=== PATIENT | female | born 1935 | race Caucasian/White ===

== ENCOUNTER 2020-12-27 13:26 | Inpatient (IN) ==
[2020-12-27] MEDS ORDERED: SODIUM CHLORIDE 0.9% 1000ML 1,000 ML IV SCH (14:45)
--- NOTE | 2020-12-27 15:05 | CT Scan Report ---
CT head/brain wo con CLINICAL HISTORY: syncope COMPARISON STUDY: 07/28/2015 TECHNIQUE: Axial CT of the brain is performed from the vertex to the skull base. IV contrast was not administered for this examination. A dose lowering technique was utilized adhering to the principles of ALARA. CT DOSE: 537.48 mGy.cm FINDINGS: No intra or extra-axial mass lesions are visualized. There is no CT evidence of acute cortical infarc tion. There is no evidence of midline shift. There is no acute hemorrhage. No calvarial fractures ar e visualized. There are patchy white matter hypodensities likely on a small vessel basis. There is no evidence of pathologic ventricular dilatation. There is no evidence of acute sinusitis IMPRESSION: No acute intracranial findings ACT 112: Negative or not required by law. Electronically signed by: Sherwin Delvalle M.D. 12/27/2020 3:04 PM
--- NOTE | 2020-12-27 15:05 | Emergency Department Note ---
History of Present Illness General Chief complaint: Fall Stated complaint: FALL,POSSIBLY HIT HEAD,POSSIBLE CONCUSSION Time Seen by Provider: 12/27/20 14:25 Source: patient and family Mode of arrival: ambulatory Limitations: no limitations History of Present Illness Maximum Pain Intensity: 0 This 85-year-old female presents today with her daughter, for evaluation of dizziness that has been present for 3 days. Patient reportedly fell 4 days ago, after tripping over her 's oxygen tubing. She struck her left forehead against a plastic bin. She states there was no loss of consciousness. She denies any headache. No nausea or vomiting. She states there is no neck pain. No chest pain or shortness of breath. Her daughter brings her in today for evaluation. Patient denies any history of heart disease or heart issues. She is a diabetic. No other complaints. She denies any history of arrhythmias. She is certain that the fall 4 days ago was mechanical in nature, and was not caused by dizziness at that time. No treatment yet. Home Medications Medication Instructions Recorded Confirmed Type Januvia 100 mg PO DAILY 12/27/20 12/27/20 History alendronate 70 mg PO WK 12/27/20 12/27/20 History aspirin 81 mg PO DAILY 12/27/20 12/27/20 History atorvastatin 10 mg PO DAILY 12/27/20 12/27/20 History cyanocobalamin (vitamin B-12) 1,000 mcg PO DAILY 12/27/20 12/27/20 History [Vitamin B-12] cyclobenzaprine 5 mg PO TID PRN 12/27/20 12/27/20 History ergocalciferol (vitamin D2) 1,250 mcg PO MONTHLY 12/27/20 12/27/20 History [Vitamin D2] fluticasone propionate 2 spray INTRANASAL DAILY PRN 12/27/20 12/27/20 History furosemide 20 mg PO DAILY 12/27/20 12/27/20 History glimepiride 1 mg PO DAILY 12/27/20 12/27/20 History metformin 1,000 mg PO BID 12/27/20 12/27/20 History omeprazole 40 mg PO DAILY 12/27/20 12/27/20 History paroxetine HCl [Paxil] 20 mg PO DAILY 12/27/20 12/27/20 History pregabalin 100 mg PO BID 12/27/20 12/27/20 History apixaban [Eliquis] 5 mg PO BID #180 tab 12/30/20 Rx cephalexin 500 mg PO QID 3 Days #12 cap 12/30/20 Rx lisinopril [Zestril] 5 mg PO QAM 30 Days #30 tab 12/30/20 Rx metoprolol succinate 25 mg PO QAM 30 Days #30 tab 12/30/20 Rx potassium chloride [Klor-Con M20] 20 meq PO DAILY #30 tab 12/30/20 Rx Allergies Allergy/AdvReac Type Severity Reaction Status Date / Time erythromycin base Allergy Unknown UNKNOWN Unverified 12/27/20 17:22 Past Med/Surg History Medical History Depression Diabetes mellitus, type II GERD (gastroesophageal reflux disease) History of DVT (deep vein thrombosis) 20 years ago Surgical History H/O hernia repair History of cholecystectomy Hx of cataract surgery S/P hernia repair Family History Other Cancer Heart disease Social History Smoking Status: Never smoker Hx Alcohol Use: No Hx Substance Use: No Preferred Language: [place] Citizen Communication Ability: Effective Visual Impairment: No Limitations Insurance Follow Up Representative Required: No Beliefs That Will Affect Care: None Current Living Situation: Alone current occupational status: retired Feels Safe at Home: Yes Assistive Devices: Glasses Review of Systems A total of 10 systems reviewed and were otherwise negative Physical Exam Vital Signs Vital Signs - 24 hr 12/27/20 13:36 12/27/20 14:59 Temperature 36.5 C Temperature Source Temporal Artery Scan Pulse Rate 104 H Respiratory Rate 20 Respiratory Effort / Characteristics Non-Labored Spontaneous Respiratory Depth Normal Respiratory Pattern Regular Blood Pressure 117/76 Blood Pressure Mean 89 Blood Pressure Position Sitting Pulse Oximetry 97 98 Oxygen Delivery Method Room Air Room Air Sepsis Recent Fever Within 48 Hours No Sepsis New/Unexplained Change in Mental Status N/A Sepsis Action Taken by Nursing No Action Required General: Well-developed, well-nourished, elderly white female, in no acute distress. Laying on a bed. Alert and oriented. Conversive. Skin: Warm and dry with good turgor. No rashes or lesions. No ecchymosis or erythema. The patient is not diaphoretic. She has a small linear abrasion present on her right forehead. Patient states it is nontender. HEENT: Normocephalic. Eyes PERRLA, EOMI. No conjunctiva or scleral injection. Ears TMs intact bilaterally with good light reflexes. No erythema or bulging. No hemotympanum. Nares patent bilaterally without turbinate enlargement. No sig nificant drainage. No epistaxis. Oropharynx without erythema or exudate. Uvula midline, oral mucosa moist. No lesions present. Heart: Irregularly irregular. No murmurs, gallops, or rubs. Lungs: Lungs are clear to auscultation. No crackles rhonchi or wheezing. Good air movement. The patient is able to take a deep breath. Abdomen: Abdomen was inspected, auscultated, and palpated. Bowel sounds present x 4. Mildly obese. Soft, nontender to palpation. No hepato-splenomegaly. No masses noted. No rebound. Musculoskeletal: Gross motor function of the upper and lower extremities is intact and unremarkable. Normal [id number] bilaterally. Normal pronator drift. Normal rapid opening and closing of the fingers. Strength is 5/5 for resisted plantarflexion and dorsiflexion of both ankles. It is also 5/5 for resisted flexion and extension of both wrists. Neurologic: Cranial nerves II through XII are intact. Gross sensation is intact across the upper and lower extremities by soft touch. Course Administered Medications Discontinued Medications Apixaban (Apixaban 5 Mg Tablet) 5 mg PO BID [facility] Stop: 01/27/21 10:29 Last Admin: 12/30/20 08:12 Dose: 5 mg Documented by: [id number] Admin: 12/29/20 20:53 Dose: 5 mg Documented by: [id number] Admin: 12/29/20 08:26 Dose: 5 mg Documented by: [id number] Admin: 12/28/20 20:51 Dose: 5 mg Documented by: [id number] Admin: 12/28/20 11:25 Dose: 5 mg Documented by: [id number] Aspirin (Aspirin 81 Mg Chew) 81 mg PO DAILY [facility] Stop: 01/27/21 08:59 Last Admin: 12/28/20 08:15 Dose: 81 mg Documented by: [id number] Atorvastatin Calcium (Atorvastatin 10 Mg Tab) 10 mg PO DAILY [facility] Stop: 01/27/21 08:59 Last Admin: 12/30/20 08:12 Dose: 10 mg Documented by: [id number] Admin: 12/29/20 08:26 Dose: 10 mg Documented by: [id number] Admin: 12/28/20 08:15 Dose: 10 mg Documented by: [id number] Cyanocobalamin (Cyanocobalamin 500 Mcg Tablet (Vitamin B-12)) 1,000 mcg PO DAILY [facility] Stop: 01/27/21 08:59 Last Admin: 12/30/20 08:11 Dose: 1,000 mcg Documented by: [id number] Admin: 12/29/20 08:26 Dose: 1,000 mcg Documented by: [id number] Admin: 12/28/20 08:15 Dose: 1,000 mcg Documented by: [id number] Diltiazem HCl (Diltiazem Hcl 5 Mg/Ml 5 Ml Vial) 10 mg IV NOW STA Stop: 12/27/20 15:09 Last Admin: 12/27/20 15:33 Dose: 10 mg Documented by: [id number] Cosigned by: [id number] Furosemide (Furosemide 20 Mg Tab) 20 mg PO DAILY [facility] Stop: 01/27/21 08:59 Last Admin: 12/30/20 08:11 Dose: 20 mg Documented by: [id number] Admin: 12/29/20 08:26 Dose: 20 mg Documented by: [id number] Admin: 12/28/20 08:14 Dose: 20 mg Documented by: [id number] Sodium Chloride (Nss 1000ml) 1,000 mls @ 250 mls/hr IV .Q4H [facility] Stop: 12/27/20 18:44 Last Infusion: 12/27/20 19:20 Dose: 0 mls/hr Documented by: [id number] Admin: 12/27/20 14:52 Dose: 250 mls/hr Documented by: [id number] Diltiazem HCl 125 mg/ Dextrose 125 mls @ 5 mls/hr IV .Q24H [facility]; Protocol Stop: 01/26/21 15:14 Last Titration: 12/28/20 11:17 Dose: 0 mg/hr, 0 mls/hr Documented by: [id number] Cosigned by: [id number] Titration: 12/28/20 07:10 Dose: 5 mg/hr, 5 mls/hr Documented by: [id number] Cosigned by: [id number] Admin: 12/27/20 15:33 Dose: 5 mg/hr, 5 mls/hr Documented by: [id number] Cosigned by: [id number] Heparin Sodium/Dextrose (Heparin Sodium/Dextrose) 25,000 units in 500 mls @ 23 mls/hr IV .[id number] [facility]; Protocol Stop: 01/26/21 18:14 Last Titration: 12/28/20 11:27 Dose: 0 units/hr, 0 mls/hr Documented by: [id number] Cosigned by: [id number] Titration: 12/28/20 07:10 Dose: 1,150 units/hr, 23 mls/hr Documented by: [id number] Cosigned by: [id number] Admin: 12/27/20 21:28 Dose: 1,150 units/hr, 23 mls/hr Documented by: [id number] Cosigned by: [id number] Ceftriaxone Sodium 1,000 mg/ (Dextrose) 50 mls @ 100 mls/hr IV Q24H [facility]; Protocol Stop: 01/08/21 00:00 Last Infusion: 12/30/20 00:10 Dose: 0 mls/hr Documented by: [id number] Admin: 12/29/20 23:37 Dose: 100 mls/hr Documented by: [id number] Infusion: 12/29/20 00:31 Dose: 0 mls/hr Documented by: [id number] Admin: 12/28/20 23:49 Dose: 100 mls/hr Documented by: [id number] Insulin Aspart (Insulin Aspart 100 Units/Ml 3 Ml Pen) 0 units SC ACHS [facility] Stop: 01/26/21 17:58 Last Admin: 12/30/20 09:54 Dose: Not Given Documented by: [id number] Cosigned by: [id number] Admin: 12/29/20 20:54 Dose: Not Given Documented by: [id number] Admin: 12/29/20 16:56 Dose: Not Given Documented by: [id number] Admin: 12/29/20 12:05 Dose: 2 units Documented by: [id number] Cosigned by: [id number] Admin: 12/29/20 08:23 Dose: 2 units Documented by: [id number] Cosigned by: [id number] Admin: 12/28/20 20:51 Dose: Not Given Documented by: [id number] Admin: 12/28/20 17:42 Dose: Not Given Documented by: [id number] Cosigned by: [id number] Admin: 12/28/20 13:14 Dose: 3 units Documented by: [id number] Cosigned by: [id number] Admin: 12/28/20 08:25 Dose: 1 units Documented by: [id number] Cosigned by: [id number] Admin: 12/28/20 08:24 Dose: Not Given Documented by: [id number] Cosigned by: [id number] Admin: 12/28/20 08:23 Dose: Not Given Documented by: [id number] Cosigned by: [id number] Ioversol (Optiray 350 500ml) 120 ml IV ONCE ONE Stop: 12/28/20 20:06 Last Admin: 12/28/20 20:06 Dose: 120 ml Documented by: [id number] [facility]inop[facility] (L[facility]op[facility] 5 Mg Tab) [facility] [place]: 01/28/21 08:59 Last Admin: 12/30/20 08:11 Dose: 5 mg Documented by: [id number] Admin: 12/29/20 08:26 Dose: 5 mg Documented by: [id number] Magnesium Sulfate/Dextrose (Magnesium Sulfate 1gm / D5w Bag) Confirm Administered Dose 1 gm IV .STK-MED ONE Stop: 12/27/20 19:03 Last Admin: 12/27/20 19:12 Dose: 1 gm Documented by: [id number] Magnesium Sulfate/Dextrose (Magnesium Sulfate 1gm / D5w Bag) Confirm Administered Dose 1 gm IV .STK-MED ONE Stop: 12/27/20 20:21 Last Admin: 12/27/20 20:21 Dose: 1 gm Documented by: [id number] Metoprolol Succinate (Metoprolol Succ 25mg Ext Rel Tab) [facility] [place]: 01/27/21 13:29 Last Admin: 12/30/20 08:11 Dose: 25 mg Documented by: [id number] Admin: 12/29/20 08:25 Dose: 25 mg Documented by: [id number] Admin: 12/28/20 14:12 Dose: 25 mg Documented by: [id number] Metoprolol Tartrate (Metoprolol Tartrate 25 Mg Tab) 12.5 mg PO BID [facility] Stop: 01/27/21 08:59 Last Admin: 12/28/20 08:14 Dose: 12.5 mg Documented by: [id number] Miscellaneous (Stat Iv Infusion Titration Per Protocol) 1 ea N/A NOW STA Stop: 12/27/20 15:09 Last Admin: 12/27/20 15:33 Dose: Not Given Documented by: [id number] Miscellaneous (Carbohydrates For Hypoglycemia ) 15 - 30 gm PO UD PRN PRN Reason: Hypoglycemia Protocol Stop: 01/27/21 00:48 Last Admin: 12/28/20 16:12 Dose: 15 gm Documented by: [id number] Pantoprazole Sodium (Pantoprazole 40 Mg Tab) 40 mg PO DAILY [facility] Stop: 01/27/21 08:59 Last Admin: 12/30/20 08:11 Dose: 40 mg Documented by: [id number] Admin: 12/29/20 08:25 Dose: 40 mg Documented by: [id number] Admin: 12/28/20 08:14 Dose: 40 mg Documented by: [id number] Paroxetine HCl (Paroxetine Hcl 20 Mg Tab) 20 mg PO DAILY [facility] Stop: 01/27/21 08:59 Last Admin: 12/30/20 08:11 Dose: 20 mg Documented by: [id number] Admin: 12/29/20 08:25 Dose: 20 mg Documented by: [id number] Admin: 12/28/20 08:14 Dose: 20 mg Documented by: [id number] Potassium Chloride (Potassium Chloride 10 Meq Tabcr) 10 meq PO DAILY [facility] Stop: 01/27/21 08:59 Last Admin: 12/28/20 08:14 Dose: 10 meq Documented by: [id number] Potassium Chloride (Potassium Chloride Crtab 20 Meq Tabcr) 40 meq PO NOW STA Stop: 12/28/20 00:58 Last Admin: 12/28/20 03:39 Dose: 40 meq Documented by: [id number] Potassium Chloride (Potassium Chloride Crtab 20 Meq Tabcr) 40 meq PO NOW STA Stop: 12/28/20 10:27 Last Admin: 12/28/20 11:21 Dose: 40 meq Documented by: [id number] Potassium Chloride (Potassium Chloride Crtab 20 Meq Tabcr) 20 meq PO DAILY [facility] Stop: 01/28/21 08:59 Last Admin: 12/30/20 08:15 Dose: 20 meq Documented by: [id number] Admin: 12/29/20 08:27 Dose: 20 meq Documented by: [id number] Pregabalin (Pregabalin 100 Mg Cap) 100 mg PO BID [facility] Stop: 01/27/21 00:59 Last Admin: 12/30/20 08:15 Dose: 100 mg Documented by: [id number] Admin: 12/29/20 20:53 Dose: 100 mg Documented by: [id number] Admin: 12/29/20 08:30 Dose: 100 mg Documented by: [id number] Admin: 12/28/20 20:54 Dose: 100 mg Documented by: [id number] Admin: 12/28/20 08:17 Dose: 100 mg Documented by: [id number] Admin: 12/28/20 03:03 Dose: 100 mg Documented by: [id number] Medical Decision Making Differential Diagnosis Atrial fibrillation, cardiac arrhythmia, electrolyte abnormality, hyperthyroidism, dehydration, intracranial injury Medical Records Attestation: I reviewed the patient's medical records. Home Medications Current Medication List: was personally reviewed by me Laboratory Data Attestation: I reviewed the patient's lab results. CBC, chemistry panel, magnesium, PT/INR, CK/CK-MB, troponin, and TSH were obtained. CBC is unremarkable. Sodium is mildly low at 133, potassium mildly low at 3.4. INR mildly elevated at 1.2. Magnesium is low at 1.5. Troponin is normal. TSH is also normal. Result diagrams: 12/29/20 06:37 12/29/20 06:37 Lab Results 12/27/20 12/27/20 12/27/20 Range/Units 14:55 14:55 15:33 WBC 6.81 (4.8-10.8) K/uL RBC 4.70 (4.2-5.4) M/uL Hgb 12.3 (12.0-16.0) g/dL Hct 38.0 (37-47) % MCV 80.9 (80-100) fL MCH 26.2 (25-34) pg MCHC 32.4 (32-36) g/dL RDW Std Deviation 45.0 (36.4-46.3) fL RDW Coeff of Lesley 15.4 H (11.5-14.5) % Plt Count 210 (130-400) K/uL MPV 10.8 H (7.4-10.4) fL Immature Gran % (Auto) 0.3 % Neut % (Auto) 61.3 % Lymph % (Auto) 25.0 % Morrison % (Auto) 12.0 % Eos % (Auto) 1.0 % Baso % (Auto) 0.4 % Neut # (Auto) 4.17 (1.4-6.5) K/uL Lymph # (Auto) 1.70 (1.2-3.4) K/uL Morrison # (Auto) 0.82 H (0.11-0.59) K/uL Eos # (Auto) 0.07 (0-0.5) K/uL Baso # (Auto) 0.03 (0-0.2) K/uL Immature Gran # (Auto) 0.02 (0.00-0.02) K/uL PT 12.0 (9.0-12.0) Seconds INR 1.2 H (0.9-1.1) Sodium 133 L (136-145) mmol/L Potassium 3.4 L (3.5-5.1) mmol/L Chloride 98 (98-107) mmol/L Carbon Dioxide 28 (21-32) mmol/L Anion Gap 7.0 (3-11) BUN 12 (7-18) mg/dl Creatinine 0.78 (0.6-1.2) mg/dl Est Cr Clr Drug Dosing 53.2 ml/min Est GFR ( Amer) 80.9 ml/min Est GFR (Non-Af Amer) 69.8 ml/min BUN/Creatinine Ratio 15.6 (10-20) Glucose 121 H (70-99) mg/dl Calcium 8.9 (8.5-10.1) mg/dl Magnesium 1.5 L (1.8-2.4) mg/dl Total Bilirubin 1.0 (0.2-1) mg/dl AST 19 (15-37) U/L ALT 17 (12-78) U/L Alkaline Phosphatase 104 (45-117) U/L Total Creatine Kinase 83 (26-192) U/L CK-MB (CK-2) 2.0 (0.5-3.6) ng/ml CK/CKMB % Calc 2.4 (0-3.0) Troponin I < 0.015 (0-0.045) ng/ml Total Protein 7.7 (6.4-8.2) gm/dl Albumin 3.3 L (3.4-5.0) gm/dl Globulin 4.4 H (2.5-4.0) gm/dl Albumin/Globulin Ratio 0.8 L (0.9-2) TSH 2.610 (0.300-4.500) uIu/ml Imaging Data My Impression: Chest x-ray obtained today was reviewed by me and read by radiology. It shows cardiomegaly with trace left pleural effusion. Left basilar opacity which is likely atelectasis but could be consolidation. Radiographic follow-up is recommended. CT scan imaging of the head was also obtained due to her fall. There is no evidence for acute intracranial abnormality. No acute sinusitis. No evidence of fracture. No midline shift. Blood Pressure Blood Pressure Findings: Normal blood pressure MDM Narrative Patient was evaluated in room B 12. Her daughter was present. Conservative care measures were discussed. Patient was placed on a monitor. She was tachycardic at around 120. IV was established. Labs were obtained. Given her history of fall, and continued dizziness, CT scan of the head was obtained. EKG and chest x-ray were also obtained along with lab work. I did speak with the patient's other daughter by telephone. She is a cardiac nurse. She insist the patient has no history of A. fib. Physical exam and EKG confirmed current atrial fibrillation. Because of the new onset, patient will require admission for further work-up. She is in agreement. Diltiazem drip was ordered for the fibrillation. Hospitalist service was consulted. Please see that dictation for final management. Impression & Plan New onset atrial fibrillation, Hypokalemia, Hypomagnesemia Patient was given a diltiazem drip, with a loading bolus of 10 mg. She will also require magnesium replacement. I did speak with the hospitalist service regarding her admission. Please see their dictation for final management. Patient was seen in conjunction with Dr. Feng, who also evaluated the patient and concurred with today's diagnosis and treatment plan. She remained on a m onitor while in the department. She remained stable. Discharge Plan Visit Data Chief Complaint: Fall Stated Complaint: FALL,POSSIBLY HIT HEAD,POSSIBLE CONCUSSION ED Provider: Bowen Feng ED Midlevel Provider: Terrance Skelton Discharge Problem: New onset atrial fibrillation, Hypokalemia, Hypomagnesemia Patient Disposition: Admitted As Inpatient Discharge Instructions Interventions: ED Discharge Assessment Last Done: 12/27/20 23:28
[2020-12-27 15:07] LABS: Basophils # (auto) 0.03 K/uL (0-0.2); Basophils % (auto) 0.4 %; Eosinophils # (auto) 0.07 K/uL (0-0.5); Hemoglobin 12.3 g/dL (12.0-16.0); Immature Granulocytes # (auto) 0.02 K/uL (0.00-0.02); Immature Granulocytes % (auto) 0.3 %; Mean Corpuscular Hemoglobin 26.2 pg (25-34); Mean Corpuscular Hgb Conc 32.4 g/dL (32-36); Mean Corpuscular Volume 80.9 fL (80-100); Mean Platelet Volume 10.8 fL (7.4-10.4); Monocytes # (auto) 0.82 K/uL (0.11-0.59); Neutrophils # (auto) 4.17 K/uL (1.4-6.5); Neutrophils % (auto) 61.3 %; Platelet Count 210 K/uL (130-400); RDW Coefficient of Variation 15.4 % (11.5-14.5); White Blood Count 6.81 K/uL (4.8-10.8)
[2020-12-27] MEDS ORDERED: STAT IV Infusion **Titration per Protocol STA (15:08)
[2020-12-27] MEDS ORDERED: dilTIAZem HCl 5 MG/ML 5 ML VIAL IV STA (15:08)
[2020-12-27] MEDS ORDERED: dilTIAZem HCL 125 MG in DEXTROSE 5% 100 ML IV SCH (15:15)
--- NOTE | 2020-12-27 15:21 | XRay Report ---
XR chest 1V portable CLINICAL HISTORY: dizzy, nausea, crackles in bases COMPARISON STUDY: Chest radiograph July 28, 2015. FINDINGS: Lung volumes are normal. There is no pneumothorax. There is a trace left pleural effusion. Interstitial thickening is present. A skinfold project over the left chest. Note is made of cardiomeg jenniffer. There is mild left basilar opacity. IMPRESSION: 1. Cardiomegaly with mild interstitial pulmonary edema and a trace left pleural effusion. 2. Left basilar opacity which could reflect atelectasis or consolidation. Radiographic follow-up is r ecommended. ACT 112: Negative or not required by law. Electronically signed by: Lázaro Ho M.D. 12/27/2020 3:20 PM
[2020-12-27 15:24] LABS: Alanine Aminotransferase 17 U/L (12-78); Albumin Level 3.3 gm/dl (3.4-5.0); Aspartate Aminotransferase 19 U/L (15-37); BUN Creatinine Ratio 15.6 (10-20); Blood Urea Nitrogen 12 mg/dl (7-18); Calcium 8.9 mg/dl (8.5-10.1); Carbon Dioxide 28 mmol/L (21-32); Chloride 98 mmol/L (98-107); Creatinine Clr Calc Pharmacy 53.2 ml/min; Est GFR (African American) 80.9 ml/min; Est GFR (Non-African American) 69.8 ml/min; Glucose 121 mg/dl (70-99); Magnesium 1.5 mg/dl (1.8-2.4); Potassium 3.4 mmol/L (3.5-5.1); Sodium 133 mmol/L (136-145)
[2020-12-27 15:35] LABS: Albumin Globulin Ratio 0.8 (0.9-2); Alkaline Phosphatase 104 U/L (45-117); Creatine Kinase 83 U/L (26-192); Globulin 4.4 gm/dl (2.5-4.0); Total Protein 7.7 gm/dl (6.4-8.2); Troponin I < 0.015 ng/ml (0-0.045)
[2020-12-27 15:51] LABS: INR 1.2 (0.9-1.1)
--- NOTE | 2020-12-27 16:18 | Emergency Department Note ---
ED Visit Note Patient was seen by our PA/[employer]. I was involved in the patient's care and did evaluate the patient myself. I was involved in the care throughout the ER stay. Patient was found to be in a rapid A. fib. This is a new diagnosis for her. She is on a Cardizem drip. She will be hospitalized. .
--- NOTE | 2020-12-27 17:15 | History & Physical Report ---
Date of Service December 27, 2020 Assessment & Plan (1) New onset atrial fibrillation: This is an 85yo F with PMH of DM II, history of DVT, GERD, MDD and other medical problems listed below who presents from home with persistent dizziness x 3 days and was found to have new onset A Fib. Dizziness x 3 days ECG with A fib with RVR with HR 115 bpm. 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 Started on Diltiazem drip in ER- HR improved to high 80s-90s Plan to transition to PO Lopressor in AM Initiated IV heparin for now [id number] score 6 Per discussion with family, interested in anticoagulation with DOAC Monitor on telemetry, orthostatics (2) Hypomagnesemia: Mg 1.5- replacing Repeat in AM (3) Hypokalemia: Potassium of 3.4 - replacing Repeat BMP in AM (4) Fall: Mechanical fall at home CT head without acute abnormality PT/OT evaluations, discharge planning (5) History of DVT (deep vein thrombosis): Remote history of DVT 20 years ago, completed 3 mo course of coumadin at that time (6) Diabetes mellitus, type II: A1c 7.5 last year - repeat pending Hold home oral agents SSI while in-patient BSG AC HS (7) GERD (gastroesophageal reflux disease): Continue PPI (8) Depression: Continue SSRI DVT Ppx: IV heparin Code status: FULL PCP: Mal Dispo:Admitted to [facility]. Discharge planning ordered Patient seen in collaboration with Dr. Smith. Please see addendum. History of Present Illness Chief Complaint: fall at home, dizziness Primary Care Provider: Wilberto Resendez MD This is an 85yo F with PMH of DM II, history of DVT, GERD, MDD and other medical problems listed below who presents from home with persistent dizziness x 3 days. Patient reportedly fell 4 days ago after tripping over her 's oxygen tubing. She struck her left forehead against a plastic drawer. Denies any LOC, pain or headache. Woke up the next morning with dizziness and was afraid she may fall again. Has also been feeling very fatigued. Denies room spinning but endorses nausea since yesterday. Also experienced palpitations that have since resolved. Currently, patient denies any fever, chills, light headedness, dizziness, chest pain, shortness of breath, vomiting, abdominal pain, dysuria, diarrhea or constipation. Denies any history of heart disease or heart issues. Remote history of DVT twenty years ago. Allergies Allergy/AdvReac Type Severity Reaction Status Date / Time erythromycin base Allergy Unknown UNKNOWN Unverified 12/27/20 17:22 Home Medications Medication Instructions Recorded Confirmed Type alendronate 70 mg PO WK 12/27/20 12/27/20 History aspirin [Baby Aspirin] 81 mg PO DAILY 12/27/20 12/27/20 History atorvastatin 10 mg PO DAILY 12/27/20 12/27/20 History cyanocobalamin (vitamin B-12) 1,000 mcg PO DAILY 12/27/20 12/27/20 History [Vitamin B-12] cyclobenzaprine 5 mg PO TID PRN 12/27/20 12/27/20 History ergocalciferol (vitamin D2) 1,250 mcg PO MONTHLY 12/27/20 12/27/20 History [Vitamin D2] fluticasone propionate 2 spray INTRANASAL DAILY PRN 12/27/20 12/27/20 History furosemide 20 mg PO DAILY 12/27/20 12/27/20 History glimepiride 1 mg PO DAILY 12/27/20 12/27/20 History metformin 1,000 mg PO BID 12/27/20 12/27/20 History omeprazole 40 mg PO DAILY 12/27/20 12/27/20 History paroxetine HCl [Paxil] 20 mg PO DAILY 12/27/20 12/27/20 History potassium chloride 10 meq PO DAILY 12/27/20 12/27/20 History pregabalin 100 mg PO BID 12/27/20 12/27/20 History sitagliptin [Januvia] 100 mg PO DAILY 12/27/20 12/27/20 History Past Med/Surg History Medical History (Updated 12/27/20 @ 17:55 by Janay Guardado PA-C) Depression Diabetes mellitus, type II GERD (gastroesophageal reflux disease) History of DVT (deep vein thrombosis) 20 years ago Surgical History (Updated 12/27/20 @ 17:37 by Janay Guardado PA-C) H/O hernia repair History of cholecystectomy Hx of cataract surgery S/P hernia repair Family History Other Cancer Heart disease Social History Smoking Status: Never smoker Hx Alcohol Use: Yes Alcohol Intake Frequency Comment: rarely, 1-2x/year Hx Substance Use: No Visual Impairment: No Limitations current occupational status: retired Feels Safe at Home: Yes Review of Systems Review of Systems: At least ten systems reviewed and negative except as noted in the HPI. Physical Exam Physical Exam: Please see Dr. Smith's addendum for physical exam. Results & Data Results & Data ([facility]) Vital Signs (Past 12 Hours) Vital Signs Temp Pulse Resp BP Pulse Ox 12/27/20 16:17 82 17 93 12/27/20 16:01 88 16 91 12/27/20 16:00 84 20 104/75 97 12/27/20 15:50 79 19 12/27/20 15:40 106 H 23 99 12/27/20 15:35 109 H 14 119/89 94 12/27/20 15:30 115 H 14 12/27/20 15:20 100 H 15 94 12/27/20 15:10 113 H 19 96 12/27/20 15:07 127 H 17 12/27/20 14:59 98 12/27/20 14:50 115 H 96 12/27/20 14:42 115 H 12 12/27/20 13:36 36.5 C 104 H 20 117/76 97 Laboratory Results Short CBC 12/27/20 Range/Units 14:55 WBC 6.81 (4.8-10.8) K/uL Hgb 12.3 (12.0-16.0) g/dL Hct 38.0 (37-47) % Plt Count 210 (130-400) K/uL BMP 12/27/20 14:55 Sodium 133 L Potassium 3.4 L Chloride 98 Carbon Dioxide 28 BUN 12 Creatinine 0.78 Glucose 121 H Calcium 8.9 Cardiac Enzymes 12/27/20 Range/Units 14:55 Total Creatine Kinase 83 (26-192) U/L CK-MB (CK-2) 2.0 (0.5-3.6) ng/ml Troponin I < 0.015 (0-0.045) ng/ml Liver Function 12/27/20 Range/Units 14:55 Total Bilirubin 1.0 (0.2-1) mg/dl AST 19 (15-37) U/L ALT 17 (12-78) U/L Alkaline Phosphatase 104 (45-117) U/L Albumin 3.3 L (3.4-5.0) gm/dl Diagnostic Findings Chest X-Ray 12/27/20 14:41 XR chest 1V portable CLINICAL HISTORY: dizzy, nausea, crackles in bases COMPARISON STUDY: Chest radiograph July 28, 2015. FINDINGS: Lung volumes are normal. There is no pneumothorax. There is a trace left pleural effusion. Interstitial thickening is present. A skinfold project over the left chest. Note is made of cardiomegaly. There is mild left basilar opacity. IMPRESSION: 1. Cardiomegaly with mild interstitial pulmonary edema and a trace left pleural effusion. 2. Left basilar opacity which could reflect atelectasis or consolidation. Radiographic follow-up is recommended. ACT 112: Negative or not required by law. Electronically signed by: Lázaro Ho M.D. 12/27/2020 3:[address] 12/27/20 14:42 CT head/brain wo con CLINICAL HISTORY: syncope COMPARISON STUDY: 07/28/2015 TECHNIQUE: Axial CT of the brain is performed from the vertex to the skull base. IV contrast was not administered for this examination. A dose lowering technique was utilized adhering to the principles of ALARA. CT DOSE: 537.48 mGy.cm FINDINGS: No intra or extra-axial mass lesions are visualized. There is no CT evidence of acute cortical infarction. There is no evidence of midline shift. There is no acute hemorrhage. No calvarial fractures are visualized. There are patchy white matter hypodensities likely on a small vessel basis. There is no evidence of pathologic ventricular dilatation. There is no evidence of acute sinusitis IMPRESSION: No acute intracranial findings ACT 112: Negative or not required by law. Electronically signed by: Sherwin Delvalle M.D. 12/27/2020 3:04 PM Supervising Physician Co-Signing Physician Notes History and physical exam performed by me. Detailed by Janay Guardado PA-C History notable for 85-year-old woman with history of DVT many years ago, DM type II, osteoporosis who presents today ER today complaining of dizziness and had a fall 3 days ago. Fall described as mechanical after leg was caught in 's oxygen tubing. Patient reported that she hit her head but no loss of consciousness/he adache/pain at the time. Reported that she woke up the next morning with dizziness especially with activity when getting up. Daughter also reported that she has been a little bit more confused since then but no focal deficits. She also reported some palpitations over the past couple of days. Reports chronic intermittent dry cough, no orthopnea or PND General: Elderly woman, no acute distress and not ill appearing Eyes: PERRL, conjunctivae normal, not pale, anicteric sclerae, EOM intact bilaterally ENMT: External ear and nose normal, oropharynx normal Neck: Normal visual inspection, no tracheal deviation, no swelling noted Respiratory: Normal respiratory effort, no respiratory distress, lungs clear to auscultation, no crackles and no wheezes Cardiovascular: Pulse is irregularly irregular S1 S2. Gastrointestinal (Abdomen): Abdomen is not distended, soft, non-tender to palpation, no guarding, no palpable hepatosplenomegaly, normal bowel sounds Musculoskeletal: No cyanosis or clubbing, trace edema Genitourinary: No CVA tenderness Neurologic: Alert and oriented x 3, No focal weakness, sensation grossly intact Psychiatric: Alert and oriented x 3, euthymic affect, no depressed affect Lab work notable for sodium of 133, potassium of 3.4, magnesium of 1.5 CT head did not show any acute findings Chest x-ray reported cardiomegaly with mild interstitial pulmonary edema and trace left pleural effusion, left basilar opacity which could be atelectasis/consolidation -Mechanical Fall -Possible concussion -New onset Afib -Hypomagnesemia -Mild hypokalemia Fall seem mechanical per history Get PT/OT evaluation Fall precautions New onset Afib. CHADVASC - 9 I discussed stroke risk with her and daughters. Start heparin drip. May be transitioned to NOAC on discharge Get 2D Echo Telemetry monitoring Continue diltiazem drip for now. Start lopressor Cardiology consult. Replete K and mag Agree with other plans as detailed by Janay Guardado PA-C
[2020-12-27] MEDS ORDERED: Heparin IV Adult Wt-Based Standard *NO* Bolus Protocol IV SCH (18:00)
--- NOTE | 2020-12-27 18:14 | Communication Note ---
Date of Service: December 27, 2020 History and physical exam performed by me. Detailed by Janay Guardado PA-C History notable for 85-year-old woman with history of DVT many years ago, DM type II, osteoporosis who presents today ER today complaining of dizziness and had a fall 3 days ago. Fall described as mechanical after leg was caught in 's oxygen tubing. Patient reported that she hit her head but no loss of consciousness/headache/pain at the time. Reported that she woke up the next morning with dizziness especially with activity when getting up. Daughter also reported that she has been a little bit more confused since then but no focal deficits. She also reported some palpitations over the past couple of days. Reports chronic intermittent dry cough, no orthopnea or PND General: Elderly woman, no acute distress and not ill appearing Eyes: PERRL, conjunctivae normal, not pale, anicteric sclerae, EOM intact bilaterally ENMT: External ear and nose normal, oropharynx normal Neck: Normal visual inspection, no tracheal deviation, no swelling noted Respiratory: Normal respiratory effort, no respiratory distress, lungs clear to auscultation, no crackles and no wheezes Cardiovascular: Pulse is irregularly irregular S1 S2. Gastrointestinal (Abdomen): Abdomen is not distended, soft, non-tender to palpation, no guarding, no palpable hepatosplenomegaly, normal bowel sounds Musculoskeletal: No cyanosis or clubbing, trace edema Genitourinary: No CVA tenderness Neurologic: Alert and oriented x 3, No focal weakness, sensation grossly intact Psychiatric: Alert and oriented x 3, euthymic affect, no depressed affect Lab work notable for sodium of 133, potassium of 3.4, magnesium of 1.5 CT head did not show any acute findings Chest x-ray reported cardiomegaly with mild interstitial pulmonary edema and trace left pleural effusion, left basilar opacity which could be atelectasis/consolidation -Mechanical Fall -Possible concussion -New onset Afib -Hypomagnesemia -Mild hypokalemia Fall seem mechanical per history Get PT/OT evaluation Fall precautions New onset Afib. CHADVASC - 9 I discussed stroke risk with her and daughters. Start heparin drip. May be transitioned to NOAC on discharge Get 2D Echo Telemetry monitoring Continue diltiazem drip for now. Start lopressor Cardiology consult. Replete K and mag Agree with other plans as detailed by Janay Guardado PA-C
[2020-12-27] MEDS ORDERED: HEPARIN SODIUM/DEXTROSE 25,000 UNITS/500 ML BAG IV SCH (18:15)
[2020-12-27] MEDS ORDERED: MAGNESIUM SULFATE 1GM / D5W BAG IV ONE ×2 (19:02→20:20)
[2020-12-27] MEDS ORDERED: MAGNESIUM SULFATE / D5W 1 GM/100 ML BAG IV SCH (21:00)
[2020-12-28] MEDS ORDERED: FLUTICASONE PROPIONATE NA SPR 16 GM BTL NAE PRN (00:49)
[2020-12-28] MEDS ORDERED: GLUCOSE 40% GEL 15 GM TUBE PO PRN (00:49)
[2020-12-28] MEDS ORDERED: DEXTROSE 50% 50 ML SYRINGE IV PRN (00:49)
[2020-12-28] MEDS ORDERED: GLUCOSE 10 TABS/TUBE PO PRN (00:49)
[2020-12-28] MEDS ORDERED: ACETAMINOPHEN 325 MG TAB PO PRN (00:49)
[2020-12-28] MEDS ORDERED: GLUCAGON FOR INJ 1 MG VIAL SQ PRN (00:49)
[2020-12-28] MEDS ORDERED: CYCLOBENZAPRINE HCL 5 MG TAB PO PRN (00:49)
[2020-12-28] MEDS ORDERED: POLYETHYLENE (MIRALAX) 17 GM PACK PO PRN (00:49)
[2020-12-28] MEDS ORDERED: ONDANSETRON INJ 2 MG/ML 2 ML VIAL IV PRN (00:49)
[2020-12-28] MEDS ORDERED: CARBOHYDRATES FOR HYPOGLYCEMIA PO PRN (00:49)
[2020-12-28] MEDS ORDERED: POTASSIUM CHLORIDE CRTAB 20 MEQ TABCR PO STA ×2 (00:57→10:26)
[2020-12-28] MEDS: PREGABALIN 100 MG CAP PO SCH ×3 (03:03→20:54)
[2020-12-28 07:52] LABS: Hematocrit (blood only) 37.5 % (37-47); Hemoglobin 12.1 g/dL (12.0-16.0); Mean Corpuscular Hemoglobin 26.5 pg (25-34); Mean Corpuscular Hgb Conc 32.3 g/dL (32-36); Mean Corpuscular Volume 82.2 fL (80-100); Mean Platelet Volume 10.5 fL (7.4-10.4); Platelet Count 206 K/uL (130-400); RDW Coefficient of Variation 15.7 % (11.5-14.5); RDW Standard Deviation 47.4 fL (36.4-46.3); Red Blood Count 4.56 M/uL (4.2-5.4); White Blood Count 5.84 K/uL (4.8-10.8)
[2020-12-28 07:56] LABS: Estimated Average Glucose 151 mg/dl; Hemoglobin A1C 6.9 % (4.5-5.6)
[2020-12-28] MEDS: FUROSEMIDE 20 MG TAB PO SCH (08:14)
[2020-12-28] MEDS: PANTOprazole 40 MG TAB PO SCH (08:14)
[2020-12-28] MEDS: PARoxetine HCL 20 MG TAB PO SCH (08:14)
[2020-12-28 08:15] LABS: Partial Thromboplastin Ratio 2.4
[2020-12-28] MEDS: CYANOCOBALAMIN 500 MCG TABLET (VITAMIN B-12) PO SCH (08:15)
[2020-12-28] MEDS: ATORVASTATIN 10 MG TAB PO SCH (08:15)
[2020-12-28 08:16] LABS: BUN Creatinine Ratio 13.7 (10-20); Calcium 8.4 mg/dl (8.5-10.1); Creatinine Clr Calc Pharmacy 67.8 ml/min; Est GFR (African American) 96.5 ml/min; Est GFR (Non-African American) 83.2 ml/min; Partial Thromboplastin Time 62.3 Seconds (21.0-31.0); Potassium 3.1 mmol/L (3.5-5.1)
[2020-12-28] MEDS: INSULIN ASPART 100 UNITS/ML 3 ML PEN SC SCH ×6 (08:23→20:51)
[2020-12-28] MEDS ORDERED: ASPIRIN 81 MG CHEW PO SCH (09:00)
[2020-12-28] MEDS ORDERED: METOPROLOL TARTRATE 25 MG TAB PO SCH (09:00)
[2020-12-28] MEDS ORDERED: POTASSIUM CHLORIDE 10 MEQ TABCR PO SCH (09:00)
--- NOTE | 2020-12-28 09:03 | Cardiology Consultation ---
Date of Consultation December 28, 2020 Assessment & Plan (1) New onset atrial fibrillation: (2) Hypokalemia: (3) Hypomagnesemia: New onset afib, no known history of CAD or Valvular pathology. Currently asymptomatic and rate controlled in the 50-60s. D/C Cardizem gtt Continue Metoprolol tartrate 12.5 mg twice daily Echo to assess for structural abnormalities and heart function. Had a lengthy discussion about terminal gauger AC (Eliquis vs Coumadin). Risks and benefits discussed with patient. Patient is currently 85 years old, 71 kg, Normal Kidney function. Patient opted for Eliquis. D/C Heparin gtt with first dose of Eliquis. Start Eliquis 5 mg twice daily. No Hx of CAD or CVA- Okay to DC ASA now that patient is on Eliquis Patient should ambulate in hallway prior to dc to assess active HR. Potassium low at 3.1- currently being supplemented with KCL 10 meq daily. One time dose to KCL 40 meq- Repeat BMP at 1600, continue to replace as necessary On discharge patient will likely require increase dose of KCL supplementation. Mag stable and WNL of 2.0, previously replaced. Supervising Physician Co-Signing Physician Notes I have seen and evaluated the patient. I reviewed the medical record and discussed the case with . I agree with the plan as outlined. Patient echocardiogram indicates severe LV and RV dysfunction. The right cardiac chambers are markedly dilated. Would recommend CT the chest rule out pulmonary emboli. History of Present Illness Reason for Consultation: New onset atrial fibrillation Requesting Physician: [facility] Attending Physician: Roxanne Smith MD History of Present Illness 85 year old female presenting to the hospital for complaints of dizziness x3 days, found to be in atrial fibrillation- new diagnosis for her. EKG showed Afib with RVR, 115 bpm. RBBB and LAFB was present previously. Patient was started on diltiazem gtt in the ED, heart rate improved to 80-90s. [id number] score 6, IV heparin infusion started. Patient had low mag of 1.5 and a potassium of 2.4, was replaced appropriately. Patient has not seen [facility] in the past. Unfortunately patient suffered a fall at home due to tripping over husbands o2 tubing (no dizziness the time), head CT was negative for acute abnormalities. Upon entering hte room patient was resting comfortably in bed. Denies any cardiovascular complaints. No exertional chest pain or shortness of breath. Patient is currently asymptomatic with rate controlled AFIB. No palpitations. No further episodes of dizziness, syncope or near syncope. No orthopnea, PND, or increased lower extremity edema. No fever, chills, cough, hematochezia, melena, or hemoptysis. Tele monitor reviewed: Afib without episodes of conversion pauses, rate controlled in the 50s-60s. Currently still remains on Diltiazem 5mg/hr. Potassium low this morning at 3.1, mag WNL of 2.0. Patient is being supplemented with KCL 10 meq/daily. PMH: H/o DVT in the remote past due to injury- was on 3 mos of Coumadin DM 2, with neuropathy GERD HLD Allergies Allergy/AdvReac Type Severity Reaction Status Date / Time erythromycin base Allergy Unknown UNKNOWN Unverified 12/27/20 17:22 Home Medications Medication Instructions Recorded Confirmed Type alendronate 70 mg PO WK 12/27/20 12/27/20 History aspirin [Baby Aspirin] 81 mg PO DAILY 12/27/20 12/27/20 History atorvastatin 10 mg PO DAILY 12/27/20 12/27/20 History cyanocobalamin (vitamin B-12) 1,000 mcg PO DAILY 12/27/20 12/27/20 History [Vitamin B-12] cyclobenzaprine 5 mg PO TID PRN 12/27/20 12/27/20 History ergocalciferol (vitamin D2) 1,250 mcg PO MONTHLY 12/27/20 12/27/20 History [Vitamin D2] fluticasone propionate 2 spray INTRANASAL DAILY PRN 12/27/20 12/27/20 History furosemide 20 mg PO DAILY 12/27/20 12/27/20 History glimepiride 1 mg PO DAILY 12/27/20 12/27/20 History metformin 1,000 mg PO BID 12/27/20 12/27/20 History omeprazole 40 mg PO DAILY 12/27/20 12/27/20 History paroxetine HCl [Paxil] 20 mg PO DAILY 12/27/20 12/27/20 History potassium chloride 10 meq PO DAILY 12/27/20 12/27/20 History pregabalin 100 mg PO BID 12/27/20 12/27/20 History sitagliptin [Januvia] 100 mg PO DAILY 12/27/20 12/27/20 History Patient History Medical History Depression Diabetes mellitus, type II GERD (gastroesophageal reflux disease) History of DVT (deep vein thrombosis) 20 years ago Surgical History H/O hernia repair History of cholecystectomy Hx of cataract surgery S/P hernia repair Family History Other Cancer Heart disease Social History Smoking Status: Never smoker Hx Alcohol Use: No Hx Substance Use: No Preferred Language: Chinese Communication Ability: Effective Visual Impairment: No Limitations Financial Sales Associate Required: No Beliefs That Will Affect Care: None Current Living Situation: Alone current occupational status: retired Other Information That Helps Us Care for You: No Feels Safe at Home: Yes Safety Concerns: Feels Safe At This Time Assistive Devices: None Review of Systems Review of Systems: All systems reviewed & are unremarkable except as noted in HPI & below Physical Exam Physical Exam: General: No acute distress. A+Ox3. HEENT: Normocephalic. Atraumatic. PERRL. EOMI. Conjunctiva and sclera clear. NECK: No carotid bruits. No JVD. Carotid upstrokes are brisk. Heart: Regular rate, irreg. irreg. rhythm. S1 and S2 noted without murmur, rubs, gallops. PMI non displaced. Lungs: Clear to auscultation. No wheezes, rhonchi, rales. Abdomen: Normal bowel sounds. Soft. Nontender. No masses or organomegaly. No abdominal bruits. Extremities: No edema. No clubbing or cyanosis. Pulses: radial=2/4, posterior tibial=2/4, dorsalis pedis = 2/4. NEURO: No focal deficits. PSYCH: Normal. Results & Data ([facility]) Vital Signs (Past 12 Hours) Vital Signs Temp Pulse Pulse Resp BP BP Pulse Ox 12/28/20 07:17 36.4 C L 70 20 118/73 93 12/28/20 03:56 36.4 C L 66 18 104/72 94 12/28/20 00:49 36.5 C 78 75 20 113/74 93 12/27/20 23:27 76 16 111/75 98 12/27/20 23:10 69 17 12/27/20 23:01 78 17 12/27/20 23:00 76 23 118/79 94 12/27/20 22:50 96 H 22 12/27/20 22:40 70 14 12/27/20 22:31 76 17 12/27/20 22:30 69 14 113/80 12/27/20 22:20 78 19 12/27/20 22:10 70 12/27/20 22:01 76 12 12/27/20 22:00 73 14 118/89 94 12/27/20 21:50 81 19 12/27/20 21:40 68 14 12/27/20 21:31 74 12/27/20 21:30 68 15 113/75 95 12/27/20 21:20 73 20 12/27/20 21:10 77 16 12/27/20 21:01 66 13 12/27/20 21:00 72 17 137/61 95 Pulse Ox 12/28/20 07:17 12/28/20 03:56 12/28/20 00:49 93 12/27/20 23:27 12/27/20 23:10 12/27/20 23:01 12/27/20 23:00 12/27/20 22:50 12/27/20 22:40 12/27/20 22:31 12/27/20 22:30 12/27/20 22:20 12/27/20 22:10 12/27/20 22:01 12/27/20 22:00 12/27/20 21:50 12/27/20 21:40 12/27/20 21:31 12/27/20 21:30 12/27/20 21:20 12/27/20 21:10 12/27/20 21:01 12/27/20 21:00
[2020-12-28] MEDS: APIXABAN 5 MG TABLET PO SCH ×2 (11:25→20:51)
--- NOTE | 2020-12-28 12:45 | Hospitalist Progress Note ---
Date of Service December 28, 2020 Assessment & Plan (1) New onset atrial fibrillation: Dizziness x 3 days On admission, ECG with A fib with RVR with HR 115 bpm. 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 Now off diltiazem drip. Rate controlled with metoprolol po [id number] score 6 Was started on heparin drip. Now transitioned to eliquis Echocardiogram show EF of 15 to 20%, severely dilated right ventricle and right atrium with moderate to severe tricuspid regurgitation. Discussed with bandage winding machine operator. In view of new A. fib and dizziness, will get CT PE to rule out PE (2) Hypomagnesemia: Magnesium was 1.5 on admission. Repleted Magnesium is 2 this morning (3) Hypokalemia: On admission, potassium of 3.4 Potassium is 3.1 this morning. Continue repletion and monitoring (4) Fall: Mechanical fall at home CT head without acute abnormality Dizziness may be related to concussion as patient reports hitting her head PT/OT evaluations, discharge planning (5) History of DVT (deep vein thrombosis): Remote history of DVT 20 years ago, completed 3 mo course of coumadin at that time (6) Diabetes mellitus, type II: A1c 7.5 last year Hemoglobin A1c 6.9 Hold home oral agents SSI while in-patient BSG AC HS (7) GERD (gastroesophageal reflux disease): Continue PPI (8) Depression: Continue SSRI DVT Ppx: IV heparin Code status: FULL PCP: Mal Dispo: Med telemetry Admission and Anticipated Discharge Date Admission Date: December 27, 2020 Subjective 85-year-old woman with history of DVT many years ago, DM type II, osteoporosis who presents today ER today complaining of dizziness and had a fall 3 days ago. Found to have new onset Afib Patient seen and examined. Reports improvement in dizziness but still has occasional dizziness with activity Denies any headache, nausea, vomiting No palpitations this morning. Denies any chest pain, cough, shortness of breath Denies any abdominal pain, diarrhea or constipation Denies any dysuria, frequency, urgency Review of Systems Review of Systems: All systems reviewed & are unremarkable except as noted in Subjective Physical Exam Constitutional: + well hydrated; no acute distress Elderly woman Eyes: PERRL, conjunctivae normal, anicteric sclerae ENMT: external ear and nose normal, oropharynx normal Respiratory: normal respiratory effort, lungs clear to auscultation Cardiovascular: Rate/Rhythm: + irregularly irregular Rate controlled S1 S2 Gastrointestinal (Abdomen): normal bowel sounds, soft, nontender, no hepatosplenomegaly Musculoskeletal: no cyanosis or clubbing, extremities motor strength 5/5 Neurologic: PERRL, EOMI, accommodation nl, no face palsy, no dysarthria Psychiatric: A+Ox3, euthymic affect Results & Data Results & Data ([facility]) Vital Signs (Past 12 Hours) Vital Signs Temp Pulse Pulse Resp BP Pulse Ox Pulse Ox 12/28/20 12:25 36.4 C L 59 L 20 100/63 97 12/28/20 07:17 36.4 C L 70 20 118/73 93 12/28/20 03:56 36.4 C L 66 18 104/72 94 12/28/20 00:49 36.5 C 78 75 20 113/74 93 93 Laboratory Results Abnormal lab results 12/27/20 12/27/20 12/27/20 Range/Units 14:55 14:55 15:33 RDW Std Deviation (36.4-46.3) fL RDW Coeff of Lesley 15.4 H (11.5-14.5) % MPV 10.8 H (7.4-10.4) fL Grimes # (Auto) 0.82 H (0.11-0.59) K/uL INR 1.2 H (0.9-1.1) APTT (21.0-31.0) Seconds Sodium 133 L (136-145) mmol/L Potassium 3.4 L (3.5-5.1) mmol/L Glucose 121 H (70-99) mg/dl POC Glucose (70-99) mg/dl Hemoglobin A1c (4.5-5.6) % Calcium (8.5-10.1) mg/dl Magnesium 1.5 L (1.8-2.4) mg/dl Albumin 3.3 L (3.4-5.0) gm/dl Globulin 4.4 H (2.5-4.0) gm/dl Albumin/Globulin Ratio 0.8 L (0.9-2) 12/27/20 12/28/20 12/28/20 Range/Units 21:31 07:12 07:32 RDW Std Deviation (36.4-46.3) fL RDW Coeff of Lesley (11.5-14.5) % MPV (7.4-10.4) fL Grimes # (Auto) (0.11-0.59) K/uL INR (0.9-1.1) APTT (21.0-31.0) Seconds Sodium 134 L (136-145) mmol/L Potassium 3.1 L (3.5-5.1) mmol/L Glucose 116 H (70-99) mg/dl POC Glucose 149 H 118 H (70-99) mg/dl Hemoglobin A1c (4.5-5.6) % Calcium 8.4 L (8.5-10.1) mg/dl Magnesium (1.8-2.4) mg/dl Albumin (3.4-5.0) gm/dl Globulin (2.5-4.0) gm/dl Albumin/Globulin Ratio (0.9-2) 12/28/20 12/28/20 12/28/20 Range/Units 07:32 07:32 07:32 RDW Std Deviation 47.4 H (36.4-46.3) fL RDW Coeff of Lesley 15.7 H (11.5-14.5) % MPV 10.5 H (7.4-10.4) fL Grimes # (Auto) (0.11-0.59) K/uL INR (0.9-1.1) APTT 62.3 H* (21.0-31.0) Seconds Sodium (136-145) mmol/L Potassium (3.5-5.1) mmol/L Glucose (70-99) mg/dl POC Glucose (70-99) mg/dl Hemoglobin A1c 6.9 H (4.5-5.6) % Calcium (8.5-10.1) mg/dl Magnesium (1.8-2.4) mg/dl Albumin (3.4-5.0) gm/dl Globulin (2.5-4.0) gm/dl Albumin/Globulin Ratio (0.9-2) 12/28/20 Range/Units 11:19 RDW Std Deviation (36.4-46.3) fL RDW Coeff of Lesley (11.5-14.5) % MPV (7.4-10.4) fL Grimes # (Auto) (0.11-0.59) K/uL INR (0.9-1.1) APTT (21.0-31.0) Seconds Sodium (136-145) mmol/L Potassium (3.5-5.1) mmol/L Glucose (70-99) mg/dl POC Glucose 145 H (70-99) mg/dl Hemoglobin A1c (4.5-5.6) % Calcium (8.5-10.1) mg/dl Magnesium (1.8-2.4) mg/dl Albumin (3.4-5.0) gm/dl Globulin (2.5-4.0) gm/dl Albumin/Globulin Ratio (0.9-2)
[2020-12-28] MEDS ORDERED: POTASSIUM CHLORIDE 20 MEQ/15 ML UDC PO STA (13:42)
[2020-12-28] MEDS: METOPROLOL SUCC 25MG EXT REL TAB PO SCH (14:12)
[2020-12-28 16:20] LABS: BUN Creatinine Ratio 14.7 (10-20); Calcium 8.4 mg/dl (8.5-10.1); Creatinine Clr Calc Pharmacy 62.7 ml/min; Est GFR (Non-African American) 81.1 ml/min; Potassium 3.8 mmol/L (3.5-5.1)
[2020-12-28] MEDS ORDERED: OPTIRAY 350 500ml IV ONE (20:05)
--- NOTE | 2020-12-28 20:50 | CT Scan Report ---
CT ANGIOGRAPHY OF THE CHEST, PULMONARY EMBOLUS PROTOCOL CLINICAL HISTORY: Shortness of breath. Evaluate for pulmonary embolus. COMPARISON STUDY: Chest radiograph December 27, 2020. TECHNIQUE: Following IV administration of 120 mL of Optiray, helical axial images of the chest were o btained utilizing the pulmonary embolus protocol. Maximal intensity projections and sagittal and cor onal reformats were viewed on an independent 3D workstation. IV contrast was administered without co mplication. Automated exposure control was utilized for the study. A dose lowering technique was ut ilized adhering to the principles of ALARA. CT DOSE: 272.52 mGy.cm FINDINGS: The central pulmonary arteries are mildly dilated. There is mixing artifact within the patrick tral pulmonary arteries. Note is made of multiple linear filling defects within the bilateral pulmona ry arteries. The findings suggest chronic pulmonary emboli. There is no convincing evidence for acute emboli. Small bilateral pleural effusions are noted with associated opacities reflect atelectasis. T here is no pneumothorax. Interlobular septal thickening is noted. Small radiodensities within the amelia ateral lower lobes are noted. These are shown on prior CT of May 10, 2012. Anasarca is noted. IVC and hepatic veins are dilated with reflux of contrast. There is a small amount of upper abdominal as cites. Upper abdominal infiltration is partially imaged on this exam. This probably due to volume ove rload. There is a moderate sized hiatal hernia. The heart is moderately enlarged. There is no pericar dial effusion. IMPRESSION: 1. Multiple linear filling defects within the pulmonary arteries suggestive of chronic pulmonary embo li. No evidence for acute pulmonary emboli. Mild dilatation of the central pulmonary arteries which r aises the possibility of pulmonary arterial hypertension. 2. Cardiomegaly with small bilateral pleural effusions. Mild interstitial pulmonary edema. 3. Anasarca. Small amount of upper abdominal ascites. ACT 112: Negative or not required by law. Electronically signed by: Lázaro Ho M.D. 12/28/2020 8:48 PM
[2020-12-28 22:06] LABS: Appearance Urine Cloudy (Clear); Bacteria Urine Automated 3+ (Negative); Bilirubin Urine Negative (Negative); Blood Urine Trace (Negative); Color Urine Yellow; Epithelial Cell Urine Auto >30 /lpf (0-5); Glucose Urine UA Negative (Negative); Ketones Urine Negative (Negative); Leukocyte Esterase Urine 2+ (Negative); Nitrite Urine Positive (Negative); Protein Urine Negative (Negative); RBC Urine Automated 0-4 /hpf (0-4); Specific Gravity Urine > 1.045 (1.000-1.030); Urobilinogen Urine Negative (Negative); WBC Urine Automated >30 /hpf (0-5)
[2020-12-28] MEDS: cefTRIAXone SODIUM 1,000 MG in DEXTROSE 5% 50 ML IV SCH (23:49)
[2020-12-29 07:13] LABS: Hemoglobin 11.9 g/dL (12.0-16.0); Mean Corpuscular Hemoglobin 26.2 pg (25-34); Mean Corpuscular Hgb Conc 32.2 g/dL (32-36); Mean Corpuscular Volume 81.5 fL (80-100); Mean Platelet Volume 10.8 fL (7.4-10.4); Platelet Count 213 K/uL (130-400); RDW Coefficient of Variation 15.8 % (11.5-14.5); RDW Standard Deviation 46.6 fL (36.4-46.3); Red Blood Count 4.54 M/uL (4.2-5.4); White Blood Count 6.12 K/uL (4.8-10.8)
--- NOTE | 2020-12-29 07:33 | Electrocardiogram Report ---
Test Reason : Blood Pressure : / mmHG Vent. Rate : 115 BPM Atrial Rate : 127 BPM P-R Int : 000 ms QRS Dur : 126 ms QT Int : 318 ms P-R-T Axes : 000 -67 048 degrees QTc Int : 439 ms Poor data quality, interpretation may be adversely affected Atrial fibrillation with rapid ventricular response Right bundle branch block Left anterior fascicular block Bifascicular block Septal infarct , age undetermined Abnormal ECG When compared with ECG of 29-JUL-2015 06:21, Atrial fibrillation has replaced Sinus rhythm QRS QT has lengthened Confirmed by Vic Chowdary ([id number]) on 12/29/2020 7:32:37 AM Referred By: Confirmed By:Vic Chowdary
[2020-12-29 07:38] LABS: BUN Creatinine Ratio 14.9 (10-20); Calcium 8.9 mg/dl (8.5-10.1); Creatinine Clr Calc Pharmacy 65.4 ml/min; Est GFR (Non-African American) 81.9 ml/min
--- NOTE | 2020-12-29 07:52 | Electrocardiogram Report ---
Test Reason : Blood Pressure : / mmHG Vent. Rate : 073 BPM Atrial Rate : 072 BPM P-R Int : 000 ms QRS Dur : 130 ms QT Int : 446 ms P-R-T Axes : 000 -69 047 degrees QTc Int : 491 ms Atrial fibrillation with premature ventricular or aberrantly conducted complexes Right bundle branch block Left anterior fascicular block Bifascicular block Anterior infarct (cited on or before 27-DEC-2020) Abnormal ECG When compared with ECG of 27-DEC-2020 14:49, Vent. rate has decreased BY 42 BPM Questionable change in initial forces of Septal leads Nonspecific T wave abnormality, worse in Anterior leads Confirmed by Vic Chowdary ([id number]) on 12/29/2020 7:52:01 AM Referred By: REFERRED SELF Confirmed By:Vic Chowdary
[2020-12-29] MEDS: INSULIN ASPART 100 UNITS/ML 3 ML PEN SC SCH ×4 (08:23→20:54)
[2020-12-29] MEDS: METOPROLOL SUCC 25MG EXT REL TAB PO SCH (08:25)
[2020-12-29] MEDS: PARoxetine HCL 20 MG TAB PO SCH (08:25)
[2020-12-29] MEDS: PANTOprazole 40 MG TAB PO SCH (08:25)
[2020-12-29] MEDS: ATORVASTATIN 10 MG TAB PO SCH (08:26)
[2020-12-29] MEDS: APIXABAN 5 MG TABLET PO SCH ×2 (08:26→20:53)
[2020-12-29] MEDS: FUROSEMIDE 20 MG TAB PO SCH (08:26)
[2020-12-29] MEDS: CYANOCOBALAMIN 500 MCG TABLET (VITAMIN B-12) PO SCH (08:26)
[2020-12-29] MEDS: lisinopril 5 MG TAB PO SCH (08:26)
[2020-12-29] MEDS: POTASSIUM CHLORIDE CRTAB 20 MEQ TABCR PO SCH (08:27)
[2020-12-29] MEDS: PREGABALIN 100 MG CAP PO SCH ×2 (08:30→20:53)
--- NOTE | 2020-12-29 12:00 | Hospitalist Progress Note ---
Date of Service December 29, 2020 Assessment & Plan (1) Cardiomyopathy: (2) Chronic pulmonary embolism: (3) New onset atrial fibrillation: Dizziness x 3 days On admission, ECG with A fib with RVR with HR 115 bpm. 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 Now off diltiazem drip. Rate controlled with metoprolol po [id number] score 6 Was started on heparin drip. Now transitioned to eliquis Echocardiogram show EF of 15 to 20%, severely dilated right ventricle and right atrium with moderate to severe tricuspid regurgitation. CT PE showed chronic PE, no acute PE Chronic thromboembolism may explain right heart dysfunction Based on this, h/o DVT, now Afib; will need lifelong anticoagulation Started on lisinopril and metoprolol succinate Patient needs follow up with Cardiology for continued management and med optimization (4) Hypomagnesemia: Magnesium was 1.5 on admission. Repleted (5) Hypokalemia: On admission, potassium of 3.4 Potassium is 4 this morning. Home po potassium increased to 20meq on discharge (6) Fall: Mechanical fall at home CT head without acute abnormality Dizziness may be related to concussion as patient reports hitting her head PT/OT evaluation noted CM to arrange home PT Rolling walker script (7) History of DVT (deep vein thrombosis): Remote history of DVT 20 years ago, completed 3 mo course of coumadin at that time (8) Diabetes mellitus, type II: A1c 7.5 last year Hemoglobin A1c 6.9 Hold home oral agents SSI while in-patient BSG AC HS (9) GERD (gastroesophageal reflux disease): Continue PPI (10) UTI (urinary tract infection): Daughter reported confusion prior to presentation Patient denies any urinary symptoms at this time Considering report of confusion, Urine culture -GNR; will treat Currently on ceftriaxone. Follow up urine culture speciation (11) Depression: Continue SSRI DVT Ppx: Eliquis Code status: FULL PCP: Mal Dispo: Med telemetry Plan for possible dc tomorrow Admission and Anticipated Discharge Date Admission Date: December 27, 2020 Subjective 85-year-old woman with history of DVT many years ago, DM type II, osteoporosis who presents today ER today complaining of dizziness and had a fall 3 days ago. Found to have new onset Afib Echo showed severe RV and LV dysfunction with EF of 15-20% CT PE showed chronic PE, no acute PE Patient seen and examined She still reports occasional dizziness on standing but stated this is better than before she came. Denied any chest pain, shortness of breath Review of Systems Review of Systems: All systems reviewed & are unremarkable except as noted in Subjective Physical Exam Constitutional: + well hydrated; no acute distress Eyes: PERRL, conjunctivae normal, anicteric sclerae ENMT: external ear and nose normal, oropharynx normal Respiratory: normal respiratory effort, lungs clear to auscultation Cardiovascular: Rate/Rhythm: + irregularly irregular S1 S2 No pedal edema Gastrointestinal (Abdomen): normal bowel sounds, soft, nontender, no hepatosplenomegaly Musculoskeletal: no cyanosis or clubbing, extremities motor strength 5/5 Neurologic: PERRL, EOMI, accommodation nl, no face palsy, no dysarthria Psychiatric: A+Ox3, euthymic affect Results & Data Results & Data ([facility]) Vital Signs (Past 12 Hours) Vital Signs Temp Pulse Pulse Resp BP BP Pulse Ox 12/29/20 11:28 36.6 C 85 20 101/68 96 12/29/20 07:45 81 12/29/20 07:39 36.4 C L 83 18 121/82 91 12/29/20 03:51 36.4 C L 83 22 93/67 L 92 12/29/20 00:00 74 Laboratory Results Abnormal lab results 12/28/20 12/28/20 12/28/20 Range/Units 15:34 16:08 16:11 Hgb (12.0-16.0) g/dL RDW Std Deviation (36.4-46.3) fL RDW Coeff of Lesley (11.5-14.5) % MPV (7.4-10.4) fL Sodium 135 L (136-145) mmol/L Glucose 60 L (70-99) mg/dl POC Glucose 63 L* 66 L* (70-99) mg/dl Calcium 8.4 L (8.5-10.1) mg/dl Urine Appearance (Clear) Ur Specific [place] (1.000-1.030) Urine Blood (Negative) Urine Nitrite (Negative) Ur Leukocyte Esterase (Negative) Urine WBC (Auto) (0-5) /hpf U Epithel Cells (Auto) (0-5) /lpf Urine Bacteria (Auto) (Negative) 12/28/20 12/28/20 12/29/20 Range/Units 20:34 21:38 06:37 Hgb 11.9 L (12.0-16.0) g/dL RDW Std Deviation 46.6 H (36.4-46.3) fL RDW Coeff of Lesley 15.8 H (11.5-14.5) % MPV 10.8 H (7.4-10.4) fL Sodium (136-145) mmol/L Glucose (70-99) mg/dl POC Glucose 101 H (70-99) mg/dl Calcium (8.5-10.1) mg/dl Urine Appearance Cloudy A (Clear) Ur Specific [place] > 1.045 H (1.000-1.030) Urine Blood Trace H (Negative) Urine Nitrite Positive A (Negative) Ur Leukocyte Esterase 2+ H (Negative) Urine WBC (Auto) >30 H (0-5) /hpf U Epithel Cells (Auto) >30 H (0-5) /lpf Urine Bacteria (Auto) 3+ H (Negative) 12/29/20 12/29/20 12/29/20 Range/Units 06:37 07:24 11:04 Hgb (12.0-16.0) g/dL RDW Std Deviation (36.4-46.3) fL RDW Coeff of Lesley (11.5-14.5) % MPV (7.4-10.4) fL Sodium 133 L (136-145) mmol/L Glucose 119 H (70-99) mg/dl POC Glucose 114 H 135 H (70-99) mg/dl Calcium (8.5-10.1) mg/dl Urine Appearance (Clear) Ur Specific [place] (1.000-1.030) Urine Blood (Negative) Urine Nitrite (Negative) Ur Leukocyte Esterase (Negative) Urine WBC (Auto) (0-5) /hpf U Epithel Cells (Auto) (0-5) /lpf Urine Bacteria (Auto) (Negative)
--- NOTE | 2020-12-29 14:24 | Cardiology Progress Note ---
Date of Service December 29, 2020 Assessment & Plan (1) New onset atrial fibrillation: Patient is an 85-year-old female who presented subacutely with symptoms of dizziness and weakness was found to be in newly observed atrial fibrillation with elevated ventricular response rate. Subsequent evaluation has demonstrated newly observed diffuse cardiomyopathy as well as elevated right heart pressures likely multifactorial including evidence of chronic pulmonary emboli as well as increased left heart pressures. Patient was begun on appropriate medical therapies and currently is tolerating well. Recommendations: Continue full anticoagulation as ordered for indications of atrial fibrillation as well as chronic pulmonary emboli with pulmonary hypertension Patient has been begun on guideline directed heart failure medical therapies with metoprolol succinate and lisinopril. We will continue usual diuretic dosing and likely add spironolactone to her regimen Will need close clinical follow-up post discharge possible evaluation for alternate causes of cardiomyopathy Discussed in detail with patient as well as her daughter It is anticipated she will remain overnight in treatment of newly found urinary tract infection (2) Cardiomyopathy: (3) Hypokalemia: (4) Hypomagnesemia: (5) Chronic pulmonary embolism: Admission and Anticipated Discharge Date Admission Date: December 27, 2020 Subjective Patient was seen and examined, chart, medications, telemetry reviewed. Currently comfortable today without acute complaint. As tolerated medication changes. No fevers or chills. No sense of tachypalpitations. No chest pain or discomfort. No bleeding difficulties on anticoagulant Physical Exam Constitutional: WD/WN, vitals as above no acute distress Eyes: PERRL, conjunctivae normal, anicteric sclerae ENMT: external ear and nose normal, oropharynx normal Neck: trachea midline, no thyromegaly Respiratory: normal respiratory effort, lungs clear to auscultation Cardiovascular: Rate/Rhythm: + irregularly irregular Heart Sounds: normal S1, normal S2 and + murmur (Grade 1/6 to 2/6 at right lower sternal border); no gallop Palpation: normal PMI Vessels: normal carotid upstroke and radial pulses present; no JVD and no carotid bruit Extremities: + edema (Trace only) Gastrointestinal (Abdomen): normal bowel sounds, soft, nontender, no hepatosplenomegaly Musculoskeletal: no cyanosis or clubbing, extremities motor strength 5/5 Skin: no rashes, warm and dry Neurologic: PERRL, EOMI, accommodation nl, no face palsy, no dysarthria Psychiatric: A+Ox3, euthymic affect Results & Data ([facility]) Vital Signs (Past 12 Hours) Vital Signs Temp Pulse Pulse Resp BP BP Pulse Ox 12/29/20 11:28 36.6 C 85 20 101/68 96 12/29/20 07:45 81 12/29/20 07:39 36.4 C L 83 18 121/82 91 12/29/20 03:51 36.4 C L 83 22 93/67 L 92 Laboratory Results Laboratory Results - last 24 hr 12/28/20 12/28/20 12/28/20 15:34 16:08 16:11 WBC RBC Hgb Hct MCV MCH MCHC RDW Std Deviation RDW Coeff of Lesley Plt Count MPV Sodium 135 L Potassium 3.8 D Chloride 99 Carbon Dioxide 29 Anion Gap 6.0 BUN 10 Creatinine 0.66 Est Cr Clr Drug Dosing 62.7 Est GFR ( Amer) 94.0 Est GFR (Non-Af Amer) 81.1 BUN/Creatinine Ratio 14.7 Glucose 60 L POC Glucose 63 L* 66 L* Calcium 8.4 L Urine Color Urine Appearance Urine pH Ur Specific [place] Urine Protein Urine Glucose (UA) Urine Ketones Urine Blood Urine Nitrite Urine Bilirubin Urine Urobilinogen Ur Leukocyte Esterase Urine WBC (Auto) Urine RBC (Auto) U Hyaline Cast (Auto) U Epithel Cells (Auto) Urine Bacteria (Auto) 12/28/20 12/28/20 12/28/20 16:31 20:34 21:38 WBC RBC Hgb Hct MCV MCH MCHC RDW Std Deviation RDW Coeff of Lesley Plt Count MPV Sodium Potassium Chloride Carbon Dioxide Anion Gap BUN Creatinine Est Cr Clr Drug Dosing Est GFR ( Amer) Est GFR (Non-Af Amer) BUN/Creatinine Ratio Glucose POC Glucose 77 101 H Calcium Urine Color Yellow Urine Appearance Cloudy A Urine pH 6.0 Ur Specific [place] > 1.045 H Urine Protein Negative Urine Glucose (UA) Negative Urine Ketones Negative Urine Blood Trace H Urine Nitrite Positive A Urine Bilirubin Negative Urine Urobilinogen Negative Ur Leukocyte Esterase 2+ H Urine WBC (Auto) >30 H Urine RBC (Auto) 0-4 U Hyaline Cast (Auto) 1-5 U Epithel Cells (Auto) >30 H Urine Bacteria (Auto) 3+ H 12/29/20 12/29/20 12/29/20 06:37 06:37 07:24 WBC 6.12 RBC 4.54 Hgb 11.9 L Hct 37.0 MCV 81.5 MCH 26.2 MCHC 32.2 RDW Std Deviation 46.6 H RDW Coeff of Lesley 15.8 H Plt Count 213 MPV 10.8 H Sodium 133 L Potassium 4.0 Chloride 99 Carbon Dioxide 27 Anion Gap 7.0 BUN 10 Creatinine 0.64 Est Cr Clr Drug Dosing 65.4 Est GFR ( Amer) 95.0 Est GFR (Non-Af Amer) 81.9 BUN/Creatinine Ratio 14.9 Glucose 119 H POC Glucose 114 H Calcium 8.9 Urine Color Urine Appearance Urine pH Ur Specific [place] Urine Protein Urine Glucose (UA) Urine Ketones Urine Blood Urine Nitrite Urine Bilirubin Urine Urobilinogen Ur Leukocyte Esterase Urine WBC (Auto) Urine RBC (Auto) U Hyaline Cast (Auto) U Epithel Cells (Auto) Urine Bacteria (Auto) 12/29/20 11:04 WBC RBC Hgb Hct MCV MCH MCHC RDW Std Deviation RDW Coeff of Lesley Plt Count MPV Sodium Potassium Chloride Carbon Dioxide Anion Gap BUN Creatinine Est Cr Clr Drug Dosing Est GFR ( Amer) Est GFR (Non-Af Amer) BUN/Creatinine Ratio Glucose POC Glucose 135 H Calcium Urine Color Urine Appearance Urine pH Ur Specific [place] Urine Protein Urine Glucose (UA) Urine Ketones Urine Blood Urine Nitrite Urine Bilirubin Urine Urobilinogen Ur Leukocyte Esterase Urine WBC (Auto) Urine RBC (Auto) U Hyaline Cast (Auto) U Epithel Cells (Auto) Urine Bacteria (Auto)
--- NOTE | 2020-12-29 15:04 | Electrocardiogram Report ---
Test Reason : Blood Pressure : / mmHG Vent. Rate : 074 BPM Atrial Rate : 063 BPM P-R Int : 000 ms QRS Dur : 126 ms QT Int : 422 ms P-R-T Axes : 000 -69 069 degrees QTc Int : 468 ms Atrial fibrillation Right bundle branch block Left anterior fascicular block Bifascicular block Abnormal ECG When compared with ECG of 29-DEC-2020 05:03, (unconfirmed) No significant change Confirmed by Johny Bates ([id number]) on 12/29/2020 3:03:56 PM Referred By: REFERRED SELF Confirmed By:Johny Bates
[2020-12-29] MEDS: cefTRIAXone SODIUM 1,000 MG in DEXTROSE 5% 50 ML IV SCH (23:37)
[2020-12-30] MEDS: FUROSEMIDE 20 MG TAB PO SCH (08:11)
[2020-12-30] MEDS: PARoxetine HCL 20 MG TAB PO SCH (08:11)
[2020-12-30] MEDS: CYANOCOBALAMIN 500 MCG TABLET (VITAMIN B-12) PO SCH (08:11)
[2020-12-30] MEDS: PANTOprazole 40 MG TAB PO SCH (08:11)
[2020-12-30] MEDS: METOPROLOL SUCC 25MG EXT REL TAB PO SCH (08:11)
[2020-12-30] MEDS: lisinopril 5 MG TAB PO SCH (08:11)
[2020-12-30] MEDS: ATORVASTATIN 10 MG TAB PO SCH (08:12)
[2020-12-30] MEDS: APIXABAN 5 MG TABLET PO SCH (08:12)
[2020-12-30] MEDS: PREGABALIN 100 MG CAP PO SCH (08:15)
[2020-12-30] MEDS: POTASSIUM CHLORIDE CRTAB 20 MEQ TABCR PO SCH (08:15)
[2020-12-30] MEDS: INSULIN ASPART 100 UNITS/ML 3 ML PEN SC SCH (09:54)
--- NOTE | 2020-12-30 10:43 | Discharge Summary ---
Date of Service December 30, 2020 Admission HPI Per Admitting Provider This is an 85yo F with PMH of DM II, history of DVT, GERD, MDD and other medical problems listed below who presents from home with persistent dizziness x 3 days. Patient reportedly fell 4 days ago after tripping over her 's oxygen tubing. She struck her left forehead against a plastic drawer. Denies any LOC, pain or headache. Woke up the next morning with dizziness and was afraid she may fall again. Has also been feeling very fatigued. Denies room spinning but endorses nausea since yesterday. Also experienced palpitations that have since resolved. Currently, patient denies any fever, chills, lightheadedness, dizziness, chest pain, shortness of breath, vomiting, abdominal pain, dysuria, diarrhea or constipation. Denies any history of heart disease or heart issues. Remote history of DVT twenty years ago. Admission Exam Per Admitting Provider General: Elderly woman, no acute distress and not ill appearing Eyes: PERRL, conjunctivae normal, not pale, anicteric sclerae, EOM intact bilaterally ENMT: External ear and nose normal, oropharynx normal Neck: Normal visual inspection, no tracheal deviation, no swelling noted Respiratory: Normal respiratory effort, no respiratory distress, lungs clear to auscultation, no crackles and no wheezes Cardiovascular: Pulse is irregularly irregular S1 S2. Gastrointestinal (Abdomen): Abdomen is not distended, soft, non-tender to palpation, no guarding, no palpable hepatosplenomegaly, normal bowel sounds Musculoskeletal: No cyanosis or clubbing, trace edema Genitourinary: No CVA tenderness Neurologic: Alert and oriented x 3, No focal weakness, sensation grossly intact Psychiatric: Alert and oriented x 3, euthymic affect, no depressed affect Principal Diagnosis New onset atrial fibrillation Chronic pulmonary embolism Cardiomyopathy Urinary tract infection Hypokalemia Discharge Exam Constitutional + well hydrated; no acute distress Eyes PERRL, conjunctivae normal, anicteric sclerae ENMT external ear and nose normal, oropharynx normal Respiratory normal respiratory effort, lungs clear to auscultation Cardiovascular Rate/Rhythm: + irregularly irregular S1 S2 Gastrointestinal (Abdomen) normal bowel sounds, soft, nontender, no hepatosplenomegaly Musculoskeletal no cyanosis or clubbing, extremities motor strength 5/5 Neurologic PERRL, EOMI, accommodation nl, no face palsy, no dysarthria Psychiatric A+Ox3, euthymic affect Discharge Data Allergies Allergy/AdvReac Type Severity Reaction Status Date / Time erythromycin base Allergy Unknown UNKNOWN Unverified 12/27/20 17:22 Consultations 12/27/20 16:35 ED Decision to Admit Stat 12/28/20 08:00 Consult Cardiology Routine Ordered Studies 12/27/20 14:42 CT head/brain wo con Stat No intra or extra-axial mass lesions are visualized. There is no CT evidence of acute cortical infarction. There is no evidence of midline shift. There is no acute hemorrhage. No calvarial fractures are visualized. There are patchy white matter hypodensities likely on a small vessel basis. There is no evidence of pathologic ventricular dilatation. There is no evidence of acute sinusitis IMPRESSION: No acute intracranial findings 12/28/20 13:42 CT angio chest PE protocol Urgent The central pulmonary arteries are mildly dilated. There is mixing artifact within the central pulmonary arteries. Note is made of multiple linear filling defects within the bilateral pulmonary arteries. The findings suggest chronic pulmonary emboli. There is no convincing evidence for acute emboli. Small bilateral pleural effusions are noted with associated opacities reflect atelectasis. There is no pneumothorax. Interlobular septal thickening is noted. Small radiodensities within the bilateral lower lobes are noted. These are shown on prior CT of May 10, 2012. Anasarca is noted. IVC and hepatic veins are dilated with reflux of contrast. There is a small amount of upper abdominal ascites. Upper abdominal infiltration is partially imaged on this exam. This probably due to volume overload. There is a moderate sized hiatal hernia. The heart is moderately enlarged. There is no pericardial effusion. IMPRESSION: 1. Multiple linear filling defects within the pulmonary arteries suggestive of chronic pulmonary emboli. No evidence for acute pulmonary emboli. Mild dilatation of the central pulmonary arteries which raises the possibility of pulmonary arterial hypertension. 2. Cardiomegaly with small bilateral pleural effusions. Mild interstitial pulmonary edema. 3. Anasarca. Small amount of upper abdominal ascites 2D ECHO 12/28/20 The left ventricle is mildly dilated There is global thinning of the left ventricular quintanilla Ejection fraction is 15 to 20% The right ventricle is severely dilated Right ventricular systolic function is severely reduced The left atrial size is normal The right atrium is severely dilated There is mild mitral regurgitation There is moderate to severe tricuspid regurgitation Hospital Course (1) Cardiomyopathy: (2) Chronic pulmonary embolism: (3) New onset atrial fibrillation: Dizziness x 3 days On admission, ECG with A fib with RVR with HR 115 bpm. 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 Later, diltiazem was weaned off and rate controlled with metoprolol orally [id number] score 6 Was initially started on heparin drip then transitioned to apixaban Echocardiogram show EF of 15 to 20%, severely dilated right ventricle and right atrium with moderate to severe tricuspid regurgitation. CT PE showed chronic PE, no acute PE Chronic thromboembolism may explain right heart dysfunction Based on this, h/o DVT, now Afib; will need lifelong anticoagulation Started on lisinopril and metoprolol succinate Patient needs follow up with Cardiology for continued management, further evaluation and med optimization (4) Hypomagnesemia: (5) Hypokalemia: Magnesium was 1.5 on admission. On admission, potassium of 3.4 These were repleted Home po potassium increased to 20meq on discharge (6) Fall: Mechanical fall at home CT head without acute abnormality Dizziness may be related to concussion as patient reports hitting her head vs Atrial fibrillation/Cardiomyopathy Was evaluated by PT CM arranged home PT Patient advised to use rolling walker for ambulation (7) History of DVT (deep vein thrombosis): Remote history of DVT 20 years ago, completed 3 mo course of coumadin at that time (8) Diabetes mellitus, type II: A1c 7.5 last year Hemoglobin A1c 6.9 Continue home antidiabetics (9) GERD (gastroesophageal reflux disease): Continue PPI (10) UTI (urinary tract infection): Daughter reported confusion prior to presentation Patient denies any urinary symptoms at this time Considering report of confusion, Urine culture growing E coli; was treated with antibiotics Discharged on keflex to complete treatment Currently on ceftriaxone. Follow up urine culture speciation (11) Depression: Continue SSRI Total Time Total Time Spent Total Time Spent (In Minutes): 50 Total Time Includes: Examination of the Patient, Discharge Planning, Medication Reconciliation, Communication With Other Providers and Other (Call daughter Suzie and updated her as well) Discharge Plan Discharge Items Patient Disposition: Home - Home Health Services Reason For Visit: Fall, dizziness Discharge Diagnosis: New onset atrial fibrillation Chronic pulmonary embolism Cardiomyopathy Urinary tract infection Activity: As commented below Activity Comment: Use of rolling walker. Home physical therapy Non-emergency contact: Primary Care Provider and Middleware Consultant Call non-emergency contact if: you have any medication questions and your symptoms worsen Follow-up/Referrals: Luis Felder DO [Middleware Consultant] - Wilberto Resendez MD [Primary Care Provider] - Diet: Carb Consistent or DM2 and Heart Healthy Addtl Attending Provider Instructions: Mrs Deepali Pathak came to the hospital complaining of dizziness after a recent fall. You were evaluated and found to have new onset atrial fibrillation. Further evaluation with echocardiogram on CAT scan of the chest showed significantly reduced ejection fraction, dilatation of right side of the heart and chronic blood clots in the lungs. You are also found to have a urinary tract infection. You were started on blood thinner [ apixaban] and other new medications [lisinopril, metoprolol]. You will need to continue blood thinners indefinitely. It is very important that you mindful of possible side effects such as easy bleeding. Please use your rolling walker when ambulating. You were also found to have a urinary tract infection and started on antibiotics. Please continue antibiotics for remaining few days to complete treatment. It is extremely important that you follow-up with the certified ophthalmic technologist in the office and your primary care doctor. It was a pleasure taking care of you Pending Studies at Discharge: No Stand-Alone Forms: [facility] [employer], Smoking Cessation Medications and DC Order Prescriptions: New lisinopril [Zestril] 5 mg Tablet 5 mg PO QAM 30 Days Qty: 30 RF: 0 metoprolol succinate 25 mg Tablet Extended Release 24 Hr 25 mg PO QAM 30 Days Qty: 30 RF: 0 Eliquis 5 mg Tablet 5 mg PO BID Qty: 180 RF: 0 potassium chloride [Klor-Con M20] 20 mEq Tablet,Er Particles/Crystals 20 meq PO DAILY Qty: 30 RF: 0 cephalexin 500 mg capsule 500 mg PO QID 3 Days Qty: 12 RF: 0 Continued atorvastatin 10 mg tablet 10 mg PO DAILY RF: 0 alendronate 70 mg tablet 70 mg PO WK RF: 0 cyanocobalamin (vitamin B-12) [Vitamin B-12] 1,000 mcg Tablet 1,000 mcg PO DAILY RF: 0 omeprazole 40 mg capsule,delayed release(DR/EC) 40 mg PO DAILY RF: 0 glimepiride 1 mg tablet 1 mg PO DAILY RF: 0 paroxetine HCl [Paxil] 20 mg Tablet 20 mg PO DAILY RF: 0 aspirin 81 mg Tablet,Chewable 81 mg PO DAILY RF: 0 furosemide 20 mg tablet 20 mg PO DAILY RF: 0 ergocalciferol (vitamin D2) [Vitamin D2] 1,250 mcg (50,000 unit) Capsule 1,250 mcg PO MONTHLY RF: 0 fluticasone propionate 50 mcg/actuation spray,suspension 2 spray INTRANASAL DAILY PRN (Reason: ALLERGIES) RF: 0 metformin 500 mg tablet extended release 24 hr 1,000 mg PO BID RF: 0 cyclobenzaprine 5 mg Tablet 5 mg PO TID PRN (Reason: Muscle Pain) RF: 0 pregabalin 100 mg capsule 100 mg PO BID RF: 0 Januvia 100 mg tablet 100 mg PO DAILY RF: 0 Discontinued potassium chloride 10 mEq capsule, extended release 10 meq PO DAILY RF: 0 Discharge Orders: Discharge Order (Routine); Ordered 12/30/20 Ordered By: Roxanne Ball/Other Patient Handouts: High Blood Sugar (Hyperglycemia), Hypoglycemia (Low Blood Sugar), Managing Type 2 Diabetes, A1C Admission Data Admit Date/Time: 12/27/20 17:26 Attending Provider: Roxanne Smith I. Admit Provider: Roxanne Smtih I. Primary Care Provider: Wilberto Resendez Other Providers: Roxanne Smith I. ; Luis Felder ; [facility] Other Interventions: Discharge Summary Assessment (RN) Last Done: 12/30/20 11:12
--- NOTE | 2020-12-30 11:32 | Cardiology Progress Note ---
Date of Service December 30, 2020 Assessment & Plan (1) New onset atrial fibrillation: Patient is an 85-year-old female who presented subacutely with symptoms of dizziness and weakness was found to be in newly observed atrial fibrillation with elevated ventricular response rate. Subsequent evaluation has demonstrated newly observed diffuse cardiomyopathy as well as elevated right heart pressures likely multifactorial including evidence of chronic pulmonary emboli as well as increased left heart pressures. Patient was begun on appropriate medical therapies and currently is tolerating well. Recommendations: Continue full anticoagulation as ordered for indications of atrial fibrillation as well as chronic pulmonary emboli with pulmonary hypertension Patient has been begun on guideline directed heart failure medical therapies with metoprolol succinate and lisinopril. We will continue usual diuretic dosing Recommend discontinuing potassium supplement and adding spironolactone 12.5 mg p.o. daily Will need close clinical follow-up post discharge possible evaluation for alternate causes of cardiomyopathy It is anticipated she will remain overnight in treatment of newly found urinary tract infection (2) Cardiomyopathy: (3) Hypokalemia: (4) Hypomagnesemia: (5) Chronic pulmonary embolism: Admission and Anticipated Discharge Date Admission Date: December 27, 2020 Subjective Patient was seen and examined, chart, medications, telemetry reviewed. Currently comfortable today without acute complaint. Continues to tolerate medication additions. No dizziness or lightheadedness. Lower extremity edema has improved. Patient ambulatory in the room without difficulty. No fevers or chills. No sense of tachypalpitations. No chest pain or discomfort. No b leeding difficulties on anticoagulant Review of Systems Review of Systems: All systems reviewed & are unremarkable except as noted in HPI & below Physical Exam Constitutional: WD/WN, vitals as above no acute distress Eyes: PERRL, conjunctivae normal, anicteric sclerae ENMT: external ear and nose normal, oropharynx normal Neck: trachea midline, no thyromegaly Respiratory: normal respiratory effort, lungs clear to auscultation Cardiovascular: Rate/Rhythm: + irregularly irregular Heart Sounds: normal S1, normal S2 and + murmur (Grade 1/6 to 2/6 at right lower sternal border); no gallop Palpation: normal PMI Vessels: normal carotid upstroke and radial pulses present; no JVD and no carotid bruit Extremities: + edema (Trace only) Gastrointestinal (Abdomen): normal bowel sounds, soft, nontender, no hepatosplenomegaly Musculoskeletal: no cyanosis or clubbing, extremities motor strength 5/5 Skin: no rashes, warm and dry Neurologic: PERRL, EOMI, accommodation nl, no face palsy, no dysarthria Psychiatric: A+Ox3, euthymic affect Results & Data ([facility]) Vital Signs (Past 12 Hours) Vital Signs Temp Pulse Pulse Resp BP BP Pulse Ox 12/30/20 11:12 37.0 C 81 20 115/77 93/67 L 90 12/30/20 08:00 86 12/30/20 07:45 37.0 C 81 20 115/77 90 12/30/20 03:37 36.4 C L 84 20 121/79 94 12/30/20 00:00 81 Laboratory Results Laboratory Results - last 24 hr 12/29/20 12/29/20 12/30/20 16:28 20:05 07:20 POC Glucose 80 140 H 119 H
== END 2020-12-30 11:48 | disposition home health service (06) | DRG 309 ==
LOC: ED 13:26 → 2S 17:26

== ENCOUNTER 2022-11-20 13:41 | Inpatient (IN) ==
[2022-11-20] MEDS ORDERED: ONDANSETRON INJ 2 MG/ML 2 ML VIAL IV STA ×2 (13:57→16:54)
[2022-11-20] MEDS ORDERED: SODIUM CHLORIDE 0.9% 500 ML IV STA (13:57)
[2022-11-20 14:55] LABS: Basophils # (auto) 0.01 K/uL (0-0.2); Basophils % (auto) 0.1 %; Eosinophils # (auto) 0.06 K/uL (0-0.50); Eosinophils % (auto) 0.8 %; Hematocrit (blood only) 38.1 % (37.0-47.0); Hemoglobin 13.2 g/dl (12.0-16.0); Immature Granulocytes # (auto) 0.02 K/uL (0.01-0.20); Immature Granulocytes % (auto) 0.3 %; Lymphocytes # (auto) 1.83 K/uL (1.2-3.4); Lymphocytes % (auto) 23.4 %; Mean Corpuscular Hemoglobin 28.7 pg (25.0-34.0); Mean Corpuscular Hgb Conc 34.6 g/dL (32.0-36.0); Mean Corpuscular Volume 82.8 fL (80.0-100.0); Mean Platelet Volume 11.1 fL (9.4-12.4); Monocytes # (auto) 0.74 K/uL (0.11-0.59); Monocytes % (auto) 9.5 %; Neutrophils # (auto) 5.17 K/uL (1.40-6.50); Neutrophils % (auto) 65.9 %; Platelet Count 184 K/uL (130-400); RDW Coefficient of Variation 15.4 % (11.5-14.5); RDW Standard Deviation 46.5 fL (36.4-46.3); White Blood Count 7.83 K/ul (4.8-10.8)
[2022-11-20 15:12] LABS: Albumin Globulin Ratio 1.1 (0.9-2); Albumin Level 3.9 gm/dl (3.4-5.0); BUN Creatinine Ratio 18.4 (10-20); Bilirubin,Total 0.6 mg/dl (0.2-1.0); Calcium 8.4 mg/dl (8.6-10.3); Creatinine Clr Calc Pharmacy 39.3 ml/min; Est GFR (Non-African American) 52.6 ml/min; Globulin 3.5 gm/dl (2.5-4.0); Potassium 3.8 mmol/L (3.5-5.1); Total Protein 7.4 gm/dl (6.0-8.3)
[2022-11-20 15:31] LABS: Influenza A virus by PCR Negative (Neg); Influenza B virus by PCR Negative (Neg); RSV by PCR Negative (Neg); SARS CoV2 RNA(COVID-19) Ceph NEGATIVE (Negative)
[2022-11-20] MEDS ORDERED: SODIUM CHLORIDE 0.9% 1000ML 500 ML IV ONE (16:54)
--- NOTE | 2022-11-20 16:59 | Emergency Department Note ---
History of Present Illness General Chief complaint: Vomiting Stated complaint: VOMITING,DOC REF Time Seen by Provider: 11/20/22 16:47 History of Present Illness Provider Complaint: + nausea, + vomiting and + diarrhea Onset (ago): day(s) 4 Description of Vomiting: no blood-streaked, no bloody or no coffee grounds Description of Diarrhea: + watery; no tarry, no blood-streaked or no bloody (bright red) Associated Abdominal Pain: Yes Location of pain: + diffuse Quality: + cramping, + aching and + dull Pain Consistency: + intermittent Relieved By: + none Exacerbated By: + none Context: no foreign travel, no possible food poisoning, no recent antibiotic use, no alcohol abuse, no trauma, no anticoagulant use, no NSAID use, no caffeine, no smoking or no marijuana use Associated symptoms: no myalgias, no chest pain, no cough, no diaphoresis, no fever/chills, no headaches, no malaise, no nausea/vomiting, no dysuria, no shortness of breath, no anxiety or no numbness Home Medications Medication Instructions Recorded Confirmed Type aspirin 81 mg chewable tablet 81 mg PO DAILY 12/27/20 11/20/22 History atorvastatin 10 mg tablet 10 mg PO DAILY 12/27/20 11/20/22 History cyanocobalamin (vitamin B-12) 1,000 mcg PO DAILY 12/27/20 11/20/22 History 1,000 mcg tablet (Vitamin B-12) furosemide 20 mg tablet 20 mg PO DAILY 12/27/20 11/20/22 History glimepiride 1 mg tablet 1 mg PO DAILY 12/27/20 11/20/22 History metformin 500 mg tablet,extended 1,000 mg PO BID 12/27/20 11/20/22 History release 24 hr omeprazole 40 mg capsule,delayed 40 mg PO DAILY 12/27/20 11/20/22 History release pregabalin 100 mg capsule 100 mg PO BID 12/27/20 11/20/22 History sitagliptin phosphate 100 mg 100 mg PO DAILY 12/27/20 11/20/22 History tablet (Januvia) apixaban 5 mg tablet (Eliquis) 5 mg PO BID #180 tabs 12/30/20 11/20/22 Rx azelastine 205.5 mcg (0.15 %) 1 spray intranasal BID 11/20/22 11/20/22 History nasal spray buspirone 5 mg tablet 5 mg PO BID 11/20/22 11/20/22 History cetirizine 10 mg tablet (Zyrtec) 10 mg PO DAILY 11/20/22 11/20/22 History elderberry fruit 460 mg-elderberry 1 cap PO DAILY 11/20/22 11/20/22 History flower 115 mg capsule escitalopram oxalate 20 mg tablet 20 mg PO DAILY 11/20/22 11/20/22 History (Lexapro) lisinopril 5 mg tablet 5 mg PO QAM 11/20/22 11/20/22 History metoprolol succinate 25 mg 25 mg PO DAILY 11/20/22 11/20/22 History tablet,extended release 24 hr multivitamin 1 tab PO DAILY 11/20/22 11/20/22 History potassium chloride 20 mEq 40 meq PO DAILY 11/20/22 11/20/22 History tablet,extended release(part/cryst) (Klor-Con M) Allergies Allergy/AdvReac Type Severity Reaction Status Date / Time erythromycin base AdvReac Intermediate Gastrointestinal Verified 11/20/22 17:27 Upset Past Med/Surg History Medical History Atrial fibrillation Cardiomyopathy Chronic pulmonary embolism Depression Diabetes mellitus, type II GERD (gastroesophageal reflux disease) History of DVT (deep vein thrombosis) 20 years ago Surgical History H/O hernia repair History of cholecystectomy Hx of cataract surgery S/P hernia repair Family History Other Cancer Heart disease Social History Smoking Status: Never smoker Hx Alcohol Use: No Hx Substance Use: No Preferred Language: Albanian Communication Ability: Effective Visual Impairment: No Limitations Food Selector Required: No Beliefs That Will Affect Care: None Current Living Situation: Alone current occupational status: retired Feels Safe at Home: Yes Assistive Devices: Glasses Physical Exam Vital Signs: Vital Signs - 24 hr 11/20/22 13:50 11/20/22 17:23 Temperature 36.3 C L 36.4 C L Temperature Source Oral Oral Pulse Rate 94 H Pulse Rate [Finger ] 88 Pulse Rhythm Regular Pulse Rhythm [Fing er] Regular Pulse Strength Normal Pulse Strength [Fi nger] Normal Respiratory Rate 18 18 Respiratory Effort / Characteristics Non-Labored Sponta neous Non-Labored Sponta neous Respiratory Depth Normal Normal Respiratory Patter n Regular Regular Blood Pressure 115/75 Blood Pressure [Ri ght Arm] 111/66 Blood Pressure Kayla n 88 Blood Pressure Kayla n [Right Arm] 81 Blood Pressure Pos ition Sitting Pulse Oximetry 100 92 Oxygen Delivery Me thod Room Air Room Air Sepsis Recent Feve r Within 48 Hours No Sepsis New/Unexpla ined Change in Men maría Status No Sepsis Action Take n by Nursing No Action Required Physical Exam: Physical Exam HENT: Exam performed. -Head: Normocephalic and atraumatic. -Right Ear: External ear normal. No mastoid erythema -Left Ear: External ear normal. No mastoid erythema EYES: Conjunctivae and EOM are normal. Right eye exhibits no discharge. Left eye exhibits no discharge. No scleral icterus. NECK: Normal range of motion. Neck supple. No JVD present.No tracheal deviation and normal range of motion present. CV: Normal rate, irregular rhythm, normal heart sounds and intact distal pulses. There is no peripheral edema. Palpable radial pulses bue. PULM/CHEST: Effort normal and breath sounds normal. No respiratory distress. No stridor. She has no wheezes. She has no rales. ABD: The abdomen is soft. There is no tenderness. There is no rebound, no guarding. NEURO: She is alert and oriented to person, place, and time. She has normal strength. No cranial nerve deficit or sensory deficit. Coordination and gait normal. GCS eye subscore is 4. GCS verbal subscore is 5. GCS motor subscore is 6. Cerebellar tests wnl. SKIN: Skin is warm and dry. She is not diaphoretic. PSYCH: She has a normal mood and affect. Behavior is normal. Judgment and thought content normal. Course Course 1646: The patient was evaluated in room C6. A complete history and physical exam was performed Cardiac monitoring: An order was placed for continuous cardiac monitoring. The monitor shows a rate of 90 with atrial fibrilation rhythm interpreted by me 1730: Vital signs stable. Labs within normal limits with exception of low magnesium. Magnesium repletion started in the emergency department. Imaging shows no evidence of obstruction. [facility]. Administered Medications Magnesium Sulfate/Dextrose (Magnesium Sulfate / D5w) 1 gm in 100 mls @ 100 mls/hr IV Q1H LAURIE Stop: 11/20/22 20:14 Last Admin: 11/20/22 18:57 Dose: 100 mls/hr Documented By: AB Discontinued Medications Sodium Chloride (Nss) 500 mls @ 999 mls/hr IV .Q31M STA Stop: 11/20/22 14:27 Last Infusion: 11/20/22 18:47 Dose: 0 mls/hr Documented By: Admin: 11/20/22 17:29 Dose: 999 mls/hr Documented By: AB Sodium Chloride (Nss 1000ml) 500 mls @ 999 mls/hr IV .Q31M ONE Stop: 11/20/22 17:24 Last Admin: 11/20/22 18:47 Dose: Not Given Documented By: Ioversol (Optiray 320 100ml) 83 ml IV ONCE ONE Stop: 11/20/22 17:07 Last Admin: 11/20/22 18:47 Dose: Not Given Documented By: Ondansetron HCl (Ondansetron Inj 2 Mg/Ml 2 Ml Vial) 4 mg IV NOW STA Stop: 11/20/22 13:58 Last Admin: 11/20/22 18:47 Dose: Not Given Documented By: Ondansetron HCl (Ondansetron Inj 2 Mg/Ml 2 Ml Vial) 4 mg IV NOW STA Stop: 11/20/22 16:55 Last Admin: 11/20/22 17:33 Dose: 4 mg Documented By: Medical Decision Making Laboratory Data Attestation: I reviewed the patient's lab results. 11/20/22 14:32 11/20/22 14:32 Lab Results 11/20/22 11/20/22 11/20/22 Range/Units 14:32 14:32 14:32 WBC 7.83 (4.8-10.8) K/ul RBC 4.60 (4.20-5.40) M/uL Hgb 13.2 (12.0-16.0) g/dl Hct 38.1 (37.0-47.0) % MCV 82.8 (80.0-100.0) fL MCH 28.7 (25.0-34.0) pg MCHC 34.6 (32.0-36.0) g/dL RDW Std Deviation 46.5 H (36.4-46.3) fL RDW Coeff of Lesley 15.4 H (11.5-14.5) % Plt Count 184 (130-400) K/uL MPV 11.1 (9.4-12.4) fL Immature Gran % (Auto) 0.3 % Neut % (Auto) 65.9 % Lymph % (Auto) 23.4 % [place] % (Auto) 9.5 % Eos % (Auto) 0.8 % Baso % (Auto) 0.1 % Neut # (Auto) 5.17 (1.40-6.50) K/uL Lymph # (Auto) 1.83 (1.2-3.4) K/uL [place] # (Auto) 0.74 H (0.11-0.59) K/uL Eos # (Auto) 0.06 (0-0.50) K/uL Baso # (Auto) 0.01 (0-0.2) K/uL Immature Gran # (Auto) 0.02 (0.01-0.20) K/uL Sodium 132 L (136-145) mmol/L Potassium 3.8 (3.5-5.1) mmol/L Chloride 103 (98-107) mmol/L Carbon Dioxide 22 (21-32) mmol/L Anion Gap 7 (3-11) BUN 18 (6-23) mg/dl Creatinine 0.98 (0.6-1.2) mg/dl Est Cr Clr Drug Dosing 39.3 ml/min Est GFR ( Amer) 61.0 ml/min Est GFR (Non-Af Amer) 52.6 ml/min BUN/Creatinine Ratio 18.4 (10-20) Glucose 77 (70-99(Fasting)) mg/dl Calcium 8.4 L (8.6-10.3) mg/dl Magnesium 1.3 L (1.7-2.4) mg/dl Total Bilirubin 0.6 (0.2-1.0) mg/dl AST 28 (13-39) U/L ALT 13 (7-52) U/L Alkaline Phosphatase 62 (34-104) U/L Total Protein 7.4 (6.0-8.3) gm/dl Albumin 3.9 (3.4-5.0) gm/dl Globulin 3.5 (2.5-4.0) gm/dl Albumin/Globulin Ratio 1.1 (0.9-2) Lipase 6 L (11-82) U/L SARS-CoV-2 (PCR) NEGATIVE (Negative) Influenza Type A (PCR) Negative (Neg) Influenza Type B (PCR) Negative (Neg) RSV (RT-PCR) Negative (Neg) 11/20/22 Range/Units 17:00 WBC (4.8-10.8) K/ul RBC (4.20-5.40) M/uL Hgb (12.0-16.0) g/dl Hct (37.0-47.0) % MCV (80.0-100.0) fL MCH (25.0-34.0) pg MCHC (32.0-36.0) g/dL RDW Std Deviation (36.4-46.3) fL RDW Coeff of Lesley (11.5-14.5) % Plt Count (130-400) K/uL MPV (9.4-12.4) fL Immature Gran % (Auto) % Neut % (Auto) % Lymph % (Auto) % [place] % (Auto) % Eos % (Auto) % Baso % (Auto) % Neut # (Auto) (1.40-6.50) K/uL Lymph # (Auto) (1.2-3.4) K/uL [place] # (Auto) (0.11-0.59) K/uL Eos # (Auto) (0-0.50) K/uL Baso # (Auto) (0-0.2) K/uL Immature Gran # (Auto) (0.01-0.20) K/uL Sodium (136-145) mmol/L Potassium (3.5-5.1) mmol/L Chloride (98-107) mmol/L Carbon Dioxide (21-32) mmol/L Anion Gap (3-11) BUN (6-23) mg/dl Creatinine (0.6-1.2) mg/dl Est Cr Clr Drug Dosing ml/min Est GFR ( Amer) ml/min Est GFR (Non-Af Amer) ml/min BUN/Creatinine Ratio (10-20) Glucose (70-99(Fasting)) mg/dl Calcium (8.6-10.3) mg/dl Magnesium Cancelled (1.7-2.4) mg/dl Total Bilirubin (0.2-1.0) mg/dl AST (13-39) U/L ALT (7-52) U/L Alkaline Phosphatase (34-104) U/L Total Protein (6.0-8.3) gm/dl Albumin (3.4-5.0) gm/dl Globulin (2.5-4.0) gm/dl Albumin/Globulin Ratio (0.9-2) Lipase (11-82) U/L SARS-CoV-2 (PCR) (Negative) Influenza Type A (PCR) (Neg) Influenza Type B (PCR) (Neg) RSV (RT-PCR) (Neg) Imaging Data Radiologist's Impression: Abdomen/Pelvis CT 11/20/22 16:[address] WITH IV CONTRAST CT DOSE: 338.82 mGy.cm HISTORY: Nausea. Vomiting. Diarrhea. Generalized abdominal pain. TECHNIQUE: Multiaxial CT images of the abdomen and pelvis were performed following the use of intravenous contrast. A dose lowering technique was utilized adhering to the principles of ALARA. COMPARISON STUDY: Abdomen and pelvis CT 05/10/2012. FINDINGS: Mild dependent changes and punctate calcifications noted within the lung bases. No pneumoperitoneum. No pneumatosis. No acute fractures identified. The heart is enlarged. There is a moderate to large hiatus hernia, unchanged. Small midline fat-containing hernias are noted. Multiple duodenal diverticula with the dominant diverticula measuring 5.6 cm. Cholecystectomy. This likely accounts for the mild bile duct dilatation. The liver, pancreas, spleen, adrenal glands, and right kidney are unremarkable. There are 2 hypodense lesions within the left kidney which likely represent cysts. No hydronephrosis. The main portal vein is patent. Mild calcified plaque within the normal caliber abdominal aorta. No retroperitoneal or pelvic lymphadenopathy. No pelvic free fluid. The bladder, uterus, bilateral adnexa are within normal limits. Multiple colonic diverticula. No evidence for acute diverticulitis. Borderline dilated fluid-filled loops of large and small bowel seen throughout the abdomen. No transition point to suggest a bowel obstruction. No evidence for bowel wall thickening. Therefore, these findings favor a gastroenteritis/diarrheal illness with a mild ileus. Normal appendix. IMPRESSION: 1. Borderline dilated fluid-filled loops of large and small bowel seen throughout the abdomen. No transition point to suggest a bowel obstruction. No evidence for bowel wall thickening. Therefore, these findings favor a gastroenteritis/diarrheal illness with a mild ileus. 2. Normal appendix. 3. Moderate to large hiatus hernia, unchanged. 4. Diverticulosis. No evidence for acute diverticulitis. 5. Cholecystectomy. 6. Additional findings as described above. ACT 112: Negative or not required by law. Electronically signed by: Francisco Javier Rivas M.D. 11/20/2022 5:20 PM ECG Data Attestation: I personally reviewed and interpreted this ECG as follows: Indication: vomiting Rate (beats per minute): 99 Rhythm: atrial fibrillation Findings: + RBBB and + prolonged QT; no ST depression or no ST elevation Additional Comments: QRS 148 QTc 513. [facility] Narrative 1647: The patient was evaluated in room C6. A complete history and physical exam was performed Cardiac monitoring: An order was placed for continuous cardiac monitoring. The monitor shows a rate of 90 with atrial fibrilation rhythm interpreted by me 1730: Vital signs stable. Labs within normal limits with exception of low magne sium. Magnesium repletion started in the emergency department. Imaging shows no evidence of obstruction. [facility] Impression & Plan Hypomagnesemia, Nausea & vomiting Discharge Plan Visit Data Chief Complaint: Vomiting Stated Complaint: VOMITING,DOC REF ED Provider: Marko Mcdermott Discharge Problem: Hypomagnesemia, Nausea & vomiting Patient Disposition: Admitted As Inpatient Discharge Instructions Interventions: ED Discharge Assessment Last Done: 11/20/22 18:37
[2022-11-20] MEDS ORDERED: OPTIRAY 320 100ml IV ONE (17:06)
[2022-11-20 17:21] LABS: Magnesium 1.3 mg/dl (1.7-2.4)
--- NOTE | 2022-11-20 17:23 | CT Scan Report ---
ABDOMEN AND PELVIS CT WITH IV CONTRAST CT DOSE: 338.82 mGy.cm HISTORY: Nausea. Vomiting. Diarrhea. Generalized abdominal pain. TECHNIQUE: Multiaxial CT images of the abdomen and pelvis were performed following the use of intrave nous contrast. A dose lowering technique was utilized adhering to the principles of ALARA. COMPARISON STUDY: Abdomen and pelvis CT 05/10/2012. FINDINGS: Mild dependent changes and punctate calcifications noted within the lung bases. No pneumope ritoneum. No pneumatosis. No acute fractures identified. The heart is enlarged. There is a moderate t o large hiatus hernia, unchanged. Small midline fat-containing hernias are noted. Multiple duodenal d iverticula with the dominant diverticula measuring 5.6 cm. Cholecystectomy. This likely accounts for the mild bile duct dilatation. The liver, pancreas, spleen, adrenal glands, and right kidney are unre markable. There are 2 hypodense lesions within the left kidney which likely represent cysts. No hydro nephrosis. The main portal vein is patent. Mild calcified plaque within the normal caliber abdominal aorta. No retroperitoneal or pelvic lymphadenopathy. No pelvic free fluid. The bladder, uterus, bilat eral adnexa are within normal limits. Multiple colonic diverticula. No evidence for acute diverticuli tis. Borderline dilated fluid-filled loops of large and small bowel seen throughout the abdomen. No t ransition point to suggest a bowel obstruction. No evidence for bowel wall thickening. Therefore, the se findings favor a gastroenteritis/diarrheal illness with a mild ileus. Normal appendix. IMPRESSION: 1. Borderline dilated fluid-filled loops of large and small bowel seen throughout the abdomen. No tra nsition point to suggest a bowel obstruction. No evidence for bowel wall thickening. Therefore, these findings favor a gastroenteritis/diarrheal illness with a mild ileus. 2. Normal appendix. 3. Moderate to large hiatus hernia, unchanged. 4. Diverticulosis. No evidence for acute diverticulitis. 5. Cholecystectomy. 6. Additional findings as described above. ACT 112: Negative or not required by law. Electronically signed by: Francisco Javier Rivas M.D. 11/20/2022 5:20 PM
--- NOTE | 2022-11-20 17:51 | History & Physical Report ---
Date of Service November 20, 2022 Assessment & Plan (1) Gastroenteritis: (2) Generalized weakness: (3) Hypomagnesemia: (4) Atrial fibrillation: (5) History of DVT (deep vein thrombosis): (6) Diabetes mellitus, type II: Plan This is an 86-year-old female who has a significant past medical history of T2DM, hyperlipidemia, diabetic polyneuropathy, chronic DVT of left femoral vein, chronic pulmonary embolism anticoagulated on apixaban, longstanding persistent atrial fibrillation, GERD, senile osteoporosis, vitamin D deficiency, stasis dermatitis and major depressive disorder who presents to ED secondary to diarrhea illness and abdominal pain x3 to [address] A/P: 1. Borderline dilated fluid-filled loops of large and small bowel seen throughout the abdomen. No transition point to suggest a bowel obstruction. No evidence for bowel wall thickening. Therefore, these findings favor a gastroenteritis/diarrheal illness with a mild ileus.2. Normal appendix.3. Moderate to large hiatus hernia, unchanged.4. Diverticulosis. No evidence for acute diverticulitis.5. Cholecystectomy.6. Additional findings as described above. Gastroenteritis Generalized weakness secondary to above Admit to med telemetry Symptoms likely as result of viral gastroenteritis, questionable norovirus Obtain [employer] stool studies and C. difficile, patient denies recent antibiotic Supportive care for now with IV fluids, clear liquids and antiemetics Consult PT/OT Will be able to advance diet as tolerated once feeling improved KUB in a.m. Hypomagnesemia mag 1.3 replete with 1g mag sulfate x 3 repeat mag level Atrial fibrillation, Chronic continue metoprolol and apixaban rate controlled HTN hold lisinopril an lasix due to poor intake/diarrhea resume as able, pt euvolemic continue potassium for now but monitor K levels closely Prolonged QTC avoid qtc prolonging meds place on phenergan for antiemetic ekg in a.m. T2DM last a1c 6.2 in 2021 obtain a1c in a.m. bsg on low end in ED will give D5NS x 500ml hold metformin, januvia, glimepride Novolog sliding scale for now DVT ppx: Apixaban DNR/DNI PCP: Dr. Royce Mckeon Dispo: admit to med tele, lives alone and recently placed in [facility], family closeby, PT/OT consults placed, may need rehab, has walker at home A total of 75 min was spent coordinating, documenting, and providing care for this patient excluding time spent in the performance of separately billed services. This included personally viewing all current laboratories and imaging studies, medication reconciliation, outpatient chart review, and discussion with specialists. Pt was seen and collaborated with Dr. Decker, please see her addendum. History of Present Illness Chief Complaint: Diarrheal illness x 4 days. Primary Care Provider: Royce Mckeon MD This is an 86-year-old female who has a significant past medical history of T2DM, hyperlipidemia, diabetic polyneuropathy, chronic DVT of left femoral vein, chronic pulmonary embolism anticoagulated on apixaban, longstanding persistent atrial fibrillation, GERD, senile osteoporosis, vitamin D deficiency, stasis dermatitis and major depressive disorder who presents to ED secondary to diarrhea illness and abdominal pain x3 to 4 days. 2 daughters are at bedside. 1 daughter is from out of town and has been staying with mother for the past week.She states she stays with her mother 1 week out of the month. They recently put patient's in assisted living due to dementia.Symptoms started approximately 4 days ago when she developed vomiting, weakness and ill feeling. Symptoms have progressed the last 4 days with significant diarrhea. On day 1 she did have abdominal discomfort and cramping but this has since subsided. Patient has not had much to eat or drink over the past 3 to 4 days. She has been taking most of her medications except metformin. Generally weak and inability to go from sit to stand.No known sick contacts. She denies any documented fever, chills, sweats, lightheadedness, dizziness, chest pain, shortness of breath, hematemesis, melena, hematochezia.In ED patient was found to have significantly low magnesium at 1.3. In ED patient was hemodynamically stable. Her lab work was significant for hypomagnesemia at 1.3 and hyponatremia of 132. CT abdomen pelvis concerning for borderline dilated fluid-filled loops of large and small bowel seen throughout the abdomen with no transition point to suggest bowel obstruction and no evidence of bowel wall thickening. Findings favor a gastroenteritis or diarrheal illness with a mild ileus. Moderate to large hiatal hernia is unchanged, no evidence of diverticulitis and prior history of cholecystectomy noted. Allergies Allergy/AdvReac Type Severity Reaction Status Date / Time erythromycin base AdvReac Intermediate Gastrointestinal Verified 11/20/22 17:27 Upset Home Medications Medication Instructions Recorded Confirmed Type aspirin 81 mg chewable tablet 81 mg PO DAILY 12/27/20 11/20/22 History atorvastatin 10 mg tablet 10 mg PO DAILY 12/27/20 11/20/22 History cyanocobalamin (vitamin B-12) 1,000 mcg PO DAILY 12/27/20 11/20/22 History 1,000 mcg tablet (Vitamin B-12) furosemide 20 mg tablet 20 mg PO DAILY 12/27/20 11/20/22 History glimepiride 1 mg tablet 1 mg PO DAILY 12/27/20 11/20/22 History metformin 500 mg tablet,extended 1,000 mg PO BID 12/27/20 11/20/22 History release 24 hr omeprazole 40 mg capsule,delayed 40 mg PO DAILY 12/27/20 11/20/22 History release pregabalin 100 mg capsule 100 mg PO BID 12/27/20 11/20/22 History sitagliptin phosphate 100 mg 100 mg PO DAILY 12/27/20 11/20/22 History tablet (Januvia) apixaban 5 mg tablet (Eliquis) 5 mg PO BID #180 tabs 12/30/20 11/20/22 Rx azelastine 205.5 mcg (0.15 %) 1 spray intranasal BID 11/20/22 11/20/22 History nasal spray buspirone 5 mg tablet 5 mg PO BID 11/20/22 11/20/22 History cetirizine 10 mg tablet (Zyrtec) 10 mg PO DAILY 11/20/22 11/20/22 History elderberry fruit 460 mg-elderberry 1 cap PO DAILY 11/20/22 11/20/22 History flower 115 mg capsule escitalopram oxalate 20 mg tablet 20 mg PO DAILY 11/20/22 11/20/22 History (Lexapro) lisinopril 5 mg tablet 5 mg PO QAM 11/20/22 11/20/22 History metoprolol succinate 25 mg 25 mg PO DAILY 11/20/22 11/20/22 History tablet,extended release 24 hr multivitamin 1 tab PO DAILY 11/20/22 11/20/22 History potassium chloride 20 mEq 40 meq PO DAILY 11/20/22 11/20/22 History tablet,extended release(part/cryst) (Klor-Con M) Past Med/Surg History Medical History Atrial fibrillation Cardiomyopathy Chronic pulmonary embolism Depression Diabetes mellitus, type II GERD (gastroesophageal reflux disease) History of DVT (deep vein thrombosis) 20 years ago Surgical History H/O hernia repair History of cholecystectomy Hx of cataract surgery S/P hernia repair Family History Other Cancer Heart disease Social History Smoking Status: Never smoker Hx Alcohol Use: No Hx Substance Use: No Preferred Language: [place] Communication Ability: Effective Visual Impairment: No Limitations [employer] Required: No Beliefs That Will Affect Care: None Current Living Situation: Alone current occupational status: retired Feels Safe at Home: Yes Assistive Devices: Glasses Review of Systems Review of Systems: All systems reviewed & are unremarkable except as noted in HPI & below Physical Exam Physical Exam: Constitutional: WD/WN, vitals as above, NAD, sitting up in bed, pleasant, conversing easily Head: Normocephalic, Atraumatic Eyes: PERRL, conjunctivae normal, anicteric sclerae ENMT: external ear and nose normal, oropharynx normal Neck: trachea midline, no thyromegaly normal visual inspection Respiratory: normal respiratory effort, lungs clear to auscultation, no wheeze, rales, rhonchi. Normal insp/exp effort, no accessory muscle use Cardiovascular: RRR, no murmur, no edema Vessels: no JVD or carotid bruit Chest: normal inspection of chest Abdomen: normal bowel sounds, soft, nontender, no hepatosplenomegaly Musculoskeletal: no cyanosis or clubbing, extremities motor strength 5/5 Skin: no rashes, warm and dry normal turgor Neurologic: PERRL, EOMI, accommodation nl, no face palsy, no dysarthria CN's II-XI intact bilaterally and moves all extremities Psychiatric: A+Ox3, euthymic affect Lymphatic: no cervical or axillary lymphadenopathy : deferred Results & Data Results & Data Vital Signs (Past 12 Hours) Vital Signs Temp Pulse Pulse Resp BP BP Pulse Ox 11/20/22 17:23 36.4 C L 88 18 111/66 92 11/20/22 13:50 36.3 C L 94 H 18 115/75 100 O2 Del Method 11/20/22 17:23 Room Air 11/20/22 13:50 Room Air Diagnostic Findings Abdomen/Pelvis CT 11/20/22 16:[address] WITH IV CONTRAST CT DOSE: 338.82 mGy.cm HISTORY: Nausea. Vomiting. Diarrhea. Generalized abdominal pain. TECHNIQUE: Multiaxial CT images of the abdomen and pelvis were performed following the use of intravenous contrast. A dose lowering technique was utilized adhering to the principles of ALARA. COMPARISON STUDY: Abdomen and pelvis CT 05/10/2012. FINDINGS: Mild dependent changes and punctate calcifications noted within the lung bases. No pneumoperitoneum. No pneumatosis. No acute fractures identified. The heart is enlarged. There is a moderate to large hiatus hernia, unchanged. Small midline fat-containing hernias are noted. Multiple duodenal diverticula with the dominant diverticula measuring 5.6 cm. Cholecystectomy. This likely accounts for the mild bile duct dilatation. The liver, pancreas, spleen, adrenal glands, and right kidney are unremarkable. There are 2 hypodense lesions within the left kidney which likely represent cysts. No hydronephrosis. The main portal vein is patent. Mild calcified plaque within the normal caliber abdominal aorta. No retroperitoneal or pelvic lymphadenopathy. No pelvic free fluid. The bladder, uterus, bilateral adnexa are within normal limits. Multiple colonic diverticula. No evidence for acute diverticulitis. Borderline dilated fluid-filled loops of large and small bowel seen throughout the abdomen. No transition point to suggest a bowel obstruction. No evidence for bowel wall thickening. Therefore, these findings favor a gastroenteritis/diarrheal illness with a mild ileus. Normal appendix. IMPRESSION: 1. Borderline dilated fluid-filled loops of large and small bowel seen throughout the abdomen. No transition point to suggest a bowel obstruction. No evidence for bowel wall thickening. Therefore, these findings favor a gastroenteritis/diarrheal illness with a mild ileus. 2. Normal appendix. 3. Moderate to large hiatus hernia, unchanged. 4. Diverticulosis. No evidence for acute diverticulitis. 5. Cholecystectomy. 6. Additional findings as described above. ACT 112: Negative or not required by law. Electronically signed by: Francisco Javier Rivas M.D. 11/20/2022 5:20 PM Medications Administered Medication List Discontinued Medications Sodium Chloride (Nss) 500 mls @ 999 mls/hr IV .Q31M STA Stop: 11/20/22 14:27 Last Admin: 11/20/22 17:29 Dose: 999 mls/hr Documented By: AB Ondansetron HCl (Ondansetron Inj 2 Mg/Ml 2 Ml Vial) 4 mg IV NOW STA Stop: 11/20/22 16:55 Last Admin: 11/20/22 17:33 Dose: 4 mg Documented By: AB ECG Rate (beats per minute): 99 Rhythm: atrial fibrillation Additional Comments: QTc 513 MS, bifascicular block COVID-19 Results Results COVID-19 Adm Lab Results: RBC 4.60 M/uL (4.20-5.40) 11/20/22 WBC 7.83 K/ul (4.8-10.8) 11/20/22 Hgb 13.2 g/dl (12.0-16.0) 11/20/22 Hct 38.1 % (37.0-47.0) 11/20/22 Plt Count 184 K/uL (130-400) 11/20/22 Neutrophils (%) (Auto) 65.9 % 11/20/22 Lymphocytes (%) (Auto) 23.4 % 11/20/22 Monocytes # (Auto) 0.74 K/uL (0.11-0.59) H 11/20/22 Eosinophils # (Auto) 0.06 K/uL (0-0.50) 11/20/22 Immature Granulocyte % (Auto) 0.3 % 11/20/22 Neutrophils # (Auto) 5.17 K/uL (1.40-6.50) 11/20/22 Lymphocytes # (Auto) 1.83 K/uL (1.2-3.4) 11/20/22 Monocytes # (Auto) 0.74 K/uL (0.11-0.59) H 11/20/22 Eosinophils # (Auto) 0.06 K/uL (0-0.50) 11/20/22 Basophils # (Auto) 0.01 K/uL (0-0.2) 11/20/22 Immature Granulocyte # (Auto) 0.02 K/uL (0.01-0.20) 3 Na 132 mmol/L (136-145) L 11/20/22 K 3.8 mmol/L (3.5-5.1) 11/20/22 Cl 103 mmol/L (98-107) 11/20/22 CO2 22 mmol/L (21-32) 11/20/22 Anion Gap 7 (3-11) 11/20/22 BUN 18 mg/dl (6-23) 11/20/22 Creatinine 0.98 mg/dl (0.6-1.2) 11/20/22 BUN/Creatinine Ratio 18.4 (10-20) 11/20/22 Glucose Level 77 mg/dl (70-99(Fasting)) 11/20/22 Ca 8.4 mg/dl (8.6-10.3) L 11/20/22 Total Bilirubin 0.6 mg/dl (0.2-1.0) 11/20/22 AST/SGOT 28 U/L (13-39) 11/20/22 ALT/SGPT 13 U/L (7-52) 11/20/22 Alkaline Phosphatase 62 U/L (34-104) 11/20/22 Total Protein 7.4 gm/dl (6.0-8.3) 11/20/22 Albumin 3.9 gm/dl (3.4-5.0) 11/20/22 Globulin 3.5 gm/dl (2.5-4.0) 11/20/22 Albumin/Globulin Ratio 1.1 (0.9-2) 11/20/22 COVID-19 PCR NEGATIVE (Negative) 11/20/22 Influenza Virus Type A (PCR) Negative (Neg) 11/20/22 Influenza Virus Type B (PCR) Negative (Neg) 11/20/22 Code Status & VTE Plan Code Status Full code VTE Prophylaxis Plan VTE Prophylaxis will be ordered: No Reason for no VTE drug order: Treatment not indicated Supervising Physician Co-Signing Physician Notes Pt seen and examined by myself, Dara Decker MD on the day of service. Care was coordinated with Mel Sena PA-C. Please refer to her note for additional information. 86yo with acute onset of diarrhea for the past 3 nights, now with generalized weakness. Daughter who is a retired RN states that pt visits her in a [place] [facility] facility and uses the bathroom there but believes that might be her only infectious contact. Pt believes it was due to eating bad mac and cheese, denies recent antibiotic use, states stools now have some form. Stool studies. Has electrolyte abnormalities, replete/manage. PT/OT as might need placement after discharge. Otherwise as above.
[2022-11-20] MEDS ORDERED: D5W AND NSS 1,000 ML IV SCH (18:30)
[2022-11-20] MEDS ORDERED: MAGNESIUM SULFATE / D5W 1 GM/100 ML BAG IV STA (18:37)
[2022-11-20] MEDS ORDERED: ONDANSETRON INJ 2 MG/ML 2 ML VIAL IV PRN (18:37)
[2022-11-20] MEDS ORDERED: ACETAMINOPHEN 325 MG TAB PO PRN (18:37)
[2022-11-20] MEDS ORDERED: DEXTROSE 50% 50 ML SYRINGE IV PRN (18:37)
[2022-11-20] MEDS ORDERED: GLUCOSE 10 TAB/TUBE PO PRN (18:37)
[2022-11-20] MEDS ORDERED: ALUMINUM/MAGNESIUM SUSP 30 ML UDC PO PRN (18:37)
[2022-11-20] MEDS ORDERED: SODIUM CHLORIDE 0.9% 1000ML 1,000 ML IV SCH (18:37)
[2022-11-20] MEDS ORDERED: GLUCAGON FOR INJ 1 MG VIAL SQ PRN (18:37)
[2022-11-20] MEDS ORDERED: CARBOHYDRATES FOR HYPOGLYCEMIA PO PRN (18:37)
[2022-11-20] MEDS ORDERED: GLUCOSE 40% GEL 15 GM TUBE PO PRN (18:37)
[2022-11-20] MEDS ORDERED: PROMETHAZINE HCL 6.25 MG in SODIUM CHLORIDE 0.9% 50 ML IV PRN (18:51)
[2022-11-20] MEDS: MAGNESIUM SULFATE / D5W 1 GM/100 ML BAG IV SCH (18:57)
[2022-11-20] MEDS ORDERED: MAGNESIUM SULFATE / D5W 1 GM/100 ML BAG IV SCH ×2 (20:14→21:45)
[2022-11-20 20:17] LABS: Appearance Urine Clear (Clear); Bacteria Urine Automated 2+ (Negative); Bilirubin Urine Negative (Negative); Blood Urine Trace (Negative); Color Urine Yellow; Epithelial Cell Urine Auto >30 /lpf (0-5); Glucose Urine UA Negative (Negative); Ketones Urine Negative (Negative); Leukocyte Esterase Urine Negative (Negative); Nitrite Urine Positive (Negative); Protein Urine Negative (Negative); RBC Urine Automated 0-4 /hpf (0-4); Specific Gravity Urine 1.013 (1.000-1.030); Urobilinogen Urine Negative (Negative); pH Urine 5.5 (4.5-7.5)
[2022-11-20] MEDS: PREGABALIN 100 MG CAP PO SCH (21:15)
[2022-11-20] MEDS: AZELASTINE HCL 0.1% NASAL 200 SPRAYS/27,400 MCG BTL SCH (21:16)
[2022-11-20] MEDS: busPIRone 5 MG TAB PO SCH (21:16)
[2022-11-20] MEDS: APIXABAN 5 MG TABLET PO SCH (21:16)
[2022-11-20 21:31] LABS: Adenovirus F 40/41 PCR Not Detected (NotDetected); Astrovirus PCR Not Detected (NotDetected); Campylobacter PCR Not Detected (NotDetected); Cryptosporidium PCR Not Detected (NotDetected); Cyclospora cayetanensis PCR Not Detected (NotDetected); Entamoeba histolytica PCR Not Detected (NotDetected); Enteroaggregative E.coli(EAEC) Not Detected (NotDetected); Enteropathogenic E.coli (EPEC) Not Detected (NotDetected); Enterotoxigenic E.coli (ETEC) Not Detected (NotDetected); Giardia lamblia PCR Not Detected (NotDetected); Norovirus GI/GII PCR Not Detected (NotDetected); Plesiomonas shigelloides PCR Not Detected (NotDetected); Salmonella PCR Not Detected (NotDetected); Sapovirus PCR Not Detected (NotDetected); Shiga-like Toxin E.coli (STEC) Not Detected (NotDetected); Shigella/Enteroinvasive E.coli Not Detected (NotDetected); Vibrio cholerae PCR Not Detected (NotDetected); Vibrio species PCR Not Detected (NotDetected); Yersinia enterocolitica PCR Not Detected (NotDetected)
[2022-11-20 22:27] LABS: Rotavirus A PCR DETECTED (NotDetected)
[2022-11-20] MEDS: cefTRIAXone SODIUM 1,000 MG in DEXTROSE 5% AD-VAN 50 ML IV SCH (23:39)
[2022-11-21] MEDS ORDERED: ALBUMIN 25% 100 mL 25 GM/100 ML VIAL IV ONE (00:09)
[2022-11-21] MEDS: INSULIN ASPART PER UNIT CHARGE SC SCH ×5 (00:19→21:23)
[2022-11-21 01:20] LABS: BUN Creatinine Ratio 16.7 (10-20); Creatinine Clr Calc Pharmacy 49.5 ml/min; Est GFR (African American) 73.5 ml/min; Est GFR (Non-African American) 63.4 ml/min; Potassium 2.9 mmol/L (3.5-5.1)
[2022-11-21] MEDS: MAGNESIUM SULFATE / D5W 1 GM/100 ML BAG IV SCH (01:20)
[2022-11-21] MEDS ORDERED: POTASSIUM CHLORIDE PWD 20 MEQ PACK PO STA (02:07)
[2022-11-21] MEDS: POTASSIUM CHLORIDE / WTR 10 MEQ/100 ML PLCT IV SCH ×4 (02:36→06:35)
[2022-11-21] MEDS ORDERED: POTASSIUM CHLORIDE PWD 20 MEQ PACK PO ONE (04:00)
[2022-11-21 08:06] LABS: Hematocrit (blood only) 35.2 % (37.0-47.0); Hemoglobin 11.7 g/dl (12.0-16.0); Mean Corpuscular Hemoglobin 27.8 pg (25.0-34.0); Mean Corpuscular Hgb Conc 33.2 g/dL (32.0-36.0); Mean Corpuscular Volume 83.6 fL (80.0-100.0); Mean Platelet Volume 10.5 fL (9.4-12.4); Platelet Count 166 K/uL (130-400); RDW Coefficient of Variation 15.6 % (11.5-14.5); RDW Standard Deviation 47.4 fL (36.4-46.3); Red Blood Count 4.21 M/uL (4.20-5.40)
[2022-11-21 08:21] LABS: Estimated Average Glucose 134 mg/dl; Hemoglobin A1C 6.3 % (4.5-5.6)
[2022-11-21 08:28] LABS: Acanthocytes 2+; Basophils # (auto) 0.01 K/uL (0-0.2); Basophils % (auto) 0.2 %; Echinocytes 2+; Eosinophils # (auto) 0.06 K/uL (0-0.50); Eosinophils % (auto) 1.4 %; Immature Granulocytes # (auto) 0.02 K/uL (0.01-0.20); Immature Granulocytes % (auto) 0.5 %; Lymphocytes # (auto) 1.71 K/uL (1.2-3.4); Lymphocytes % (auto) 40.7 %; Monocytes # (auto) 0.59 K/uL (0.11-0.59); Neutrophils # (auto) 1.81 K/uL (1.40-6.50); Neutrophils % (auto) 43.2 %
[2022-11-21] MEDS: ATORVASTATIN 10 MG TAB PO SCH (08:39)
[2022-11-21] MEDS: APIXABAN 5 MG TABLET PO SCH ×2 (08:39→20:10)
[2022-11-21 08:40] LABS: Albumin Globulin Ratio 1.4 (0.9-2); BUN Creatinine Ratio 15.5 (10-20); Bilirubin,Total 0.5 mg/dl (0.2-1.0); Calcium 8.3 mg/dl (8.6-10.3); Creatinine Clr Calc Pharmacy 44.9 ml/min; Est GFR (African American) 73.5 ml/min; Est GFR (Non-African American) 63.4 ml/min; Globulin 2.9 gm/dl (2.5-4.0); Magnesium 2.5 mg/dl (1.7-2.4); Potassium 5.7 mmol/L (3.5-5.1); Total Protein 6.9 gm/dl (6.0-8.3)
[2022-11-21] MEDS: AZELASTINE HCL 0.1% NASAL 200 SPRAYS/27,400 MCG BTL SCH ×2 (08:40→20:10)
[2022-11-21] MEDS: ASPIRIN 81 MG ECTAB PO SCH (08:40)
[2022-11-21] MEDS: CETIRIZINE HCL 10 MG TABLET PO SCH (08:41)
[2022-11-21] MEDS: busPIRone 5 MG TAB PO SCH ×2 (08:41→20:10)
[2022-11-21] MEDS: ESCITALOPRAM OXALATE 20 MG TAB PO SCH (08:41)
[2022-11-21] MEDS: CYANOCOBALAMIN (B-12) 500 MCG TABLET PO SCH (08:41)
[2022-11-21] MEDS: PANTOprazole 40 MG TAB PO SCH (08:42)
[2022-11-21] MEDS: MULTIVITAMIN TAB PO SCH (08:42)
[2022-11-21] MEDS: METOPROLOL SUCC 25MG EXT REL TAB PO SCH (08:42)
[2022-11-21] MEDS: PREGABALIN 100 MG CAP PO SCH ×2 (08:43→20:10)
[2022-11-21] MEDS: POTASSIUM CHLORIDE CRTAB 20 MEQ TABCR PO SCH (09:15)
--- NOTE | 2022-11-21 09:39 | XRay Report ---
KUB HISTORY: mild ileus on CT COMPARISON: Abdomen and pelvis CT 11/20/2022. FINDINGS: Mildly dilated gas-filled loops of large and small bowel are again seen throughout the abdo men. This is similar to the prior study and favors a mild ileus/gastroenteritis. Prior cholecystectom y. No renal calculi. No ureteral calculi. No pneumoperitoneum or pneumatosis. IMPRESSION: No significant change in the mildly dilated gas-filled loops of large and small bowel seen throughout the abdomen. This favors a mild ileus/gastroenteritis. ACT 112: Negative or not required by law. Electronically signed by: Francisco Javier Rivas M.D. 11/21/2022 9:38 AM
--- NOTE | 2022-11-21 14:58 | Hospitalist Progress Note ---
Date of Service November 21, 2022 Assessment & Plan (1) Rotavirus enteritis: (2) UTI (urinary tract infection): (3) Hyperkalemia: (4) Hypomagnesemia: (5) Generalized weakness: (6) Atrial fibrillation: (7) History of DVT (deep vein thrombosis): (8) Diabetes mellitus, type II: Plan This is an 86-year-old female who has a significant past medical history of T2DM, hyperlipidemia, diabetic polyneuropathy, chronic DVT of left femoral vein, chronic pulmonary embolism anticoagulated on apixaban, longstanding persistent atrial fibrillation, GERD, senile osteoporosis, vitamin D deficiency, stasis dermatitis and major depressive disorder who presents to ED secondary to diarrhea illness and abdominal pain x3 to [address] A/P 11/20: 1. Borderline dilated fluid-filled loops of large and small bowel seen throughout the abdomen. No transition point to suggest a bowel obstruction. No evidence for bowel wall thickening. Therefore, these findings favor a gastroenteritis/diarrheal illness with a mild ileus.2. Normal appendix.3. Moderate to large hiatus hernia, unchanged.4. Diverticulosis. No evidence for acute diverticulitis.5. Cholecystectomy.6. Additional findings as described above. KUB 11/21- No significant change in the mildly dilated gas-filled loops of large and small bowel seen throughout the abdomen. This favors a mild ileus/gastroenteritis. Rotavirus enteritis -Stool studies with rotavirus, her daughter with similar symptoms. No diarrhea today. Imagings reviewed - We will advance diet and monitor. Continue supportive management a UTI-urine culture with gram-negative bacilli. Currently on ceftriaxone pending final urine culture results Hyperkalemia-potassium supplementation on hold. repeat BMP in the afternoon, and treat accordingly Hypomagnesemia-resolved with repletion Atrial fibrillation, Chronic-rate controlled on metoprolol, anticoagulated on apixaban HTN-BP soft. Holding lisinopril and Lasix due to poor oral intake and diarrhea. Currently euvolemic. T2DM- A1c 6.3. Holding home antihypoglycemics. Continue SSI. DVT ppx: Apixaban Disposition: Pending symptomatic improvement and final urine culture results. PT/OT evaluation pending Updated family at bedside Admission and Anticipated Discharge Date Admission Date: November 20, 2022 Subjective Patient was seen and examined at bedside in presence of son. She feels fine. She did not have any more diarrhea since admission. She tolerated clears without issues. No nausea or vomiting. No abdominal pain. She would like to advance to regular food. Review of Systems Review of Systems: All systems reviewed & are unremarkable except as noted in Subjective Physical Exam Physical Exam: General: Lying comfortably in bed, not in distress, on room air HEENT: EOMI, SATNAM, MMM Chest: Clear breath sounds bilaterally, no wheezes or crackles CVS: Regular rate and rhythm, normal heart sounds, no murmur Abdomen: Soft, non tender, not distended, normal bowel sounds Neuro: Awake, alert, oriented, conversing well, non focal Extremities: No cyanosis, clubbing or edema Results & Data Results & Data Vital Signs (Past 12 Hours) Vital Signs Temp Pulse Pulse Resp BP Pulse Ox O2 Del Method 11/21/22 06:01 80 11/21/22 07:57 36.3 C L 92 H 16 105/75 96 Room Air 11/21/22 03:00 36.3 C L 84 18 93/54 L 94 Room Air Laboratory Results Short CBC 11/20/22 11/21/22 Range/Units 14:32 07:49 WBC 7.83 4.20 L (4.8-10.8) K/ul Hgb 13.2 11.7 L (12.0-16.0) g/dl Hct 38.1 35.2 L (37.0-47.0) % Plt Count 184 166 (130-400) K/uL BMP 11/20/22 11/21/22 11/21/22 14:32 00:38 07:49 Sodium 132 L 136 135 L Potassium 3.8 2.9 L D 5.7 H D Chloride 103 100 109 H Carbon Dioxide 22 20 L 22 BUN 18 14 13 Creatinine 0.98 0.84 0.84 Glucose 77 83 85 Calcium 8.4 L 7.0 L 8.3 L Liver Function 11/20/22 11/21/22 Range/Units 14:32 07:49 Total Bilirubin 0.6 0.5 (0.2-1.0) mg/dl AST 28 21 (13-39) U/L ALT 13 11 (7-52) U/L Alkaline Phosphatase 62 55 (34-104) U/L Albumin 3.9 4.0 (3.4-5.0) gm/dl Urine 11/20/22 Range/Units 19:30 Urine Color Yellow Urine Appearance Clear (Clear) Urine pH 5.5 (4.5-7.5) Ur Specific [place] 1.013 (1.000-1.030) Urine Protein Negative (Negative) Urine Glucose (UA) Negative (Negative) Medications Administered Current Inpatient Medications Acetaminophen (Acetaminophen 325 Mg Tab) 650 mg PO Q4H PRN PRN Reason: Pain or Fever Stop: 12/20/22 18:36 Al Hydrox/Mg Hydrox/Simethicone (Aluminum/Magnesium Susp 30 Ml Udc) 15 ml PO Q4H PRN PRN Reason: Dyspepsia Stop: 12/20/22 18:36 Apixaban (Apixaban 5 Mg Tablet) 5 mg PO BID LAURIE Stop: 12/20/22 20:59 Last Admin: 11/21/22 08:39 Dose: 5 mg Aspirin (Aspirin 81 Mg Ectab) 81 mg PO DAILY LAURIE Stop: 12/21/22 08:59 Last Admin: 11/21/22 08:40 Dose: 81 mg Atorvastatin Calcium (Atorvastatin 10 Mg Tab) 10 mg PO DAILY LAURIE Stop: 12/21/22 08:59 Last Admin: 11/21/22 08:39 Dose: 10 mg Azelastine HCl (Azelastine Hcl 0.1% Nasal 200 Sprays/27,400 Mcg Btl) 1 sprays NA BID LAURIE Stop: 12/20/22 20:59 Last Admin: 11/21/22 08:40 Dose: 1 sprays Buspirone HCl (Buspirone 5 Mg Tab) 5 mg PO BID LAURIE Stop: 12/20/22 20:59 Last Admin: 11/21/22 08:41 Dose: 5 mg Cetirizine HCl (Cetirizine Hcl 10 Mg Tablet) 10 mg PO DAILY LAURIE Stop: 12/21/22 08:59 Last Admin: 11/21/22 08:41 Dose: 10 mg Cyanocobalamin (Cyanocobalamin (B-12) 500 Mcg Tablet) 1,000 mcg PO DAILY LAURIE Stop: 12/21/22 08:59 Last Admin: 11/21/22 08:41 Dose: 1,000 mcg Dextrose (Dextrose 50% 50 Ml Syringe) 25 - 50 ml IV UD PRN; Protocol PRN Reason: Hypoglycemia Protocol Stop: 12/20/22 18:36 Escitalopram Oxalate (Escitalopram Oxalate 20 Mg Tab) 20 mg PO DAILY LAURIE Stop: 12/21/22 08:59 Last Admin: 11/21/22 08:41 Dose: 20 mg Glucagon (Glucagon For Inj 1 Mg Vial) 1 mg SQ UD PRN; Protocol PRN Reason: Hypoglycemia Protocol Stop: 12/20/22 18:36 Glucose (Glucose 10 Tab/Tube) 4 - 8 tab PO UD PRN; Protocol PRN Reason: Hypoglycemia Treatment Stop: 12/20/22 18:36 Glucose (Glucose 40% Gel 15 Gm Tube) 15 - 30 gm PO UD PRN; Protocol PRN Reason: Hypoglycemia Protocol Stop: 12/20/22 18:36 Promethazine HCl 6.25 mg/ (Sodium Chloride) 50.25 mls @ 201 mls/hr IV Q6H PRN PRN Reason: Nausea And Vomiting Stop: 12/20/22 18:50 Ceftriaxone Sodium 1,000 mg/ (Dextrose) 50 mls @ 100 mls/hr IV Q24H LAURIE; P rotocol Stop: 11/25/22 21:59 Last Infusion: 11/21/22 00:45 Dose: Infused Insulin Aspart (Insulin Aspart Per Unit Charge) 0 units SC ACHS LAURIE Stop: 12/20/22 20:59 Last Admin: 11/21/22 11:44 Dose: Not Given Metoprolol Succinate (Metoprolol Succ 25mg Ext Rel Tab) 25 mg PO DAILY LAURIE Stop: 12/21/22 08:59 Last Admin: 11/21/22 08:42 Dose: 25 mg Miscellaneous (Carbohydrates For Hypoglycemia ) 15 - 30 gm PO UD PRN PRN Reason: Hypoglycemia Protocol Stop: 12/20/22 18:36 Multivitamins (Multivitamin Tab) 1 tab PO QAM LAURIE Stop: 12/21/22 08:59 Last Admin: 11/21/22 08:42 Dose: 1 tab Pantoprazole Sodium (Pantoprazole 40 Mg Tab) 40 mg PO DAILY LAURIE Stop: 12/21/22 08:59 Last Admin: 11/21/22 08:42 Dose: 40 mg Potassium Chloride (Potassium Chloride Crtab 20 Meq Tabcr) 40 meq PO DAILY LAURIE Stop: 12/21/22 08:59 Last Admin: 11/21/22 09:15 Dose: Not Given Pregabalin (Pregabalin 100 Mg Cap) 100 mg PO BID LAURIE Stop: 12/20/22 20:59 Last Admin: 11/21/22 08:43 Dose: 100 mg
[2022-11-21 16:58] LABS: BUN Creatinine Ratio 12.8 (10-20); Calcium 8.2 mg/dl (8.6-10.3); Creatinine Clr Calc Pharmacy 43.9 ml/min; Est GFR (African American) 71.4 ml/min; Est GFR (Non-African American) 61.6 ml/min; Potassium 4.6 mmol/L (3.5-5.1)
--- NOTE | 2022-11-21 21:16 | Electrocardiogram Report ---
Test Reason : Blood Pressure : / mmHG Vent. Rate : 099 BPM Atrial Rate : 000 BPM P-R Int : 000 ms QRS Dur : 148 ms QT Int : 400 ms P-R-T Axes : 000 -84 015 degrees QTc Int : 513 ms Atrial fibrillation Right bundle branch block Left anterior fascicular block Bifascicular block Abnormal ECG When compared with ECG of 29-DEC-2020 05:04, QRS duration has increased T wave inversion now evident in Anterior leads Confirmed by Yohannes Reid ([id number]) on 11/21/2022 9:16:01 PM Referred By: Confirmed By:Yohannes Reid
--- NOTE | 2022-11-21 22:05 | Electrocardiogram Report ---
Test Reason : Blood Pressure : / mmHG Vent. Rate : 082 BPM Atrial Rate : 085 BPM P-R Int : 000 ms QRS Dur : 142 ms QT Int : 414 ms P-R-T Axes : 000 -79 -19 degrees QTc Int : 483 ms Atrial fibrillation Right bundle branch block Left anterior fascicular block Bifascicular block Possible Lateral infarct , age undetermined Abnormal ECG When compared with ECG of 20-NOV-2022 14:26, (unconfirmed) No significant change was found Confirmed by Yohannes Reid ([id number] on 11/21/2022 10:05:00 PM Referred By: Royce Mckeon Confirmed By:Yohannes Reid
[2022-11-21] MEDS: cefTRIAXone SODIUM 1,000 MG in DEXTROSE 5% AD-VAN 50 ML IV SCH (22:08)
[2022-11-22] MEDS: ATORVASTATIN 10 MG TAB PO SCH (07:39)
[2022-11-22] MEDS: ESCITALOPRAM OXALATE 20 MG TAB PO SCH (07:39)
[2022-11-22] MEDS: APIXABAN 5 MG TABLET PO SCH (07:39)
[2022-11-22] MEDS: ASPIRIN 81 MG ECTAB PO SCH (07:39)
[2022-11-22] MEDS: MULTIVITAMIN TAB PO SCH (07:39)
[2022-11-22] MEDS: busPIRone 5 MG TAB PO SCH (07:39)
[2022-11-22] MEDS: CETIRIZINE HCL 10 MG TABLET PO SCH (07:40)
[2022-11-22] MEDS: METOPROLOL SUCC 25MG EXT REL TAB PO SCH (07:40)
[2022-11-22] MEDS: POTASSIUM CHLORIDE CRTAB 20 MEQ TABCR PO SCH (07:40)
[2022-11-22] MEDS: PANTOprazole 40 MG TAB PO SCH (07:40)
[2022-11-22] MEDS: CYANOCOBALAMIN (B-12) 500 MCG TABLET PO SCH (07:40)
[2022-11-22] MEDS: AZELASTINE HCL 0.1% NASAL 200 SPRAYS/27,400 MCG BTL SCH (07:40)
[2022-11-22] MEDS: PREGABALIN 100 MG CAP PO SCH (07:42)
[2022-11-22] MEDS: INSULIN ASPART PER UNIT CHARGE SC SCH ×2 (07:48→11:35)
[2022-11-22 08:04] LABS: Hematocrit (blood only) 33.3 % (37.0-47.0); Mean Corpuscular Hemoglobin 28.3 pg (25.0-34.0); Mean Corpuscular Volume 85.6 fL (80.0-100.0); Mean Platelet Volume 10.9 fL (9.4-12.4); Platelet Count 166 K/uL (130-400); RDW Coefficient of Variation 15.8 % (11.5-14.5); RDW Standard Deviation 49.3 fL (36.4-46.3); Red Blood Count 3.89 M/uL (4.20-5.40); White Blood Count 3.87 K/ul (4.8-10.8)
[2022-11-22 08:27] LABS: Acanthocytes 1+; Basophils # (auto) 0.01 K/uL (0-0.2); Basophils % (auto) 0.3 %; Eosinophils # (auto) 0.05 K/uL (0-0.50); Eosinophils % (auto) 1.3 %; Immature Granulocytes # (auto) 0.04 K/uL (0.01-0.20); Lymphocytes # (auto) 1.77 K/uL (1.2-3.4); Lymphocytes % (auto) 45.7 %; Monocytes # (auto) 0.39 K/uL (0.11-0.59); Monocytes % (auto) 10.1 %; Neutrophils # (auto) 1.61 K/uL (1.40-6.50); Neutrophils % (auto) 41.6 %
[2022-11-22 08:34] LABS: Albumin Globulin Ratio 1.3 (0.9-2); Albumin Level 3.6 gm/dl (3.4-5.0); BUN Creatinine Ratio 11.1 (10-20); Bilirubin,Total 0.5 mg/dl (0.2-1.0); Calcium 8.4 mg/dl (8.6-10.3); Creatinine Clr Calc Pharmacy 46.6 ml/min; Est GFR (African American) 76.8 ml/min; Est GFR (Non-African American) 66.2 ml/min; Globulin 2.8 gm/dl (2.5-4.0); Magnesium 1.8 mg/dl (1.7-2.4); Phosphorus 3.6 mg/dl (2.5-4.9); Potassium 4.5 mmol/L (3.5-5.1); Total Protein 6.4 gm/dl (6.0-8.3)
--- NOTE | 2022-11-22 15:20 | Discharge Summary ---
Date of Service November 22, 2022 Admission HPI Per Admitting Provider This is an 86-year-old female who has a significant past medical history of T2DM, hyperlipidemia, diabetic polyneuropathy, chronic DVT of left femoral vein, chronic pulmonary embolism anticoagulated on apixaban, longstanding persistent atrial fibrillation, GERD, senile osteoporosis, vitamin D deficiency, stasis dermatitis and major depressive disorder who presents to ED secondary to diarrhea illness and abdominal pain x3 to 4 days. 2 daughters are at bedside. 1 daughter is from out of town and has been staying with mother for the past week.She states she stays with her mother 1 week out of the month. They recentl y put patient's in assisted living due to dementia.Symptoms started approximately 4 days ago when she developed vomiting, weakness and ill feeling. Symptoms have progressed the last 4 days with significant diarrhea. On day 1 she did have abdominal discomfort and cramping but this has since subsided. Patient has not had much to eat or drink over the past 3 to 4 days. She has been taking most of her medications except metformin. Generally weak and inability to go from sit to stand.No known sick contacts. She denies any documented fever, chills, sweats, lightheadedness, dizziness, chest pain, shortness of breath, hematemesis, melena, hematochezia.In ED patient was found to have significantly low magnesium at 1.3. In ED patient was hemodynamically stable. Her lab work was significant for hypomagnesemia at 1.3 and hyponatremia of 132. CT abdomen pelvis concerning for borderline dilated fluid-filled loops of large and small bowel seen throughout the abdomen with no transition point to suggest bowel obstruction and no evidence of bowel wall thickening. Findings favor a gastroenteritis or diarrheal illness with a mild ileus. Moderate to large hiatal hernia is unchanged, no evidence of diverticulitis and prior history of cholecystectomy noted. Admission Exam Per Admitting Provider Constitutional: WD/WN, vitals as above, NAD, sitting up in bed, pleasant, conversing easily Head: Normocephalic, Atraumatic Eyes: PERRL, conjunctivae normal, anicteric sclerae ENMT: external ear and nose normal, oropharynx normal Neck: trachea midline, no thyromegaly normal visual inspection Respiratory: normal respiratory effort, lungs clear to auscultation, no wheeze, rales, rhonchi. Normal insp/exp effort, no accessory muscle use Cardiovascular: RRR, no murmur, no edema Vessels: no JVD or carotid bruit Chest: normal inspection of chest Abdomen: normal bowel sounds, soft, nontender, no hepatosplenomegaly Musculoskeletal: no cyanosis or clubbing, extremities motor strength 5/5 Skin: no rashes, warm and dry normal turgor Neurologic: PERRL, EOMI, accommodation nl, no face palsy, no dysarthria CN's II-XI intact bilaterally and moves all extremities Psychiatric: A+Ox3, euthymic affect Lymphatic: no cervical or axillary lymphadenopathy : deferred Principal Diagnosis Rotaviral enteritis, E coli UTI Discharge Exam General: Lying comfortably in bed, not in distress, on room air HEENT: EOMI, SATNAM, MMM Chest: Clear breath sounds bilaterally, no wheezes or crackles CVS: Regular rate and rhythm, normal heart sounds, no murmur Abdomen: Soft, non tender, not distended, normal bowel sounds Neuro: Awake, alert, oriented, conversing well, non focal Extremities: No cyanosis, clubbing or edema Discharge Data Allergies Allergy/AdvReac Type Severity Reaction Status Date / Time erythromycin base AdvReac Intermediate Gastrointestinal Verified 11/20/22 17:27 Upset Consultations 11/20/22 17:26 ED Decision to Admit Stat Ordered Studies 11/20/22 16:54 CT abd pelvis IV con only Stat Laboratory Results WBC 3.87 K/ul (4.8-10.8) L 11/22/22 07:21 RBC 3.89 M/uL (4.20-5.40) L 11/22/22 07:21 Hgb 11.0 g/dl (12.0-16.0) L 11/22/22 07:21 Hct 33.3 % (37.0-47.0) L 11/22/22 07:21 MCV 85.6 fL (80.0-100.0) 11/22/22 07:21 MCH 28.3 pg (25.0-34.0) 11/22/22 07:21 MCHC 33.0 g/dL (32.0-36.0) 11/22/22 07:21 RDW Std Deviation 49.3 fL (36.4-46.3) H 11/22/22 07:21 RDW Coeff of Lesley 15.8 % (11.5-14.5) H 11/22/22 07:21 Plt Count 166 K/uL (130-400) 11/22/22 07:21 MPV 10.9 fL (9.4-12.4) 11/22/22 07:21 Immature Gran % (Auto) 1.0 % 11/22/22 07:21 Neut % (Auto) 41.6 % 11/22/22 07:21 Lymph % (Auto) 45.7 % 11/22/22 07:21 Surry % (Auto) 10.1 % 11/22/22 07:21 Eos % (Auto) 1.3 % 11/22/22 07:21 Baso % (Auto) 0.3 % 11/22/22 07:21 Neut # (Auto) 1.61 K/uL (1.40-6.50) 11/22/22 07:21 Lymph # (Auto) 1.77 K/uL (1.2-3.4) 11/22/22 07:21 Surry # (Auto) 0.39 K/uL (0.11-0.59) 11/22/22 07:21 Eos # (Auto) 0.05 K/uL (0-0.50) 11/22/22 07:21 Baso # (Auto) 0.01 K/uL (0-0.2) 11/22/22 07:21 Immature Gran # (Auto) 0.04 K/uL (0.01-0.20) 11/22/22 07:21 Echinocytes 2+ 11/21/22 07:49 Acanthocytes (Spur) 1+ 11/22/22 07:21 Sodium 137 mmol/L (136-145) 11/22/22 07:21 Potassium 4.5 mmol/L (3.5-5.1) 11/22/22 07:21 Chloride 109 mmol/L (98-107) H 11/22/22 07:21 Carbon Dioxide 25 mmol/L (21-32) 11/22/22 07:21 Anion Gap 3 (3-11) 11/22/22 07:21 BUN 9 mg/dl (6-23) 11/22/22 07:21 Creatinine 0.81 mg/dl (0.6-1.2) 11/22/22 07:21 Est Cr Clr Drug Dosing 46.6 ml/min 11/22/22 07:21 Est GFR ( Amer) 76.8 ml/min 11/22/22 07:21 Est GFR (Non-Af Amer) 66.2 ml/min 11/22/22 07:21 BUN/Creatinine Ratio 11.1 (10-20) 11/22/22 07:21 Glucose 89 mg/dl (70-99(Fasting)) 11/22/22 07:21 POC Glucose 106 mg/dl (70-99) H 11/22/22 11:28 Estimat Average Glucose 134 mg/dl 11/21/22 07:49 Hemoglobin A1c 6.3 % (4.5-5.6) H 11/21/22 07:49 Lactate 0.6 mmol/L (0.4-2.0) 11/21/22 00:38 Calcium 8.4 mg/dl (8.6-10.3) L 11/22/22 07:21 Phosphorus 3.6 mg/dl (2.5-4.9) 11/22/22 07:21 Magnesium 1.8 mg/dl (1.7-2.4) 11/22/22 07:21 Total Bilirubin 0.5 mg/dl (0.2-1.0) 11/22/22 07:21 AST 17 U/L (13-39) 11/22/22 07:21 ALT 9 U/L (7-52) 11/22/22 07:21 Alkaline Phosphatase 51 U/L (34-104) 11/22/22 07:21 B-Natriuretic Peptide 197 pg/ml (0-100) H 11/21/22 00:38 Total Protein 6.4 gm/dl (6.0-8.3) 11/22/22 07:21 Albumin 3.6 gm/dl (3.4-5.0) 11/22/22 07:21 Globulin 2.8 gm/dl (2.5-4.0) 11/22/22 07:21 Albumin/Globulin Ratio 1.3 (0.9-2) 11/22/22 07:21 Lipase 6 U/L (11-82) L 11/20/22 14:32 Urine Color Yellow 11/20/22 19:30 Urine Appearance Clear (Clear) 11/20/22 19:30 Urine pH 5.5 (4.5-7.5) 11/20/22 19: Ur Specific Lisle 1.013 (1.000-1.030) 11/20/22 19: Urine Protein Negative (Negative) 11/20/22 19: Urine Glucose (UA) Negative (Negative) 11/20/22 19: Urine Ketones Negative (Negative) 11/20/22: Urine Blood Trace (Negative) H 11/20/22 19: Urine Nitrite Positive (Negative) A 11/20/22 19: Urine Bilirubin Negative (Negative) 11/20/22 19: Urine Urobilinogen Negative (Negative) 11/20/22: Ur Leukocyte Esterase Negative (Negative) 11/20/22: Urine WBC (Auto) 1-5 /hpf (0-5) 11/20/22 19: Urine RBC (Auto) 0-4 /hpf (0-4) 11/20/22: U Hyaline Cast (Auto) 1-5 /lpf (0-5) 11/20/22 19: U Epithel Cells (Auto) >30 /lpf (0-5) H 11/20/22 19:30 Urine Bacteria (Auto) 2+ (Negative) H 11/20/22 19: Stl C. cayetanensis PCR Not Detected (NotDetected) 11/20/22 19: Stool Rotavirus A PCR DETECTED (NotDetected) A* 11/20/22 19: Stl Adenov F 40/41 PCR Not Detected (NotDetected) 11/20/22 19: Stool Astrovirus (PCR) Not Detected (NotDetected) 11/20/22 19: Stool Campylobacter PCR Not Detected (NotDetected) 11/20/22 19:30 Stl C. diff Tox B Gene Negative Cdiff Gene (Neg) 11/20/22: Stool Cryptosporidium PCR Not Detected (NotDetected) 11/20/22 19: Stl E.coli Shiga Tox PCR Not Detected (NotDetected) 11/20/22 19:30 Stl Enterotoxigenic E PCR Not Detected (NotDetected) 11/20/22 19: Stool EPEC (PCR) Not Detected (NotDetected) 11/20/22 19:30 Stool EAEC (PCR) Not Detected (NotDetected) 11/20/22 19:30 Stl E. histolytica PCR Not Detected (NotDetected) 11/20/22 19:30 Stool Giardia Lamblia PCR Not Detected (NotDetected) 11/20/22 19:30 Stool Salmonella PCR Not Detected (NotDetected) 11/20/22 19:30 Stool Sapovirus (PCR) Not Detected (NotDetected) 11/20/22 19:30 Stl P. shigelloides PCR Not Detected (NotDetected) 11/20/22 19:30 Stl Shigella/EIEC PCR Not Detected (NotDetected) 11/20/22 19:30 St Y.enterocolitica PCR Not Detected (NotDetected) 11/20/22 19:30 Stool Vibrio (PCR) Not Detected (NotDetected) 11/20/22 19:30 Stl Vibrio cholerae PCR Not Detected (NotDetected) 11/20/22 19:30 Stl Norovirus GI/GII PCR Not Detected (NotDetected) 11/20/22 19:30 SARS-CoV-2 (PCR) NEGATIVE (Negative) 11/20/22 14:32 Influenza Type A (PCR) Negative (Neg) 11/20/22 14:32 Influenza Type B (PCR) Negative (Neg) 11/20/22 14:32 RSV (RT-PCR) Negative (Neg) 11/20/22 14:32 Impressions Abdomen/Pelvis CT 11/20/22 16:[address] WITH IV CONTRAST CT DOSE: 338.82 mGy.cm HISTORY: Nausea. Vomiting. Diarrhea. Generalized abdominal pain. TECHNIQUE: Multiaxial CT images of the abdomen and pelvis were performed following the use of intravenous contrast. A dose lowering technique was utilized adhering to the principles of ALARA. COMPARISON STUDY: Abdomen and pelvis CT 05/10/2012. FINDINGS: Mild dependent changes and punctate calcifications noted within the lung bases. No pneumoperitoneum. No pneumatosis. No acute fractures identified. The heart is enlarged. There is a moderate to large hiatus hernia, unchanged. Small midline fat-containing hernias are noted. Multiple duodenal diverticula with the dominant diverticula measuring 5.6 cm. Cholecystectomy. This likely accounts for the mild bile duct dilatation. The liver, pancreas, spleen, adrenal glands, and right kidney are unremarkable. There are 2 hypodense lesions within the left kidney which likely represent cysts. No hydronephrosis. The main portal vein is patent. Mild calcified plaque within the normal caliber abdominal aorta. No retroperitoneal or pelvic lymphadenopathy. No pelvic free fluid. The bladder, uterus, bilateral adnexa are within normal limits. Multiple colonic diverticula. No evidence for acute diverticulitis. Borderline dilated fluid-filled loops of large and small bowel seen throughout the abdomen. No transition point to suggest a bowel obstruction. No evidence for bowel wall thickening. Therefore, these findings favor a gastroenteritis/diarrheal illness with a mild ileus. Normal appendix. IMPRESSION: 1. Borderline dilated fluid-filled loops of large and small bowel seen throughout the abdomen. No transition point to suggest a bowel obstruction. No evidence for bowel wall thickening. Therefore, these findings favor a gastroenteritis/diarrheal illness with a mild ileus. 2. Normal appendix. 3. Moderate to large hiatus hernia, unchanged. 4. Diverticulosis. No evidence for acute diverticulitis. 5. Cholecystectomy. 6. Additional findings as described above. ACT 112: Negative or not required by law. Electronically signed by: Francisco Javier Rivas M.D. 11/20/2022 5:20 PM KUB X-Ray 11/21/22 08:00 KUB HISTORY: mild ileus on CT COMPARISON: Abdomen and pelvis CT 11/20/2022. FINDINGS: Mildly dilated gas-filled loops of large and small bowel are again seen throughout the abdomen. This is similar to the prior study and favors a mild ileus/gastroenteritis. Prior cholecystectomy. No renal calculi. No ureteral calculi. No pneumoperitoneum or pneumatosis. IMPRESSION: No significant change in the mildly dilated gas-filled loops of large and small bowel seen throughout the abdomen. This favors a mild ileus/gastroenteritis. ACT 112: Negative or not required by law. Electronically signed by: Francisco Javier Rivas M.D. 11/21/2022 9:38 AM Hospital Course (1) Rotavirus enteritis: (2) UTI (urinary tract infection): (3) Hyperkalemia: (4) Hypomagnesemia: (5) Generalized weakness: (6) Atrial fibrillation: (7) History of DVT (deep vein thrombosis): (8) Diabetes mellitus, type II: Plan This is an 86-year-old female who has a significant past medical history of T2DM, hyperlipidemia, diabetic polyneuropathy, chronic DVT of left femoral vein, chronic pulmonary embolism anticoagulated on apixaban, longstanding persistent atrial fibrillation, GERD, senile osteoporosis, vitamin D deficiency, stasis dermatitis and major depressive disorder who presents to ED secondary to diarrhea illness and abdominal pain x3 to [address] A/P 11/20: 1. Borderline dilated fluid-filled loops of large and small bowel seen throughout the abdomen. No transition point to suggest a bowel obstruction. No evidence for bowel wall thickening. Therefore, these findings favor a gastroenteritis/diarrheal illness with a mild ileus.2. Normal appendix.3. Moderate to large hiatus hernia, unchanged.4. Diverticulosis. No evidence for acute diverticulitis.5. Cholecystectomy.6. Additional findings as described above. KUB 5/- No significant change in the mildly dilated gas-filled loops of large and small bowel seen throughout the abdomen. This favors a mild ileus/gastroenteritis. Rotavirus enteritis- seems resolved with conservative management. no more diarrhea. No N/V/abd pain. Tolerating diet well. -Stool studies with rotavirus, her daughter with similar symptoms and currently admitted. No diarrhea since last night. Imagings reviewed as above E coli UTI-urine culture with E coli, pansensitive. S/p ceftriaxone for 2 days. Being discharged on macrobid for 5 more dsays starting tonight. Hyperkalemia-resolved after holding potassium supplementation. Not to resume until she is back on lasix. Hypomagnesemia-resolved with repletion Atrial fibrillation, Chronic-rate controlled on metoprolol, anticoagulated on apixaban HTN-BP soft. Recommend to hold her home lisinopril and Lasix until BP rebounds and follow up with PCP regarding when to resume. T2DM- A1c 6.3. Continue home meds. She feels much better and would like to go home. Seen by PT/OT. Her daughter is at bedside and states there will be someone with her all the time. Total Time Total Time Spent Total Time Spent (In Minutes): 40 Discharge Plan Discharge Items Patient Disposition: Home - Self-Care Reason For Visit: GASTROENTERITIS, HYPOMAGNESEMIA Discharge Diagnosis: Rotaviral Enteritis, Ecoli UTI Activity: Resume your previous activity Non-emergency contact: Primary Care Provider Call non-emergency contact if: you have any medication questions, your symptoms worsen and you have a fever Follow-up/Referrals: Royce Mckeon MD [Primary Care Provider] - (Date & Time 11/26/2022 2:00 PM Provider Royce Mckeon MD Department [facility] ) Diet: Regular Addtl Attending Provider Instructions: Continue the antibiotic macrobid twice daily for 5 more day starting tonight for your urinary tract infection Pending Studies at Discharge: No Stand-Alone Forms: My [facility] M[employer], Smoking Cessation Medications and DC Order Prescriptions: New nitrofurantoin monohyd/m-cryst [Macrobid] 100 mg capsule 100 mg PO BID 5 Days Qty: 10 0RF Rx Instructions: must administer with a meal/food Continued atorvastatin 10 mg tablet 10 mg PO DAILY cyanocobalamin (vitamin B-12) [Vitamin B-12] 1,000 mcg Tablet 1,000 mcg PO DAILY omeprazole 40 mg capsule,delayed release(DR/EC) 40 mg PO DAILY glimepiride 1 mg tablet 1 mg PO DAILY aspirin 81 mg Tablet,Chewable 81 mg PO DAILY metformin 500 mg tablet extended release 24 hr 1,000 mg PO BID pregabalin 100 mg capsule 100 mg PO BID Januvia 100 mg tablet 100 mg PO DAILY Eliquis 5 mg Tablet 5 mg PO BID Qty: 180 0RF multivitamin Tablet 1 tab PO DAILY buspirone 5 mg tablet 5 mg PO BID cetirizine [Zyrtec] 10 mg Tablet 10 mg PO DAILY metoprolol succinate 25 mg tablet extended release 24 hr 25 mg PO DAILY escitalopram oxalate [Lexapro] 20 mg Tablet 20 mg PO DAILY azelastine 205.5 mcg (0.15 %) spray,non-aerosol 1 spray INTRANASAL BID elderberry fruit and flower 460-115 mg Capsule 1 cap PO DAILY Held furosemide 20 mg tablet 20 mg PO DAILY Hold Instructions: Resume on 11/25/22. Rx Instructions: MAY TAKE A SECOND DOSE IN THE AFTERNOON WHEN NEEDED FOR INCREASED SWELLING. lisinopril 5 mg tablet 5 mg PO QAM Hold Instructions: Resume on 11/25/22. Hold as your BP is soft as you are recovering from your rotavirus diarrhea. Resume when BP rebounds. Follow up with your family doctor. potassium chloride [Klor-Con M20] 20 mEq tablet,ER particles/crystals 40 meq PO DAILY Hold Instructions: Resume on 11/25/22. Discharge Orders: Discharge Order (Routine); Ordered 11/22/22 Ordered By: Cr Ball/Other Patient Handouts: Hypoglycemia (Low Blood Sugar), Managing Type 2 Diabetes Admission Data Admit Date/Time: 11/21/22 14:47 Attending Provider: Cr Davidson Admit Provider: Dara Decker Primary Care Provider: Royce Mckeon Other Providers: Dara Decker
== END 2022-11-22 17:23 | disposition home health service (06) | DRG 392 ==
LOC: EDINP 13:41 → ED 13:41 → SUATTDRO 17:46 → EDINP 18:37 → 2W 20:14

== ENCOUNTER 2024-10-08 20:11 | Inpatient (IN) ==
--- OUTSIDE RECORDS SUMMARY | 2024-10-08 20:18 | External Medical Summary ---
Author Name Unknown Address Unknown Organization [id number]:LABORATORY [facility] [place] - [address] [facility] [address] Laboratory Report Ordering Provider Test Date Status 10/04/2024 11:42:51 Final Observation Date Value Abnormality Reference (Units ) Status WBC, Total 10/04/2024 11:42:51 5.47 4.00-10.80 (K/uL) Final RBC 10/04/2024 11:42:51 4.30 3.85-5.15 (M/uL) Final Hemoglobin 10/04/2024 11:42:51 10.2 Below low normal 12.0-15.3 (g/dL) Final HCT 10/04/2024 11:42:51 34.7 Below low normal 36.0-45.2 (%) Final MCV 10/04/2024 11:42:51 80.7 81.5-97.5 (fL) Final MCH 10/04/2024 11:42:51 23.7 27.0-34.0 (pg) Final MCHC 10/04/2024 11:42:51 29.4 32.0-36.0 (g/dL) Final RDW 10/04/2024 11:42:51 18.9 11.5-15.5 (%) Final Platelets 10/04/2024 11:42:51 196 140-400 (K/uL) Final MPV 10/04/2024 11:42:51 11.7 6.6-11.1 (fL) Final Nucleated erythrocytes/100 leukocytes [Ratio] in Blood by Automated count 10/04/2024 11:42:51 0 <=0 (/100 WBCs) Final Performing Location LABORATORY [facility] [place] - [address] [place] [place] [address]
--- OUTSIDE RECORDS SUMMARY | 2024-10-08 20:18 | External Medical Summary ---
Author Name Unknown Address Unknown Organization [id number]:LABORATORY [facility] [place] - [address] [place] [address] Laboratory Report Ordering Provider Test Date Status 10/04/2024 11:42:51 Final Observation Date Value Abnormality Reference (Units ) Status Acanthocytes [Presence] in Blood by Light microscopy 10/04/2024 11:42:51 Moderate Abnormal None Seen Final Schistocytes 10/04/2024 11:42:51 Few Abnormal None Seen Final Performing Location LABORATORY [facility] - [address] [address]
--- OUTSIDE RECORDS SUMMARY | 2024-10-08 20:18 | External Medical Summary ---
Author Name Unknown Address Unknown Organization [id number]:LABORATORY [facility] [place] - [facility] [address] [facility] [address] Laboratory Report Ordering Provider Test Date Status 10/04/2024 11:42:51 Final Observation Date Value Abnormality Reference (Units ) Status HbA1C 10/04/2024 11:42:51 7.6 Above high normal 4. 0-5.6 (%) Final The use of HbA1c to monitor glycemic status is based on normal hemoglobin and HbA composition. This test should not be used in patients with abnormal hemoglobin that affects the half life of the red blood cell or the in vivo glycation rates. Glucose, estimated average 10/04/2024 11:42:51 171 Above high normal <126 (mg/dL) Enrique winn Performing Location LABORATORY [facility] [place] - [address] [facility] [address]
--- OUTSIDE RECORDS SUMMARY | 2024-10-08 20:18 | External Medical Summary | Summary of Care ---
Author Name Unknown Organization [facility] Address [address] [place] [address] Phone [phone] Care Team Providers Care Substance Abuse Nurse Name Role Phone Prince Sheppard MD Primary Care Provider [phone] Reason for Visit * Reason Onset Date Comments Medication Refill 08/23/2024 Encounter Details Date Type Department Care Team (Late st Contact Info) Description 08/23/2024 Refill [facility] [address] [facility] [place] [address] Prince Sheppard MD [address] [place] [address] Type 2 diabetes mellitus with hemoglobin A1c goal of less than 7.0% ([facility]) Allergies Active Allergy Reactions Criticality Noted Date Comments Erythromycin Base 07/16/1999 upset stomach documented as of this encounter (statuses as of 08/24/2024) Medications B-12-SL 1000 MCG Sublingual Tablet Sublingual (Cyanocobalamin)In dications:B12 deficiency Place 1,000 mcg under the tongue daily. 90 Tab 3 08/15/19 21 Active OneTouch Verio w/Device KitIndications:Leslie betic polyneuropathy associated with diabetes mellitus due to underlying condition ([facility]),Type 2 diabetes mellitus with hemoglobin A1c goal of less than 7.0% ([facility]) Check blood sugar one time per day: Dx E11.9 1 Kit 01/02/20 21 Active Additional Information Patient not taking.Reported on 04/01/2024 BrandiTodaisy Verio In Vitro Strip (Glucose Blood)Indications: Diabetic polyneuropathy associated with diabetes mellitus due to underlying condition ([facility]) Use to check blood sugars daily DX:E11.9 100 Strip 1 01/15/20 21 Active Additional Information Patient not taking.Reported on 04/01/2024 BrandiTodaisy Datlorena Lancets 33GIndications:Leslie betic polyneuropathy associated with diabetes mellitus due to underlying condition ([facility]) Use to check blood sugars daily DX E11.9 100 Each 1 01/15/20 21 Active Additional Information Patient not taking.Reported on 04/01/2024 Cetirizine HCl 10 MG Oral Tablet (ZyrTEC) Take 1 Tablet by mouth in the morning. Active Potassium Chloride Cathie ER 20 MEQ Oral Tablet Extended Release Take 2 Tablets by mouth in the morning. 180 Tablet 3 07/28/19 23 Active Additional Information Patient not taking.Reported on 12/17/2023 Furosemide 20 MG Oral Tablet (Lasix)Indications :Bilateral leg edema,Edema, unspecified type TAKE 1 TABLET DAILY. MAY TAKE A SECOND DOSE IN THE AFTERNOON WHEN NEEDED FOR INCREASED SWELLING 180 Tablet 1 12/30/19 23 Active Additional Information Patient not taking.Reported on 12/17/2023 Magnesium 300 MG Oral CapsuleIndications :Hypomagnesemia Take 300 mg by mouth in the morning. 90 Capsule 03/24/20 23 Active Metoprolol Succinate ER 25 MG Oral Tablet Extended Release 24 Hour (toPROL XL)Indications:Oth er chronic pulmonary embolism, unspecified whether acute cor pulmonale present ([facility]) Take 1 Tablet by mouth in the morning. 90 Tablet 3 10/02/19 24 Active Azelastine HCl 0.1 % Nasal Solution (Astelin)Indicatio ns:Allergic rhinitis due to pollen, unspecified seasonality Administer 1 Milton into nostril in the morning and 1 Milton in the evening. 90 mL 2 12/17/19 24 Active Pregabalin 100 MG Oral Capsule (Lyrica)Indication s:Diabetic polyneuropathy associated with type 2 diabetes mellitus ([facility]) Take 1 Capsule by mouth in the morning and 1 Capsule before bedtime. 180 Capsule 1 03/10/20 24 Active metFORMIN HCl ER 500 MG Oral Tablet Extended Release 24 Hour (Glucophage XR) TAKE 4 TABLETS BY MOUTH ONCE DAILY IN THE MORNING 360 Tablet 1 05/02/20 24 Active busPIRone HCl 5 MG Oral Tablet (Buspar)Indication s:Anxiety and depression Take 1 Tablet by mouth in the morning and 1 Tablet before bedtime. 180 Tablet 1 06/29/20 24 Active Escitalopram Oxalate 20 MG Oral Tablet (Lexapro)Juan Ramono ns:Anxiety and depression Take 1 Tablet by mouth in the morning. 90 Tablet 3 07/28/19 25 Active Apixaban 5 MG Oral Tablet (Eliquis)Juan Ramono ns:Paroxysmal atrial fibrillation (HCC) TAKE 1 TABLET TWICE A DAY 180 Tablet 1 07/29/19 25 Active Omeprazole 40 MG Oral Capsule Delayed Release (PriLOSEC)Indicati ons:Esophageal reflux TAKE 1 CAPSULE IN THE MORNING 90 Capsule 2 07/29/19 25 Active Atorvastatin Calcium 10 MG Oral Tablet (Lipitor) Take 1 Tablet by mouth in the morning. 90 Tablet 2 07/29/19 25 Active Ferrous Sulfate 325 (65 Fe) MG Oral Tablet (Feosol)Indication s:Iron 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 Take 1 Tablet by mouth once a day on Thursday, Thursday, and Thursday only. 36 Tablet 2 07/29/19 25 Active SITagliptin Phosphate 100 MG Oral Tablet (Januvia)Indicatio ns:Type 2 diabetes mellitus with hemoglobin A1c goal of less than 7.0% (HCC) TAKE 1 TABLET DAILY 90 Tablet 1 08/24/19 25 Active SITagliptin Phosphate 100 MG Oral Tablet (Januvia)Navintio ns:Type 2 diabetes mellitus with hemoglobin A1c goal of less than 7.0% (HCC) TAKE 1 TABLET DAILY 90 Tablet 1 06/04/20 24 025 Discontin ued(Refil l) documented as of this encounter (statuses as of 08/24/2024) Active Problems Problem Noted Date Diagnosed Date HTN, goal below 140/90 12/17/2023 Chronic HFrEF (heart failure with reduced ejection fraction) 12/17/2023 Cardiomyopathy 11/26/2022 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 11/26/2022 Persistent atrial fibrillation 01/09/2022 Stasis dermatitis of both legs 04/11/2021 [facility] current use of anticoagulant therapy 0 02/07/2021 Chronic pulmonary embolism 01/01/2021 Senile osteoporosis 10/03/2020 Gastroesophageal reflux disease 10/03/2020 Chronic deep vein thrombosis (DVT) of left femor al vein 06/30/2019 Major depressive disorder wi th single episode, in full remission 10/05/2017 Gastroesophageal reflux disease 10/05/2017 Type 2 diabetes mellitus wit h hemoglobin A1c goal of less than 8.0% 06/27/2013 Overview (11/15/2015): ICD-10 update of inactive term Vitamin D deficiency 07/01/2011 Diabetic polyneuropathy 06/30/2011 Overview (10/05/2015): ICD-10 update of inactive term Dyslipidemia, goal LDL below 70 07/04/2009 Overview (07/04/2009): Per Lipid Taxonomy. documented as of this encounter (statuses as of 08/24/2024) Resolved Problems Problem Noted Date Diagnosed Date Resolved Date Diabetic polyneuropathy asso ciated with diabetes mellitus due to underlying condition 09/29/2023 12/17/2023 Type 2 diabetes mellitus wit h diabetic dermatitis 02/11/2019 01/01/2021 History of adenomatous polyp of colon 02/02/2018 02/02/2018 H. pylori infection 02/10/2014 02/04/20 17 Chronic sinusitis 11/11/2011 02/03/2017 Allergic rhinitis 11/11/2011 02/03/2017 Obesity, Class I, BMI 30.0-3 4.9 (see actual BMI) 06/30/2011 02/03/2017 Overview (06/30/2011): BMI= 31.00 06/30/11 Myalgia and myositis 06/30/2011 017 DM type 2, not at goal 06/30/201106/03 Major depressive disorder 06/30/2011 Overview (05/12/2017): ICD-10 update of inactive term Dyslipidemia, goal LDL below 100 07/04/2009 06/24/2011 Overview (07/04/2009): Per Lipid Taxonomy. Type 2 diabetes mellitus wit h hemoglobin A1c goal of less than 7.0% 05/17/2009 06/27/2013 Overview (11/13/2015): Per Diabetes Taxonomy. ICD-10 update of inactive term Benign neoplasm of colon 11/18/2006 Overview (11/24/2006): hyperplastic polyp--repeat 5 years Cough 07/06/2003 06/24/2011 Dyspnea and respiratory abnormality 07/06/2003 02/03/2017 Overview (05/12/2017): ICD-10 update of inactive term ACUTE CYSTITIS 04/04/2003 09/14/2008 Overview (09/14/2008): Resolved per Benign Acute Dxs Protocol #3 Menopause 06/20/2002 06/24/2011 Family history of other card iovascular diseases 06/20/2002 06/24/2011 Overview (10/11/2015): ICD-10 update of inactive term Dyslipidemia, goal to be determined 06/20/2002 07/04/2009 Overview (07/04/2009): Per Lipid Taxonomy. Esophageal reflux 06/20/2002 02/03/2017 Allergic rhinitis 06/20/2002 06/24/2011 DYSFUNCT EUSTACHIAN TUBE 08/31/200112/2010 CHRONIC RHINITIS, NON-ALLERGIC 08/31/2001 02/03/2017 Major depressive disorder 11/04/1999 Overview (05/12/2017): ICD-10 update of inactive term URIN TRACT INFECTION NOS 09/13/199912/2010 THYROTOX NOS NO CRISIS 02/02 Type 2 diabetes mellitus wit h hemoglobin A1c goal of less than 7.0% 05/17/2009 Overview (11/13/2015): Per Diabetes Taxonomy. ICD-10 update of inactive term FEM STRESS INCONTINENCE 01/17 Allergic disorder 06/24/2011 HYPERLIPIDEMIA NEC-NOS 07/04 Overview (07/04/2009): Per Lipid Taxonomy. documented as of this encounter (statuses as of 08/24/2024) Immunizations Name Administration Dates Next Due COVID-19 mRNA, LNP-s, No Pre serve, 2-Dose Series (Moderna) 09/21/2020,08/25/2020 COVID-19, MRNA-LNP, PF, 50 M CG/0.5 mL, 12 YRS AND ABOVE, IM (MODERNA-Spikevax) 04/11/2023 Covid-19, Mrna, Lnp-s, Pf, B ivalent, 30 Mcg, IM, 12 yrs and above (Pfizer) 05/06/2022 Pneumococcal Conjugate Vacc, 13 Valent (Prevnar) 09/18/2014 Pneumococcal Polysaccharide PPV23 (Pneumovax) 05/27/2006 Season Influenza, Quad, PF, Adjuvanted, 65+ Yrs, IM (FLUAD) 04/26/2020 Seasonal Influenza Vac., MDV , IM, 0.5 mL (Fluzone) 04/06/2014,04/21/2013,03/23/2012,04/21,04/03/2010,04/02/2009,05/15/2008 ,04/28/2007,05/27/2006 Seasonal Influenza, High Dos e, Trivalent, PF, IM (Fluzone HD) 04/01/2024 Seasonal Influenza, PF, 6 M & above, IM , (FluLaval or Fluzone) 04/16/2018,05/04/2017 Seasonal Influenza, Quadriva lent Hd (Fluzone Hd) 03/30/2023,04/18/2022,04/11/2021 Seasonal Influenza, Quadriva lent, No Preserve, IM 04/21/2016,05/02/2015 Seasonal Influenza, Trivalen t, Adjuvanted, 65+ YRS, PF, (Fluad) 05/26/2019 TDAP (age 10 and older)(Boostrix) 04/11/2021 Varicella Zoster Vaccine (Adult) 08/16/2008 Zoster Vaccine Recombinant (Shingrix) 12/20/2018 ,10/06/2018 documented as of this encounter Social History Tobacco Use Types Packs/Day Years Used Date Smoking Tobacco: Never Smokeless Tobacco: Never Alcohol Use Standard Drinks/Week Comments Yes 1 (1 standard drink = 0.6 oz pur e alcohol) socially PHQ-2 Answer Date Recorded PHQ Adult Total Score 0 04/14/2024 Hunger Vital Sign Answer Date Recorded Within the past 12 months, y ou worried that your food would run out before you got the money to buy more. Never true 03/19/20 24 Within the past 12 months, t he food you bought just didn't last and you didn't have money to get more. Never true 03/19/2024 Childcare Answer Date Recorded Do you feel overwhelmed with taking care of a child, family member or friend? No 03/19/2024 Does your family need help f inding childcare? (Household - for ages 0-17 years) Not on file 03/19/2024 Clothing Answer Date Recorded Have you been unable to get clothing when it was really needed? No 03/19/2024 Is your family able to get c lothes or diapers when needed? (Household - for ages 0-17 years) Not on file 03/19/2024 Personal Safety Answer Date Recorded Do you feel unsafe or have concerns for your saf ety? No 03/19/2024 Do you have concerns for you r family's safety? (Household - for ages 0-17 years) Not on file 03/19/2024 Utilities Answer Date Recorded Do you have trouble paying y our heating, water, or electric bill? No 03/19/2024 Is your family able to pay t he heat, water, or electric bill? (Household - for ages 0-17 years) Not on file 03/19/2024 Does your family have access to good internet? (Household - for ages 0-17 years) Not on file 03/19/2024 Employment Status Answer Date Recorded Are you unemployed or without regular income? No 03/19/2024 Does the household have a re gular source of income? (Household - for ages 0-17 years) Not on file 03/19/2024 Social Connections Answer Date Recorded How often do you feel lonely or isolated from those around you? Sometimes 03/19/2024 Financial Resource Strain Answer Date R ecorded Do you have any trouble payi ng for your medications, or do you think you might in the future? No 03/19/2024 Does your family have troubl e paying for medicine? (Household - for ages 0-17 years) Not on file 03/19/2024 Transportation Needs Answer Date Record ed Do you have trouble getting a ride to medical visits or work? (Adult - for ages 18 years and over) Not on file 03/19/2024 Does your family have a hard time getting a ride to doctors visits? (Household - for ages 0-17 years) Not on file 03/19/2024 Has lack of transportation k ept you from medical appointments, meetings, work, or from getting things needed for daily living? Check all that apply. No 03/19/2024 Do you (or your family) have trouble finding or paying for a ride (transportation)? (Household - for ages 0-17 years) Not on file 03/19/2024 Housing Stability Answer Date Recorded Do you currently live in a s helter or have no steady place to sleep at night? No 03/19/2024 Do you think you are at risk of becoming homeless? (Adult - for ages 18 years and over) Not on file 03/19/2024 Does your family worry about paying for your home or becoming homeless? (Household - for ages 0-17 years) Not on file 0 03/19/2024 Are you homeless or worried that you might be in the future? No 03/19/2024 Are you (or your family) tomas eless or worried that you might be in the future? (Household - for ages 0-17 years) Not on file Food Insecurity Answer Date Recorded Do you need food for this week? No 03/19/2024 Are you able to get enough f ood for your family? (Household - for ages 0-17 years) Not on file 03/19/2024 Does your family need food t his week? (Household - for ages 0-17 years) Not on file 03/19/2024 Do you always have enough fo od for your family? (Household - for ages 0-17 years) Not on file 03/19/2024 Food Insecurity Answer Date Recorded Within the past 12 months, y ou worried that your food would run out before you got the money to buy more. Never true 03/19/20 24 Within the past 12 months, t he food you bought just didn't last and you didn't have money to get more. Never true 03/19/2024 Do you need food for this week? 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 documented in this encounter Plan of Treatment Upcoming Encounters Date Type Department Care Team (Late st Contact Info) Description 10/04/2024 11:00 AM EDT Office Visit Family Practice, Teja Butler [address] [phone] Prince Sheppard MD [address] [id number] 04/20/2025 11:00 AM EDT Nurse Only Ancillary Department, Teja Prescott [address] [phone] Teja, Nurse Annual Wellness [address] [address] Health Maintenance Due Date Last Done Comments DXA Scan 03/12/2022 03/12/2020, 01/2013, 02/23/2013, Additional history exists *BISPHONATE OR OTHER ACCEPTABLE MEDICATION NEEDED FOR OSTEOPOROSIS (REFER TO SMARTSET #1146) 05/27/2022 COVID-19 Vaccine ( season) 2024 04/26/2024, 04/11/2023, 05/06/2022, Additional history exists HbA1c 09/26/2024 03/29/2024, 09/18, 09/04/2023, Additional history exists Diabetic Eye Exam 09/28/2024 09/29/2023, , 06/05/2020, Additional history exists Albumin/Creatinine Ratio 03/31/2025 024, 03/24/2023, 06/08/2018, Additional history exists Adult Wellness Visit 04/14/2025 04/14/2024 Depression Monitoring 04/14/2025 04/14/2024 Diabetic Foot Exam 04/14/2025 04/14/2024, 0 03/30/2023, 03/13/2020, Additional history exists DTap/Tdap Vaccines (2 - Td or Tdap) 04/11/2031 04/11/2021, 07/18/2002 Colonoscopy Discontinued 11/18/2006 Pneumococcal Vaccine: 50+ Years Completed 09/18/2014, 05/27/2006, 06/20/2003, Additional history exists Zoster Vaccines Completed 12/20/2018, 09/18, 08/16/2008 VITAMIN D LEVEL ONCE IN A LIFETIME-USE SMARTSET# [id number] Completed 10/13/2023, 03/19/2023, 05/22/2022, Additional history exists Influenza Vaccine (FLU shot) Completed 04/01/2024, 03/30/2023, 04/18/2022, Additional history exists HPV (Gardasil) Vaccine Aged Out No lo nger eligible based on patient's age to complete this topic Hepatitis B Vaccine Aged Out No longe r eligible based on patient's age to complete this topic MENINGOCOCCAL (MENACTRA/MENVEO) Aged Out No longer eligible based on patient's age to complete this topic documented as of this encounter Medical Devices Not on filedocumented as of this encounter Visit Diagnoses Diagnosis Type 2 diabetes mellitus with hemoglobin A1c goal of less than 7.0% (HCC) documented in this encounter Care Teams Substance Abuse Nurse Relationship Specialty Start Date End Date November, Prince Begum MD PCP - General Family Medicine 11/10/22 documented as of this encounter
--- OUTSIDE RECORDS SUMMARY | 2024-10-08 20:18 | External Medical Summary | Summary of Care ---
Author Name Unknown Organization [facility] Address [address] [place] [facility] [place] [place] [address] Phone [phone] Care Team Providers Care Biochemistry Technologist Name Role Phone Royce Mckeon MD Primary Care Provider [phone] Reason for Visit * Reason Comments Outpatient Testing Encounter Details Date Type Department Care Team (Late st Contact Info) Description 10/04/2024 11:40 AM EDT Laboratory Laboratory, [place] [facility] [address] [place] [address] [place], Laboratory [address] [facility] [place] [id number] HTN, goal below 140/90; Type 2 diabetes mellitus with hemoglobin A1c goal of less than 8.0% ([facility]); Iron 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; Dyslipidemia, goal LDL below 70 Allergies Active Allergy Reactions Criticality Noted Date Comments Erythromycin Base 07/16/1999 upset stomach documented as of this encounter (statuses as of 10/04/2024) Medications B-12-SL 1000 MCG Sublingual Tablet Sublingual (Cyanocobalamin)In dications:B12 deficiency Place 1,000 mcg under the tongue daily. 90 Tab 3 08/15/19 21 Active OneTouch Verio w/Device KitIndications:Leslie betic polyneuropathy associated with diabetes mellitus due to underlying condition ([facility]),Type 2 diabetes mellitus with hemoglobin A1c goal of less than 7.0% ([facility]) Check blood sugar one time per day: Dx E11.9 1 Kit 01/02/20 Active Additional Information Patient not taking.Reported on 04/01/2024 OneTouch Verio In Vitro Strip (Glucose Blood)Indications: Diabetic polyneuropathy associated with diabetes mellitus due to underlying condition ([facility]) Use to check blood sugars daily DX:E11.9 100 Strip 1 01/15/20 21 Active Additional Information Patient not taking.Reported on 04/01/2024 OneTouch Delica Lancets 33GIndications:Leslie betic polyneuropathy associated with diabetes mellitus due to underlying condition ([facility]) Use to check blood sugars daily DX E11.9 100 Each 1 01/15/20 Active Additional Information Patient not taking.Reported on 04/01/2024 Cetirizine HCl 10 MG Oral Tablet (ZyrTEC) Take 1 Tablet by mouth in the morning. Active Furosemide 20 MG Oral Tablet (Lasix)Indications :Bilateral leg edema,Edema, unspecified type TAKE 1 TABLET DAILY. MAY TAKE A SECOND DOSE IN THE AFTERNOON WHEN NEEDED FOR INCREASED SWELLING 180 Tablet 1 12/30/19 23 Active Magnesium 300 MG Oral CapsuleIndications :Hypomagnesemia Take 300 mg by mouth in the morning. 90 Capsule 03/24/20 23 Active Metoprolol Succinate ER 25 MG Oral Tablet Extended Release 24 Hour (toPROL XL)Indications:Oth er chronic pulmonary embolism, unspecified whether acute cor pulmonale present ([facility]) Take 1 Tablet by mouth in the morning. 90 Tablet 3 10/02/19 24 Active Azelastine HCl 0.1 % Nasal Solution (Astelin)Indicatio ns:Allergic rhinitis due to pollen, unspecified seasonality Administer 1 [place] into nostril in the morning and 1 Mart in the evening. 90 mL 2 12/17/19 24 Active metFORMIN HCl ER 500 MG [...] Active Escitalopram Oxalate 20 MG Oral Tablet (Lexapro)Indicatio ns:Anxiety and depression Take 1 Tablet by mouth in the morning. 90 Tablet 3 07/28/19 25 Active Apixaban 5 MG Oral Tablet (Eliquis)Indicatio ns:Paroxysmal atrial fibrillation (HCC) TAKE 1 TABLET [...] DAILY 90 Tablet 1 08/24/19 25 Active Pregabalin 100 MG Oral Capsule (Lyrica)Indication s:Diabetic polyneuropathy associated with type 2 diabetes mellitus (HCC) Take 1 Capsule by mouth in the morning and 1 Capsule before bedtime. 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 documented as of this encounter (statuses as of 10/04/2024) Resolved Problems Problem Noted Date Diagnosed Date Resolved Date Diabetic polyneuropathy asso ciated with diabetes mellitus due to underlying condition 09/29/2023 12/17/2023 Cardiomyopathy 11/26/2022 10/04/2024 Type 2 diabetes mellitus wit h diabetic dermatitis 02/11/2019 01/01/2021 History of adenomatous polyp of colon 02/02/2018 02/02/2018 H. 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 on file Not on file Not on file documented as of this encounter Plan of Treatment Upcoming Encounters Date Type Department Care Team (Late st Contact Info) Description 04/07/2025 10:40 AM EDT Office Visit Family [facility], Teja Butler [address] [phone] NovemberRoyce MD [address] [phone] 04/20/2025 11:00 AM EDT Nurse Only Ancillary Department, Teja Prescott [address] [phone] Teja Nurse Annual Wellness [address] [address] Pending Results Name Type Priority Associated Diagnoses Date /Time COMPREHENSIVE METABOLIC PANEL Lab Routine HTN, goal below 140/90 10/04/2024 11:42 AM EDT HEMOGLOBIN A1C Lab Routine Type 2 diabetes mellitus with hemoglobin A1c goal of less than 8.0% ([facility]) 10/04/2024 11:42 AM EDT CBC WITH WBC DIFFERENTIAL Lab Routine Iron 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 10/04/2024 11:42 AM EDT LIPID PANEL WITH DIRECT LDL IF TG IS HIGH Lab Routine Dyslipidemia, goal LDL below 70 10/04/2024 11:42 AM EDT IRON SCREEN, INCLUDING TIBC Lab Routine Iron 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 10/04/2024 11:42 AM EDT CBC Lab Routine Iron 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 10/04/2024 11:42 AM EDT DIFFERENTIAL, AUTOMATED Lab Routine Iron 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 10/04/2024 11:42 AM EDT Health Maintenance Due Date Last Done Comments [...] D LEVEL ONCE IN A LIFETIME-USE SMARTSET# [id number] Completed 10/13/2023, 03/19/2023, 05/22/2022, Additional history exists [...] on patient's age to complete this topic Meningitis B Vaccine (Bexsero/Trumemba) Aged Out No longer eligible based on patient's age to complete this topic documented as of this encounter Medical Devices Not on filedocumented as of this encounter Visit Diagnoses Diagnosis HTN, goal below 140/90 Unspecified essential hypertension Type 2 diabetes mellitus with hemoglobin A1c goal of less than 8.0% (HCC) Iron 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 Dyslipidemia, goal LDL below 70 Other and unspecified hyperlipidemia documented in this encounter Care Teams Biochemistry Technologist Relationship Specialty Start Date End Date November, Royce Begum MD PCP - General Family Medicine 11/10/22 documented as of this encounter
--- OUTSIDE RECORDS SUMMARY | 2024-10-08 20:18 | External Medical Summary ---
Author Name Unknown Address Unknown Organization K01:[facility] [place] [address] [facility] [place] [address] Laboratory Report Ordering Provider Test Date Status 10/04/2024 11:42:51 Final Observation Date Value Abnormality Reference (Units ) Status BUN 10/04/2024 11:42:51 11 6-20 (mg/dL) Final Creatinine 10/04/2024 11:42:51 0.7 0.5-1.0 (mg/dL) Final Glomerular filtration rate/1.73 sq M.predicted [Volume Rate/Area] in Serum, Plasma or Blood by Creatinine-based formula (CKD-EPI) 10/04/2024 11:42:51 78 >=60 (mL/min) Final eGFR is calculated based on the CKD-EPI 2020 equation. Sodium 10/04/2024 11:42:51 137 135-146 (m mol/L) Final Potassium 10/04/2024 11:42:51 3.8 3.5-5.1 (m mol/L) Final Cl 10/04/2024 11:42:51 96 Below low normal 98- 107 (mmol/L) Final CO2 10/04/2024 11:42:51 26 22-32 (mmo l/L) Final Anion gap 10/04/2024 11:42:51 15 7-15 (mmol /L) Final Glucose 10/04/2024 11:42:51 129 Above high normal 70 -120 (mg/dL) Final Albumin 10/04/2024 11:42:51 4.1 3.8-5.0 (g /dL) Final AST (Aspartate aminotransferase) 10/04/2024 11:42:51 16 10-35 (U/L) Fin al Alk Phos 10/04/2024 11:42:51 86 35-130 (U/ L) Final Bilirubin, Total 10/04/2024 11:42:51 0.5 <=1 .2 (mg/dL) Final Calcium 10/04/2024 11:42:51 9.0 8.4-10.2 ( mg/dL) Final Protein 10/04/2024 11:42:51 7.3 6.0-8.3 (g /dL) Final ALT (Alanine aminotransferase) 10/04/2024 11:42:51 8 Below low normal 10-35 (U/L) Final Performing Location [facility] [place] [address] [facility] [address]
--- OUTSIDE RECORDS SUMMARY | 2024-10-08 20:18 | External Medical Summary ---
Author Name Unknown Address Unknown Organization K01:LABORATORY [facility] [place] - [address] [facility] [place] [address] Laboratory Report Ordering Provider Test Date Status 10/04/2024 11:42:51 Final Observation Date Value Abnormality Reference (Units ) Status SYNC LEUKOCYTES IN BLOOD BY AUTOMATED COUNT 10/04/2024 11:42:51 5.47 4.00-10.80 (K/uL) Final Segs 10/04/2024 11:42:51 57.1 40.0-75.0 (%) Final Lymphs % 10/04/2024 11:42:51 30.0 18.0-42.0 (%) Final Monos 10/04/2024 11:42:51 10.1 1.0-11.0 (%) Final Eosinophils 10/04/2024 11:42:51 1.6 0.0-6.0 (%) Final Basos 10/04/2024 11:42:51 0.5 0.0-2.0 (%) Final Immature Granulocyte, Percent 10/04/2024 11:42:51 0.7 0.0-2.0 (%) Final Absolute Segs 10/04/2024 11:42:51 3.12 1.80-7.70 (K/uL) Final Lymphs, absolute 10/04/2024 11:42:51 1.64 1.00-4.80 (K/ul) Final Monos, Abs 10/04/2024 11:42:51 0.55 0.00-1.10 (K/uL) Final Eos, Abs 10/04/2024 11:42:51 0.09 0.00-0.70 (K/uL) Final Basos, Abs 10/04/2024 11:42:51 0.03 0.00-0.20 (K/uL) Final Immature Granulocytes, Number 10/04/2024 11:42:51 0.04 0.00-0.20 (K/uL) Final Performing Location LABORATORY [facility] [place] - [address] [facility] [address]
--- OUTSIDE RECORDS SUMMARY | 2024-10-08 20:18 | External Medical Summary | Summary of Care ---
Author Name Unknown Organization [facility] Address [address] [facility] [place] [address] Phone [phone] Care Team Providers Care Remote Sensing Technologist Name Role Phone Royce Mckeon MD Primary Care Provider [phone] Encounter Details Date Type Department Care Team (Late st Contact Info) Description 08/11/2024 Population Health External Data Unspecified Department Allergies Active Allergy Reactions Criticality Noted Date Comments Erythromycin Base 07/16/1999 upset stomach documented as of this encounter (statuses as of 08/11/2024) Medications B-12-SL 1000 MCG Sublingual Tablet Sublingual (Cyanocobalamin)In dications:B12 deficiency Place 1,000 mcg under the tongue daily. 90 Tab 3 08/15/19 21 Active OneTouch Verio w/Device KitIndications:Leslie betic polyneuropathy associated with diabetes mellitus due to underlying condition ([facility]),Type 2 diabetes mellitus with hemoglobin A1c goal of less than 7.0% ([facility]) Check blood sugar one time per day: Dx E11.9 1 Kit 01/02/20 21 Active Additional Information Patient not taking.Reported on 04/01/2024 OneTouch Verio In Vitro Strip (Glucose Blood)Indications: Diabetic polyneuropathy associated with diabetes mellitus due to underlying condition ([facility]) Use to check blood sugars daily DX:E11.9 100 Strip 1 01/15/20 21 Active Additional Information Patient not taking.Reported on 04/01/2024 Christopher Juan 33GIndications:Leslie betic polyneuropathy associated with diabetes mellitus due to underlying condition ([facility]) Use to check blood sugars daily DX [...] embolism, unspecified whether acute cor pulmonale present ([facility]) Take 1 Tablet by mouth in the morning. 90 Tablet 3 10/02/19 24 Active Azelastine HCl 0.1 % Nasal Solution (Astelin)Indicatio ns:Allergic rhinitis due to pollen, unspecified seasonality Administer 1 [place] into nostril in the morning and 1 Miles in the evening. 90 mL 2 12/17/19 24 Active Pregabalin 100 MG Oral Capsule (Lyrica)Indication s:Diabetic polyneuropathy associated with type 2 diabetes mellitus ([facility]) Take 1 Capsule by mouth in the morning and 1 Capsule before bedtime. 180 Capsule 1 03/10/20 24 Active metFORMIN HCl ER 500 MG Oral Tablet Extended Release 24 Hour (Glucophage XR) TAKE 4 TABLETS BY MOUTH ONCE DAILY IN THE MORNING 360 Tablet 1 05/02/20 24 Active SITagliptin Phosphate 100 MG Oral Tablet (Januvia)Indicatio ns:Type 2 diabetes mellitus with hemoglobin A1c goal of less than 7.0% ([facility]) TAKE 1 TABLET DAILY 90 Tablet 1 06/04/20 24 Active busPIRone HCl 5 MG Oral [...] only. 36 Tablet 2 07/29/19 25 Active documented as of this encounter (statuses as of 08/11/2024) Active Problems Problem Noted Date Diagnosed Date [...] as of this encounter (statuses as of 08/11/2024) Resolved Problems Problem Noted Date Diagnosed Date [...] as of this encounter (statuses as of 08/11/2024) Immunizations Name Administration Dates Next Due COVID-19 mRNA, LNP-s, No Pre serve, 2-Dose Series (Moderna) 09/21/2020,08/25/2020 COVID-19, MRNA-LNP, PF, 50 M CG/0.5 mL, 12 YRS AND ABOVE, IM (MODERNA-Spikevax) 04/11/2023 Covid-19, Mrna, Lnp-s, Pf, B ivalent, 30 Mcg, IM, 12 yrs and above ([place]) 05/06/2022 Pneumococcal Conjugate Vacc, 13 Valent (Prevnar) [...] 03/19/2024 Does the household have a re lar source of income? 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 file Not on file Not on file documented as of this encounter Plan of Treatment Upcoming Encounters Date Type Department Care Team (Late st Contact Info) Description 10/04/2024 11:00 AM EDT [facility] [address] [phone] Royce Mckeon MD [address] [phone] 11/29/2024 2:30 PM EDT Office Visit Cardiology, [facility] [address] [address] Rayo Rodarte MD [address] [address] 04/20/2025 11:00 AM EDT Nurse Only Ancillary Department, Teja Palacios [address] [phone] Teja, Nurse Annual Wellness [address] [address] Health Maintenance Due Date Last Done Comments [...] D LEVEL ONCE IN A LIFETIME-USE SMARTSET# [id number] Completed 10/13/2023, 03/19/2023, 05/22/2022, Additional history exists [...] Not on filedocumented as of this encounter Care Teams Remote Sensing Technologist Relationship Specialty Start Date End Date November, Royce Begum MD PCP - General Family Medicine 11/10/22 documented as of this encounter
--- OUTSIDE RECORDS SUMMARY | 2024-10-08 20:18 | External Medical Summary | Summary of Care ---
Author Name Unknown Organization [facility] Address [address] [place] [address] Phone [phone] Care Team Providers Care Machine Clipper Name Role Phone Prince Sheppard MD Primary Care Provider [phone] Reason for Visit * Reason Onset Date Comments Medication Refill 09/27/2024 Encounter Details Date Type Department Care Team (Late st Contact Info) Description 09/27/2024 Refill [facility] [address] [place] [address] Prince Sheppard MD [address] [facility] [place] [address] Diabetic polyneuropathy associated with type 2 diabetes mellitus (HCC) Allergies Active Allergy Reactions Criticality Noted Date Comments Erythromycin Base 07/16/1999 upset stomach documented as of this encounter (statuses as of 09/29/2024) Medications B-12-SL 1000 MCG Sublingual Tablet Sublingual (Cyanocobalamin)In dications:B12 deficiency Place 1,000 mcg under the tongue daily. 90 Tab 3 08/15/19 21 Active OneTouch Verio w/Device KitIndications:Leslie betic polyneuropathy associated with diabetes mellitus due to underlying condition (HCC),Type 2 diabetes mellitus with hemoglobin A1c goal of less than 7.0% (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) Use to check blood sugars daily DX:E11.9 100 Strip 1 01/15/20 21 Active Additional Information Patient not taking.Reported on 04/01/2024 BrandiTouch Vinicius Lancets 33GIndications:Leslie betic polyneuropathy associated with diabetes mellitus due to underlying condition ([facility]) Use to check blood sugars daily DX [...] embolism, unspecified whether acute cor pulmonale present ([facility]) Take 1 Tablet by mouth in the morning. 90 Tablet 3 10/02/19 24 Active Azelastine HCl 0.1 % Nasal Solution (Astelin)Indicatio ns:Allergic rhinitis due to pollen, unspecified seasonality Administer 1 [place] into nostril in the morning and 1 [place] in the evening. 90 mL 2 12/17/19 [...] bedtime. 180 Capsule 1 09/29/19 25 Active Pregabalin 100 MG Oral Capsule (Lyrica)Indication s:Diabetic polyneuropathy associated with type 2 diabetes mellitus (HCC) Take 1 Capsule by mouth in the morning and 1 Capsule before bedtime. 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 11/26/2022 Persistent atrial fibrillation 01/09/2022 Stasis dermatitis of both legs 04/11/2021 vermin exterminator current use of anticoagulant therapy 0 02/07/2021 [...] as of this encounter (statuses as of 09/29/2024) Resolved Problems Problem Noted Date Diagnosed Date [...] as of this encounter (statuses as of 09/29/2024) Immunizations Name Administration Dates Next Due COVID-19 [...] encounter Miscellaneous Notes * Telephone Encounter - Prince Sheppard MD - 09/28/2024 7:02 PM EDTSigned Prescriptions: Disp Refills Pregabalin 100 MG Oral Capsule (Lyrica) 180 Ca*1 Sig: Take 1 Capsule by mouth in the morning and 1 Capsule before bedtime.Authorizing Provider: PRINCE SHEPPARD------ * Telephone Encounter - Danny Kothari RPh - 09/28/2024 3:44 PM EDTPending Prescriptions: Disp Refills Pregabalin 100 MG Oral Capsule (Lyrica) 180 Ca*1 Sig: Take 1 Capsule by mouth in the morning and 1 Capsule before bedtime. * Telephone Encounter - Danny Kothari RPh - 09/28/2024 3:33 PM EDT I have reviewed the patients controlled substance dispensing history in the Prescription Drug Monitoring Program in compliance with the [facility] regulations before prescribing a controlled substance. PDMP checked on 09/28/2024. Pending Prescriptions: Disp Refills Pregabalin 100 MG Oral Capsule (Lyrica) 180 Ca*1 Sig: Take 1 Capsule by mouth in the morning and 1 Capsule before bedtime. Last Visit: Visit date not found (in office), Visit date not found (telemedicine) Next Visit: 10/04/2024 Date medication was last filled: 06/24/24 Date medication is due for refill: 09/21/24 Pharmacy: [id number] [address] [facility] Is this request for a controlled substance? Yes and Urine Drug Screen Not completed Toxicology results: No results found for this or any previous visit. Please approve if appropriate. Thanks, Danny Kothari Rph, Pharm D. Clinical Pharmacist [facility] [phone] 09/28/2024,3:33 PM documented in this encounter Plan of Treatment Upcoming Encounters Date Type Department Care Team (Late st Contact Info) Description 10/04/2024 11:00 AM EDT Office Visit Family [facility], Teja Butler [address] [phone] November, Prince Begum MD [address] [address] 04/20/2025 11:00 AM EDT Nurse Only Ancillary Department, Teja Prescott [address] [phone] Nurse Teja Annual Wellness [address] [phone] Health Maintenance Due Date Last Done Comments [...] D LEVEL ONCE IN A LIFETIME-USE SMARTSET# [id number] Completed 10/13/2023, 03/19/2023, 05/22/2022, Additional history exists [...] as of this encounter Visit Diagnoses Diagnosis Diabetic polyneuropathy associated with type 2 diabetes mellitus (HCC) documented in this encounter Care Teams Machine Clipper Relationship Specialty Start Date End Date November, Prince Begum MD PCP - General Family Medicine 11/10/22 documented as of this encounter
--- OUTSIDE RECORDS SUMMARY | 2024-10-08 20:18 | External Medical Summary ---
Author Name Unknown Address Unknown Organization K01:LABORATORY [facility] [place] - [address] [facility] [address] Laboratory Report Ordering Provider Test Date Status 10/04/2024 11:42:51 Final Observation Date Value Abnormality Reference (Units ) Status Triglyceride 10/04/2024 11:42:51 61 <=174 ( mg/dL) Final Triglyceride Reference Range s (mg/dL):
<150 Acceptable
150-174 Borderline high
175-499 High
>=500 Very high Cholesterol 10/04/2024 11:42:51 100 <200 (mg /dL) Final Total Cholesterol Reference Ranges (mg/dL):
<200 Desirable
200-239 Borderline high
>=240 High HDL 10/04/2024 11:42:51 53 >49 (mg/dL ) Final HDL Cholesterol Reference Ra nges (mg/dL):
>=60 High (Desirable)
<50 Low (Undesirable) For Females
<40 Low (Undesirable) For Males NON-HDL CHOLESTEROL 10/04/2024 11:42:51 47 <=159 (mg/dL) Final Non-HDL Cholesterol Referenc e Range (mg/dL):
<100 Target level for high risk ASCVD patient
<130 Optimal for general population
130-159 Near optimal for general population
160-189 Borderline High
190-219 High
>=220 Very High LDL, (calculated) 10/04/2024 11:42:51 35 <= 129 (mg/dL) Final LDL Cholesterol Reference Ra nges (mg/dL):
<70 Target level for high risk ASCVD patient
<100 Optimal for general population
100-129 Near optimal for general population
130-159 Borderline high
160-189 High
>=190 Very high Performing Location LABORATORY [facility] [place] - [address] [facility] [address]
--- OUTSIDE RECORDS SUMMARY | 2024-10-08 20:18 | External Medical Summary ---
Author Name Unknown Address Unknown Organization K01:LABORATORY [facility] [place] - [address] [place] [address] Laboratory Report Ordering Provider Test Date Status 10/04/2024 11:42:51 Final Observation Date Value Abnormality Reference (Units ) Status Iron 10/04/2024 11:42:51 22 Below low normal 33-151 (ug/dL) Final Iron-binding capacity 10/04/2024 11:42:51 263 250-425 (ug/dL) Final Transferrin Sat % 10/04/2024 11:42:51 8 Below low normal 15-55 (%) Final Performing Location LABORATORY C - [address] [place] [address]
--- OUTSIDE RECORDS SUMMARY | 2024-10-08 20:18 | External Medical Summary | Summary of Care ---
Author Name Unknown Organization [facility] Address [address] [place] [address] Phone [phone] Care Team Providers Care Business Process Associate Name Role Phone Prince Sheppard MD Primary Care Provider [phone] Reason for Visit * Reason Comments Outpatient Testing Encounter Details Date Type Department Care Team (Late st Contact Info) Description 10/04/2024 11:40 AM EDT Laboratory Laboratory, [place] [facility] [address] [place] [address] [place], Laboratory [address] [facility] [place] [id number] HTN, goal below 140/90; Type 2 diabetes mellitus with hemoglobin A1c goal of less than 8.0% ([facility]); Iron 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; Dyslipidemia, goal LDL below 70 Allergies Active Allergy Reactions Criticality Noted Date Comments Erythromycin Base 07/16/1999 upset stomach documented as of this encounter (statuses as of 10/05/2024) Medications B-12-SL 1000 MCG Sublingual Tablet Sublingual (Cyanocobalamin)In dications:B12 deficiency Place 1,000 mcg under the tongue daily. 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 90 Tablet 3 10/02/19 24 Active Azelastine HCl 0.1 % Nasal Solution (Astelin)Indicatio ns:Allergic rhinitis due to pollen, unspecified seasonality Administer 1 [place] into nostril in the morning and 1 [place] in the evening. 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 0 02/07/2021 [...] as of this encounter (statuses as of 10/05/2024) Resolved Problems Problem Noted Date Diagnosed Date [...] as of this encounter (statuses as of 10/05/2024) Immunizations Name Administration Dates Next Due COVID-19 mRNA, LNP-s, No Pre serve, 2-Dose Series (Moderna) 09/21/2020,08/25/2020 COVID-19, MRNA-LNP, PF, 50 M CG/0.5 mL, 12 YRS AND ABOVE, IM (MODERNA-Spikevax) 04/11/2023 Covid-19, Mrna, Lnp-s, Pf, B ivalent, 30 Mcg, IM, 12 yrs and above (Pfizer) 05/06/2022 Pneumococcal Conjugate Vacc, 13 Valent (Prevnar) 09/18/2014 Pneumococcal Polysaccharide PPV23 (Pneumovax) 05/27/2006,06/20/2003,06/20/2002 Season Influenza, Quad, PF, Adjuvanted, 65+ Yrs, IM (FLUAD) 04/26/2020 Seasonal Influenza Vac., MDV , IM, 0.5 mL (Fluzone) 04/06/2014,04/21/2013,03/23/2012,09/2010,04/03/2010,04/02/2009,05/15/20 08,04/28/2007,05/27/2006,04/24/2005,1 08/21/2002,05/03/2002,05/13/2001,06/22,05/02/1999 Seasonal Influenza, High Dos e, Trivalent, PF, IM (Fluzone HD) 04/01/2024 Seasonal Influenza, PF, 6 M & above, IM , (FluLaval or Fluzone) 04/16/2018,05/04/2017 Seasonal Influenza, Quadriva lent Hd (Fluzone Hd) 03/30/2023,04/18/2022,04/11/2021 Seasonal Influenza, Quadriva lent, No Preserve, IM 04/21/2016,05/02/2015 Seasonal Influenza, Trivalen t, Adjuvanted, 65+ YRS, PF, (Fluad) 05/26/2019 TD - Tetanus/Diptheria (ADULT) 07/18/2002 1 TDAP (age 10 and older)(Boostrix) 04/11/2021 Varicella [...] 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 A1c remains at goal. Continue iron supplementation as levels remain low and hgb remains stable but low. I will place lab orders to be completed before our appointment in 6 months primarily focusing on iron and blood count. Prince Sheppard MD documented in this encounter Plan of Treatment Upcoming Encounters Date Type Department Care Team (Late st Contact Info) Description 04/07/2025 10:40 AM EDT Office Visit Family Teja Mayes [address] [phone] Prince Sheppard MD [address] [id number] 04/20/2025 11:00 AM EDT Nurse Only Ancillary Department, Teja Prescott [address] [phone] Teja Nurse Annual Wellness [address] [phone] Scheduled Orders Name Type Priority Associated Diagnoses Orde r Schedule IRON SCREEN, INCLUDING TIBC Lab Routine Iron 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 Expected: 10/05/2024 (Approximate), Expires: 10/05/2025 CBC Lab Routine Iron 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 Expected: 10/05/2024 (Approximate), Expires: 10/05/2025 Health Maintenance Due Date Last Done Comments DXA Scan 03/12/2022 03/12/2020, 01/2013, 02/23/2013, Additional history exists *BISPHONATE OR OTHER ACCEPTABLE MEDICATION NEEDED FOR OSTEOPOROSIS (REFER TO SMARTSET #[id number]) 05/27/2022 COVID-19 Vaccine ( season) 2024 04/26/2024, 04/11/2023, 05/06/2022, Additional history exists Diabetic Eye Exam 09/28/2024 09/29/2023, , 06/05/2020, Additional history exists Albumin/Creatinine Ratio 03/31/2025 024, 03/24/2023, 06/08/2018, Additional history exists HbA1c 04/06/2025 10/04/2024, 03/20, 10/13/2023, Additional history exists Adult Wellness Visit 04/14/2025 04/14/2024 Depression Monitoring 04/14/2025 04/14/2024 Diabetic Foot Exam 04/14/2025 04/14/2024, 0 03/30/2023, 03/13/2020, Additional history exists DTap/Tdap Vaccines (2 - Td or Tdap) 04/11/2031 04/11/2021, 07/18/2002 Colonoscopy Discontinued 11/18/2006 Pneumococcal Vaccine: 50+ Years Completed 09/18/2014, 05/27/2006, 06/20/2003, Additional history exists Zoster Vaccines Completed 12/20/2018, 09/18, 08/16/2008 VITAMIN D LEVEL ONCE IN A LIFETIME-USE SMARTSET# [id number] Completed 10/13/2023, 03/19/2023, 05/22/2022, Additional history exists [...] Not on filedocumented as of this encounter Procedures Procedure Name Priority Date/Time Associated Diagnosis Comments DIFFERENTIAL, AUTOMATED Routine 10/04/2024 11:42 AM EDT Iron 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 LIPID PANEL WITH DIRECT LDL IF TG IS HIGH Routine 10/04/2024 11:42 AM EDT Dyslipidemia, goal LDL below 70 HEMOGLOBIN A1C Routine 10/04/2024 11:42 AM EDT Type 2 diabetes mellitus with hemoglobin A1c goal of less than 8.0% (HCC) COMPREHENSIVE METABOLIC PANEL Routine 10/04/2024 11:42 AM EDT HTN, goal below 140/90 IRON SCREEN, INCLUDING TIBC Routine 10/04/2024 11:42 AM EDT Iron 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 CBC Routine 10/04/2024 11:42 AM EDT Iron 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 CBC Routine 10/04/2024 11:42 AM EDT Iron 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 DIFFERENTIAL, TECHNOLOGIST REVIEW Routine 10/04/2024 11:42 AM EDT Iron 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 documented in this encounter Results * (ABNORMAL) DIFFERENTIAL, TECHNOLOGIST REVIEW (10/04/2024 11:42 AM EDT) Acanthocytes Moderate(A ) None Seen 10/05/2024 12:03 AM EDT [facility] Schistocytes Few(A) None Seen 10/05/2024 12:03 AM EDT [facility] Blood Venous blood specimen / Unknown Venipuncture / Unknown 10/04/2024 11:42 AM EDT 10/04/2024 11:42 AM EDT us Prince Sheppard MD LAB BLOOD ORDERABLES Final Res ult Performing Organization Address City/State/[facility] Co de Phone Number [facility] [address] [place] [address] * DIFFERENTIAL, AUTOMATED (10/04/2024 11:42 AM EDT) WBC 5.47 4.00 - 10.80 K/uL 10/05/2024 12:03 AM EDT [facility] Neutrophils % 57.1 40.0 - 75.0 % 10/05/2024 12:03 AM EDT [facility] Lymphocytes % 30.0 18.0 - 42.0 % 10/05/2024 12:03 AM EDT [facility] Monocytes % 10.1 1.0 - 11.0 % 10/05/2024 12:03 AM EDT [facility] Eosinophils % 1.6 0.0 - 6.0 % 10/05/2024 12:03 AM EDT [facility] Basophils % 0.5 0.0 - 2.0 % 10/05/2024 12:03 AM EDT [facility] Immature Granulocytes % 0.7 0.0 - 2.0 % 10/05/2024 12:03 AM EDT [facility] Absolute Neutrophils 3.12 1.80 - 7.70 K/uL 10/05/2024 12:03 AM EDT [facility] Absolute Lymphocytes 1.64 1.00 - 4.80 K/ul 10/05/2024 12:03 AM EDT [facility] Absolute Monocytes 0.55 0.00 - 1.10 K/uL 10/05/2024 12:03 AM EDT [facility] Absolute Eosinophils 0.09 0.00 - 0.70 K/uL 10/05/2024 12:03 AM EDT [facility] Absolute Basophils 0.03 0.00 - 0.20 K/uL 10/05/2024 12:03 AM EDT [facility] Absolute Immature Granulocytes 0.04 0.00 - 0.20 K/uL 10/05/2024 12:03 AM EDT [facility] Blood Venous blood specimen / Unknown Venipuncture / Unknown 10/04/2024 11:42 AM EDT 10/04/2024 11:42 AM EDT Prince Sheppard MD LAB BLOOD ORDERABLES Final Res ult [facility] [address] [place] [address] * (ABNORMAL) CBC (10/04/2024 11:42 AM EDT) WBC 5.47 4.00 - 10.80 K/uL 10/04/2024 11:32 PM EDT [facility] RBC 4.30 3.85 - 5.15 M/uL 10/04/2024 11:32 PM EDT [facility] HGB 10.2(L) 12.0 - 15.3 g/dL 10/04/2024 11:32 PM EDT [facility] HCT 34.7(L) 36.0 - 45.2 % 10/04/2024 11:32 PM EDT [facility] MCV 80.7 81.5 - 97.5 fL 10/04/2024 11:32 PM EDT [facility] MCH 23.7 27.0 - 34.0 pg 10/04/2024 11:32 PM EDT [facility] MCHC 29.4 32.0 - 36.0 g/dL 10/04/2024 11:32 PM EDT [facility] RDW 18.9 11.5 - 15.5 % 10/04/2024 11:32 PM EDT [facility] PLT 196 140 - 400 K/uL 10/04/2024 11:32 PM EDT [facility] MPV 11.7 6.6 - 11.1 fL 10/04/2024 11:32 PM EDT [facility] nRBCs 0 <=0 /100 WBCs 10/04/2024 11:32 PM EDT [facility] Blood Venous blood specimen / Unknown Venipuncture / Unknown 10/04/2024 11:42 AM EDT 10/04/2024 11:42 AM EDT Prince Sheppard MD LAB BLOOD ORDERABLES Final Res ult Performing Organization Address [facility] de Phone Number LABORATORY [facility] [address] [place] [address] * (ABNORMAL) IRON SCREEN, INCLUDING TIBC (10/04/2024 11:42 AM EDT) Iron 22(L) 33 - 151 ug/dL 10/05/2024 4:12 AM EDT [facility] Iron Binding Capacity 263 250 - 425 ug/dL 10/05/2024 4:12 AM EDT [facility] Transferrin Saturation Percent 8(L) 15 - 55 % 10/05/2024 4:12 AM EDT [facility] Blood Venous blood specimen / Unknown Venipuncture / Unknown 10/04/2024 11:42 AM EDT 10/04/2024 11:42 AM EDT Prince Sheppard MD LAB BLOOD ORDERABLES Final Res ult Performing Organization Address [facility] de Phone Number LABORATORY [facility] [address] [place] [address] * LIPID PANEL WITH DIRECT LDL IF TG IS HIGH (10/04/2024 11:42 AM EDT) Triglycerides 61 <=174 mg/dL 10/05/2024 4:12 AM EDT LABORATORY [facility] Comment: Triglyceride Reference Ranges (mg/dL): <150 Acceptable 150-174 Borderline high 175-499 High >=500 Very high Cholesterol 100 <200 mg/dL 10/05/2024 4:12 AM EDT LABORATORY [facility] Comment: Total Cholesterol Reference Ranges (mg/dL): <200 Desirable 200-239 Borderline high >=240 High HDL Cholesterol 53 >49 mg/dL 4:12 AM EDT LABORATORY [facility] Comment: HDL Cholesterol Reference Ranges (mg/dL): >=60 High (Desirable) <50 Low (Undesirable) For Females <40 Low (Undesirable) For Males Non-HDL Cholesterol 47 <=159 mg/dL 10/05/2024 4:12 AM EDT LABORATORY [facility] Comment: Non-HDL Cholesterol Reference Range (mg/dL): <100 Target level for high risk ASCVD patient <130 Optimal for general population 130-159 Near optimal for general population 160-189 Borderline High 190-219 High >=220 Very High LDL Cholesterol 35 <=129 mg/dL 10/05/2024 4:12 AM EDT LABORATORY [facility] Comment: LDL Cholesterol Reference Ranges (mg/dL): <70 Target level for high risk ASCVD patient <100 Optimal for general population 100-129 Near optimal for general population 130-159 Borderline high 160-189 High >=190 Very high Blood Venous blood specimen / Unknown Venipuncture / Unknown 10/04/2024 11:42 AM EDT 10/04/2024 11:42 AM EDT Prince Sheppard MD LAB BLOOD ORDERABLES Final Res ult Performing Organization Address [facility] de Phone Number LABORATORY [address] [address] * (ABNORMAL) HEMOGLOBIN A1C (10/04/2024 11:42 AM EDT) [facility] Hemoglobin A1C 7.6(H) 4.0 - 5.6 % 10/05/2024 4:16 AM EDT LABORATORY [facility] Comment:The use of HbA1c to monitor glycemic status is based on normal hemoglobin and HbA composition. This test should not be used in patients with abnormal hemoglobin that affects the half life of the red blood cell or the in vivo glycation rates. Estimated Average Glucose 171(H) <126 mg/dL 10/05/2024 4:16 AM EDT LABORATORY [facility] Blood Venous blood specimen / Unknown Venipuncture / Unknown 10/04/2024 11:42 AM EDT 10/04/2024 11:42 AM EDT Prince Sheppard MD LAB BLOOD ORDERABLES Final Res ult Performing Organization Address [facility] de Phone Number LABORATORY [place] [address] [place] [address] * (ABNORMAL) COMPREHENSIVE METABOLIC PANEL (10/04/2024 11:42 AM EDT) BUN 11 6 - 20 mg/dL 10/05/2024 4:12 AM EDT [facility] CREATININE 0.7 0.5 - 1.0 mg/dL 10/05/2024 4:12 AM EDT [facility] EGFR 78 >=60 mL/min 10/05/2024 4:12 AM EDT [facility] Comment:eGFR is calculated b ased on the CKD-EPI 2020 equation. SODIUM 137 135 - 146 mmol/L 10/05/2024 4:12 AM EDT [facility] POTASSIUM 3.8 3.5 - 5.1 mmol/L 10/05/2024 4:12 AM EDT [facility] CHLORIDE 96(L) 98 - 107 mmol/L 10/05/2024 4:12 AM EDT [facility] CO2 26 22 - 32 mmol/L 10/05/2024 4:12 AM EDT [facility] ANION GAP 15 7 - 15 mmol/L 10/05/2024 4:12 AM EDT [facility] GLUCOSE 129(H) 70 - 120 mg/dL 10/05/2024 4:12 AM EDT [facility] Albumin 4.1 3.8 - 5.0 g/dL 10/05/2024 4:12 AM EDT [facility] AST 16 10 - 35 U/L 10/05/2024 4:12 AM EDT [facility] Alkaline Phosphatase 86 35 - 130 U/L 10/05/2024 4:12 AM EDT [facility] Bilirubin, Total 0.5 <=1.2 mg/dL 10/05/2024 4:12 AM EDT [facility] CALCIUM 9.0 8.4 - 10.2 mg/dL 10/05/2024 4:12 AM EDT [facility] Protein 7.3 6.0 - 8.3 g/dL 10/05/2024 4:12 AM EDT [facility] ALT 8(L) 10 - 35 U/L 10/05/2024 4:12 AM EDT [facility] Blood Venous blood specimen / Unknown Venipuncture / Unknown 10/04/2024 11:42 AM EDT 10/04/2024 11:42 AM EDT us Prince Sheppard MD LAB BLOOD ORDERABLES Final Res ult LABORATORY [facility] [address] [place] [address] documented in this encounter Visit Diagnoses Diagnosis HTN, goal below 140/90 Unspecified essential hypertension Type 2 diabetes mellitus with hemoglobin A1c goal of less than 8.0% (HCC) Iron 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 Dyslipidemia, goal LDL below 70 Other and unspecified hyperlipidemia documented in this encounter Care Teams Business Process Associate Relationship Specialty Start Date End Date November, Prince Begum MD PCP - General Family Medicine 11/10/22 documented as of this encounter
--- OUTSIDE RECORDS SUMMARY | 2024-10-08 20:18 | External Medical Summary | Summary of Care ---
Author Name Unknown Organization [facility] Address [address] [place] [address] Phone [phone] Care Team Providers Care Adjuster Electrical Contacts Name Role Phone Royce Mckeon MD Primary Care Provider [phone] Reason for Visit * Reason Comments Outpatient Testing Encounter Details Date Type Department Care Team (Late st Contact Info) Description 10/04/2024 11:40 AM EDT Laboratory Laboratory, [place] [facility] [address] [place] [address] [place], Laboratory [address] [facility] [place] [id number] HTN, goal below 140/90; Type 2 diabetes mellitus with hemoglobin A1c goal of less than 8.0% ([facility]); Iron deficiency anemia secondary to [...] mellitus due to underlying condition ([facility]),Type 2 diabetes mellitus with hemoglobin A1c goal of less than 7.0% ([facility]) Check blood sugar one time per day: Dx E11.9 1 Kit 01/02/20 Active Additional Information Patient not taking.Reported on 04/01/2024 OneTouch Verio In Vitro Strip (Glucose Blood)Indications: 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 90 Tablet 3 10/02/19 24 Active Azelastine HCl 0.1 % Nasal Solution (Astelin)Indicatio ns:Allergic rhinitis due to pollen, unspecified seasonality Administer 1 [place] into nostril in the morning and 1 [place] in the evening. 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 Not on file Not on file documented as of this encounter Plan of Treatment Upcoming Encounters Date Type Department Care Team (Late st Contact Info) Description 04/07/2025 10:40 AM EDT Office Visit Family [facility], Teja Butler [address] [phone] NovemberRoyce MD [address] [phone] 04/20/2025 11:00 AM EDT Nurse Only Ancillary Department, Tjea Prescott [address] [phone] Teja Nurse Annual Wellness [address] [phone] Pending Results Name Type Priority Associated Diagnoses Date /Time COMPREHENSIVE METABOLIC PANEL Lab Routine HTN, goal below 140/90 10/04/2024 11:42 AM EDT HEMOGLOBIN A1C Lab Routine Type 2 diabetes mellitus with hemoglobin A1c goal of less than 8.0% ([facility]) 10/04/2024 11:42 AM EDT CBC [...] D LEVEL ONCE IN A LIFETIME-USE SMARTSET# [id number] Completed 10/13/2023, 03/19/2023, 05/22/2022, Additional history exists [...] hyperlipidemia documented in this encounter Care Teams Adjuster Electrical Contacts Relationship Specialty Start Date End Date November, Royce Begum MD PCP - General Family Medicine 11/10/22 documented as of this encounter
--- OUTSIDE RECORDS SUMMARY | 2024-10-08 20:18 | External Medical Summary | Summary of Care ---
Author Name Unknown Organization [facility] Address [address] [place] [place] [place] [address] Phone [phone] Care Team Providers Care Airfield Services Officer Name Role Phone Royce Mckeon MD Primary Care Provider [phone] Reason for Visit * Reason Comments Follow Up 6 month follow up, h as been sleeping a lot the past few days, cold symptoms Encounter Details Date Type Department Care Team (Late st Contact Info) Description 10/04/2024 11:00 AM EDT 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 90 Tab 3 08/15/19 21 Active OneTouch Verio w/Device KitIndications:Leslie betic polyneuropathy associated with diabetes mellitus due to underlying condition ([facility]),Type 2 diabetes mellitus with hemoglobin A1c goal of less than 7.0% ([facility]) Check blood sugar one time per day: Dx E11.9 1 Kit 01/02/20 Active Additional Information Patient not taking.Reported on 04/01/2024 OneTouch Verio In Vitro Strip (Glucose Blood)Indications: Diabetic polyneuropathy associated with diabetes mellitus due to underlying condition ([facility]) Use to check blood sugars daily DX:E11.9 100 Strip 1 01/15/20 Active Additional Information Patient not taking.Reported on 04/01/2024 OneTouch Delica Lancets 33GIndications:Leslie betic polyneuropathy associated with diabetes mellitus due to underlying condition ([facility]) Use to check blood sugars daily DX [...] embolism, unspecified whether acute cor pulmonale present ([facility]) Take 1 Tablet by mouth in the morning. 90 Tablet 3 10/02/19 24 Active Azelastine HCl 0.1 % Nasal Solution (Astelin)Indicatio ns:Allergic rhinitis due to pollen, unspecified seasonality Administer 1 [place] into nostril in the morning and 1 [place] in the evening. 90 mL 2 12/17/19 [...] bedtime. 180 Capsule 1 09/29/19 25 Active Potassium Chloride Cathie ER 20 MEQ Oral Tablet Extended Release Take 2 Tablets by mouth in the morning. 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 Not on file Not on file Not on file documented as of this encounter Last Filed Vital Signs Vital Sign Reading Time Taken Comments Blood Pressure 122/73 10/04/2024 11:08 AM EDT Pulse 97 10/04/2024 11:08 AM EDT Temperature 36.3 C (97.4 F) 10/04/2024 11:08 AM E DT Respiratory Rate 16 10/04/2024 11:08 AM EDT Oxygen Saturation - - Inhaled Oxygen Concentration - - Weight 65.3 kg (144 lb) 10/04/2024 11:08 AM EDT Height - - Body Mass Index 24.53 04/14/2024 11:34 AM EDT documented in this encounter Progress Notes * Royce Mckeon MD - 10/04/2024 11:14 AM EDT Images from the original note were not included. Subjective Cheryl Palumbo is a 88 year old female that presents for Follow Up (6 month follow up, has been sleeping a lot the past few days, cold symptoms ) History of Present Illness The patient, an 88-year-old female with a significant past medical history including type two diabetes with diabetic polyneuropathy, dyslipidemia, heart failure with reduced ejection fraction, atrialfibrillation, chronic DVT of the left femur, hypertension, GERD, and depression, presents for a routine six-month follow-up. The patient reports no changes in her health status since her last visit. She has not seen any specialists and has not had any changes in her medication regimen. The patient denies any recent issues with dizziness, lightheadedness, or falls. She also denies any changes in her mood. However, the patient and her daughter have noticed some memory issues, including repeating q uestions and forgetting recent meals. Despite these memory issues, the patient remains independent in her daily activities and lives alone. Objective BP 122/73 | Pulse 97 | Temp 97.4 F (36.3 C) | Resp 16 | Wt 144 lb (65.3 kg) | BMI 24.53 kg/m | BSA 1.72 m Physical Exam Physical Exam Vitals reviewed. Constitutional: General: She is not in acute distress. Cardiovascular: Rate and Rhythm: Normal rate and regular rhythm. Heart sounds: No murmur heard. Pulmonary: Effort: Pulmonary effort is normal. No respiratory distress. Breath sounds: Normal breath sounds. Musculoskeletal: Cervical back: Neck supple. Lymphadenopathy: Cervical: No cervical adenopathy. Neurological: General: No focal deficit present. Mental Status: She is alert. Results Assessment and Plan Assessment & Plan Atrial Fibrillation Chronic atrial fibrillation managed with Eliquis and metoprolol. Continued risk of falls due to anticoagulation therapy discussed. Emphasized necessity of anticoagulation therapy due to clotting risk. - Continue Eliquis 5 mg twice daily. - Continue metoprolol 25 mg daily. - Follow up with cardiology in a couple of months. Chronic Deep Vein Thrombosis (DVT) Chronic DVT in the left femoral vein managed with anticoagulation therapy. Emphasized importance ofcontinued anticoagulation therapy to prevent clotting risks. - Continue anticoagulation therapy with Eliquis. Heart Failure with Reduced Ejection Fraction Chronic heart failure managed with goal-directed medical therapy. Unable to tolerate Lasix due to hypotensive episodes. - Continue current heart failure management. Type 2 Diabetes Mellitus with Diabetic Polyneuropathy Diabetes managed with Januvia and metformin. No current issues with blood sugar control. Lab work planned to ensure stable blood sugar levels. - Continue Januvia and metformin. - Order lab work to check blood sugar levels. Hypertension Blood pressure well-controlled with current medication regimen. Previous medication adjustments made to prevent falls due to hypotension. - Continue current antihypertensive regimen. Dyslipidemia Chronic condition managed with current medication regimen. - Continue current dyslipidemia management. Depression Depression managed with Lexapro. No current symptoms of depression or anxiety. - Continue Lexapro. - Monitor mood and mental health. Gastroesophageal Reflux Disease (GERD) GERD well-controlled. - Continue current GERD management. Memory Concerns Reports of memory lapses. Emphasis on lifestyle modifications to support cognitive function. Safetyconcerns due to memory issues and risk of falls discussed. - Encourage a healthy diet and regular physical activity. - Promote social interaction and mental engagement. - Ensure a safe living environment to prevent falls. General Health Maintenance Emphasized maintaining a healthy lifestyle to support overall health and prevent falls. Safety emphasized due to anticoagulation therapy. Lab work planned to monitor blood count and kidney function. - Encourage a balanced diet and hydration. - Promote regular physical activity. - Ensure home safety to prevent falls. - Order lab work to check blood count and kidney function. Follow-up Routine follow-up and lab work discussed to monitor ongoing health conditions and medication effects. - Schedule follow-up appointment in six months for yearly physical. - Communicate lab results and any necessary adjustments to treatment plan. Visit Diagnoses and Orders 1. Persistent atrial fibrillation (HCC) 2. 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 Chronic HFrEF (heart failure with reduced ejection fraction) ([facility]) 4. Type 2 diabetes mellitus with hemoglobin A1c goal of less than 8.0% ([facility]) HEMOGLOBIN A1C 5. HTN, goal below 140/90 COMPREHENSIVE METABOLIC PANEL 6. Dyslipidemia, goal LDL below 70 LIPID PANEL WITH DIRECT LDL IF TG IS HIGH 7. Anxiety and depression 8. Memory loss 9. Iron 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 CBC WITH WBC DIFFERENTIAL, IRON SCREEN, INCLUDING TIBC Wrap-Up Follow Up: Return in about 6 months (around 04/06/2025) for yearly physical. | For: yearly physical | Check-out note: Lab work today. Royce Mckeon MD Text in this note was generated using an ambient documentation service. I discussed the use of a device to record and summarize our discussion today. All persons present during the encounter consented to its use. documented in this encounter Nursing Notes * Taina Jiang LPN - 10/04/2024 11:07 AM EDT The patient has been properly identified by confirmation of name and date of . Chief Complaint Patient presents with Follow Up 6 month follow up, has been sleeping a lot the past few days, cold symptoms documented in this encounter Plan of Treatment Upcoming Encounters Date Type Department Care Team (Late st Contact Info) Description 04/07/2025 10:40 AM EDT Office Visit Family Practice, [facility] [address] [phone] Royce Mckeon MD [address] [id number] 04/20/2025 11:00 AM EDT Nurse Only Ancillary Department, [facility] [address] [phone] Teja Nurse [facility] [address] [address] Pending Results Name Type Priority Associated Diagnoses Date /Time COMPREHENSIVE METABOLIC PANEL Lab Routine HTN, goal below 140/90 10/04/2024 11:42 AM EDT HEMOGLOBIN A1C Lab Routine Type 2 diabetes mellitus with hemoglobin A1c goal of less than 8.0% (HCC) 10/04/2024 11:42 AM EDT CBC WITH WBC DIFFERENTIAL Lab Routine Iron 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 10/04/2024 11:42 AM EDT LIPID PANEL WITH DIRECT LDL IF TG IS HIGH Lab Routine Dyslipidemia, goal LDL below 70 10/04/2024 11:42 AM EDT IRON SCREEN, INCLUDING TIBC Lab Routine Iron 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 10/04/2024 11:42 AM EDT Scheduled Orders Name Type Priority Associated Diagnoses Orde r Schedule COMPREHENSIVE METABOLIC PANEL Lab Routine HTN, goal below 140/90 Expected: 10/04/2024 (Approximate), Expires: 10/04/2025 HEMOGLOBIN A1C Lab Routine Type 2 diabetes mellitus with hemoglobin A1c goal of less than 8.0% (HCC) Expected: 10/04/2024 (Approximate), Expires: 10/04/2025 CBC WITH WBC DIFFERENTIAL Lab Routine Iron 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 Expected: 10/04/2024 (Approximate), Expires: 10/04/2025 LIPID PANEL WITH DIRECT LDL IF TG IS HIGH Lab Routine Dyslipidemia, goal LDL below 70 Expected: 10/04/2024, Expires: 10/04/2025 IRON SCREEN, INCLUDING TIBC Lab Routine Iron 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 Expected: 10/04/2024 (Approximate), Expires: 10/04/2025 Health Maintenance Due Date Last Done Comments DXA Scan 03/12/2022 03/12/2020, 0801/2013, 02/23/2013, Additional history exists *BISPHONATE OR OTHER [...] D LEVEL ONCE IN A LIFETIME-USE SMARTSET# 61226 Completed 10/13/2023, 03/19/2023, 05/22/2022, Additional history exists [...] as of this encounter Visit Diagnoses Diagnosis Anxiety and depression- Primary Dysthymic disorder Persistent atrial fibrillation (HCC) Atrial fibrillation 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
--- OUTSIDE RECORDS SUMMARY | 2024-10-08 20:19 | External Medical Summary ---
Author Name Unknown Address Unknown Organization K01:[facility] [place] - [facility] [address] Laboratory Report Ordering Provider Test Date Status 07/06/2024 09:10:04 Final Observation Date Value Abnormality Reference (Units ) Status WBC, Total 07/06/2024 09:10:04 7.87 4.00-10.80 (K/uL) Final RBC 07/06/2024 09:10:04 4.58 3.85-5.15 (M/uL) Final Hemoglobin 07/06/2024 09:10:04 10.8 Below low normal 12.0-15.3 (g/dL) Final HCT 07/06/2024 09:10:04 36.3 36.0-45.2 (%) Final MCV 07/06/2024 09:10:04 79.3 81.5-97.5 (fL) Final MCH 07/06/2024 09:10:04 23.6 27.0-34.0 (pg) Final MCHC 07/06/2024 09:10:04 29.8 32.0-36.0 (g/dL) Final RDW 07/06/2024 09:10:04 20.3 11.5-15.5 (%) Final Platelets 07/06/2024 09:10:04 215 140-400 (K/uL) Final MPV 07/06/2024 09:10:04 11.3 6.6-11.1 (fL) Final Nucleated erythrocytes/100 leukocytes [Ratio] in Blood by Automated count 07/06/2024 09:10:04 0 <=0 (/100 WBCs) Final Performing Location [facility] [place] - [address] [place] [place] [address]
--- OUTSIDE RECORDS SUMMARY | 2024-10-08 20:19 | External Medical Summary | Summary of Care ---
Author Name Unknown Organization [facility] Address [address] [place] [address] Phone [phone] Care Team Providers Care Shirt Turner Name Role Phone Prince Sheppard MD Primary Care Provider Reason for Visit * Reason Onset Date Comments Medication Refill 06/29/2024 Encounter Details Date Type Department Care Team (Late st Contact Info) Description 06/29/2024 Refill [facility] [address] [place] [address] Prince Sheppard MD [address] [place] [id number] Anxiety and depression Allergies Active Allergy Reactions Criticality Noted Date Comments Erythromycin Base 07/16/1999 upset stomach documented as of this encounter (statuses as of 06/29/2024) Medications B-12-SL 1000 MCG Sublingual Tablet Sublingual (Cyanocobalamin)In dications:B12 deficiency Place 1,000 mcg under the tongue daily. 90 Tab 3 08/15/19 21 Active OneTouch Verio w/Device KitIndications:Leslie betic polyneuropathy associated with diabetes mellitus due to underlying condition ([facility]),Type 2 diabetes mellitus with hemoglobin A1c goal of less than 7.0% ([facility]) Check blood sugar one time per day: Dx E11.9 1 Kit 01/02/20 21 Active Additional Information Patient not taking.Reported on 04/01/2024 BrandiTouch Verio In Vitro Strip (Glucose Blood)Indications: Diabetic polyneuropathy associated with diabetes mellitus due to underlying condition ([facility]) Use to check blood sugars daily DX:E11.9 100 Strip 1 01/15/20 21 Active Additional Information Patient not taking.Reported on 04/01/2024 BrandiTodaisy Colvin Lancets 33GIndications:Leslie betic polyneuropathy associated with diabetes mellitus due to underlying condition ([facility]) Use to check blood sugars daily [...] whether acute cor pulmonale present ([facility]) Take 1 Tablet by mouth in the morning. 90 Tablet 3 10/02/19 24 Active Apixaban 5 MG Oral Tablet (Eliquis)Indicatio ns:Paroxysmal atrial fibrillation (HCC) TAKE 1 TABLET TWICE A DAY 180 Tablet 3 12/15/19 24 Active Azelastine HCl 0.1 % Nasal Solution (Astelin)Indicatio ns:Allergic rhinitis due to pollen, unspecified seasonality Administer 1 [place] into nostril in the morning and 1 [place] in the evening. 90 mL 2 12/17/19 24 Active Omeprazole 40 MG Oral Capsule Delayed Release (PriLOSEC)Indicati ons:Esophageal reflux TAKE 1 CAPSULE IN THE MORNING 90 Capsule 2 01/14/20 24 Active Atorvastatin Calcium 10 MG Oral Tablet (Lipitor) Take 1 Tablet by mouth in the morning. 90 Tablet 2 01/14/20 24 Active Pregabalin 100 MG Oral Capsule (Lyrica)Indication s:Diabetic polyneuropathy associated with type 2 diabetes mellitus (HCC) Take 1 Capsule by mouth in the morning and 1 Capsule before bedtime. 180 Capsule 1 03/10/20 24 Active Ferrous Sulfate 325 (65 Fe) MG Oral Tablet (Feosol)Indication s:Iron 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 Take 1 Tablet by mouth once a day on Thursday, Thursday, and Thursday only. 30 Tablet 11 04/01/20 24 Active Escitalopram Oxalate 20 MG Oral Tablet (Lexapro)Indicatio ns:Anxiety and depression Take 1 Tablet by mouth in the morning. 90 Tablet 3 04/18/20 24 Active metFORMIN HCl ER 500 MG [...] bedtime. 180 Tablet 1 06/29/20 24 Active busPIRone HCl 5 MG Oral Tablet (Buspar)Indication s:Anxiety and depression Take 1 Tablet by mouth in the morning and 1 Tablet before bedtime. 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 11/26/2022 Persistent atrial fibrillation 01/09/2022 Stasis dermatitis of both legs 04/11/2021 custodial current use of anticoagulant therapy 0 02/07/2021 [...] as of this encounter (statuses as of 06/29/2024) Resolved Problems Problem Noted Date Diagnosed Date [...] as of this encounter (statuses as of 06/29/2024) Immunizations Name Administration Dates Next Due COVID-19 [...] 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 Authorizing Provider: PRINCE SHEPPARD * Telephone Encounter - Luis Funez [facility] - 06/29/2024 4:39 PM ESTPending Prescriptions: Disp Refills busPIRone HCl 5 MG Oral Tablet (Buspar) 180 Ta*1 Sig: Take 1 Tablet by mouth in the morning and 1 Tablet before bedtime. * Telephone Encounter - Luis Funez [facility] - 06/29/2024 4:39 PM EST Pending Prescriptions: Disp Refills busPIRone HCl 5 MG Oral Tablet (Buspar) 180 Ta*1 Sig: Take 1 Tablet by mouth in the morning and 1 Tablet before bedtime. 04/01/2024 (in office), 02/11/2023 (telemedicine) Visit date not found If no future appointments scheduled, and last appointment is greater than a year ago, please schedule patient for a follow-up appointment Last date the medication was ordered: 12/17/23 Pharmacy: [id number] [address] [facility] Is this request for a controlled substance?No Urine Drug Screen:No results found for this or any previous visit. Patient Phone Numbers Labs: Lab Results Component Value Date/Time CREAT 0.8 03/29/2024 08:48 AM CREAT 0.78 12/27/2020 12:00 AM CREAT 0.8 06/05/2020 02:08 PM POTASSIUM 4.3 03/29/2024 08:48 AM POTASSIUM 3.4 (A) 12/27/2020 12:00 AM POTASSIUM 4.5 06/05/2020 02:08 PM TSH 2.70 05/22/2022 02:23 PM TSH 2.610 12/27/2020 12:00 AM TSH 1.64 04/26/2020 10:42 AM TSH 1.38 09/08/1996 04:18 PM LDL 38 03/29/2024 08:48 AM LDL 92 05/26/2019 02:23 PM LDL NOT APPLICABLE 05/26/2019 02:23 PM LDL 144. (H) 06/17/1996 08:30 AM ALT 11 03/29/2024 08:48 AM ALT 18 04/26/2020 10:42 AM HGBA1C 7.8 (H) 03/29/2024 08:48 AM HGBA1C 7.5 (H) 04/26/2020 10:42 AM HGBA1C 7.2 (H) 09/08/1996 04:18 PM documented in this encounter Plan of Treatment Upcoming Encounters Date Type Department Care Team (Late st Contact Info) Description 10/04/2024 11:00 AM EDT [facility] [address] [phone] NovemberPrince MD [address] [id number] 11/29/2024 2:30 PM EDT Office Visit Cardiology, [facility] [address] [address] Rayo Rodarte MD [address] [place] [address] 04/20/2025 11:00 AM EDT Nurse Only Ancillary Department, [place] [address] [place] [phone] Teja, Nurse Annual Wellness [address] [facility] [address] [place] [address] Health Maintenance Due Date Last Done Comments [...] 04/11/2021, 07/18/2002 Colonoscopy Discontinued 11/18/2006 Pneumococcal Vaccine: 65+ Years Completed 09/18/2014, 05/27/2006, 06/20/2003, Additional history exists Zoster Vaccines Completed 12/20/2018, 09/18, 08/16/2008 VITAMIN D LEVEL ONCE IN A LIFETIME-USE SMARTSET# 09111 Completed 10/13/2023, 03/19/2023, 05/22/2022, Additional history exists [...] this encounter Visit Diagnoses Diagnosis Anxiety and depression Dysthymic disorder documented in this encounter Care Teams Shirt Turner Relationship Specialty Start Date End Date November, Prince Begum MD [address] [place] [address] PCP - General Family Medicine 11/10/22 documented as of this encounter
--- OUTSIDE RECORDS SUMMARY | 2024-10-08 20:19 | External Medical Summary | Summary of Care ---
Author Name Unknown Organization [facility] Address [address] [place] [address] Phone [phone] Care Team Providers Care Vehicle Monitor Technician Name Role Phone Royce Mckeon MD Primary Care Provider [phone] Reason for Visit * Reason Comments Adult Annual Wellness Visit, Subsequent Visit Encounter Details Date Type Department Care Team (Late st Contact Info) Description 04/14/2024 11:00 AM EDT Nurse Only Ancillary Department, [place] [address] [place] [address] [place], Nurse Annual Wellness [address] [place] [address] Adult Annual Wellness Visit, Subsequent Visit Allergies Active Allergy Reactions Criticality Noted Date Comments Erythromycin Base 07/16/1999 upset stomach documented as of this encounter (statuses as of 04/14/2024) Medications Medication Sig Dispensed Refills Start Date End Date Status B-12-SL 1000 MCG Sublingual Tablet Sublingual (Cyanocobalamin)Ind ications:B12 deficiency Place 1,000 mcg under the tongue daily. 90 Tab 3 08/15/2020 Active OneTouch Verio w/Device KitIndications:Diab etic polyneuropathy associated with diabetes mellitus due to underlying condition ([facility]),Type 2 diabetes mellitus with hemoglobin A1c goal of less than 7.0% ([facility]) Check blood sugar one time per day: Dx E11.9 1 Kit 01/01/2021 Active Additional Information Patient not taking.Reported on 04/01/2024 OneTouch Verio In Vitro Strip (Glucose Blood)Indications:D iabetic polyneuropathy associated with diabetes mellitus due to underlying condition ([facility]) Use to check blood sugars daily DX:E11.9 100 Strip 1 01/14/2021 Active Additional Information Patient not taking.Reported on 04/01/2024 BrandiTouch [place] Lancets 33GIndications:Diab etic polyneuropathy associated with diabetes mellitus due to underlying condition ([facility]) Use to check blood sugars daily DX E11.9 100 Each 1 01/14/2021 Active Additional Information Patient not taking.Reported on 04/01/2024 Cetirizine HCl 10 MG Oral Tablet (ZyrTEC) Take 1 Tablet by mouth in the morning. Active Potassium Chloride Cathie ER 20 MEQ Oral Tablet Extended Release Take 2 Tablets by mouth in the morning. 180 Tablet 3 07/28/2022 Active Additional Information Patient not taking.Reported on 12/17/2023 Furosemide 20 MG Oral Tablet (Lasix)Indications: Bilateral leg edema,Edema, unspecified type TAKE 1 TABLET DAILY. MAY TAKE A SECOND DOSE IN THE AFTERNOON WHEN NEEDED FOR INCREASED SWELLING 180 Tablet 1 12/29/2022 Active Additional Information Patient not taking.Reported on 12/17/2023 Magnesium 300 MG Oral CapsuleIndications: Hypomagnesemia Take 300 mg by mouth in the morning. 90 Capsule 03/24/2023 Active Metoprolol Succinate ER 25 MG Oral Tablet Extended Release 24 Hour (toPROL XL)Indications:Othe r chronic pulmonary embolism, unspecified whether acute cor pulmonale present ([facility]) Take 1 Tablet by mouth in the morning. 90 Tablet 3 10/02/2023 Active Apixaban 5 MG Oral Tablet (Eliquis)Indication s:Paroxysmal atrial fibrillation (HCC) TAKE 1 TABLET TWICE A DAY 180 Tablet 3 12/15/2023 Active Azelastine HCl 0.1 % Nasal Solution (Astelin)Indication s:Allergic rhinitis due to pollen, unspecified seasonality Administer 1 Aleppo into nostril in the morning and 1 Aleppo in the evening. 90 mL 2 12/17/2023 Active SITagliptin Phosphate 100 MG Oral Tablet (Januvia)Indication s:Type 2 diabetes mellitus with hemoglobin A1c goal of less than 7.0% ([facility]) TAKE 1 TABLET DAILY 90 Tablet 1 12/17/2023 Active metFORMIN HCl ER 500 MG Oral Tablet Extended Release 24 Hour (Glucophage XR) TAKE 4 TABLETS IN THE MORNING 360 Tablet 1 12/17/2023 Active Escitalopram Oxalate 20 MG Oral Tablet (Lexapro)Indication s:Anxiety and depression Take 1 Tablet by mouth in the morning. 90 Tablet 1 12/17/2023 Active busPIRone HCl 5 MG Oral Tablet (Buspar)Indications :Anxiety and depression Take 1 Tablet by mouth in the morning and 1 Tablet before bedtime. 180 Tablet 1 12/17/2023 Active Omeprazole 40 MG Oral Capsule Delayed Release (PriLOSEC)Indicatio ns:Esophageal reflux TAKE 1 CAPSULE IN THE MORNING 90 Capsule 2 01/14/2024 Active Atorvastatin Calcium 10 MG Oral Tablet (Lipitor) Take 1 Tablet by mouth in the morning. 90 Tablet 2 01/14/2024 Active Pregabalin 100 MG Oral Capsule (Lyrica)Indications :Diabetic polyneuropathy associated with type 2 diabetes mellitus (HCC) Take 1 Capsule by mouth in the morning and 1 Capsule before bedtime. 180 Capsule 1 03/10/2024 Active Ferrous Sulfate 325 (65 Fe) MG Oral Tablet (Feosol)Indications :Iron 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 Take 1 Tablet by mouth once a day on Thursday, Thursday, and Thursday only. 30 Tablet 11 04/01/2024 Active Elderberry 500 MG Oral Capsule Take by mouth. 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 11/26/2022 Persistent atrial fibrillation 01/09/2022 Stasis dermatitis of both legs 04/11/2021 prison current use of anticoagulant therapy 0 02/07/2021 Chronic pulmonary embolism 01/01/2021 Senile osteoporosis 10/03/2020 Gastroesophageal reflux disease 10/03/2020 Chronic deep vein thrombosis (DVT) of left femor al vein 06/30/2019 Major depressive disorder wi th single episode, in full remission 10/05/2017 Gastroesophageal reflux disease 10/05/2017 Type 2 diabetes mellitus wit h hemoglobin A1c goal of less than 8.0% 06/27/2013 Overview: ICD-10 update of inactive term Vitamin D deficiency 07/01/2011 Diabetic polyneuropathy 06/30/2011 Overview: ICD-10 update of inactive term Dyslipidemia, goal LDL below 70 07/04/2009 Overview: Per Lipid Taxonomy. documented as of this encounter (statuses as of 04/14/2024) Resolved Problems Problem Noted Date Diagnosed Date [...] 30.0-3 4.9 (see actual BMI) 06/30/2011 02/03/2017 Overview: BMI= 31.00 06/30/11 Myalgia and myositis 06/30/2011 017 DM type 2, not at goal 06/30/201106/03 Major depressive disorder 06/30/2011 Overview: ICD-10 update of inactive term Dyslipidemia, goal LDL below 100 07/04/2009 06/24/2011 Overview: Per Lipid Taxonomy. Type 2 diabetes mellitus wit h hemoglobin A1c goal of less than 7.0% 05/17/2009 06/27/2013 Overview: Per Diabetes Taxonomy. ICD-10 update of inactive term Benign neoplasm of colon 11/18/2006 Overview: hyperplastic polyp--repeat 5 years Cough 07/06/2003 06/24/2011 Dyspnea and respiratory abnormality 07/06/2003 02/03/2017 Overview: ICD-10 update of inactive term ACUTE CYSTITIS 04/04/2003 09/14/2008 Overview: Resolved per Benign Acute Dxs Protocol #3 Menopause 06/20/2002 06/24/2011 Family history of other card iovascular diseases 06/20/2002 06/24/2011 Overview: ICD-10 update of inactive term Dyslipidemia, goal to be determined 06/20/2002 07/04/2009 Overview: Per Lipid Taxonomy. Esophageal reflux 06/20/2002 02/03/2017 Allergic rhinitis 06/20/2002 06/24/2011 DYSFUNCT EUSTACHIAN TUBE 08/31/200112/2010 CHRONIC RHINITIS, NON-ALLERGIC 08/31/2001 02/03/2017 Major depressive disorder 11/04/1999 Overview: ICD-10 update of inactive term URIN TRACT INFECTION NOS 09/13/199912/2010 THYROTOX NOS NO CRISIS 02/02 Type 2 diabetes mellitus wit h hemoglobin A1c goal of less than 7.0% 05/17/2009 Overview: Per Diabetes Taxonomy. ICD-10 update of inactive term FEM STRESS INCONTINENCE 01/17 Allergic disorder 06/24/2011 HYPERLIPIDEMIA NEC-NOS 07/04 Overview: Per Lipid Taxonomy. documented as of this encounter (statuses as of 04/14/2024) Immunizations Name Administration Dates Next Due COVID-19 mRNA, LNP-s, No Pre serve, 2-Dose Series (Moderna) 09/21/2020,08/25/2020 COVID-19, MRNA-LNP, 23-24, P F, 50 MCG/0.5 mL, 12 YRS AND ABOVE, IM (MODERNA-Spikevax) 04/11/2023 Covid-19, Mrna, Lnp-s, Pf, B ivalent, 30 Mcg, IM, 12 yrs and above (Pfizer) 05/06/2022 Pneumococcal Conjugate Vacc, 13 Valent (Prevnar) 09/18/2014 Pneumococcal Polysaccharide PPV23 (Pneumovax) 05/27/2006 Season Influenza, Quad, PF, Adjuvanted, 65+ Yrs, IM (FLUAD) 04/26/2020 Seasonal Influenza, High Dos e, Trivalent, PF, IM (Fluzone HD) 04/01/2024 Seasonal Influenza, PF, 6 M & above, IM , (FluLaval or Fluzone) 04/16/2018,05/04/2017 Seasonal Influenza, Quadriva lent Hd (Fluzone Hd) 03/30/2023,04/18/2022,04/11/2021 Seasonal Influenza, Quadriva lent, No Preserve, IM 04/21/2016,05/02/2015 Seasonal Influenza, Trivalen t, (IIV3), with Preserv, (Fluzone) 04/06/2014,04/21/2013,03/23/2012,04/21,04/03/2010,04/02/2009,05/15/2008 ,04/28/2007,05/27/2006 Seasonal Influenza, Trivalen t, Adjuvanted, 65+ YRS, [...] ages 0-17 years) Not on file 03/19/2024 Sex and Gender Information Value Date Recorded Sex Assigned at Female 02/11/2019 8:39 AM EDT Gender Identity Female 02/11/2019 8:39 AM EDT Sexual Orientation Straight 02/11/2019 8: 39 AM EDT Job Start Date Occupation Industry Not on file Not on file Not on file documented as of this encounter Last Filed Vital Signs Vital Sign Reading Time Taken Comments Blood Pressure 112/64 04/14/2024 11:34 AM EDT Pulse 86 04/14/2024 11:34 AM EDT Temperature 36.6 C (97.8 F) 04/14/2024 11:34 AM E DT Respiratory Rate - - Oxygen Saturation 94% 04/14/2024 11:34 AM EDT Inhaled Oxygen Concentration - - Weight 66.7 kg (147 lb 1.6 oz) 04/14/2024 11:34 AM EDT Height 163.2 cm (5' 4.25") 04/14/2024 11:34 AM E DT Body Mass Index 25.05 04/14/2024 11:34 AM EDT documented in this encounter Patient Instructions * Patient Instructions* Lidia Parr, BARBARA - 04/14/2024 12:14 PM EDT Hi Ms. Palumbo, As your primary care physician, I know that regular visits with my patients who have several chronic conditions can go a long way in helping you stay healthy. Many times, the clinic team and I are in touch with you and/or other care team members between office visits to adjust medications, discuss any changes in your health, and review our care plan to make sure it is still meeting your needs. I am dedicated to helping you take a more active role in your overall care. It is important that there are resources available to you, so I created a personalized plan of care with a Health Calendar for you, which is included on the next page of this letter. Below is a list that summarizes your electronic health record: Health Maintenance Due: Health Maintenance Due Topic Date Due DXA Scan 03/12/2022 *BISPHONATE OR OTHER ACCEPTABLE MEDICATION NEEDED FOR OSTEOPOROSIS (REFER TO SMARTSET #1146) Never done COVID-19 Vaccine ( season) 2024 Current Medication List: (as of 05/27/2006 (in office), Visit date not found (telemedicine) ) Current Outpatient Medications Medication Sig Dispense Refill B-12-SL 1000 MCG Sublingual Tablet Sublingual (Cyanocobalamin) Place 1,000 mcg under the tonguedaily. 90 Tab 3 Cetirizine HCl 10 MG Oral Tablet (ZyrTEC) Take 1 Tablet by mouth in the morning. Magnesium 300 MG Oral Capsule Take 300 mg by mouth in the morning. 90 Capsule 0 Metoprolol Succinate ER 25 MG Oral Tablet Extended Release 24 Hour (toPROL XL) Take 1 Tablet bymouth in the morning. 90 Tablet 3 Apixaban 5 MG Oral Tablet (Eliquis) TAKE 1 TABLET TWICE A DAY 180 Tablet 3 Azelastine HCl 0.1 % Nasal Solution (Astelin) Administer 1 [place]ppo into nostril in the morning and 1 [place]ppo in the evening. 90 mL 2 SITagliptin Phosphate 100 MG Oral Tablet (Januvia) TAKE 1 TABLET DAILY 90 Tablet 1 metFORMIN HCl ER 500 MG Oral Tablet Extended Release 24 Hour (Glucophage XR) TAKE 4 TABLETS IN THE MORNING 360 Tablet 1 Escitalopram Oxalate 20 MG Oral Tablet (Lexapro) Take 1 Tablet by mouth in the morning. 90 Tablet 1 busPIRone HCl 5 MG Oral Tablet (Buspar) Take 1 Tablet by mouth in the morning and 1 Tablet before bedtime. 180 Tablet 1 Omeprazole 40 MG Oral Capsule Delayed Release (PriLOSEC) TAKE 1 CAPSULE IN THE MORNING 90 Capsule 2 Atorvastatin Calcium 10 MG Oral Tablet (Lipitor) Take 1 Tablet by mouth in the morning. 90 Tablet 2 Pregabalin 100 MG Oral Capsule (Lyrica) Take 1 Capsule by mouth in the morning and 1 Capsule before bedtime. 180 Capsule 1 Ferrous Sulfate 325 (65 Fe) MG Oral Tablet (Feosol) Take 1 Tablet by mouth once a day on Thursday, Thursday, and Thursday only. 30 Tablet 11 tado w/Device Kit Check blood sugar one time per day: Dx E11.9 (Patient not taking: Reported on 04/01/2024) 1 Kit 0 Assmblyuch Walk Score In Vitro Strip (Glucose Blood) Use to check blood sugars daily DX:E11.9 (Patientnot taking: Reported on 04/01/2024) 100 Strip 1 Assmblyuch DelParallel Engines Lancets 33G Use to check blood sugars daily DX E11.9 (Patient not taking: Reported on 04/01/2024) 100 Each 1 Potassium Chloride Cathie ER 20 MEQ Oral Tablet Extended Release Take 2 Tablets by mouth in the morning. (Patient not taking: Reported on 12/17/2023) 180 Tablet 3 Furosemide 20 MG Oral Tablet (Lasix) TAKE 1 TABLET DAILY. MAY TAKE A SECOND DOSE IN THE AFTERNOON WHEN NEEDED FOR INCREASED SWELLING (Patient not taking: Reported on 12/17/2023) 180 Tablet 1 No current facility-administered medications for this visit. Current List of Allergies: (as of 05/27/2006 (in office), Visit date not found (telemedicine) ) Review of patient's allergies indicates: Allergen Reactions Erythromycin Base upset stomach Most Recent Lab Results: Results for orders placed or performed in visit on 03/29/24 ALBUMIN / CREATININE RATIO, URINE Result Value Ref Range Albumin, Random Urine <1.20 mg/dL Creatinine, Random Urine 27 mg/dL Albumin / Creatinine Ratio, Urine <30 mg/g Creat Uninterpretable Albumin/Creatinine ratio due to very low albumin and creatinine values. HEMOGLOBIN A1C Result Value Ref Range Hemoglobin A1C 7.8 (H) 4.0 - 5.6 % Estimated Average Glucose 177 (H) <126 mg/dL COMPREHENSIVE METABOLIC PANEL Result Value Ref Range BUN 12 6 - 20 mg/dL CREATININE 0.8 0.5 - 1.0 mg/dL EGFR 72 >=60 mL/min SODIUM 138 135 - 146 mmol/L POTASSIUM 4.3 3.5 - 5.1 mmol/L CHLORIDE 100 98 - 107 mmol/L CO2 27 22 - 32 mmol/L ANION GAP 11 7 - 15 mmol/L GLUCOSE 119 70 - 120 mg/dL Albumin 4.1 3.8 - 5.0 g/dL AST 11 10 - 35 U/L Alkaline Phosphatase 80 35 - 130 U/L Bilirubin, Total 0.5 <=1.2 mg/dL CALCIUM 9.7 8.4 - 10.2 mg/dL Protein 7.3 6.0 - 8.3 g/dL ALT 11 10 - 35 U/L CBC Result Value Ref Range WBC 5.62 4.00 - 10.80 K/uL RBC 4.18 3.85 - 5.15 M/uL HGB 9.8 (L) 12.0 - 15.3 g/dL HCT 32.8 (L) 36.0 - 45.2 % MCV 78.5 81.5 - 97.5 fL MCH 23.4 27.0 - 34.0 pg MCHC 29.9 32.0 - 36.0 g/dL RDW 18.3 11.5 - 15.5 % PLT 209 140 - 400 K/uL MPV 11.8 6.6 - 11.1 fL nRBCs 0 <=0 /100 WBCs LIPID PANEL WITH DIRECT LDL IF TG IS HIGH Result Value Ref Range Triglycerides 77 <=174 mg/dL Cholesterol 105 <200 mg/dL HDL Cholesterol 52 >49 mg/dL Non-HDL Cholesterol 53 <=159 mg/dL LDL Cholesterol 38 <=129 mg/dL IRON SCREEN, INCLUDING TIBC Result Value Ref Range Iron 24 (L) 33 - 151 ug/dL Iron Binding Capacity 261 250 - 425 ug/dL Transferrin Saturation Percent 9 (L) 15 - 55 % Sincerely, Royce Mckeon MD 04/14/2024 [facility] Calendar (as of 05/27/2006 (in office), Visit date not found (telemedicine) ) Care needs Care needs Last completed Due next Bone Density 03/12/2020 03/12/2022 Discuss medication for ostoporosis --- Never done COVID-19 Vaccine ( season) 2023 03/20/2024 A1C blood sugar test 03/29/2024 09/26/2024 Diabetic Eye Exam 09/29/2023 09/28/2024 Urine albumin/creatinine test 03/31/2024 03/31/2025 Diabetic Foot Exam 04/14/2024 04/14/2025 Adult Wellness Visit 04/14/2024 04/14/2025 Diphtheria, tetanus & pertussis vaccines (2 - Td or Tdap) 04/11/2021 04/11/2031 As you look over the recommended services, be sure to check with your insurance company to determine what's covered. [employer] is a great tool that helps you review your medical record online, including test results, doctor notes and your health summary. You can also schedule appointments with me and other members of your care team, request prescription refills and ask for advice related to your medical conditions at [email or web address]. documented in this encounter Progress Notes * Lidia Parr RN - 04/14/2024 11:40 AM EDT AD8 Dementia Screening Interview Person answering questions: patient Remember, "Yes, a change" indicates that there has been a change in the last several years caused by cognitive (thinking and memory) problems 1. Problems with judgement (eg: problems making decisions, bad financial decisions, problems with thinking). Yes (1) 2. Less interest in hobbies/activities. No (0) 3. Repeats the same things over and over (questions, stories, or statements). Yes (1) 4. Trouble learning how to use a tool, appliance, or gadget (eg: VCR, computer, microwave, remote control). Yes (1) 5. Forgets correct month or year. Yes (1) 6. Trouble handling complicated financial affairs (eg: balancing checkbook, income taxes, paying bills). Yes (1) 7. Trouble remembering appointments. Yes (1) 8. Daily problems with thinking and/or memory. Yes (1) TOTAL AD8: 7 - AD8 Dementia Screening Score The final score is a sum of the number items marked "Yes, A Change". 0 - 1: Normal cognition; 2 or greater: Cognitive impairments is likely to be present - further testing required Memory Screening (Mini Mental Status): name year - points: 0 name season - points: 1 name date/day/month - points: 2 (missed date) give whereabouts: state - points: 1 give whereabouts: county - points: 1 give whereabouts: town - points: 1 give whereabouts: street - points: 1 give whereabouts: floor - points: 1 name 3 objects/ repeat them and learn them (1 point each) - points: 3 subtract 7 from 100/ stop after 5 ( 1 point for each correct) - points: 0 or spell world backwards ( 1 point for each correct letter) - points: 5 ask to repeat 3 objects previously named (1 point each) - points: 1 display wrist watch/ ask to name it (1 point) - points: 1 display pencil/ ask to name it (1 point) - points: 1 repeat "No ifs, ands, or buts!" (1 point) - points: 1 follow 3 pt. command/ take paper/ fold in half/ put on floor - points: 3 on blank piece of paper write "close your eyes!" ask patient to read above and do what it says (1 point) - points: 1 write a sentence/ must contain subject/ verb/ is sensible (1 point) - points: 1 copy a design (1 point) (2 intersecting pentagons) - points: 0 TOTAL SCORE ABOVE = 25 Scores of 23 or less: high likelihood of dementia Scores of 25 - 30: normal aging or borderline Adult Annual Wellness Visit: Cheryl Palumbo is a 88 year old female who presents for an Adult Annual Wellness Visit. Depression Screening: Did the patient complete the screening questionnaire for Depression? Yes Is the patient's total score for Depression 15 or greater? No, no further intervention needed, unless requested by patient. Did the patient answer positively to the suicide question? No, no further intervention needed, unless requested by patient. In general, compared to other people your age, what would you say that your health is? Good Ht Readings from Last 1 Encounters: 04/14/24 1.632 m (5' 4.25") Wt Readings from Last 1 Encounters: 04/14/24 66.7 kg (147 lb 1.6 oz) Body Mass Index: BMI Less than 30 Body mass index is 25.05 kg/m. BP Readings from Last 1 Encounters: 04/14/24 112/64 Medical/Surgical/Family History Reviewed: Yes Past Medical History: Diagnosis Date Allergic disorder Benign neoplasm of colon 11/18/06 hyperplastic polyp--repeat 5 years Diaphragmatic hernia Surgically repaired DM type 2, goal A1C below 8.0 06/27/2013 Esophageal reflux Female stress incontinence High blood pressure High cholesterol Other anxiety states Phlebitis and thrombophlebitis of other deep vessels of lower extremities 1990 Thyrotoxicosis without mention of goiter or other cause, without mention of thyrotoxic crisis or storm Past Surgical History: Procedure Laterality Date CATARACT SURGERY,COMPLEX Bilateral COLONOSCOPY W/ BIOPSY (RECTUM) 11/18/2006 hyperplastic polyp--repeat 5 years MISCELLANEOUS ORDER ([facility] ONLY) ACT 112 SIGNED 06/05/20 DR. COFFMAN REMOVE GALLBLADDER 2001 [place] REPAIR DIAPHRAGM HERNIA, COMBINED 2001 REPAIR RECURRENT INCISIONAL HERNIA 08[place] [facility] [place]14[place]12 encounter Family History Problem Relation Name Age of Onset Other (Other) Mother at 48 Heart Disorder Father [place] 52 years, caused Cancer Other Has patient ever had cancer? No Social History Tobacco Use Smoking status: Never Smokeless tobacco: Never Substance Use Topics Alcohol use: Yes Alcohol/week: 1.0 standard drink of alcohol Types: 1 12 oz of beer per week Comment: socially Vaping/E-Cigarette Use Vaping/E-Cigarette Use Never User Vaping/E-Cigarette Substances Vaping/E-Cigarette Devices Tobacco/Alcohol screening completed today? Yes Hospital Care: Admissions (within the last year): Not Applicable ER within 30 days: No Does the patient have an Advance Directives/Living Will? Yes Advance Care Planning is important to all adults. Discussed the process of thinking and talking about future healthcare decisions. Patient to get a copy to us to scan into their chart. Last Physical Exam: Last physical exam: 04/01/2024 Does patient see primary provider regularly? Yes Does patient see other providers? Yes, Specialist Patient Care Team updated? Yes Review of patient's allergies indicates: Allergen Reactions Erythromycin Base upset stomach Immunization History Administered Date(s) Administered COVID-19 mRNA, LNP-s, No Preserve, 2-Dose Series (Moderna) 08/25/2020, 09/21/2020, 05/20/2021 COVID-19, MRNA-LNP, 23-24, PF, 50 MCG/0.5 mL, 12 YRS AND ABOVE, IM (MODERNA- Spikevax) 04/11/2023 Covid-19, Mrna, Lnp-s, Pf, Bivalent, 30 Mcg, IM, 12 yrs and above (Pfizer) 05/06/2022 Pneumococcal Conjugate Vacc, 13 Valent (Prevnar) 09/18/2014 Pneumococcal Polysaccharide PPV23 (Pneumovax) 06/20/2002, 06/20/2003, 05/27/2006 Season Influenza, Quad, PF, Adjuvanted, 65+ Yrs, IM (FLUAD) 04/26/2020 Seasonal Influenza, High Dose, Trivalent, PF, IM (Fluzone HD) 04/01/2024 Seasonal Influenza, PF, 6 M & above, IM , (FluLaval or Fluzone) 05/04/2017, 04/16/2018 Seasonal Influenza, Quadrivalent Hd (Fluzone Hd) 04/11/2021, 04/18/2022, 03/30/2023 Seasonal Influenza, Quadrivalent, No Preserve, IM 05/02/2015, 04/21/2016 Seasonal Influenza, Trivalent, (IIV3), with Preserv, (Fluzone) 05/02/1999, 06/22/2000, 05/13/2001, 05/03/2002, 06/20/2003, 04/24/2005, 05/27/2006, 04/28/2007, 05/15/2008, 04/02/2009, 04/03/2010, 04/21/2011, 03/23/2012, 04/21/2013, 04/06/2014 Seasonal Influenza, Trivalent, Adjuvanted, 65+ YRS, PF, (Fluad) 05/26/2019 TD - Tetanus/Diptheria (ADULT) 07/18/2002 TDAP (age 10 and older)(Boostrix) 04/11/2021 Varicella Zoster Vaccine (Adult) 08/16/2008 Zoster Vaccine Recombinant (Shingrix) 10/06/2018, 12/20/2018 Current Outpatient Medications Medication Sig Dispense Refill B-12-SL 1000 MCG Sublingual Tablet Sublingual (Cyanocobalamin) Place 1,000 mcg under the tongue daily. 90 Tab 3 Cetirizine HCl 10 MG Oral Tablet (ZyrTEC) Take 1 Tablet by mouth in the morning. Magnesium 300 MG Oral Capsule Take 300 mg by mouth in the morning. 90 Capsule 0 Metoprolol Succinate ER 25 MG Oral Tablet Extended Release 24 Hour (toPROL XL) Take 1 Tablet by mouth in the morning. 90 Tablet 3 Apixaban 5 MG Oral Tablet (Eliquis) TAKE 1 TABLET TWICE A DAY 180 Tablet 3 Azelastine HCl 0.1 % Nasal Solution (Astelin) Administer 1 [place] into nostril in the morning and 1 [place] in the evening. 90 mL 2 SITagliptin Phosphate 100 MG Oral Tablet (Januvia) TAKE 1 TABLET DAILY 90 Tablet 1 metFORMIN HCl ER 500 MG Oral Tablet Extended Release 24 Hour (Glucophage XR) TAKE 4 TABLETS IN THE MORNING 360 Tablet 1 Escitalopram Oxalate 20 MG Oral Tablet (Lexapro) Take 1 Tablet by mouth in the morning. 90 Tablet 1 busPIRone HCl 5 MG Oral Tablet (Buspar) Take 1 Tablet by mouth in the morning and 1 Tablet before bedtime. 180 Tablet 1 Omeprazole 40 MG Oral Capsule Delayed Release (PriLOSEC) TAKE 1 CAPSULE IN THE MORNING 90 Capsule 2 Atorvastatin Calcium 10 MG Oral Tablet (Lipitor) Take 1 Tablet by mouth in the morning. 90 Tablet 2 Pregabalin 100 MG Oral Capsule (Lyrica) Take 1 Capsule by mouth in the morning and 1 Capsule beforebedtime. 180 Capsule 1 Ferrous Sulfate 325 (65 Fe) MG Oral Tablet (Feosol) Take 1 Tablet by mouth once a day on Thursday, Thursday, and Thursday only. 30 Tablet 11 tado w/Device Kit Check blood sugar one time per day: Dx E11.9 (Patient not taking: Reported on 04/01/2024) 1 Kit 0 tado In Vitro Strip (Glucose Blood) Use to check blood sugars daily DX:E11.9 (Patient nottaking: Reported on 04/01/2024) 100 Strip 1 [employer] Lancets 33G Use to check blood sugars daily DX E11.9 (Patient not taking: Reported on 04/01/2024) 100 Each 1 Potassium Chloride Cathie ER 20 MEQ Oral Tablet Extended Release Take 2 Tablets by mouth in the morning. (Patient not taking: Reported on 12/17/2023) 180 Tablet 3 Furosemide 20 MG Oral Tablet (Lasix) TAKE 1 TABLET DAILY. MAY TAKE A SECOND DOSE IN THE AFTERNOON WHEN NEEDED FOR INCREASED SWELLING (Patient not taking: Reported on 12/17/2023) 180 Tablet 1 No current facility-administered medications for this visit. Patient Active Problem List Diagnosis Dyslipidemia, goal LDL below 70 Diabetic polyneuropathy ([facility]) Vitamin D deficiency Type 2 diabetes mellitus with hemoglobin A1c goal of less than 8.0% ([facility]) Major depressive disorder with single episode, in full remission ([facility]) Gastroesophageal reflux disease Chronic deep vein thrombosis (DVT) of left femoral vein ([facility]) Senile osteoporosis Gastroesophageal reflux disease Chronic pulmonary embolism ([facility]) prison current use of anticoagulant therapy Stasis dermatitis of both legs Persistent atrial fibrillation ([facility]) Cardiomyopathy ([facility]) 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 Yes Patient takes medications as prescribed? Yes Patient manages own medications: No, given by children Patient uses a pill box? Yes, refill(s) completed by daughter Dental Exam: No encouraged yearly exam/cleaning Eye Screening: Yes: Every year Are you having trouble with hearing? Yes, patient declines hearing aids, had audiiology evaluation Do you use an assistive device to help your hearing? No Exercise Screening: does not exercise regularly Nutrition Assessment: Eats a balanced diet and Eats three meals a day Pain Screening: Are you having any pain? No Sleep Screening Tool 'STOP': Do you snore? Yes Do you feel fatigued during the day? Yes Do you wake up feeling like you haven't slept? No Have you been told you stop breathing at night? No Do you gasp for air or choke while sleeping? Yes Have you been told you have Sleep Apnea? No Do you have high blood pressure or are on medication(s) to control high blood pressure? Yes SCORE: If you check YES to two or more questions, make a referral for Obstructive Sleep Apnea Offered sleep apnea testing - declined Had testing previously - was normal many years ago Patient and Caregiver Support System: Patient lives alone Means of Transportation: Family transports Patient lives in Two Story - How many stairs: 13 steps with hand railing Community Resources: Not Applicable Functional Status and ADL Skills: Has patient ever had an amputation? No Functional Assessment: 80- Normal activity with effort: some symptoms of disease Ambulation: Patient ambulates with assistive device. Walker Dressing: Gets clothes and dresses without any assistance: Independent Able to move freely in chair or bed including turning over: Independent Repositioning (bed or chair): Not applicable Transfers: Independent Toileting: Goes to bathroom, uses toilet, arranges clothes and returns without any assistance: Independent Toileting: continent of bowel and incontinent of bladder Feeding: Self Bathing: Self; sink bath on own, has caregiver to shower once a week Requires minimal assistance with ADLs. Instrumental ADL's: Shopping: Maximum Assistance Housekeeping: Maximum Assistance Handling Finances: Maximum Assistance DME Vendor Name: Not Applicable Fall Risk Assessment: Can the patient demonstrate that she can stand from a sitting position? Yes Has the patient had a fall within the last 6 months? Yes Does the patient have a problem with her gait or balance? Yes Does the patient take 4 or more prescription medicines? Yes Does the patient use sedatives or narcotics? No Fall Risk Factors Present: History of falls within the past 6 months Yes Cause of fall: fell out of bed Uses more than 4 medications Uses assistive devices Balance or gait disturbances Older than age 70 Pgy-Fk-otd-Go Test: Time began at 1100. Patient stood from sitting position and walked approximately 10 feet, returned and sat down. Total time for vuv-kn-oab-go test was 15 seconds. Mcz-Sh-ebh-Go Test completed? Yes Gender Specific Preventative Plan: Health Maintenance Topic Date Due DXA Scan 03/12/2022 *BISPHONATE OR OTHER ACCEPTABLE MEDICATION NEEDED FOR OSTEOPOROSIS (REFER TO SMARTSET #1146) Never done COVID-19 Vaccine ( season) 2024 HbA1c 09/26/2024 Diabetic Eye Exam 09/28/2024 Albumin/Creatinine Ratio 03/31/2025 Diabetic Foot Exam 04/14/2025 Depression Monitoring 04/14/2025 Adult Wellness Visit 04/14/2025 DTap/Tdap Vaccines (2 - Td or Tdap) 04/11/2031 VITAMIN D LEVEL ONCE IN A LIFETIME-USE SMARTSET# 25867 Completed Influenza Vaccine (FLU shot) Completed Zoster Vaccines Completed Pneumococcal Vaccine: 65+ Years Completed Hepatitis B Vaccine Aged Out MENINGOCOCCAL (MENACTRA/MENVEO) Aged Out HPV (Gardasil) Vaccine Aged Out Colonoscopy Discontinued Follow Up/ Referrals/Handouts: Depression screening - Completed Mini mental screening - Completed Functional assessment - Completed Falls Risk screening - Completed, handout given Exercise screening - Encouraged to be as active as able Nutrition assessment -. Education Provided and Handouts Provided Pain screening - No pain currently, does have issues with neck pain occasionally Incontinence screening - Urinary incontinence, no new concerns Routine general medical examination at a health care facility (Primary) Type 2 diabetes mellitus with hemoglobin A1c goal of less than 8.0% ([facility]) - DIABETES FOOT EXAM Component Latest Ref Rng 03/29/2024 Estimated Average Glucose <126 mg/dL 177 (H) -Med reconciliation completed and compliance discussed. - pt to continue present medications. Continue to monitor and follow with PCP Dyslipidemia, goal LDL below 70 Component Latest Ref Rng 03/29/2024 LDL Cholesterol <=129 mg/dL 38 -Med reconciliation completed and compliance discussed. - pt to continue present medications. Continue to monitor and follow with PCP HTN, goal below 140/90 BP Readings from Last 3 Encounters: 04/14/24 112/64 04/01/24 102/62 12/17/23 124/72 -Med reconciliation completed and compliance discussed. - pt to continue present medications. Continue to monitor and follow with PCP Persistent atrial fibrillation ([facility]) Chronic HFrEF (heart failure with reduced ejection fraction) ([facility]) -Med reconciliation completed and compliance discussed. - pt to continue present medications. 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 - pt to continue present medications. Continue to monitor and follow with PCP Patient has been verbally educated on the need or importance of Dexa Scan and Diabetic Foot Exam DM Foot exam completed today Discussed importance of Covid Vaccine: pt has received the vaccine Yes, Patient has received Covid vaccine, has upcoming appt to receive updated vaccine dose. Would patient like to schedule next AWV visit? Yes Lidia Parr RN DM Foot Exam completed today. Provider aware. Lidia Parr RN Socks and Shoes Removed for Annual Diabetic Foot Screening RIGHT FOOT: No Reddened, Cracking, Or Open Areas Noted. RIGHT Dorsalis Pedis Pulse: Palpable RIGHT Posterior Tibial Pulse: Palpable RIGHT Monofilament:Patient reports difficulty feeling monofilament at Third toe- plantar surface, Ball of Foot-base of great toe, Ball of Foot-base of 3rd toe, and Ball of Foot-base of little toe LEFT FOOT: No Reddened, Cracking or Open Areas Noted. LEFT Dorsalis Pedis Pulse: Palpable LEFT Posterior Tibial Pulse: Palpable LEFT Monofilament:Patient reports difficulty feeling monofilament at Great toe- plantar surface, Third toe-plantar surface, Ball of Foot-base of great toe, Ball of Foot-base of 3rd toe, and Ball of Foot-base of little toe Do you need diabetic shoes: N/A documented in this encounter Miscellaneous Notes * Pt Handout (not on AVS) - Lidia Parr RN - 04/14/2024 12:17 PM EDT [id number] Fall Prevention Falls often take place due to slipping, tripping, or losing your balance. Millions of people fall every year and injure themselves. Among older adults in the [place] falls are the most common cause of traumatic brain injuries. Every 20 minutes, an older adult dies from a fall. Here are ways to reduceyour risk of falling again: Think about your fall. Was there anything that caused your fall that can be fixed, removed, or replaced? Make your home safe by keeping walkways clear of objects you may trip over, such as electrical cords. Use nonslip pads under rugs. Don't use area rugs or small throw rugs. Use nonslip mats in bathtubs and showers. Hang grab rails by the toilet and inside and outside the shower. Install handrails and lights on staircases. The handrails should be on both sides of the stairs. Use night lights. Don't walk in poorly lit areas. Don't stand on chairs or wobbly ladders. Use care when reaching overhead or looking up. This position can cause a loss of balance. Be sure your shoes fit well, are in good condition, and have nonslip bottoms. Wear shoes both inside and outside of your home. Don't go barefoot or wear slippers. Be cautious when going up and down stairs, curbs, and when walking on uneven sidewalks. If your balance is poor, consider using a cane or walker. Talk with your healthcare provider about having a balance assessment. If your fall was related to alcohol use, stop or limit alcohol intake. Ask your provider for help if you think you may overuse alcohol and can't stop. If your fall was related to use of sleeping medicines, talk with your provider about this. You may need to reduce your dosage at bedtime if you wake up during the night to go to the bathroom. To reduce the need for nighttime bathroom trips: o Don't drink fluids for several hours before going to bed o Empty your bladder before going to bed o Men can keep a urinal at the bedside Stay as active as you can. Balance, flexibility, strength, and endurance all come from exercise.They all play a role in preventing falls. Ask your provider which types of activity are right for you. Try to do some type of exercise every day. Get your eyes checked once a year or more often if your vision changes If you have pets, know where they are before you stand up or walk so you don't trip over them. Go over all your medicines with a pharmacist or other provider. This is to see if any of them could make you more likely to fall. Have this type of medicine review at least once every year. If your provider advises a new medicine, ask if the side effects will affect your balance. Don't move quickly from one position to another. For instance, don't stand up fast from sitting.This can cause dizziness and may lead to a fall. Sit down when putting on pants, socks, and shoes. This will make you less likely to lose your balance and fall. Always let your provider know if you have fallen since your last visit. Contact your provider right away if you're having balance problems or falling more often. Last Reviewed Date: 2021 00:00:00 [id number] [employer]. All rights reserved. This information is not intended as a substitute for professional medical care. Always follow your healthcare professional's instructions. * Pt Handout (not on AVS) - Lidia Parr RN - 04/14/2024 12:17 PM EDT Images from the original note were not included. [id number] Steps for Eating Healthier Changing the way you eat can improve your health. It can lower your cholesterol and blood pressure,and help you stay at a healthy weight. Your diet doesn?t have to be bland and boring to be healthy.Just watch your calories and follow these steps: Step 1. Eat fewer unhealthy fats Choose more fish and lean meats instead of fatty cuts of meat. Skip butter and lard, and use less margarine. Replace these with healthier fats, such as olive, canola, or avocado oils. Pass on foods that have palm, coconut, or partially hydrogenated oils. Eat fewer high-fat dairy foods like cheese, ice cream, and whole milk. Get a heart-healthy cookbook and try some new recipes. Step 2. Go light on salt Keep the saltshaker off the table. Limit high-salt ingredients, such as soy sauce, bouillon, and garlic salt. Instead of adding salt when cooking, season your food with herbs, spices, and other flavorings. Try lemon, garlic, onion, vinegar, or salt-free herb seasonings. Limit convenience foods, such as boxed or canned foods and restaurant food. Read food labels and choose lower-sodium options. Buy fresh, frozen, or canned vegetables that don't have added salt. Step 3. Limit sugar Pause before you add sugars to pancakes, cereal, coffee, or tea. This includes white and brown table sugar, syrup, honey, and molasses. Cut your usual amount by half. Swap out sugar-filled soda and other drinks. Buy sugar-free or low-calorie beverages. Remember, water is always the best choice. Try adding lemon juice to water for extra flavor. Read labels and choose foods with less added sugar. Keep in mind that dairy foods and foods withfruit will have some natural sugar. Cut the sugar in recipes by 1/3 to 1/2. Boost the flavor with extracts like almond, vanilla, or orange. Or add spices such as cinnamon or nutmeg. Step 4. Eat more fiber Eat fresh fruits and vegetables every day. Boost your diet with whole grains. Go for oats, whole-grain rice, and bran. Add beans and lentils to your meals. Drink more water to match your fiber increase to help prevent constipation. Step 5. Pay attention to serving sizes Remember that a serving size is a standard measurement. It will let you track the amount of fat,calories, and other nutrients in the food you eat. Read the Nutrition Facts label on packaged foods to learn their serving sizes. Use serving sizes to assess how much food you put on your plate. Pay attention to your portions.How many servings are you eating? Keep in mind that your needs may change if you?re more active or less active, or if you have other factors that change your calorie needs. Use your hand to help you measure serving sizes. For example: o 1 teaspoon: This is about the size of the first joint of your thumb. o 1 tablespoon: This is about the size of the first 2 joints of your thumb. o 1 ounce: This is about what you can fit in your cupped hand. o 2 to 3 ounces: This is about the size of the palm of your hand. o cup: This is also about what you can fit in your cupped hand. o 1 cup: This is about the size of your fist. Last Reviewed Date: 2022 00:00:00 [id number] [employer]. All rights reserved. This information is not intended as a substitute for professional medical care. Always follow your healthcare professional's instructions. documented in this encounter Plan of Treatment Upcoming Encounters Date Type Department Care Team (Late st Contact Info) Description 10/04/2024 11:00 AM EDT Office Visit Family Practice, [place] [address] [place] [facility] [place] [id number] NovemberRoyce MD [address] [place] [address] 11/29/2024 2:30 PM EDT Office Visit Cardiology, [facility] [address] [place] [address] Rayo Rodarte MD [address] [place] [address] 04/20/2025 11:00 AM EDT Nurse Only Ancillary Department, [place] [address] [place] [address] [place], Nurse Annual Wellness [address] [place] [address] Health Maintenance Due Date Last Done Comments DXA Scan 03/12/2022 03/12/2020, 01/2013, 02/23/2013, Additional history exists *BISPHONATE OR OTHER ACCEPTABLE MEDICATION NEEDED FOR OSTEOPOROSIS (REFER TO SMARTSET #1146) 05/27/2022 COVID-19 Vaccine ( season) 2024 04/11/2023, 05/06/2022, 05/20/2021, Additional history exists HbA1c 09/26/2024 03/29/2024, 09/18, [...] D LEVEL ONCE IN A LIFETIME-USE SMARTSET# [id number] Completed 10/13/2023, 03/19/2023, 05/22/2022, Additional history exists [...] as of this encounter Visit Diagnoses Diagnosis Routine general medical examination at a health care facility- Primary Type 2 diabetes mellitus with hemoglobin A1c goal of less than 8.0% (HCC) Dyslipidemia, goal LDL below 70 Other and unspecified hyperlipidemia HTN, goal below 140/90 Unspecified essential hypertension Persistent atrial fibrillation (HCC) Atrial fibrillation Chronic HFrEF (heart failure with reduced ejection fraction) (HCC) Vitamin D deficiency Unspecified vitamin D deficiency prison current use of anticoagulant therapy documented in this encounter Care Teams Vehicle Monitor Technician Relationship Specialty Start Date End Date November, Royce Begum MD [address] [place] [address] PCP - General Family Medicine 11/10/22 documented as of this encounter
--- OUTSIDE RECORDS SUMMARY | 2024-10-08 20:19 | External Medical Summary ---
Author Name Unknown Address Unknown Organization K01:[facility] [place] [address] [place] [id number] Laboratory Report Ordering Provider Test Date Status 07/06/2024 09:10:04 Final Observation Date Value Abnormality Reference (Units ) Status Iron 07/06/2024 09:10:04 25 Below low normal 33-151 (ug/dL) Final Iron-binding capacity 07/06/2024 09:10:04 260 250-425 (ug/dL) Final Transferrin Sat % 07/06/2024 09:10:04 10 Below low normal 15-55 (%) Final Performing Location [facility] - [address] [place] [id number]
--- OUTSIDE RECORDS SUMMARY | 2024-10-08 20:19 | External Medical Summary | Continuity of Care Document ---
Author Name Unknown Organization [place] [id number] Address [address] [place] [id number] Care Team Providers Care Back Tender Name Role Phone Wilberto Resendez Primary Care Physician [phone] [facility] [id number] Date(s): 05/18/24 - 05/18/24 [facility] [address] [place] [id number] [facility] [address] [address] Encounter Diagnosis Diabetes(Discharge Diagnosis) - 05/18/24 Callus(Discharge Diagnosis) - 05/18/24 Tinea unguium(Discharge Diagnosis) - 05/18/24 Discharge Disposition: Home or Self Care Attending Physician: OFELIA Alejandro Christina L Referring Physician: MD Resendez Brett R Allergies, Adverse Reactions, Alerts Substance Criticality Severity Reaction Reaction Severity Status erythromycin Active Assessment and Plan Extracted from: Title:Follow Up Visit Author:OFELIA Alejandro, Wen Clark Date:05/18/24 1.Diabetes 2.Callus Area debrided with #15 blade to tolerance, no bleeding or cellulitis noted verbal consent obtained for debridement Recommend moisturizing lotion to feet daily Recommend offloading pads over the area for pressure relief 3.Tinea unguium -Patient unable to provide self care to toenails due to DM - verbal consent obtained for debridement -Recommend toenail debridement -Patient had toenails of bilateral digits 1-5 debrided using nail nippers to tolerance, no bleeding noted -Patient instructed to use emery board to nails once per week -Patient had no ingrown toenails or infection noted -Patient is to follow up in6 months for treatment if needed in the future Immunizations Given and Recorded Vaccine Date Status Refusal Reason SARS-CoV-2 (COVID-19) mRNA-1272 vaccine 1 09/21/20 Recorded SARS-CoV-2 (COVID-19) mRNA-1273 vaccine 2 08/25/20 Recorded zoster vaccine, inactivated 3 12/20/18 Recorded zoster vaccine, inactivated 4 10/06/18 Recorded pneumococcal 13-valent vaccine 5 09/18/14 Recorded pneumococcal 23-valent vaccine 6 05/27/06 Recorded pneumococcal 23-valent vaccine 7 06/20/03 Recorded pneumococcal 23-valent vaccine 8 06/20/02 Recorded tetanus toxoids-diphtheria, Td (Adult) 9 07/18/02 Recorded 1Result Comment: 2020-12-19: Historical information-source unspecified 2Result Comment: 2020-12-19: Historical information-source unspecified 3Result Comment: 2020-12-19: Historical information-source unspecified 4Result Comment: 2020-12-19: Historical information-source unspecified 5Result Comment: 2020-12-19: Historical information-source unspecified 6Result Comment: 2020-12-19: Historical information-source unspecified 7Result Comment: 2020-12-19: Historical information-source unspecified 8Result Comment: 2020-12-19: Historical information-source unspecified 9Result Comment: 2020-12-19: Historical information-source unspecified Medications alendronate 70 mg oral tablet take 1 tablet by mouth every week Start Date: 03/15/21 Status: Ordered aspirin Start: 08/05/12 3:11:00 PM EST, 81 mg =, PO, Daily Start Date: 08/05/12 Status: Ordered atorvastatin 10 mg oral tablet Start: 11/23/14 10:04:00 AM EDT, See Instructions, 1 tab PO every other day Start Date: 11/23/14 Status: Ordered B-12 1000 mcg oral tablet Start: 12/19/20 3:02:00 PM EDT Start Date: 12/19/20 Status: Ordered busPIRone 5 mg oral tablet Start: 10/08/22 2:37:00 PM EDT Start Date: 10/08/22 Status: Ordered Eliquis 5 mg oral tablet Start: 03/15/21 1:26:00 PM EDT, 1 tab, PO, bid Start Date: 03/15/21 Status: Ordered escitalopram 20 mg oral tablet Start: 10/08/22 2:37:00 PM EDT, 1 tab, PO, Daily Start Date: 10/08/22 Status: Ordered fluticasone nasal 0.05 mg/inh spray Start: 08/05/12 3:09:00 PM EST, 2 spray, intranasal, Daily Start Date: 08/05/12 Status: Ordered furosemide 20 mg oral tablet Start: 03/15/21 1:29:00 PM EDT, 1 tab, PO, Daily Start Date: 03/15/21 Status: Ordered glimepiride 1 mg oral tablet Start: 03/15/21 1:29:00 PM EDT, 1 tab, PO, Daily Start Date: 03/15/21 Status: Ordered glimepiride 1 mg oral tablet Start: 12/19/20 3:00:00 PM EDT Start Date: 12/19/20 Status: Ordered Januvia 100 mg oral tablet Start: 08/05/12 3:08:00 PM EST, 1 tab, Daily Start Date: 08/05/12 Status: Ordered lisinopril 5 mg oral tablet Start: 03/15/21 1:28:00 PM EDT, 1 tab, PO, Daily Start Date: 03/15/21 Status: Ordered Lyrica 75 mg oral capsule Start: 08/05/12 3:08:00 PM EST, 1 cap, PO, bid Start Date: 08/05/12 Status: Ordered metformin 1000 mg oral tablet Start: 08/05/12 3:09:00 PM EST, 1 tab, PO, bid Start Date: 08/05/12 Status: Ordered Metoprolol Succinate ER 25 mg oral tablet, extended release Start: 03/15/21 1:28:00 PM EDT, 1 tab, PO, Daily Start Date: 03/15/21 Status: Ordered omeprazole Start: 02/17/17 10:31:00 AM EDT, 40 mg =, PO, bid Start Date: 02/17/17 Status: Ordered Penlac Nail Lacquer 8% topical solution Start: 06/20/20 3:24:00 PM EST, 1 appl, topical, Daily, Disp# 6.6 mL, Refills: 2, Pharmacy: [address] Start Date: 06/20/20 Stop Date: 11/06/21 Status: Ordered potassium chloride 10 mEq oral capsule, extended release Start: 12/19/20 3:01:00 PM EDT Start Date: 12/19/20 Status: Ordered Vitamin D3 50,000 intl units oral capsule Start: 08/05/12 3:10:00 PM EST, 1 cap, PO, q7days Start Date: 08/05/12 Status: Ordered Mental Status 05/18/24 Barriers to Learning one year None evide nt Mandatory Health Literacy Documentation Yes Health Literacy Communication Barriers N ever Primary Language Maori Problem List Condition Confirmation Course Effective Dates Status Health St atus Informant Callus Confirmed Active Diabetes Confirmed Active GERD (gastroesophageal reflux disease) Confirmed Active Hx of blood clots Confirmed Active Hernia Confirmed Active Tinea unguium Confirmed Active Diagnosis Diagnosis Type Effective Dates Health Status Cl inical Service Informant Tinea unguium Discharge Diagnosis 05/18/24 Non-Specified Diabetes Discharge Diagnosis 05/18/24 Non-Specified Callus Discharge Diagnosis 05/18/24 Non-Specified Procedures Procedure Date Related Diagnosis Body Site Status Hernia repair 2012 Completed Ventral hernia Completed 1ventral hernia repair with lysis of adhesions and placement of Ultrapro mesh Vital Signs Most recent to oldest [Reference Range]: 1 Height 164.5 cm (05/18/24 3:41 PM) Patient Weight 66.0 kg (05/18/24 3:41 PM) Body Mass Index 24.39 kg/m2 (05/18/24 3:41 PM) Social History Social History Type Response Smoking Status Never smoked cigaret sabrina Sex Female Sex Representation Female (finding) Ortho Outpt Note * OFELIA Alejandro Christina L: PERFORM Event Display: Ortho Outpt Note Authored Date: [id number] Chief Complaint nail care Primary Care Provider MD Mal, Wilberto Fishman Subjective Patient is a very pleasant 88-year-old female, low risk diabetic presenting today for diabetic footcare. - no acute concernspatient is doing well presented to visit today with her daughter Review of Systems DVT GERD diabetes hernia Objective Vitals & Measurements WT:66.000kg(Dosing) WT:66.0kg Physical Exam Problem focused bilateral feet: Dorsalis pedis and posterior tibial pulses are faintly palpable 1 out of 4. Pedal hair is noted to be absent capillary refill time is slightly delayed turgor pressure is slightly poor to all digitsof both feet. No open wounds or lesions are present on the feet. Significant varicosities notedto both feet history of deep venous thrombosis. Bilateral lower extremity swelling is notedthisis consistent with her history of her blood clot and diabetes. Interspaces are clean dry and intact without maceration or breakdown. Loss of protective sensation patient unable to feel the monofilament from her legs distally to her toes. Proprioception is noted to be decreased to both feet and light touch is noted to be decreased to both feet. Toenails of digits 1 through 5ofboth feet with thickening greater than 1 mm, dystrophy, elongation, discoloration, subungual debris, pain recommend debridement Hammertoe deformity of digits 2 through 5 noted of both feet right slightly worse than left patientis not a candidate for surgical intervention Callus present dorsal aspect left fifthtoe recommend debridement secondary to semirigid hammertoedeformity with adductovarus rotation of the toe Assessment/Plan 1.Diabetes 2.Callus Area debrided with #15 blade to tolerance, no bleeding or cellulitis noted verbal consent obtained for debridement Recommend moisturizing lotion to feet daily Recommend offloading pads over the area for pressure relief 3.Tinea unguium -Patient unable to provide self care to toenails due to DM - verbal consent obtained for debridement -Recommend toenail debridement -Patient had toenails of bilateral digits 1-5 debrided using nail nippers to tolerance, no bleedingnoted -Patient instructed to use emery board to nails once per week -Patient had no ingrown toenails or infection noted -Patient is to follow up in6 months for treatment if needed in the future Electronic Signature on File Electronically Reviewed/Signed by: Mackenzie Alejandro DPM Author Signature Dt/Tm:05/18/2024 03:53 PM Division of Sports Medicine CLR Patient Care team information Care Team Personnel Name: MD Resendez Brett R Position: Referring DIRECT Member Role: Primary Care Provider Address: [address] [place] [id number] Name: KAUSHIK Lu Bonnie D Position: Nurse Pract - Surgery MIS Member Role: Lifetime Relationship Address: [address] [place] [address] [place] Care Team Related Persons Name: REESE DYER Name: BRIEN GALINDO
--- OUTSIDE RECORDS SUMMARY | 2024-10-08 20:19 | External Medical Summary | Summary of Care ---
Author Name Unknown Organization [facility] Address [address] [facility] [place] [address] Phone [phone] Care Team Providers Care Retail Marketing Specialist Name Role Phone Royce Mckeon MD Primary Care Provider [phone] Reason for Visit * Reason Onset Date Comments Medication Refill 07/28/2024 Encounter Details Date Type Department Care Team (Late st Contact Info) Description 07/28/2024 Refill Cardiology, [facility] [address] [facility] [place] [id number] Rayo Rodarte MD [address] [place] [id number] Paroxysmal atrial fibrillation (HCC) Allergies Active Allergy Reactions Criticality Noted Date Comments Erythromycin Base 07/16/1999 upset stomach documented as of this encounter (statuses as of 07/29/2024) Medications B-12-SL 1000 MCG Sublingual Tablet Sublingual [...] Information Patient not taking.Reported on 04/01/2024 BrandiTodaisy Dellorena Lancets 33GIndications:Leslie betic polyneuropathy associated with diabetes [...] due to pollen, unspecified seasonality Administer 1 [place] into nostril in the morning and 1 [place] in the evening. 90 mL 2 12/17/19 24 Active Pregabalin 100 MG Oral Capsule (Lyrica)Indication s:Diabetic polyneuropathy associated with type 2 diabetes mellitus ([facility]) Take 1 Capsule by mouth in the [...] bedtime. 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 file Not on file Not on file documented as of this encounter Miscellaneous Notes * Telephone Encounter - Cj Leija DO - 07/29/2024 4:02 PM ESTSigned Prescriptions: Disp Refills Apixaban 5 MG Oral Tablet (Eliquis) 180 Ta*1 Sig: TAKE 1 TABLET TWICE A DAY Authorizing Provider: CJ LEIJA * Telephone Encounter - Vicente Nichols [facility] - 07/29/2024 12:11 PM EST Pending Prescriptions: Disp Refills Apixaban 5 MG Oral Tablet (Eliquis) 180 Ta*1 Sig: TAKE 1 TABLET TWICE A DAY * Telephone Encounter - Vicente Nichols [facility] - 07/29/2024 12:09 PM EST Former patient of Marie Florian. Upcoming appt 11/29/24 Please approve if appropriate. Thanks, Vicente Nichols, PharmD Clinical Pharmacist [facility] [phone] 07/29/2024, 12:10 PM * Telephone Encounter - Jennifer Blue - 07/28/2024 7:11 PM ESTPending Prescriptions: Disp Refills Apixaban 5 MG Oral Tablet (Eliquis) 180 Ta*3 Sig: TAKE 1 TABLET TWICE A DAY * Telephone Encounter - Jennifer Blue - 07/28/2024 7:09 PM EST Did you pend patient's preferred pharmacy and medication before forwarding?yes Pharmacy: [id number] [place] [address] [address] [facility] Pending Prescriptions: Disp Refills Apixaban 5 MG Oral Tablet (Eliquis) 180 Ta*3 Sig: TAKE 1 TABLET TWICE A DAY Last Visit: 12/17/2023 (in office), Visit date not found (telemedicine) Next Visit: 11/29/2024 If no future appointments scheduled, and last appointment is greater than a year ago, please schedule patient for a follow-up appointment Last date the medication was ordered: 12/15/2023 Is this request for a controlled substance?No [...] Description 10/04/2024 11:00 AM EDT [facility] [address] [place] [address] NovemberRoyce MD [address] [place] [address] 11/29/2024 2:30 PM EDT Office Visit Cardiology, [facility] [address] [place] [address] Rayo Rodarte MD [address] [place] [address] 04/20/2025 11:00 AM EDT Nurse Only Ancillary Department, [facility] [address] [place] [phone] Teja Nurse [facility] [address] [place] [address] Health Maintenance Due Date Last Done [...] D LEVEL ONCE IN A LIFETIME-USE SMARTSET# 38405 Completed 10/13/2023, 03/19/2023, 05/22/2022, Additional history exists [...] as of this encounter Visit Diagnoses Diagnosis Paroxysmal atrial fibrillation (HCC) Atrial fibrillation documented in this encounter Care Teams Retail Marketing Specialist Relationship Specialty Start Date End Date November, Royce Begum MD PCP - General Family Medicine 11/10/22 documented as of this encounter
--- OUTSIDE RECORDS SUMMARY | 2024-10-08 20:19 | External Medical Summary | Summary of Care ---
Author Name Unknown Organization [facility] Address [address] [place] [address] Phone [phone] Care Team Providers Care Executive Business Coach Name Role Phone Royce Sheppard MD Primary Care Provider [phone] Reason for Visit * Reason Onset Date Comments Medication Refill 04/15/2024 Encounter Details Date Type Department Care Team (Late st Contact Info) Description 04/15/2024 Refill [facility] [address] [place] [address] Royce Sheppard MD [address] [place] [address] Anxiety and depression Allergies Active Allergy Reactions Criticality Noted Date Comments Erythromycin Base 07/16/1999 upset stomach documented as of this encounter (statuses as of 04/18/2024) Medications Medication Sig Dispensed Refills Start Date End Date Status B-12-SL 1000 MCG Sublingual Tablet Sublingual (Cyanocobalamin)Ind ications:B12 deficiency Place 1,000 mcg under the tongue daily. 90 Tab 3 08/15/2020 Active OneTouch Verio w/Device KitIndications:Diab etic polyneuropathy associated with diabetes mellitus due to underlying condition ([facility]),Type 2 diabetes mellitus with hemoglobin A1c goal of less than 7.0% ([facility]) Check blood sugar one time per day: Dx E11.9 1 Kit 01/01/2021 Active Additional Information Patient not taking.Reported on 04/01/2024 OneTouch Verio In Vitro Strip (Glucose Blood)Indications:D iabetic polyneuropathy associated with diabetes mellitus due to underlying condition ([facility]) Use to check blood sugars daily DX:E11.9 100 Strip 1 01/14/2021 Active Additional Information Patient not taking.Reported on 04/01/2024 BrandiTouch Vinicius Lancets 33GIndications:Diab etic polyneuropathy associated with diabetes mellitus due to underlying condition ([facility]) Use to check blood sugars daily [...] embolism, unspecified whether acute cor pulmonale present ([facility]) Take 1 Tablet by mouth in the morning. 90 Tablet 3 10/02/2023 Active Apixaban 5 MG Oral Tablet (Eliquis)Indication s:Paroxysmal atrial fibrillation ([facility]) TAKE 1 TABLET TWICE A DAY 180 Tablet 3 12/15/2023 Active Azelastine HCl 0.1 % Nasal Solution (Astelin)Indication s:Allergic rhinitis due to pollen, unspecified seasonality Administer 1 [place] into nostril in the morning and 1 [place] in the evening. 90 mL 2 12/17/2023 Active SITagliptin Phosphate 100 MG Oral Tablet (Januvia)Indication s:Type 2 diabetes mellitus with hemoglobin A1c goal of less than 7.0% ([facility]) TAKE 1 TABLET DAILY 90 Tablet 1 12/17/2023 Active metFORMIN HCl ER 500 MG Oral Tablet Extended Release 24 Hour (Glucophage XR) TAKE 4 TABLETS IN THE MORNING 360 Tablet 1 12/17/2023 Active busPIRone HCl 5 [...] Thursday only. 30 Tablet 11 04/01/2024 Active Escitalopram Oxalate 20 MG Oral Tablet (Lexapro)Indication s:Anxiety and depression Take 1 Tablet by mouth in the morning. 90 Tablet 3 04/18/2024 Active Escitalopram Oxalate 20 MG Oral Tablet (Lexapro)Indication s:Anxiety and depression Take 1 Tablet by mouth in the morning. 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 0 02/07/2021 [...] as of this encounter (statuses as of 04/18/2024) Resolved Problems Problem Noted Date Diagnosed Date [...] as of this encounter (statuses as of 04/18/2024) Immunizations Name Administration Dates Next Due COVID-19 [...] encounter Miscellaneous Notes * Telephone Encounter - June Quezada [facility] - 04/18/2024 6:48 AM EDTSigned Prescriptions: Disp Refills Escitalopram Oxalate 20 MG Oral Tablet (Le*90 Tab*3 Sig: Take 1 Tablet by mouth in the morning.Authorizing Provider: ROYCE SHEPPARD User: JUNE QUEZADA NN documented in this encounter Plan of Treatment Upcoming Encounters Date Type Department Care Team (Late st Contact Info) Description 10/04/2024 11:00 AM EDT Office Visit [facility] [place] [address] [facility] [phone] [facility]Royce [facility] [address] [facility] [address] 11/29/2024 2:30 PM EDT Office Visit Cardiology, [facility] [address] [address] Rayo Rodarte MD [address] [place] [address] 04/20/2025 11:00 AM EDT Nurse Only Ancillary Department, [place] [address] [facility] [phone] [place], [facility] [address] [facility] [address] Health Maintenance Due Date Last Done Comments DXA Scan 03/12/2022 03/12/2020, 0801/2013, 02/23/2013, Additional history exists *BISPHONATE OR OTHER ACCEPTABLE MEDICATION NEEDED FOR OSTEOPOROSIS (REFER TO SMARTSET #1146) 05/27/2022 COVID-19 Vaccine ( season) 2024 04/11/2023, 05/06/2022, 05/20/2021, Additional history exists HbA1c 09/26/2024 03/29/2024, 03/12/2023, 09/04/2023, Additional history exists Diabetic Eye Exam [...] D LEVEL ONCE IN A LIFETIME-USE SMARTSET# 81412 Completed 10/13/2023, 03/19/2023, 05/22/2022, Additional history exists [...] disorder documented in this encounter Care Teams Executive Business Coach Relationship Specialty Start Date End Date November, Royce Begum MD [address] [place] [address] PCP - General Family Medicine 11/10/22 documented as of this encounter
--- OUTSIDE RECORDS SUMMARY | 2024-10-08 20:19 | External Medical Summary | Summary of Care ---
Author Name Unknown Organization [facility] Address [address] [place] [address] Phone [phone] Care Team Providers Care Director Of Pediatric Rehabilitation Name Role Phone Prince Sheppard MD Primary Care Provider [phone] Reason for Visit * Reason Onset Date Comments Medication Refill 07/28/2024 Encounter Details Date Type Department Care Team (Late st Contact Info) Description 07/28/[address] [facility] [address] [place] [address] Prince Sheppard MD [address] [facility] [place] [address] Anxiety and depression Allergies Active Allergy Reactions Criticality Noted Date Comments Erythromycin Base 07/16/1999 upset stomach documented as of this encounter (statuses as of 07/28/2024) Medications B-12-SL 1000 MCG Sublingual Tablet Sublingual (Cyanocobalamin)In dications:B12 deficiency Place 1,000 mcg under the tongue daily. 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 90 Tablet 3 10/02/19 24 Active Apixaban 5 MG Oral Tablet (Eliquis)Indicatio ns:Paroxysmal atrial fibrillation (HCC) TAKE 1 TABLET TWICE A DAY 180 Tablet 3 12/15/19 24 Active Azelastine HCl 0.1 % Nasal Solution (Astelin)Indicatio ns:Allergic rhinitis due to pollen, unspecified seasonality Administer 1 [place] into nostril in the morning and 1 [place] in the evening. 90 mL 2 12/17/19 [...] only. 30 Tablet 11 04/01/20 24 Active metFORMIN HCl ER 500 MG Oral Tablet Extended Release 24 Hour (Glucophage XR) TAKE 4 TABLETS BY MOUTH ONCE DAILY IN THE MORNING 360 Tablet 1 05/02/20 24 Active SITagliptin Phosphate 100 MG Oral Tablet (Januvia)Indicatio ns:Type 2 diabetes mellitus with hemoglobin A1c goal of less than 7.0% ([facility]) TAKE 1 TABLET DAILY 90 [...] morning. 90 Tablet 3 07/28/19 25 Active Escitalopram Oxalate 20 MG Oral Tablet (Lexapro)Indicatio ns:Anxiety and depression Take 1 Tablet by mouth in the morning. 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 11/26/2022 Persistent atrial fibrillation 01/09/2022 Stasis dermatitis of both legs 04/11/2021 rn long term care current use of anticoagulant therapy 0 02/07/2021 [...] as of this encounter (statuses as of 07/28/2024) Resolved Problems Problem Noted Date Diagnosed Date [...] as of this encounter (statuses as of 07/28/2024) Immunizations Name Administration Dates Next Due COVID-19 [...] 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 Not on file Not on file documented as of this encounter Miscellaneous Notes * Telephone Encounter - Josie Blanco twyla - 07/28/2024 8:46 PM EST Signed Prescriptions: Disp Refills Escitalopram Oxalate 20 MG Oral Tablet (Le*90 Tab*3 Sig: Take 1Tablet by mouth in the morning.Authorizing Provider: PRINCE SHEPPARDOrderindia User: JOSIE BLANCO documented in this encounter Plan of Treatment Upcoming Encounters Date Type Department Care Team (Late st Contact Info) Description 10/04/2024 11:00 AM EDT Office Visit Family Practice, [facility] [address] [address] Prince Sheppard MD [address] [id number] 11/29/2024 2:30 PM EDT Office Visit Cardiology, [facility] [address] [address] Rayo Rodarte MD [address] [address] 04/20/2025 11:00 AM EDT Nurse Only Ancillary Department, [facility] [address] [address] Teja Nurse [facility] [address] [place] [address] Health Maintenance Due Date Last Done Comments DXA Scan 03/12/2022 03/12/2020, 08/0 01/2013, 02/23/2013, Additional history exists *BISPHONATE OR [...] D LEVEL ONCE IN A LIFETIME-USE SMARTSET# 38709 Completed 10/13/2023, 03/19/2023, 05/22/2022, Additional history exists [...] disorder documented in this encounter Care Teams Director Of Pediatric Rehabilitation Relationship Specialty Start Date End Date November, Prince Begum MD PCP - General Family Medicine 11/10/22 documented as of this encounter
--- OUTSIDE RECORDS SUMMARY | 2024-10-08 20:19 | External Medical Summary | Summary of Care ---
Author Name Unknown Organization [facility] Address [address] [place] [address] Phone [phone] Care Team Providers Care Spout Tender Name Role Phone Royce Mckeon MD Primary Care Provider [phone] Reason for Visit * Reason Comments Outpatient Testing Encounter Details Date Type Department Care Team (Late st Contact Info) Description 07/06/2024 9:10 AM EST Laboratory Laboratory, [facility] [address] [place] [address] [place], [facility] [address] [place] [address] Iron 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 Allergies Active Allergy Reactions Criticality Noted Date Comments Erythromycin Base 07/16/1999 upset stomach documented as of this encounter (statuses as of 07/06/2024) Medications B-12-SL 1000 MCG Sublingual Tablet Sublingual [...] due to pollen, unspecified seasonality Administer 1 [place] into nostril in the morning and 1 [place] in the evening. 90 mL 2 12/17/19 [...] bedtime. 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 Not on file Not on file documented as of this encounter Plan of Treatment Upcoming Encounters Date Type Department Care Team (Late st Contact Info) Description 10/04/2024 11:00 AM EDT Office Visit Family Practice, [facility] [address] [facility] [place] [address] Royce Mckeon MD [address] [address] 11/29/2024 2:30 PM EDT Office Visit Cardiology, [facility] [address] [place] [address] Rayo Rodarte MD [address] [place] [address] 04/20/2025 11:00 AM EDT Nurse Only Ancillary Department, [facility]ja [facility] [address] [place] [address] Teja Nurse [facility] [address] [place] [place] [id number] Pending Results Name Type Priority Associated Diagnoses Date /Time CBC Lab Routine Iron 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 07/06/2024 9:10 AM EST IRON SCREEN, INCLUDING TIBC Lab Routine Iron 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 07/06/2024 9:10 AM EST Health Maintenance Due Date Last Done Comments [...] D LEVEL ONCE IN A LIFETIME-USE SMARTSET# 91522 Completed 10/13/2023, 03/19/2023, 05/22/2022, Additional history exists [...] as of this encounter Visit Diagnoses Diagnosis Iron 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 documented in this encounter Care Teams Spout Tender Relationship Specialty Start Date End Date November, Royce Begum MD [address] [place] [address] PCP - General Family Medicine 11/10/22 documented as of this encounter
--- OUTSIDE RECORDS SUMMARY | 2024-10-08 20:19 | External Medical Summary | Summary of Care ---
Author Name Unknown Organization [facility] Address [address] [place] [address] Phone [phone] Care Team Providers Care Slabber Name Role Phone Prince Sheppard MD Primary Care Provider [phone] Reason for Visit * Reason Onset Date Comments Medication Refill 07/28/2024 Encounter Details Date Type Department Care Team (Late st Contact Info) Description 07/28/2024 Refill [facility] [address] [facility] [address] Prince Sheppard MD [address] [place] [address] Esophageal reflux; Iron 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 dietary [...] hemoglobin A1c goal of less than 7.0% ([facility]) Check blood sugar one time per day: Dx E11.9 1 Kit 01/02/20 21 Active Additional Information Patient not taking.Reported on 04/01/2024 OneTouch Verio In Vitro Strip (Glucose Blood)Indications: 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 90 Tablet 3 10/02/19 24 Active Apixaban 5 MG Oral Tablet (Eliquis)Indicatio ns:Paroxysmal atrial fibrillation (HCC) TAKE 1 TABLET TWICE A DAY 180 Tablet 3 12/15/19 24 Active Azelastine HCl 0.1 % Nasal Solution (Astelin)Indicatio ns:Allergic rhinitis due to pollen, unspecified seasonality Administer 1 [place] into nostril in the morning and 1 [place] in the evening. 90 mL 2 12/17/19 [...] morning. 90 Tablet 3 07/28/19 25 Active Omeprazole 40 MG Oral Capsule [...] only. 36 Tablet 2 07/29/19 25 Active Omeprazole 40 MG Oral Capsule Delayed Release (PriLOSEC)Indicati ons:Esophageal reflux TAKE 1 CAPSULE IN THE MORNING 90 Capsule 2 01/14/20 24 025 Discontin ued(Refil l) Atorvastatin Calcium 10 MG Oral Tablet (Lipitor) Take 1 Tablet by mouth in the morning. 90 Tablet 2 01/14/20 24 025 Discontin ued(Refil l) Ferrous Sulfate 325 (65 Fe) MG Oral Tablet (Feosol)Indication s:Iron 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 Take 1 Tablet by mouth once a day on Thursday, Thursday, and Thursday only. 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 Not on file Not on file documented as of this encounter Miscellaneous Notes * Telephone Encounter - Marshall Sherman RPh - 07/29/2024 10:08 AM ESTSigned Prescriptions: Disp Refills Omeprazole 40 MG Oral Capsule Delayed Rele*90 Cap*2 Sig: TAKE 1 CAPSULE IN THE MORNINGAuthorizing Provider: PRINCE SHEPPARD User: MARSHALL SHERMAN Atorvastatin Calcium 10 MG Oral Tablet (Li*90 Tab*2 Sig: Take 1 Tablet by mouth in the morning.Authorizing Provider: PRINCE SHEPPARD User: MARSHALL SHERMAN Ferrous Sulfate 325 (65 Fe) MG Oral Tablet*36 Tab*2 Sig: Take 1 Tablet by mouth once a day on Thursday, Thursday, and Thursday only.Authorizing Provider: PRINCE SHEPPARD User: MARSHALL SHERMAN documented in this encounter Plan of Treatment Upcoming Encounters Date Type Department Care Team (Late st Contact Info) Description 10/04/2024 11:00 AM [facility] [address] [address] Prince Sheppard MD [address] [place] [place] [address] 11/29/2024 2:30 PM EDT Office Visit Cardiology, [facility] [address] [place] [place] [address] Rayo Rodarte MD [address] [place] [address] 04/20/2025 11:00 AM EDT Nurse Only [facility] Department, [place] [address] [place] [address] Nurse Teja [facility] [address] [address] Health Maintenance Due Date Last Done Comments [...] D LEVEL ONCE IN A LIFETIME-USE SMARTSET# [id number] Completed 10/13/2023, 03/19/2023, 05/22/2022, Additional history exists [...] as of this encounter Visit Diagnoses Diagnosis Esophageal reflux Iron 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 documented in this encounter Care Teams Slabber Relationship Specialty Start Date End Date November, Prince Begum MD PCP - General Family Medicine 11/10/22 documented as of this encounter
--- OUTSIDE RECORDS SUMMARY | 2024-10-08 20:19 | External Medical Summary | Summary of Care ---
Author Name Unknown Organization [facility] Address [address] [place] [address] Phone [phone] Care Team Providers Care Senior Safety Management Consultant Name Role Phone Prince Sheppard MD Primary Care Provider [phone] Reason for Visit * Reason Comments eRx-Medication Refill Encounter Details Date Type Department Care Team (Late st Contact Info) Description 05/02/2024 Refill [facility] [address] [place] [address] Prince Sheppard MD [address] [place] [address] Allergies Active Allergy Reactions Criticality Noted Date Comments Erythromycin Base 07/16/1999 upset stomach documented as of this encounter (statuses as of 05/02/2024) Medications Medication Sig Dispensed Refills Start Date End Date Status B-12-SL 1000 MCG Sublingual Tablet Sublingual (Cyanocobalamin)Ind ications:B12 deficiency Place 1,000 mcg under the tongue daily. 90 Tab 3 1 Active OneTouch Verio w/Device KitIndications:Diab etic polyneuropathy associated with diabetes mellitus due to underlying condition ([facility]),Type 2 diabetes mellitus with hemoglobin A1c goal of less than 7.0% ([facility]) Check blood sugar one time per day: Dx E11.9 1 Kit 1 Active Additional Information Patient not taking.Reported on 04/01/2024 OneTouch Verio In Vitro Strip (Glucose Blood)Indications:D iabetic polyneuropathy associated with diabetes mellitus due to underlying condition ([facility]) Use to check blood sugars daily DX:E11.9 100 Strip 1 1 Active Additional Information Patient not taking.Reported on 04/01/2024 OneTouch [place] Lancets 33GIndications:Diab etic polyneuropathy associated with diabetes mellitus due to underlying condition ([facility]) Use to check blood sugars daily DX E11.9 100 Each 1 1 Active Additional Information Patient not taking.Reported on 04/01/2024 Cetirizine HCl 10 MG Oral Tablet (ZyrTEC) Take 1 Tablet by mouth in the morning. Active Potassium Chloride Cathie ER 20 MEQ Oral Tablet Extended Release Take 2 Tablets by mouth in the morning. 180 Tablet 3 3 Active Additional Information Patient not taking.Reported on 12/17/2023 Furosemide 20 MG Oral Tablet (Lasix)Indications: Bilateral leg edema,Edema, unspecified type TAKE 1 TABLET DAILY. MAY TAKE A SECOND DOSE IN THE AFTERNOON WHEN NEEDED FOR INCREASED SWELLING 180 Tablet 1 3 Active Additional Information Patient not taking.Reported on 12/17/2023 Magnesium 300 MG Oral CapsuleIndications: Hypomagnesemia Take 300 mg by mouth in the morning. 90 Capsule 3 Active Metoprolol Succinate ER 25 MG Oral Tablet Extended Release 24 Hour (toPROL XL)Indications:Othe r chronic pulmonary embolism, unspecified whether acute cor pulmonale present ([facility]) Take 1 Tablet by mouth in the morning. 90 Tablet 3 4 Active Apixaban 5 MG Oral Tablet (Eliquis)Indication s:Paroxysmal atrial fibrillation (HCC) TAKE 1 TABLET TWICE A DAY 180 Tablet 3 4 Active Azelastine HCl 0.1 % Nasal Solution (Astelin)Indication s:Allergic rhinitis due to pollen, unspecified seasonality Administer 1 [place] into nostril in the morning and 1 [place] in the evening. 90 mL 2 4 Active SITagliptin Phosphate 100 MG Oral Tablet (Januvia)Indication s:Type 2 diabetes mellitus with hemoglobin A1c goal of less than 7.0% ([facility]) TAKE 1 TABLET DAILY 90 Tablet 1 4 Active busPIRone HCl 5 MG Oral Tablet (Buspar)Indications :Anxiety and depression Take 1 Tablet by mouth in the morning and 1 Tablet before bedtime. 180 Tablet 1 4 Active Omeprazole 40 MG Oral Capsule Delayed Release (PriLOSEC)Indicatio ns:Esophageal reflux TAKE 1 CAPSULE IN THE MORNING 90 Capsule 2 4 Active Atorvastatin Calcium 10 MG Oral Tablet (Lipitor) Take 1 Tablet by mouth in the morning. 90 Tablet 2 4 Active Pregabalin 100 MG Oral Capsule (Lyrica)Indications :Diabetic polyneuropathy associated with type 2 diabetes mellitus (HCC) Take 1 Capsule by mouth in the morning and 1 Capsule before bedtime. 180 Capsule 1 4 Active Ferrous Sulfate 325 (65 Fe) MG Oral Tablet (Feosol)Indications :Iron 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 Take 1 Tablet by mouth once a day on Thursday, Thursday, and Thursday only. 30 Tablet 11 4 Active Escitalopram Oxalate 20 MG Oral Tablet (Lexapro)Indication s:Anxiety and depression Take 1 Tablet by mouth in the morning. 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 11/26/2022 Persistent atrial fibrillation 01/09/2022 Stasis dermatitis of both legs 04/11/2021 alf current use of anticoagulant therapy 0 02/07/2021 [...] as of this encounter (statuses as of 05/02/2024) Resolved Problems Problem Noted Date Diagnosed Date [...] as of this encounter (statuses as of 05/02/2024) Immunizations Name Administration Dates Next Due COVID-19 [...] encounter Miscellaneous Notes * Telephone Encounter - Luis Funez, [facility] - 05/02/2024 12:57 PM EDTSigned Prescriptions: Disp Refills metFORMIN HCl ER 500 MG Oral Tablet Extend*360 Ta*1 Sig: TAKE 4 TABLETS BY MOUTH ONCE DAILY IN THE MORNINGAuthorizing Provider: PRINCE SHEPPARD User: LUIS LUCIA documented in this encounter Plan of Treatment Upcoming Encounters Date Type Department Care Team (Late st Contact Info) Description 10/04/2024 11:00 AM EDT Office Visit [facility] [place] [address] [facility] [id number] Prince Sheppard [facility] [address] [facility] [address] 11/29/2024 2:30 PM EDT Office Visit Cardiology, [facility] [address] [place] [address] Rayo Rodarte MD [address] [place] [address] 04/20/2025 11:00 AM EDT Nurse Only Ancillary Department, [place] [address] [address] [place], Nurse [facility] [address] [place] [facility] [place] [id number] Health Maintenance Due Date Last Done Comments DXA Scan 03/12/2022 03/12/2020, 01/2013, 02/23/2013, Additional history exists *BISPHONATE OR OTHER ACCEPTABLE MEDICATION NEEDED FOR OSTEOPOROSIS (REFER TO SMARTSET #[id number]) 05/27/2022 HbA1c 09/26/2024 03/29/2024, 09/18, 09/04/2023, Additional history [...] D LEVEL ONCE IN A LIFETIME-USE SMARTSET# [id number] Completed 10/13/2023, 03/19/2023, 05/22/2022, Additional history exists Influenza Vaccine (FLU shot) Completed 04/01/2024, 03/30/2023, 04/18/2022, Additional history exists COVID-19 Vaccine Completed 04/26/2024, , 05/06/2022, Additional history exists HPV (Gardasil) Vaccine Aged [...] filedocumented as of this encounter Care Teams Senior Safety Management Consultant Relationship Specialty Start Date End Date November, Prince Begum MD [address] [place] [address] PCP - General Family Medicine 11/10/22 documented as of this encounter
--- OUTSIDE RECORDS SUMMARY | 2024-10-08 20:19 | External Medical Summary | Summary of Care ---
Author Name Unknown Organization [facility] [address] [address] Phone [phone] Care Team Providers Care Nurse Practitioner Manager Name Role Phone Royce Mckeon MD Primary Care Provider [phone] Reason for Visit * Reason Onset Date Comments Medication Refill 08/08/2024 Encounter Details Date Type Department Care Team (Late st Contact Info) Description 08/08/2024 Refill Cardiology, [facility] [address] [place] [address] Jona Tineo, [address] [place] [address] Paroxysmal atrial fibrillation (HCC) Allergies Active Allergy Reactions Criticality Noted Date Comments Erythromycin Base 07/16/1999 upset stomach documented as of this encounter (statuses as of 08/09/2024) Medications B-12-SL 1000 MCG Sublingual Tablet Sublingual (Cyanocobalamin)In dications:B12 deficiency Place 1,000 mcg under the tongue daily. 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 90 Tablet 3 10/02/19 24 Active Azelastine HCl 0.1 % Nasal Solution (Astelin)Indicatio ns:Allergic rhinitis due to pollen, unspecified seasonality Administer 1 [place] into nostril in the morning and 1 [place] in the evening. 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 11/26/2022 Persistent atrial fibrillation 01/09/2022 Stasis dermatitis of both legs 04/11/2021 termite inspector current use of anticoagulant therapy 0 02/07/2021 [...] as of this encounter (statuses as of 08/09/2024) Resolved Problems Problem Noted Date Diagnosed Date [...] as of this encounter (statuses as of 08/09/2024) Immunizations Name Administration Dates Next Due COVID-19 [...] 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 Not on file documented as of this encounter Miscellaneous Notes * Telephone Encounter - Lee Rogers - 08/09/2024 5:38 AM ESTRefused Prescriptions: Disp Refills Apixaban 5 MG Oral Tablet (Eliquis) 180 Ta*1 Sig: TAKE 1 TABLETTWICE A DAYRefused By: LEE ROGERSReason for Refusal: Duplicate Request documented in this encounter Plan of Treatment Upcoming Encounters Date Type Department Care Team (Late st Contact Info) Description 10/04/2024 11:00 AM EDT Office Visit Family Practice, [facility] [address] [address] NovemberRoyce MD [address] [place] [address] 11/29/2024 2:30 PM EDT Office Visit Cardiology, [facility] [address] [place] [address] Rayo Rodarte MD [address] [place] [address] 04/20/2025 11:00 AM EDT Nurse Only Ancillary Department, [facility] [address] [place] [id number] Teja Nurse [facility] [address] [place] [address] Health Maintenance Due Date Last Done Comments [...] D LEVEL ONCE IN A LIFETIME-USE SMARTSET# [id number] Completed 10/13/2023, 03/19/2023, 05/22/2022, Additional history exists [...] fibrillation documented in this encounter Care Teams Nurse Practitioner Manager Relationship Specialty Start Date End Date November, Royce Begum MD PCP - General Family Medicine 11/10/22 documented as of this encounter
--- OUTSIDE RECORDS SUMMARY | 2024-10-08 20:19 | External Medical Summary | Summary of Care ---
Author Name Unknown Organization [facility] Address [address] [place] [address] Phone [phone] Care Team Providers Care Filling Hauler Name Role Phone Prince Sheppard MD Primary Care Provider [phone] Reason for Visit * Reason Onset Date Comments Medication Refill 06/02/2024 Encounter Details Date Type Department Care Team (Late st Contact Info) Description 06/02/2024 Refill [facility] [address] [place] [address] Prince Sheppard MD [address] [place] [address] Type 2 diabetes mellitus with hemoglobin A1c goal of less than 7.0% ([facility]) Allergies Active Allergy Reactions Criticality Noted Date Comments Erythromycin Base 07/16/1999 upset stomach documented as of this encounter (statuses as of 06/04/2024) Medications B-12-SL 1000 MCG Sublingual Tablet Sublingual (Cyanocobalamin)In dications:B12 deficiency Place 1,000 mcg under the tongue daily. 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 90 mL 2 12/17/19 24 Active busPIRone HCl 5 MG Oral Tablet (Buspar)Indication s:Anxiety and depression Take 1 Tablet by mouth in the morning and 1 Tablet before bedtime. 180 Tablet 1 12/17/19 24 Active Omeprazole 40 MG Oral Capsule Delayed Release (PriLOSEC)Navinti ons:Esophageal reflux TAKE 1 CAPSULE IN THE [...] Active Escitalopram Oxalate 20 MG Oral Tablet (Lexapro)Stacey ns:Anxiety and depression Take 1 Tablet by mouth in the morning. 90 Tablet 3 04/18/20 24 Active metFORMIN HCl ER 500 MG Oral Tablet Extended Release 24 Hour (Glucophage XR) TAKE 4 TABLETS BY MOUTH ONCE DAILY IN THE MORNING 360 Tablet 1 05/02/20 24 Active SITagliptin Phosphate 100 MG Oral Tablet (Januvia)Stacey ns:Type 2 diabetes mellitus with hemoglobin A1c goal of less than 7.0% ([facility]) TAKE 1 TABLET DAILY 90 Tablet 1 06/04/20 24 Active SITagliptin Phosphate 100 MG Oral Tablet (Januvia)Stacey ns:Type 2 diabetes mellitus with hemoglobin A1c goal of less than 7.0% (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 - 06/04/2024 3:37 AM ESTSigned Prescriptions: Disp Refills SITagliptin Phosphate 100 MG Oral Tablet (*90 Tab*1 Sig: TAKE 1 TABLET DAILYAuthorizing Provider: PRINCE SHEPPARDOrderindia User: DELON NOLAND documented in this encounter Plan of Treatment Upcoming Encounters Date Type Department Care Team (Late st Contact Info) Description 10/04/2024 11:00 AM EDT Office Visit Family [facility], [address] [address] Prince Sheppard MD [address] [place] [address] 11/29/2024 2:30 PM EDT Office Visit Cardiology, [facility] [address] [facility] [place] [address] Rayo Rodarte MD [address] [facility] [place] [address] 04/20/2025 11:00 AM EDT Nurse Only Ancillary Department, [place] [address] [place] [address] Teja Nurse [facility] [address] [place] [address] Health Maintenance Due Date Last Done Comments [...] D LEVEL ONCE IN A LIFETIME-USE SMARTSET# [id number] Completed 10/13/2023, 03/19/2023, 05/22/2022, Additional history exists [...] (HCC) documented in this encounter Care Teams Filling Hauler Relationship Specialty Start Date End Date November, Prince Begum MD [address] [place] [address] PCP - General Family Medicine 11/10/22 documented as of this encounter
[2024-10-08 20:38] LABS: iSTAT Creatinine 1.1 mg/dl (0.6-1.3); iSTAT Hemoglobin 10.9 g/dl (12.0-16.0); iSTAT Ionized Calcium 1.08 mmol/l (1.12-1.32); iSTAT Potassium 4.6 mmol/L (3.3-5.0)
--- NOTE | 2024-10-08 20:52 | Emergency Department Note ---
Impression & Plan Weakness, Hyponatremia, Hypoxia, Acute UTI ED Provider Note Provider: Manish Francis MD CHIEF COMPLAINT: Weakness HISTORY OF PRESENT ILLNESS: Patient is a 88-year-old female significant past medical history including dementia, atrial fibrillation on Eliquis, GERD, and type 2 diabetes presenting here via ambulance from her home. Patient lives by herself. Patient herself not the best historian. According EMS patient was seated at the bottom of her stairs. They report there was no significant trauma. Patient has been generally weak today. Patient's daughter later arrives provides additional history. Daughter reports patient was at the [place] in the bottom of her stairs. They are on sure if she fell or just stayed there all night and they do not believe she made it up to her bed last night. She is generally weak and with assistance of family the helped her to a chair. They did have some lunch for her and had her take her medications today. Legs are just very weak according to them. Earlier today she complained about neck pain but denies any pain now. Daughter reports are just concerned and think some things up as she is so weak. Patient reports some cough but daughter states this has been a chronic cough ongoing for some time. Was seen in the outpatient setting by her primary doctor's office last week with reassurance given. PAST MEDICAL HISTORY: As noted above MEDICATIONS: Reviewed home medication list SOCIAL HISTORY: Lives at home by herself PHYSICAL EXAM: GENERAL: alert and oriented in no acute distress on stretcher Head: normocephalic and atraumatic EYES: No injection, discharge or icterus. PERRL, EOMI. NECK: Trachea midline. Supple no midline cervical tenderness ENT: Mucous membranes pink and moist. LUNGS: Airway patent. No retractions. Breath sounds coarse with occasional rhonchi scattered. HEART: Regular irregular tachycardic rate and rhythm. No chest wall tenderness ABDOMEN: Soft and non-tender, without guarding or rebound. Stable pelvis. No midline tenderness of the lumbar/thoracic spine and no flank tenderness appreciable. SKIN: Acyanotic, warm, dry, without rashes EXTREMITIES: Without swelling, tenderness or deformity NEUROLOGICAL: No focal deficits. No aphasia. No facial droop or slurred speech. Moves all extremities command. Tongue midline. EK beats from atrial fibrillation with rapid ventricular spots. No clear acute ST segment elevation with some nonspecific anterior T wave changes. Right bundle branch and left intrafascicular block noted. QTc 527. CONTINUOUS CARDIAC MONITORING: was ordered and showed a heart rate of 90s-120s bpm in atrial fibrillation Patient's laboratory studies and imaging reviewed. Differential includes Infection, dehydration, metabolic abnormality, hypo/hyperglycemia, electrolyte disturbance, anemia, hypoxia, cardiac sources, intracerebral event, toxicologic, neurologic, as well as other pathologies. IMPRESSION/MEDICAL DECISION MAKING: Initially triaged by staff as a trauma but no reported significant falls. Later daughter does report they cannot be 100% sure she did not fall. Patient again is a poor historian related to her dementia. Will complete trauma scans in an abundance of caution. Patient's initial ATLS survey and airway breathing circulation intact upon arrival. Does have some A-fib RVR but reportedly did take her medications including her Eliquis. Is mildly hypoxic here which is new requiring oxygen supplementation. A bit of a chronic cough according to daughter but sounds quite coarse. Evidently had a bit of neck pain earlier but none now and denies any pain to me. No obvious pelvic instability. No significant deficits focally on exam and lower suspicion of CVA. Will pursue generalized weakness workup see if there is an infectious etiology to this. Blood work today reports with some increased hyponatremia 126 today. No hypo or hyperkalemia. Low magnesium and IV magnesium supplementation ordered. Normal renal function. No significant transaminitis or elevated CK. Does have a leukocytosis of 14 today. Mild anemia 9.8 is just ever so slightly worse. Microcytic in nature. No troponin elevation. BNP is somewhat elevated and cautiously initially given a 500 cc fluid bolus as was to avoid fluid overload. No significant elevated procalcitonin or TSH. Urinalysis grossly positive for infection. No blood in the urine. Prior urine cultures reviewed pansensitive E. coli. Lactate and blood cultures ordered. Given concerns for possible underlying pulmonary pathology as well, covered with cefepime for broad-spectrum coverage both the urine and a underlying pulmonary pathology. Respiratory viral panel negative. Consider use of additional metoprolol for rate control but blood pressure somewhat borderline and heart rates improved to just above 100. Will monitor closely. Magnesium again is being repleted which may help as well. Later give some additional IV fluid for total of liter normal saline administered; again cautious to avoid fluid overload. Last cardiac echo in the computer from 2020 shows an EF of 15 to 20%. Discussed with patient and daughter findings. Patient fatigued but easily awoken to voice for discussion. Blood pressure is again acceptable maps but systolics in the 90s. Lactate not elevated. Certainly needs further care here at the hospital and the hospitalist team was consulted. CT scan reports finally returns multiple hours later per radiology with some bronchial wall thickening but no clear pneumonia consolidation. No acute intracranial intracranial bleed per report. No acute cervical spine no acute fracture reported. CT abdomen pelvis per report questioning small amount of edema/fluid/possible hematoma to the inferior right kidney. Some soft tissue swelling noted versus possible contusion without other significant bleeding reported. Again do have some concerns for evolving fluid overload with the IV fluid she is receiving. Do not believe this is bleeding or certainly not any significant bleeding. Made hospitalist aware of the completion of the CT reports. DIAGNOSIS: Weakness, hyponatremia, hypoxia, UTI, sepsis, history of CHF and dementia DISPOSITION: Hospitalist will evaluate Patient was agreeable with this plan. Critical Care I have personally spent 43 minutes of critical care time in the direct management of this patient. This includes bedside care, interpretation of diagnostic studies, and testing, discussion with consultants, patient, and family members, and other required patient management activities. These 43 minutes is in excess of all separately billable procedures. Past Med/Surg History Problem List (Updated 10/08/24 @ 21:34 by Manish Francis M.D.) Acute UTI (Acute) Hypoxia (Acute) Hyponatremia (Acute) Weakness (Acute) Foot fracture, right Sacroiliac joint pain Contusion Maldonado fracture Atrial fibrillation Right knee DJD Fall Hypokalemia (Acute) New onset atrial fibrillation (Acute) Depression GERD (gastroesophageal reflux disease) (Chronic) Diabetes mellitus, type II Chronic cough (Chronic) Medical History Chronic pulmonary embolism Cardiomyopathy History of DVT (deep vein thrombosis) 20 years ago Surgical History Hx of cataract surgery S/P hernia repair History of cholecystectomy H/O hernia repair Family History Other Cancer Heart disease Social History Smoking Status: Never smoker Hx Alcohol Use: No Hx Substance Use: No Preferred Language: Welsh Communication Ability: Effective Visual Impairment: No Limitations Nurse Navigator Required: No Beliefs That Will Affect Care: None Current Living Situation: Alone Current Living Situation Comment: has someone stay with her every day, changes weekly per family current occupational status: retired Feels Safe at Home: Yes Assistive Devices: Walker Allergies Allergies Allergy/AdvReac Type Severity Reaction Status Date / Time erythromycin base AdvReac Intermediate Gastrointestinal Verified 01/03/23 18:30 Upset Home Meds Home Medications Medication Instructions Recorded Confirmed aspirin 81 mg chewable tablet 81 mg PO DAILY 12/27/20 10/08/24 atorvastatin 10 mg tablet 10 mg PO DAILY 12/27/20 10/08/24 cyanocobalamin (vitamin B-12) 1,000 mcg PO DAILY 12/27/20 10/08/24 1,000 mcg tablet (Vitamin B-12) metformin 500 mg tablet,extended 1,000 mg PO BID 12/27/20 10/08/24 release 24 hr omeprazole 40 mg capsule,delayed 40 mg PO DAILY 12/27/20 10/08/24 release pregabalin 100 mg capsule 100 mg PO BID 12/27/20 10/08/24 sitagliptin phosphate 100 mg 100 mg PO DAILY 12/27/20 10/08/24 tablet (Januvia) buspirone 5 mg tablet 5 mg PO BID 11/20/22 10/08/24 cetirizine 10 mg tablet (Zyrtec) 10 mg PO DAILY 11/20/22 10/08/24 escitalopram oxalate 20 mg tablet 20 mg PO DAILY 11/20/22 10/08/24 (Lexapro) metoprolol succinate 25 mg 12.5 mg PO DAILY 11/20/22 10/08/24 tablet,extended release 24 hr azelastine 137 mcg (0.1 %) nasal 137 mcg intranasal BID 10/08/24 10/08/24 spray ferrous sulfate 325 mg (65 mg 325 mg PO DAILY 10/08/24 10/08/24 iron) tablet Previous Rx's Medication Instructions Recorded apixaban 5 mg tablet (Eliquis) 5 mg PO BID #180 tabs 12/30/20 Results & Data (ED) Vital Signs Vital Signs - 24 hr 10/08/24 20:16 10/08/24 20:21 10/08/24 20:29 Temperature 36.6 C Temperature Source Oral Pulse Rate 111 H 120 H 108 H Pulse Rhythm Regular Respiratory Rate 18 18 Respiratory Effort / Characteristics Non-Labored Spontaneous Respiratory Depth Normal Respiratory Pattern Regular Blood Pressure 103/71 Blood Pressure Mean 81 Blood Pressure Position Sitting Pulse Oximetry 93 93 Oxygen Delivery Method Room Air Room Air Oxygen Flow Rate Sepsis Recent Fever Within 48 Hours No Sepsis New/Unexplained Change in Mental Status N/A Sepsis Action Taken by Nursing No Action Required Oxygen Flow Rate - Titration Pulse Oximetry Post Tiitration 10/08/24 20:30 10/08/24 20:38 10/08/24 21:00 Temperature Temperature Source Pulse Rate 111 H 112 H Pulse Rhythm Respiratory Rate 20 16 Respiratory Effort / Characteristics Respiratory Depth Respiratory Pattern Blood Pressure 97/66 L 104/63 Blood Pressure Mean 76 76 Blood Pressure Position Pulse Oximetry 88 L 88 L 98 Oxygen Delivery Method Room Air Room Air Nasal Cannula Oxygen Flow Rate 2 Sepsis Recent Fever Within 48 Hours Sepsis New/Unexplained Change in Mental Status Sepsis Action Taken by Nursing Oxygen Flow Rate - Titration 2 Pulse Oximetry Post Tiitration 94 10/08/24 21:31 10/08/24 22:11 10/08/24 22:29 Temperature Temperature Source Pulse Rate 107 H 100 H 112 H Pulse Rhythm Respiratory Rate 20 18 20 Respiratory Effort / Characteristics Respiratory Depth Respiratory Pattern Blood Pressure 91/67 L 89/62 L 97/50 L Blood Pressure Mean 72 68 72 Blood Pressure Position Pulse Oximetry 91 97 97 Oxygen Delivery Method Nasal Cannula Oxymask Oxygen Flow Rate 2 3 Sepsis Recent Fever Within 48 Hours Sepsis New/Unexplained Change in Mental Status Sepsis Action Taken by Nursing Oxygen Flow Rate - Titration Pulse Oximetry Post Tiitration 10/08/24 22:30 10/08/24 22:57 Temperature Temperature Source Pulse Rate 101 H 103 H Pulse Rhythm Respiratory Rate 18 Respiratory Effort / Characteristics Respiratory Depth Respiratory Pattern Blood Pressure 95/63 L Blood Pressure Mean 77 Blood Pressure Position Pulse Oximetry 97 Oxygen Delivery Method Oxygen Flow Rate Sepsis Recent Fever Within 48 Hours Sepsis New/Unexplained Change in Mental Status Sepsis Action Taken by Nursing Oxygen Flow Rate - Titration Pulse Oximetry Post Tiitration Laboratory Data 10/08/24 20:21 10/08/24 23:59 Lab Results 10/08/24 10/08/24 10/08/24 Range/Units 20:20 20:21 20:26 WBC 14.52 H (4.8-10.8) K/ul RBC 4.07 L (4.20-5.40) M/uL Hgb 9.8 L (12.0-16.0) g/dl POC Hgb 10.9 L (12.0-16.0) g/dl Hct 30.3 L (37.0-47.0) % POC Hct 32 L (37-47) % MCV 74.4 L (80.0-100.0) fL MCH 24.1 L (25.0-34.0) pg MCHC 32.3 (32.0-36.0) g/dL RDW Std Deviation 47.4 H (36.4-46.3) fL RDW Coeff of Lesley 17.8 H (11.5-14.5) % Plt Count 210 (130-400) K/uL MPV 11.2 (9.4-12.4) fL Immature Gran % (Auto) 0.8 % Neut % (Auto) 86.3 % Lymph % (Auto) 7.5 % [place] % (Auto) 5.2 % Eos % (Auto) 0.0 % Baso % (Auto) 0.2 % Neut # (Auto) 12.53 H (1.40-6.50) K/uL Lymph # (Auto) 1.09 L (1.20-3.40) K/uL [place] # (Auto) 0.76 H (0.11-0.59) K/uL Eos # (Auto) 0.00 (0.00-0.50) K/uL Baso # (Auto) 0.03 (0.00-0.20) K/uL Immature Gran # (Auto) 0.11 (0.01-0.20) K/uL PT Cancelled INR Cancelled VBG pH (7.36-7.41) VBG pCO2 (38-50) mmHg VBG pO2 mmHg VBG HCO3 mmol/L VBG O2 Saturation % VBG Base Excess mEq/L POC Sodium 128 L (135-144) mmol/L Sodium 126 L (136-145) mmol/L POC Potassium 4.6 (3.3-5.0) mmol/L Potassium 4.6 (3.5-5.1) mmol/L POC Chloride 93 L (101-112) mmol/L Chloride 94 L (98-107) mmol/L Carbon Dioxide 27 (21-32) mmol/L POC Total CO2 25 (24-31) mmol/L Anion Gap 5 (3-11) POC Anion Gap 16.0 (16-25) mmol/L POC BUN 19 H (7-18) mg/dl BUN 19 (6-23) mg/dl Creatinine 1.06 (0.6-1.2) mg/dl POC Creatinine 1.1 (0.6-1.3) mg/dl Est Cr Clr Drug Dosing 36.4 ml/min eGFR 50.84 BUN/Creatinine Ratio 17.9 (10-20) Glucose 192 H (70-99(Fasting)) mg/dl POC Glucose (other) 184 H (70-99) mg/dl Osmolality 276 L (280-300) mOsm/kg Lactate (0.4-2.0) mmol/L Calcium 8.6 (8.6-10.3) mg/dl POC Ioniz Calcium Clive 1.08 L (1.12-1.32) mmol/l Magnesium 1.1 L (1.7-2.4) mg/dl Total Bilirubin 1.0 (0.2-1.0) mg/dl AST 17 (13-39) U/L ALT 9 (7-52) U/L Alkaline Phosphatase 68 (34-104) U/L Ammonia (18-72) umol/L Total Creatine Kinase 136 (26-192) U/L Troponin I High Sens 3.7 (0-14) pg/ml B-Natriuretic Peptide 594 H (0-100) pg/ml Total Protein 7.1 (6.0-8.3) gm/dl Albumin 3.8 (3.4-5.0) gm/dl Globulin 3.3 (2.5-4.0) gm/dl Albumin/Globulin Ratio 1.2 (0.9-2) Procalcitonin 0.23 (0-0.5) ng/ml TSH 0.899 (0.300-4.500) uIu/ml Urine Color Urine Appearance (Clear) Urine pH (4.5-7.5) Ur Specific Fults (1.000-1.030) Urine Protein (Negative) Urine Glucose (UA) (Negative) Urine Ketones (Negative) Urine Blood (Negative) Urine Nitrite (Negative) Urine Bilirubin (Negative) Urine Urobilinogen (Negative) Ur Leukocyte Esterase (Negative) Urine WBC (Auto) (0-5) /hpf Urine RBC (Auto) (0-2) /hpf U Hyaline Cast (Auto) (0-2) /lpf U Epithel Cells (Auto) (0-2) /hpf Urine Bacteria (Auto) (None Seen) Adenovirus (PCR) Not Detected (NotDetected) B. pertussis DNA (PCR) Not Detected (NotDetected) B.parapertussis DNA PCR Not Detected (NotDetected) C. pneumoniae DNA (PCR) Not Detected (NotDetected) Coronavirus OC43 (PCR) Not Detected (NotDetected) Coronavirus HKU1 (PCR) Not Detected (NotDetected) Coronavirus 229E (PCR) Not Detected (NotDetected) SARS-CoV-2 (PCR) Not Detected (NotDetected) Coronavirus NL63 (PCR) Not Detected (NotDetected) Human Metapneumovir PCR Not Detected (NotDetected) Influenza Type A (PCR) Not Detected (NotDetected) Influenza Type B (PCR) Not Detected (NotDetected) M. pneumoniae (PCR) Not Detected (NotDetected) Parainfluenza 1 (PCR) Not Detected (NotDetected) Parainfluenza 2 (PCR) Not Detected (NotDetected) Parainfluenza 3 (PCR) Not Detected (NotDetected) Parainfluenza 4 (PCR) Not Detected (NotDetected) RSV (PCR) Not Detected (NotDetected) Entero/Rhino (PCR) Not Detected (NotDetected) 10/08/24 10/08/24 10/08/24 Range/Units 20:36 21:22 22:25 WBC (4.8-10.8) K/ul RBC (4.20-5.40) M/uL Hgb (12.0-16.0) g/dl POC Hgb (12.0-16.0) g/dl Hct (37.0-47.0) % POC Hct (37-47) % MCV (80.0-100.0) fL MCH (25.0-34.0) pg MCHC (32.0-36.0) g/dL RDW Std Deviation (36.4-46.3) fL RDW Coeff of Lesley (11.5-14.5) % Plt Count (130-400) K/uL MPV (9.4-12.4) fL Immature Gran % (Auto) % Neut % (Auto) % Lymph % (Auto) % [place] % (Auto) % Eos % (Auto) % Baso % (Auto) % Neut # (Auto) (1.40-6.50) K/uL Lymph # (Auto) (1.20-3.40) K/uL [place] # (Auto) (0.11-0.59) K/uL Eos # (Auto) (0.00-0.50) K/uL Baso # (Auto) (0.00-0.20) K/uL Immature Gran # (Auto) (0.01-0.20) K/uL PT 13.5 H INR 1.3 H VBG pH (7.36-7.41) VBG pCO2 (38-50) mmHg VBG pO2 mmHg VBG HCO3 mmol/L VBG O2 Saturation % VBG Base Excess mEq/L POC Sodium (135-144) mmol/L Sodium (136-145) mmol/L POC Potassium (3.3-5.0) mmol/L Potassium (3.5-5.1) mmol/L POC Chloride (101-112) mmol/L Chloride (98-107) mmol/L Carbon Dioxide (21-32) mmol/L POC Total CO2 (24-31) mmol/L Anion Gap (3-11) POC Anion Gap (16-25) mmol/L POC BUN (7-18) mg/dl BUN (6-23) mg/dl Creatinine (0.6-1.2) mg/dl POC Creatinine (0.6-1.3) mg/dl Est Cr Clr Drug Dosing ml/min eGFR BUN/Creatinine Ratio (10-20) Glucose (70-99(Fasting)) mg/dl POC Glucose (other) (70-99) mg/dl Osmolality (280-300) mOsm/kg Lactate 1.8 (0.4-2.0) mmol/L Calcium (8.6-10.3) mg/dl POC Ioniz Calcium Clive (1.12-1.32) mmol/l Magnesium (1.7-2.4) mg/dl Total Bilirubin (0.2-1.0) mg/dl AST (13-39) U/L ALT (7-52) U/L Alkaline Phosphatase (34-104) U/L Ammonia (18-72) umol/L Total Creatine Kinase (26-192) U/L Troponin I High Sens (0-14) pg/ml B-Natriuretic Peptide (0-100) pg/ml Total Protein (6.0-8.3) gm/dl Albumin (3.4-5.0) gm/dl Globulin (2.5-4.0) gm/dl Albumin/Globulin Ratio (0.9-2) Procalcitonin (0-0.5) ng/ml TSH (0.300-4.500) uIu/ml Urine Color Yellow Urine Appearance Cloudy A (Clear) Urine pH 5.0 (4.5-7.5) Ur Specific Fults 1.013 (1.000-1.030) Urine Protein 1+ H (Negative) Urine Glucose (UA) Negative (Negative) Urine Ketones Trace H (Negative) Urine Blood 1+ H (Negative) Urine Nitrite Negative (Negative) Urine Bilirubin Negative (Negative) Urine Urobilinogen Negative (Negative) Ur Leukocyte Esterase 3+ H (Negative) Urine WBC (Auto) >50 H (0-5) /hpf Urine RBC (Auto) 0-2 (0-2) /hpf U Hyaline Cast (Auto) 6-10 H (0-2) /lpf U Epithel Cells (Auto) 0-2 (0-2) /hpf Urine Bacteria (Auto) 4+ H (None Seen) Adenovirus (PCR) (NotDetected) B. pertussis DNA (PCR) (NotDetected) B.parapertussis DNA PCR (NotDetected) C. pneumoniae DNA (PCR) (NotDetected) Coronavirus OC43 (PCR) (NotDetected) Coronavirus HKU1 (PCR) (NotDetected) Coronavirus 229E (PCR) (NotDetected) SARS-CoV-2 (PCR) (NotDetected) Coronavirus NL63 (PCR) (NotDetected) Human Metapneumovir PCR (NotDetected) Influenza Type A (PCR) (NotDetected) Influenza Type B (PCR) (NotDetected) M. pneumoniae (PCR) (NotDetected) Parainfluenza 1 (PCR) (NotDetected) Parainfluenza 2 (PCR) (NotDetected) Parainfluenza 3 (PCR) (NotDetected) Parainfluenza 4 (PCR) (NotDetected) RSV (PCR) (NotDetected) Entero/Rhino (PCR) (NotDetected) 10/08/24 Range/Units 23:59 WBC (4.8-10.8) K/ul RBC (4.20-5.40) M/uL Hgb (12.0-16.0) g/dl POC Hgb (12.0-16.0) g/dl Hct (37.0-47.0) % POC Hct (37-47) % MCV (80.0-100.0) fL MCH (25.0-34.0) pg MCHC (32.0-36.0) g/dL RDW Std Deviation (36.4-46.3) fL RDW Coeff of Lesley (11.5-14.5) % Plt Count (130-400) K/uL MPV (9.4-12.4) fL Immature Gran % (Auto) % Neut % (Auto) % Lymph % (Auto) % [place] % (Auto) % Eos % (Auto) % Baso % (Auto) % Neut # (Auto) (1.40-6.50) K/uL Lymph # (Auto) (1.20-3.40) K/uL [place] # (Auto) (0.11-0.59) K/uL Eos # (Auto) (0.00-0.50) K/uL Baso # (Auto) (0.00-0.20) K/uL Immature Gran # (Auto) (0.01-0.20) K/uL PT INR VBG pH 7.31 L (7.36-7.41) VBG pCO2 52 H (38-50) mmHg VBG pO2 28 mmHg VBG HCO3 26 mmol/L VBG O2 Saturation < 60.0 % VBG Base Excess -0.8 mEq/L POC Sodium (135-144) mmol/L Sodium 128 L (136-145) mmol/L POC Potassium (3.3-5.0) mmol/L Potassium (3.5-5.1) mmol/L POC Chloride (101-112) mmol/L Chloride (98-107) mmol/L Carbon Dioxide (21-32) mmol/L POC Total CO2 (24-31) mmol/L Anion Gap (3-11) POC Anion Gap (16-25) mmol/L POC BUN (7-18) mg/dl BUN (6-23) mg/dl Creatinine (0.6-1.2) mg/dl POC Creatinine (0.6-1.3) mg/dl Est Cr Clr Drug Dosing ml/min eGFR BUN/Creatinine Ratio (10-20) Glucose (70-99(Fasting)) mg/dl POC Glucose (other) (70-99) mg/dl Osmolality (280-300) mOsm/kg Lactate (0.4-2.0) mmol/L Calcium (8.6-10.3) mg/dl POC Ioniz Calcium Clive (1.12-1.32) mmol/l Magnesium (1.7-2.4) mg/dl Total Bilirubin (0.2-1.0) mg/dl AST (13-39) U/L ALT (7-52) U/L Alkaline Phosphatase (34-104) U/L Ammonia 11.0 L (18-72) umol/L Total Creatine Kinase (26-192) U/L Troponin I High Sens (0-14) pg/ml B-Natriuretic Peptide (0-100) pg/ml Total Protein (6.0-8.3) gm/dl Albumin (3.4-5.0) gm/dl Globulin (2.5-4.0) gm/dl Albumin/Globulin Ratio (0.9-2) Procalcitonin (0-0.5) ng/ml TSH (0.300-4.500) uIu/ml Urine Color Urine Appearance (Clear) Urine pH (4.5-7.5) Ur Specific Fults (1.000-1.030) Urine Protein (Negative) Urine Glucose (UA) (Negative) Urine Ketones (Negative) Urine Blood (Negative) Urine Nitrite (Negative) Urine Bilirubin (Negative) Urine Urobilinogen (Negative) Ur Leukocyte Esterase (Negative) Urine WBC (Auto) (0-5) /hpf Urine RBC (Auto) (0-2) /hpf U Hyaline Cast (Auto) (0-2) /lpf U Epithel Cells (Auto) (0-2) /hpf Urine Bacteria (Auto) (None Seen) Adenovirus (PCR) (NotDetected) B. pertussis DNA (PCR) (NotDetected) B.parapertussis DNA PCR (NotDetected) C. pneumoniae DNA (PCR) (NotDetected) Coronavirus OC43 (PCR) (NotDetected) Coronavirus HKU1 (PCR) (NotDetected) Coronavirus 229E (PCR) (NotDetected) SARS-CoV-2 (PCR) (NotDetected) Coronavirus NL63 (PCR) (NotDetected) Human Metapneumovir PCR (NotDetected) Influenza Type A (PCR) (NotDetected) Influenza Type B (PCR) (NotDetected) M. pneumoniae (PCR) (NotDetected) Parainfluenza 1 (PCR) (NotDetected) Parainfluenza 2 (PCR) (NotDetected) Parainfluenza 3 (PCR) (NotDetected) Parainfluenza 4 (PCR) (NotDetected) RSV (PCR) (NotDetected) Entero/Rhino (PCR) (NotDetected) Administered Medications Magnesium Sulfate/Dextrose (Magnesium Sulfate / D5w) 1 gm in 100 mls @ 50 mls/hr IV Q2H LAURIE Stop: 10/09/24 04:29 Last Admin: 10/08/24 23:43 Dose: 50 mls/hr Documented By: Infusion: 10/08/24 23:42 Dose: Infused Documented By: Admin: 10/08/24 22:39 Dose: 50 mls/hr Documented By: FELICIA Discontinued Medications Magnesium Sulfate/Dextrose (Magnesium Sulfate / D5w) 1 gm in 100 mls @ 100 mls/hr IV NOW STA Stop: 10/08/24 21:58 Last Infusion: 10/08/24 22:18 Dose: Infused Documented By: Admin: 10/08/24 21:06 Dose: 100 mls/hr Documented By: MELO Co-signed By: FELICIA Cefepime HCl (Maxipime 2000mg) 2,000 mg in 20 mls @ 5 mls/min IV NOW STA; Protocol Stop: 10/08/24 21:36 Last Admin: 10/08/24 22:51 Dose: 5 mls/min Documented By: FELICIA Sodium Chloride (Nss) 500 mls @ 999 mls/hr IV .Q31M ONE Stop: 10/08/24 22:03 Last Infusion: 10/08/24 22:15 Dose: Infused Documented By: Admin: 10/08/24 21:40 Dose: 999 mls/hr Documented By: FELICIA Digoxin 250 mcg/ Syringe 10 mls @ 2 mls/min IV NOW STA Stop: 10/08/24 22:31 Last Admin: 10/08/24 22:57 Dose: 2 mls/min Documented By: FELICIA Sodium Chloride (Nss) 500 mls @ 999 mls/hr IV .Q31M ONE Stop: 10/08/24 22:44 Last Infusion: 10/08/24 23:46 Dose: Infused Documented By: Admin: 10/08/24 22:30 Dose: 999 mls/hr Documented By: FELICIA Piperacillin Sod/Tazobactam Sod (Zosyn) 4.5 gm in 100 mls @ 200 mls/hr IV NOW ONE; Protocol Stop: 10/08/24 22:56 Last Admin: 10/09/24 00:10 Dose: 200 mls/hr Documented By: COLLIN Metoprolol Tartrate (Metoprolol Tartrate 1 Mg/Ml Vial) 5 mg IV NOW STA Stop: 10/08/24 20:28 Last Admin: 10/08/24 22:31 Dose: Not Given Documented By: FELICIA Imaging Data Radiologist's Impression: Abdomen/Pelvis CT 10/08/24 20:27 Exam(s): CT ABDOMEN + PELVIS Without Contrast EXAM: CT Abdomen and Pelvis Without Intravenous Contrast CLINICAL HISTORY: Reason for exam: weak, poss fall, eliquis. TECHNIQUE: Axial computed tomography images of the abdomen and pelvis without intravenous contrast. CTDI is 11.47 mGy and DLP is 748.88 mGy-cm. Automated exposure control was utilized for the study. A dose lowering technique was utilized adhering to the principles of ALARA. COMPARISON: None. FINDINGS: Lung bases: Concurrently performed CT chest is reported separately. ABDOMEN: Lack of IV contrast limits evaluation of soft tissues and vascular structures. Image quality is also significantly degraded by motion and beam hardening artifacts. Patient's both arms left over the body. Liver: Grossly unremarkable. Gallbladder and bile ducts: Prior cholecystectomy. No ductal dilation. Pancreas: Diffuse fatty infiltration and moderate atrophy. No ductal dilation. Spleen: No splenomegaly. Adrenals: Unremarkable. No mass. Kidneys and ureters: In a given history of trauma a minor injury of the inferior pole of the right kidney is suspected with inferiorly perinephric small hematoma/edema like fluid density and stranding (series 13 image 30-33, series 1200 image 64). The left kidney appears small compared to the right. No obstructing stones. No hydronephrosis. Stomach and bowel: A moderately large size hiatal hernia. An epigastric herniation of a gas filled stomach distal anterior wall (series 13 image 23). Stool and gas filled horizontally placed distended cecum. Moderately large colonic stool/gas volume. No obstruction. No mucosal thickening. PELVIS: Appendix: No acute findings in the region of the appendix. Bladder: A nearly empty bladder. No stones. Reproductive: Anteverted senile uterus. ABDOMEN and PELVIS: Intraperitoneal space: Unremarkable. No free air. No significant fluid collection. Bones/joints: Osteopenia. Multilevel moderate degenerative disc/endplate disease changes. Small endplate defects/Schmorl's nodes. No acute fracture. No dislocation. Lower lumbosacral facet osteoarthropathy. Moderate lumbar levoscoliosis. Soft tissues: Right lateral lower chest and abdominal quintanilla soft tissue contusions and swelling (series 13 image 3, series 1200 image 81). Vasculature: Diffuse calcified atherosclerosis of the aortoiliac vasculature and branch vessels. No abdominal aortic aneurysm. Lymph nodes: No significantly enlarged lymph nodes. IMPRESSION: Suspect minor injury to the inferior pole of the right kidney with small perinephric hematoma/edema like fluid density/stranding. Recommend clinical correlation/follow-up. Right lower chest wall and right lateral abdominal wall soft tissue contusion/swelling. An epigastric herniation of a gas filled stomach distal anterior wall. A moderately large size hiatal hernia. Moderately advanced degenerative disc/endplate disease changes. Multilevel small endplate defects/Schmorl's nodes. Moderate lumbar levoscoliosis. . Electronically signed by: Louise Amanda MD, DABR 10/09/24 00:[address] 10/08/24 20:27 Exam(s): CT CHEST Without Contrast EXAM: CT Chest Without Intravenous Contrast CLINICAL HISTORY: Reason for exam: cough, weak. TECHNIQUE: Axial computed tomography images of the chest without intravenous contrast. CTDI is 11.47 mGy and DLP is 748.88 mGy-cm. Automated exposure control was utilized for the study. A dose lowering technique was utilized adhering to the principles of ALARA. COMPARISON: X-ray chest: 10/08/2024 FINDINGS: Image quality is degraded by motion and beam hardening artifacts. Patient's left hand left over the chest. Lungs: Central airways are patent. Bilateral bronchial wall thickening and mild dilatation. Bibasilar increased interstitial markings/linear atelectatic changes. No mass. No consolidation. Pleural space: Mild posterior pleural thickening LT>RT. No pneumothorax. No significant effusion. Heart: Mild/moderate cardiomegaly. No significant pericardial effusion. Mild coronary artery calcifications. Bones/joints: Osteopenia. No acute fracture. No dislocation. Degenerative thoracolumbar spondylosis. Soft tissues: Unremarkable. Vasculature: Enlarged main/central pulmonary arteries: 35 mm in diameter, likely sequela of secondary pulmonary arterial hypertension. No thoracic aortic aneurysm. Lymph nodes: Unremarkable. No enlarged lymph nodes. Other findings: A moderately large size hiatal hernia. Epigastric herniation of the anterior wall of the distal portion of the stomach. IMPRESSION: . Bilateral bronchial wall thickening/mild bronchiectasis. Basilar increased pulmonary interstitial markings/linear atelectatic changes. No consolidation. Enlarged main/central pulmonary arteries, likely sequela of secondary pulmonary arterial hypertension. Moderately large size hiatal hernia. Epigastric herniation of anterior wall of the distal portion of the stomach. Electronically signed by: Louise Amanda MD, GOPIR 10/08/24 23:[address] 10/08/24 20:28 Exam(s): CT HEAD Without Contrast EXAM: CT Head Without Intravenous Contrast CLINICAL HISTORY: Reason for exam: weakness. TECHNIQUE: Axial computed tomography images of the head/brain without intravenous contrast. CTDI is 36.67 mGy and DLP is 624.41 mGy-cm. Automated exposure control was utilized for the study. A dose lowering technique was utilized adhering to the principles of ALARA. COMPARISON: Prior head CT from January 21, 2025. FINDINGS: Brain: Unremarkable. No hemorrhage. Mild nonspecific left matter changes. No edema. Ventricles: Moderate ventriculomegaly. Bones/joints: Unremarkable. No acute fracture. Soft tissues: Unremarkable. Sinuses: Chronic ethmoid and right maxillary sinusitis. No acute sinusitis. Mastoid air cells: Unremarkable as visualized. No mastoid effusion. IMPRESSION: No evidence of acute intracranial pathology. Electronically signed by: Giovana Monroy MD 10/09/24 00:24 AM Discharge Plan Visit Data Chief Complaint: Weakness Stated Complaint: AMS, Possible Fall ED Provider: Manish Francis Discharge Problem: Weakness, Hyponatremia, Hypoxia, Acute UTI Patient Disposition: Being Evaluated by Hospitalist Forms Stand Alone Forms: My [facility] Prescriptions Prescriptions: No Action atorvastatin 10 mg tablet 10 mg PO DAILY cyanocobalamin (vitamin B-12) [Vitamin B-12] 1,000 mcg Tablet 1,000 mcg PO DAILY omeprazole 40 mg capsule,delayed release(DR/EC) 40 mg PO DAILY aspirin 81 mg Tablet,Chewable 81 mg PO DAILY metformin 500 mg tablet extended release 24 hr 1,000 mg PO BID pregabalin 100 mg capsule 100 mg PO BID Januvia 100 mg tablet 100 mg PO DAILY Eliquis 5 mg Tablet 5 mg PO BID Qty: 180 0RF buspirone 5 mg tablet 5 mg PO BID cetirizine [Zyrtec] 10 mg Tablet 10 mg PO DAILY metoprolol succinate 25 mg tablet extended release 24 hr 12.5 mg PO DAILY escitalopram oxalate [Lexapro] 20 mg Tablet 20 mg PO DAILY ferrous sulfate 325 mg (65 mg iron) tablet 325 mg PO DAILY azelastine 137 mcg (0.1 %) spray,non-aerosol 137 mcg intranasal BID Referrals Referrals: Royce Mckeon MD [Primary Care Provider] -
[2024-10-08] MEDS: MAGNESIUM SULFATE / D5W 1 GM/100 ML BAG IV STA (21:06)
[2024-10-08 21:13] LABS: Albumin Globulin Ratio 1.2 (0.9-2); Albumin Level 3.8 gm/dl (3.4-5.0); BUN Creatinine Ratio 17.9 (10-20); Calcium 8.6 mg/dl (8.6-10.3); Creatinine Clr Calc Pharmacy 36.4 ml/min; Globulin 3.3 gm/dl (2.5-4.0); Magnesium 1.1 mg/dl (1.7-2.4); Potassium 4.6 mmol/L (3.5-5.1); Total Protein 7.1 gm/dl (6.0-8.3)
[2024-10-08 21:15] LABS: Appearance Urine Cloudy (Clear); Bacteria Urine Automated 4+ (None Seen); Bilirubin Urine Negative (Negative); Blood Urine 1+ (Negative); Color Urine Yellow; Epithelial Cell Urine Auto 0-2 /hpf (0-2); Glucose Urine UA Negative (Negative); Ketones Urine Trace (Negative); Leukocyte Esterase Urine 3+ (Negative); Nitrite Urine Negative (Negative); Protein Urine 1+ (Negative); RBC Urine Automated 0-2 /hpf (0-2); Specific Gravity Urine 1.013 (1.000-1.030); Urobilinogen Urine Negative (Negative); WBC Urine Automated >50 /hpf (0-5)
[2024-10-08 21:19] LABS: Troponin I High Sensitivity 3.7 pg/ml (0-14)
[2024-10-08 21:24] LABS: Basophils # (auto) 0.03 K/uL (0.00-0.20); Basophils % (auto) 0.2 %; Hematocrit (blood only) 30.3 % (37.0-47.0); Hemoglobin 9.8 g/dl (12.0-16.0); Immature Granulocytes # (auto) 0.11 K/uL (0.01-0.20); Immature Granulocytes % (auto) 0.8 %; Lymphocytes # (auto) 1.09 K/uL (1.20-3.40); Lymphocytes % (auto) 7.5 %; Mean Corpuscular Hemoglobin 24.1 pg (25.0-34.0); Mean Corpuscular Hgb Conc 32.3 g/dL (32.0-36.0); Mean Corpuscular Volume 74.4 fL (80.0-100.0); Mean Platelet Volume 11.2 fL (9.4-12.4); Monocytes # (auto) 0.76 K/uL (0.11-0.59); Monocytes % (auto) 5.2 %; Neutrophils # (auto) 12.53 K/uL (1.40-6.50); Neutrophils % (auto) 86.3 %; Platelet Count 210 K/uL (130-400); RDW Coefficient of Variation 17.8 % (11.5-14.5); RDW Standard Deviation 47.4 fL (36.4-46.3); Red Blood Count 4.07 M/uL (4.20-5.40); White Blood Count 14.52 K/ul (4.8-10.8)
[2024-10-08 21:28] LABS: Thyroid Stimulating Hormone 0.899 uIu/ml (0.300-4.500)
[2024-10-08 21:39] LABS: Adenovirus PCR Not Detected (NotDetected); Bordetella parapertussis PCR Not Detected (NotDetected); Bordetella pertussis PCR Not Detected (NotDetected); Chlamydia pneumoniae PCR Not Detected (NotDetected); Coronavirus 229E PCR Not Detected (NotDetected); Coronavirus CoV-2 (COVID19)PCR Not Detected (NotDetected); Coronavirus HKU1 PCR Not Detected (NotDetected); Coronavirus NL63 PCR Not Detected (NotDetected); Coronavirus OC43PCR Not Detected (NotDetected); Human Metapneumovirus PCR Not Detected (NotDetected); Influenza A PCR Not Detected (NotDetected); Influenza B PCR Not Detected (NotDetected); Mycoplasma pneumoniae PCR Not Detected (NotDetected); Parainfluenza Virus 1 PCR Not Detected (NotDetected); Parainfluenza Virus 2 PCR Not Detected (NotDetected); Parainfluenza Virus 3 PCR Not Detected (NotDetected); Parainfluenza Virus 4 PCR Not Detected (NotDetected); Respiratory Syncytial VirusPCR Not Detected (NotDetected); Rhinovirus/Enterovirus PCR Not Detected (NotDetected)
[2024-10-08] MEDS: SODIUM CHLORIDE 0.9% 500 ML IV ONE ×2 (21:40→22:30)
--- NOTE | 2024-10-08 22:28 | History & Physical Report ---
Date of Service October 08, 2024 History of Present Illness Primary Care Provider: Royce Mckeon MD Allergies Allergy/AdvReac Type Severity Reaction Status Date / Time erythromycin base AdvReac Intermediate Gastrointestinal Verified 01/03/23 18:30 Upset Home Medications Medication Instructions Recorded Confirmed Type aspirin 81 mg chewable tablet 81 mg PO DAILY 12/27/20 10/08/24 History atorvastatin 10 mg tablet 10 mg PO DAILY 12/27/20 10/08/24 History cyanocobalamin (vitamin B-12) 1,000 mcg PO DAILY 12/27/20 10/08/24 History 1,000 mcg tablet (Vitamin B-12) metformin 500 mg tablet,extended 1,000 mg PO BID 12/27/20 10/08/24 History release 24 hr omeprazole 40 mg capsule,delayed 40 mg PO DAILY 12/27/20 10/08/24 History release pregabalin 100 mg capsule 100 mg PO BID 12/27/20 10/08/24 History sitagliptin phosphate 100 mg 100 mg PO DAILY 12/27/20 10/08/24 History tablet (Januvia) apixaban 5 mg tablet (Eliquis) 5 mg PO BID #180 tabs 12/30/20 10/08/24 Rx buspirone 5 mg tablet 5 mg PO BID 11/20/22 10/08/24 History cetirizine 10 mg tablet (Zyrtec) 10 mg PO DAILY 11/20/22 10/08/24 History escitalopram oxalate 20 mg tablet 20 mg PO DAILY 11/20/22 10/08/24 History (Lexapro) metoprolol succinate 25 mg 12.5 mg PO DAILY 11/20/22 10/08/24 History tablet,extended release 24 hr azelastine 137 mcg (0.1 %) nasal 137 mcg intranasal BID 10/08/24 10/08/24 History spray ferrous sulfate 325 mg (65 mg 325 mg PO DAILY 10/08/24 10/08/24 History iron) tablet Past Med/Surg History Problem List (Updated 10/08/24 @ 21:34 by Manish Francis M.D.) Acute UTI (Acute) Hypoxia (Acute) Hyponatremia (Acute) Weakness (Acute) Foot fracture, right Sacroiliac joint pain Contusion Maldonado fracture Atrial fibrillation Right knee DJD Fall Hypokalemia (Acute) New onset atrial fibrillation (Acute) Depression GERD (gastroesophageal reflux disease) (Chronic) Diabetes mellitus, type II Chronic cough (Chronic) Medical History Chronic pulmonary embolism Cardiomyopathy History of DVT (deep vein thrombosis) 20 years ago Surgical History Hx of cataract surgery S/P hernia repair History of cholecystectomy H/O hernia repair Family History Other Cancer Heart disease Social History Smoking Status: Never smoker Hx Alcohol Use: No Hx Substance Use: No Preferred Language: Tuvaluan Communication Ability: Effective Visual Impairment: No Limitations Medical Receptionist Medical Assistant Required: No Beliefs That Will Affect Care: None Current Living Situation: Alone Current Living Situation Comment: has someone stay with her every day, changes weekly per family current occupational status: retired Feels Safe at Home: Yes Assistive Devices: Walker Results & Data Results & Data Vital Signs (Past 12 Hours) Vital Signs Temp Pulse Resp BP Pulse Ox O2 Del Method O2 Flow Rate 10/08/24 21:31 107 H 20 91/67 L 91 Nasal Cannula 2 10/08/24 21:00 112 H 16 104/63 98 Nasal Cannula 2 10/08/24 20:38 88 L Room Air 10/08/24 20:30 111 H 20 97/66 L 88 L Room Air 10/08/24 20:29 108 H 18 93 Room Air 10/08/24 20:21 120 H 10/08/24 20:16 36.6 C 111 H 18 103/71 93 Room Air Laboratory Results Laboratory Results WBC 14.52 K/ul (4.8-10.8) H 10/08/24 20:21 RBC 4.07 M/uL (4.20-5.40) L 10/08/24 20:21 Hgb 9.8 g/dl (12.0-16.0) L 10/08/24 20:21 POC Hgb 10.9 g/dl (12.0-16.0) L 10/08/24 20:26 Hct 30.3 % (37.0-47.0) L 10/08/24 20:21 POC Hct 32 % (37-47) L 10/08/24 20: MCV 74.4 fL (80.0-100.0) L 10/08/24 20: MCH 24.1 pg (25.0-34.0) L 10/08/24 20: MCHC 32.3 g/dL (32.0-36.0) 10/08/24 20: RDW Std Deviation 47.4 fL (36.4-46.3) H 10/08/24: RDW Coeff of Lesley 17.8 % (11.5-14.5) H 10/08/24 20: Plt Count 210 K/uL (130-400) 10/08/24: MPV 11.2 fL (9.4-12.4) 10/08/24 20: Immature Gran % (Auto) 0.8 % 10/08/24: Neut % (Auto) 86.3 % 10/08/24: Lymph % (Auto) 7.5 % 10/08/24: [place] % (Auto) 5.2 % 10/08/24 20: Eos % (Auto) 0.0 % 10/08/24 20: Baso % (Auto) 0.2 % 10/08/24: Neut # (Auto) 12.53 K/uL (1.40-6.50) H 10/08/24 20: Lymph # (Auto) 1.09 K/uL (1.20-3.40) L 10/08/24: [place] # (Auto) 0.76 K/uL (0.11-0.59) H 10/08/24 20: Eos # (Auto) 0.00 K/uL (0.00-0.50) 10/08/24 20: Baso # (Auto) 0.03 K/uL (0.00-0.20) 10/08/24: Immature Gran # (Auto) 0.11 K/uL (0.01-0.20) 10/08/24 20:21 PT Cancelled 10/08/24 20:21 INR Cancelled 10/08/24 20: POC Sodium 128 mmol/L (135-144) L 10/08/24: Sodium 126 mmol/L (136-145) L 10/08/24 20: POC Potassium 4.6 mmol/L (3.3-5.0) 10/08/24 20: Potassium 4.6 mmol/L (3.5-5.1) 10/08/24 20:21 POC Chloride 93 mmol/L (101-112) L 10/08/24 20: Chloride 94 mmol/L (98-107) L 10/08/24 20: Carbon Dioxide 27 mmol/L (21-32) 10/08/24 20: POC Total CO2 25 mmol/L (24-31) 10/08/24 20: Anion Gap 5 (3-11) 10/08/24 20: POC Anion Gap 16.0 mmol/L (16-25) 10/08/24 20: POC BUN 19 mg/dl (7-18) H 10/08/24 20: BUN 19 mg/dl (6-23) 10/08/24 20: Creatinine 1.06 mg/dl (0.6-1.2) 10/08/24 20: POC Creatinine 1.1 mg/dl (0.6-1.3) 10/08/24 20: Est Cr Clr Drug Dosing 36.4 ml/min 10/08/24 20: eGFR 50.84 10/08/24 20: BUN/Creatinine Ratio 17.9 (10-20) 10/08/24 20: Glucose 192 mg/dl (70-99(Fasting)) H 10/08/24 20: POC Glucose (other) 184 mg/dl (70-99) H 10/08/24 20: Calcium 8.6 mg/dl (8.6-10.3) 10/08/24 20: POC Ioniz Calcium Clive 1.08 mmol/l (1.12-1.32) L 10/08/24 20: Magnesium 1.1 mg/dl (1.7-2.4) L 10/08/24 20: Total Bilirubin 1.0 mg/dl (0.2-1.0) 10/08/24 20: AST 17 U/L (13-39) 10/08/24 20:21 ALT 9 U/L (7-52) 10/08/24 20:21 Alkaline Phosphatase 68 U/L (34-104) 10/08/24 20:21 Total Creatine Kinase 136 U/L (26-192) 10/08/24 20:21 Troponin I High Sens 3.7 pg/ml (0-14) 10/08/24 20:21 B-Natriuretic Peptide 594 pg/ml (0-100) H 10/08/24 20:21 Total Protein 7.1 gm/dl (6.0-8.3) 10/08/24 20:21 Albumin 3.8 gm/dl (3.4-5.0) 10/08/24 20:21 Globulin 3.3 gm/dl (2.5-4.0) 10/08/24 20: Albumin/Globulin Ratio 1.2 (0.9-2) 10/08/24 20: Procalcitonin 0.23 ng/ml (0-0.5) 10/08/24 20: TSH 0.899 uIu/ml (0.300-4.500) 10/08/24 20: Urine Color Yellow 10/08/24 20:36 Urine Appearance Cloudy (Clear) A 10/08/24 20:36 Urine pH 5.0 (4.5-7.5) 10/08/24 20:36 Ur Specific [place] 1.013 (1.000-1.030) 10/08/24 20:36 Urine Protein 1+ (Negative) H 10/08/24 20:36 Urine Glucose (UA) Negative (Negative) 10/08/24 20:36 Urine Ketones Trace (Negative) H 10/08/24 20:36 Urine Blood 1+ (Negative) H 10/08/24 20:36 Urine Nitrite Negative (Negative) 10/08/24 20:36 Urine Bilirubin Negative (Negative) 10/08/24 20:36 Urine Urobilinogen Negative (Negative) 10/08/24 20:36 Ur Leukocyte Esterase 3+ (Negative) H 10/08/24 20:36 Urine WBC (Auto) >50 /hpf (0-5) H 10/08/24 20:36 Urine RBC (Auto) 0-2 /hpf (0-2) 10/08/24 20:36 U Hyaline Cast (Auto) 6-10 /lpf (0-2) H 10/08/24 20:36 U Epithel Cells (Auto) 0-2 /hpf (0-2) 10/08/24 20:36 Urine Bacteria (Auto) 4+ (None Seen) H 10/08/24 20:36 Adenovirus (PCR) Not Detected (NotDetected) 10/08/24 20:20 B. pertussis DNA (PCR) Not Detected (NotDetected) 10/08/24 20:20 B.parapertussis DNA PCR Not Detected (NotDetected) 10/08/24 20:20 C. pneumoniae DNA (PCR) Not Detected (NotDetected) 10/08/24 20:20 Coronavirus OC43 (PCR) Not Detected (NotDetected) 10/08/24 20:20 Coronavirus HKU1 (PCR) Not Detected (NotDetected) 10/08/24 20:20 Coronavirus 229E (PCR) Not Detected (NotDetected) 10/08/24 20:20 SARS-CoV-2 (PCR) Not Detected (NotDetected) 10/08/24 20:20 Coronavirus NL63 (PCR) Not Detected (NotDetected) 10/08/24 20:20 Human Metapneumovir PCR Not Detected (NotDetected) 10/08/24 20:20 Influenza Type A (PCR) Not Detected (NotDetected) 10/08/24 20:20 Influenza Type B (PCR) Not Detected (NotDetected) 10/08/24 20:20 M. pneumoniae (PCR) Not Detected (NotDetected) 10/08/24 20:20 Parainfluenza 1 (PCR) Not Detected (NotDetected) 10/08/24 20:20 Parainfluenza 2 (PCR) Not Detected (NotDetected) 10/08/24 20:20 Parainfluenza 3 (PCR) Not Detected (NotDetected) 10/08/24 20:20 Parainfluenza 4 (PCR) Not Detected (NotDetected) 10/08/24 20:20 RSV (PCR) Not Detected (NotDetected) 10/08/24 20:20 Entero/Rhino (PCR) Not Detected (NotDetected) 10/08/24 20:20
[2024-10-08 22:29] LABS: INR 1.3 (0.9-1.1); Prothrombin Time 13.5 Seconds (9.0-12.0)
[2024-10-08] MEDS: METOPROLOL TARTRATE 1 MG/ML VIAL IV STA (22:31)
[2024-10-08] MEDS: MAGNESIUM SULFATE / D5W 1 GM/100 ML BAG IV SCH (22:39)
[2024-10-08] MEDS: CEFEPIME 2000MG 2,000 MG/20 ML SYR IV STA (22:51)
[2024-10-08] MEDS: DIGOXIN 250 MCG in SYRINGE 9 ML IV STA (22:57)
--- NOTE | 2024-10-08 23:50 | CT Scan Report ---
Exam(s): CT CHEST Without Contrast EXAM: CT Chest Without Intravenous Contrast CLINICAL HISTORY: Reason for exam: cough, weak. TECHNIQUE: Axial computed tomography images of the chest without intravenous contrast. CTDI is 11.47 mGy and DLP is 748.88 mGy-cm. Automated exposure control was utilized for the study. A dose lowering technique was utilized adhering to the principles of ALARA. COMPARISON: X-ray chest: 10/08/2024 FINDINGS: Image quality is degraded by motion and beam hardening artifacts. Patient's left hand left over the chest. Lungs: Central airways are patent. Bilateral bronchial wall thickening and mild dilatation. Bibasilar increased interstitial markings/linear atelectatic changes. No mass. No consolidation. Pleural space: Mild posterior pleural thickening LT>RT. No pneumothorax. No significant effusion. Heart: Mild/moderate cardiomegaly. No significant pericardial effusion. Mild coronary artery calcifications. Bones/joints: Osteopenia. No acute fracture. No dislocation. Degenerative thoracolumbar spondylosis. Soft tissues: Unremarkable. Vasculature: Enlarged main/central pulmonary arteries: 35 mm in diameter, likely sequela of secondary pulmonary arterial hypertension. No thoracic aortic aneurysm. Lymph nodes: Unremarkable. No enlarged lymph nodes. Other findings: A moderately large size hiatal hernia. Epigastric herniation of the anterior wall of the distal portion of the stomach. IMPRESSION: . Bilateral bronchial wall thickening/mild bronchiectasis. Basilar increased pulmonary interstitial markings/linear atelectatic changes. No consolidation. Enlarged main/central pulmonary arteries, likely sequela of secondary pulmonary arterial hypertension. Moderately large size hiatal hernia. Epigastric herniation of anterior wall of the distal portion of the stomach. Electronically signed by: Louise Amanda MD, GOPIR 10/08/24 23:48 PM
[2024-10-09] MEDS: PIPERACILLIN/TAZOBACTAM 4.5 GM/100 ML BAG IV ONE (00:10)
[2024-10-09 00:12] LABS: Base Excess VBG -0.8 mEq/L; HCO3 VBG 26 mmol/L; Oxygen Saturation VBG < 60.0 %; PCO2 VBG 52 mmHg (38-50); PO2 VBG 28 mmHg; pH VBG 7.31 (7.36-7.41)
--- NOTE | 2024-10-09 00:25 | CT Scan Report ---
Exam(s): CT HEAD Without Contrast EXAM: CT Head Without Intravenous Contrast CLINICAL HISTORY: Reason for exam: weakness. TECHNIQUE: Axial computed tomography images of the head/brain without intravenous contrast. CTDI is 36.67 mGy and DLP is 624.41 mGy-cm. Automated exposure control was utilized for the study. A dose lowering technique was utilized adhering to the principles of ALARA. COMPARISON: Prior head CT from January 21, 2025. FINDINGS: Brain: Unremarkable. No hemorrhage. Mild nonspecific left matter changes. No edema. Ventricles: Moderate ventriculomegaly. Bones/joints: Unremarkable. No acute fracture. Soft tissues: Unremarkable. Sinuses: Chronic ethmoid and right maxillary sinusitis. No acute sinusitis. Mastoid air cells: Unremarkable as visualized. No mastoid effusion. IMPRESSION: No evidence of acute intracranial pathology. Electronically signed by: Giovana Monroy MD 10/09/24 00:24 AM
--- NOTE | 2024-10-09 00:33 | CT Scan Report ---
Exam(s): CT ABDOMEN + PELVIS Without Contrast EXAM: CT Abdomen and Pelvis Without Intravenous Contrast CLINICAL HISTORY: Reason for exam: weak, poss fall, eliquis. TECHNIQUE: Axial computed tomography images of the abdomen and pelvis without intravenous contrast. CTDI is 11.47 mGy and DLP is 748.88 mGy-cm. Automated exposure control was utilized for the study. A dose lowering technique was utilized adhering to the principles of ALARA. COMPARISON: None. FINDINGS: Lung bases: Concurrently performed CT chest is reported separately. ABDOMEN: Lack of IV contrast limits evaluation of soft tissues and vascular structures. Image quality is also significantly degraded by motion and beam hardening artifacts. Patient's both arms left over the body. Liver: Grossly unremarkable. Gallbladder and bile ducts: Prior cholecystectomy. No ductal dilation. Pancreas: Diffuse fatty infiltration and moderate atrophy. No ductal dilation. Spleen: No splenomegaly. Adrenals: Unremarkable. No mass. Kidneys and ureters: In a given history of trauma a minor injury of the inferior pole of the right kidney is suspected with inferiorly perinephric small hematoma/edema like fluid density and stranding (series 13 image 30-33, series 1200 image 64). The left kidney appears small compared to the right. No obstructing stones. No hydronephrosis. Stomach and bowel: A moderately large size hiatal hernia. An epigastric herniation of a gas filled stomach distal anterior wall (series 13 image 23). Stool and gas filled horizontally placed distended cecum. Moderately large colonic stool/gas volume. No obstruction. No mucosal thickening. PELVIS: Appendix: No acute findings in the region of the appendix. Bladder: A nearly empty bladder. No stones. Reproductive: Anteverted senile uterus. ABDOMEN and PELVIS: Intraperitoneal space: Unremarkable. No free air. No significant fluid collection. Bones/joints: Osteopenia. Multilevel moderate degenerative disc/endplate disease changes. Small endplate defects/Schmorl's nodes. No acute fracture. No dislocation. Lower lumbosacral facet osteoarthropathy. Moderate lumbar levoscoliosis. Soft tissues: Right lateral lower chest and abdominal quintanilla soft tissue contusions and swelling (series 13 image 3, series 1200 image 81). Vasculature: Diffuse calcified atherosclerosis of the aortoiliac vasculature and branch vessels. No abdominal aortic aneurysm. Lymph nodes: No significantly enlarged lymph nodes. IMPRESSION: Suspect minor injury to the inferior pole of the right kidney with small perinephric hematoma/edema like fluid density/stranding. Recommend clinical correlation/follow-up. Right lower chest wall and right lateral abdominal wall soft tissue contusion/swelling. An epigastric herniation of a gas filled stomach distal anterior wall. A moderately large size hiatal hernia. Moderately advanced degenerative disc/endplate disease changes. Multilevel small endplate defects/Schmorl's nodes. Moderate lumbar levoscoliosis. . Electronically signed by: Louise Amanda MD, GOPIR 10/09/24 00:32 AM
[2024-10-09] MEDS ORDERED: PROMETHAZINE 6.25 MG/50.25 ML BAG IV PRN (00:34)
--- NOTE | 2024-10-09 00:38 | CT Scan Report ---
Exam(s): CT C SPINE EXAM: CT Cervical Spine Without Intravenous Contrast CLINICAL HISTORY: Reason for exam: weak, pain earlier. TECHNIQUE: Axial computed tomography images of the cervical spine without intravenous contrast. CTDI is 22.59 mGy and DLP is 364.54 mGy-cm. Automated exposure control was utilized for the study. A dose lowering technique was utilized adhering to the principles of ALARA. COMPARISON: Prior CT scan of the cervical spine from January 22, 2024. FINDINGS: Vertebrae: Incomplete segmentation of the C3 and C4 segments. No acute fracture. Discs/spinal canal/neural foramina: No acute findings. No spinal canal stenosis. Soft tissues: Unremarkable. IMPRESSION: No evidence of acute cervical spine pathology. Electronically signed by: Giovana Monroy MD 10/09/24 00:36 AM
[2024-10-09] MEDS: DOXYCYCLINE HYCLATE 100 MG in DEXTROSE 5% MINI-B 100 ML IV STA (00:42)
--- NOTE | 2024-10-09 00:48 | History & Physical Report ---
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 Possible small perinephric hematoma on imaging, history antiplatelet and Eliquis Rx, patient without pain complaints Hypertension, BP on the lower side Hypomagnesemia chronic systolic heart failure (EF 39%, TTE 2023), patient on the dry side valvular heart disease (severe TR, mild MR) pulmonary hypertension hyperlipidemia, on statin Rx DM2 on oral medications, reasonable control as of recent hemoglobin A1c of 7.6 last September 2024 chronic anemia, hemoglobin at baseline Involuntary arm arm jerks during sleep possible sleep myoclonus rule out seizure disorder PCU Supplemental O2 CS, doxycycline for complicated bronchitis, Zosyn for complicated UTI IVF Hold multiple neuropsychotropic medications for now until patient mentation back to baseline. Digoxin 1 dose for rate control given borderline BP Urology consult in a.m. re: small perinephric hematoma on imaging Appropriate to hold aspirin and Eliquis for now. Replace electrolytes Basal bolus insulin, ISS BG goal 1 10-1 40 EEG re: myoclonic jerks rule out seizures PT OT eval May need placement following family discussion. DVT prophylaxis. SCDs while Eliquis on hold DNR as per prior directives as per daughter Ms. Sandra Yee. She request updates providers through [phone]. Total critical care time was 40 minutes. Text document was generated using [employer] voice recognition software. It may contain grammatical or spelling errors. Kindly contact undersigned for clarification of any documentation item in question. History of Present Illness Chief Complaint: Weakness, shaking, confusion Primary Care Provider: Royce Mckeon MD History obtained from patient, family, and records. Limited history from patient secondary to lethargy. 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 Last confinement November 2022 for E. coli UTI and rotavirus enteritis. 1 week history of congestion symptoms. Patient with junky cough symptoms. No aspiration episodes as per family. Not sure about sick contacts. Patient denies chest pain, SOB. Patient noted to be weak by family 2 nights ago when they left her at home. Yesterday morning, family found patient sitting on the bottom of the steps of a stairway at home. Patient more confused and weak than usual. Patient with episodic arm jerks which family notices especially when she is asleep. Family not sure about trauma. Family has had growing concerns about patient ability to live independently over the last few months. EMS transported patient to ER. O2 sats 80s, rapid A-fib, 120s upon arrival at the ER. Cefepime administered at the ER. Medical History as above Surgical History : Cataract surgery, cholecystectomy, diaphragmatic hernia repair, incisional hernia repair Family History : Heart disease Personal/Social history : Non-smoker, occasional EtOH intake, retired [employer], lives alone Allergies Allergy/AdvReac Type Severity Reaction Status Date / Time erythromycin base AdvReac Intermediate Gastrointestinal Verified 01/03/23 18:30 Upset Home Medications Medication Instructions Recorded Confirmed Type aspirin 81 mg chewable tablet 81 mg PO DAILY 12/27/20 10/08/24 History atorvastatin 10 mg tablet 10 mg PO DAILY 12/27/20 10/08/24 History cyanocobalamin (vitamin B-12) 1,000 mcg PO DAILY 12/27/20 10/08/24 History 1,000 mcg tablet (Vitamin B-12) metformin 500 mg tablet,extended 1,000 mg PO BID 12/27/20 10/08/24 History release 24 hr omeprazole 40 mg capsule,delayed 40 mg PO DAILY 12/27/20 10/08/24 History release pregabalin 100 mg capsule 100 mg PO BID 12/27/20 10/08/24 History sitagliptin phosphate 100 mg 100 mg PO DAILY 12/27/20 10/08/24 History tablet (Januvia) apixaban 5 mg tablet (Eliquis) 5 mg PO BID #180 tabs 12/30/20 10/08/24 Rx buspirone 5 mg tablet 5 mg PO BID 11/20/22 10/08/24 History cetirizine 10 mg tablet (Zyrtec) 10 mg PO DAILY 11/20/22 10/08/24 History escitalopram oxalate 20 mg tablet 20 mg PO DAILY 11/20/22 10/08/24 History (Lexapro) metoprolol succinate 25 mg 12.5 mg PO DAILY 11/20/22 10/08/24 History tablet,extended release 24 hr azelastine 137 mcg (0.1 %) nasal 137 mcg intranasal BID 10/08/24 10/08/24 History spray ferrous sulfate 325 mg (65 mg 325 mg PO DAILY 10/08/24 10/08/24 History iron) tablet Past Med/Surg History Problem List (Updated 10/09/24 @ 04:22 by Bartoloem Vale PA-C) Perinephric hematoma Encephalopathy Acute UTI (Acute) Hypoxia (Acute) Hyponatremia (Acute) Weakness (Acute) Foot fracture, right Sacroiliac joint pain Contusion Maldonado fracture Atrial fibrillation Right knee DJD Fall Hypokalemia (Acute) New onset atrial fibrillation (Acute) Depression GERD (gastroesophageal reflux disease) (Chronic) Diabetes mellitus, type II Chronic cough (Chronic) Medical History Chronic pulmonary embolism Cardiomyopathy History of DVT (deep vein thrombosis) 20 years ago Surgical History Hx of cataract surgery S/P hernia repair History of cholecystectomy H/O hernia repair Family History Other Cancer Heart disease Social History Smoking Status: Unknown if ever smoked Hx Alcohol Use: No Hx Substance Use: No Preferred Language: Indonesian Communication Ability: Effective Visual Impairment: No Limitations Composition Board Press Operator Required: No Beliefs That Will Affect Care: None Current Living Situation: Alone Current Living Situation Comment: has someone stay with her every day, changes weekly per family current occupational status: retired Other Information That Helps Us Care for You: No Feels Safe at Home: Yes Assistive Devices: Walker Review of Systems Review of Systems: Could not be reliably obtained could not be reliably obtained secondary to lethargy Physical Exam Physical Exam: GENERAL: Lethargic, audible wheezing, no respiratory distress SKIN: Pallor, warm HEENT: Pale palpebral conjunctivae, no ptosis, dry buccal mucosa, O2 mask in place NECK : Supple, no tenderness CHEST : Decreased breath sounds, scattered expiratory wheezes, no tenderness HEART : Irregular, no obvious murmurs ABDOMEN: Some distention, nontender EXTREMITIES : No LE swelling/tenderness, palpable pulses, no other conspicuous deformities noted NEUROLOGIC : Lethargic, no facial asymmetry, episodic RUE jerk, gait and stance not assessed Results & Data Results & Data Vital Signs (Past 12 Hours) Vital Signs Temp Pulse Pulse Resp BP BP Pulse Ox 10/09/24 00:36 98 H 10/09/24 00:00 94 H 18 100/49 L 96 10/08/24 22:57 103 H 10/08/24 22:30 101 H 18 95/63 L 97 10/08/24 22:29 112 H 20 97/50 L 97 10/08/24 22:11 100 H 18 89/62 L 97 10/08/24 21:31 107 H 20 91/67 L 91 10/08/24 21:00 112 H 16 104/63 98 10/08/24 20:38 88 L 10/08/24 20:30 111 H 20 97/66 L 88 L 10/08/24 20:29 108 H 18 93 10/08/24 20:21 120 H 10/08/24 20:16 36.6 C 111 H 18 103/71 93 O2 Del Method O2 Flow Rate 10/09/24 00:36 10/09/24 00:00 Oxymask 3 10/08/24 22:57 10/08/24 22:30 10/08/24 22:29 10/08/24 22:11 Oxymask 3 10/08/24 21:31 Nasal Cannula 2 10/08/24 21:00 Nasal Cannula 2 10/08/24 20:38 Room Air 10/08/24 20:30 Room Air 10/08/24 20:29 Room Air 10/08/24 20:21 10/08/24 20:16 Room Air Laboratory Results Laboratory Results WBC 14.52 K/ul (4.8-10.8) H 10/08/24 20:21 RBC 4.07 M/uL (4.20-5.40) L 10/08/24 20:21 Hgb 9.8 g/dl (12.0-16.0) L 10/08/24 20:21 POC Hgb 10.9 g/dl (12.0-16.0) L 10/08/24 20: Hct 30.3 % (37.0-47.0) L 10/08/24 20: POC Hct 32 % (37-47) L 10/08/24 20: MCV 74.4 fL (80.0-100.0) L 10/08/24 20: MCH 24.1 pg (25.0-34.0) L 10/08/24 20: MCHC 32.3 g/dL (32.0-36.0) 10/08/24 20: RDW Std Deviation 47.4 fL (36.4-46.3) H 10/08/24: RDW Coeff of Lesley 17.8 % (11.5-14.5) H 10/08/24 20: Plt Count 210 K/uL (130-400) 10/08/24 20: MPV 11.2 fL (9.4-12.4) 10/08/24 20: Immature Gran % (Auto) 0.8 % 10/08/24 20: Neut % (Auto) 86.3 % 10/08/24 20: Lymph % (Auto) 7.5 % 10/08/24 20: Piatt % (Auto) 5.2 % 10/08/24 20: Eos % (Auto) 0.0 % 10/08/24 20: Baso % (Auto) 0.2 % 10/08/24 20: Neut # (Auto) 12.53 K/uL (1.40-6.50) H 10/08/24 20:21 Lymph # (Auto) 1.09 K/uL (1.20-3.40) L 10/08/24 20: Piatt # (Auto) 0.76 K/uL (0.11-0.59) H 10/08/24 20: Eos # (Auto) 0.00 K/uL (0.00-0.50) 10/08/24 20:21 Baso # (Auto) 0.03 K/uL (0.00-0.20) 10/08/24 20: Immature Gran # (Auto) 0.11 K/uL (0.01-0.20) 10/08/24 20:21 PT 13.5 Seconds (9.0-12.0) H 10/08/24 21:22 INR 1.3 (0.9-1.1) H 10/08/24 21:22 VBG pH 7.31 (7.36-7.41) L 10/08/24 23:59 VBG pCO2 52 mmHg (38-50) H 10/08/24 23:59 VBG pO2 28 mmHg 10/08/24 23:59 VBG HCO3 26 mmol/L 10/08/24 23:59 VBG O2 Saturation < 60.0 % 10/08/24 23:59 VBG Base Excess -0.8 mEq/L 10/08/24 23:59 POC Sodium 128 mmol/L (135-144) L 10/08/24 20: Sodium 128 mmol/L (136-145) L 10/08/24 23:59 POC Potassium 4.6 mmol/L (3.3-5.0) 10/08/24 20: Potassium 4.6 mmol/L (3.5-5.1) 10/08/24 20:21 POC Chloride 93 mmol/L (101-112) L 10/08/24 20: Chloride 94 mmol/L (98-107) L 10/08/24 20:21 Carbon Dioxide 27 mmol/L (21-32) 10/08/24 20:21 POC Total CO2 25 mmol/L (24-31) 10/08/24 20:26 Anion Gap 5 (3-11) 10/08/24 20:21 POC Anion Gap 16.0 mmol/L (16-25) 10/08/24 20:26 POC BUN 19 mg/dl (7-18) H 10/08/24 20:26 BUN 19 mg/dl (6-23) 10/08/24 20:21 Creatinine 1.06 mg/dl (0.6-1.2) 10/08/24 20: POC Creatinine 1.1 mg/dl (0.6-1.3) 10/08/24 20:26 Est Cr Clr Drug Dosing 36.4 ml/min 10/08/24 20:21 eGFR 50.84 10/08/24 20:21 BUN/Creatinine Ratio 17.9 (10-20) 10/08/24 20:21 Glucose 192 mg/dl (70-99(Fasting)) H 10/08/24 20:21 POC Glucose (other) 184 mg/dl (70-99) H 10/08/24 20:26 Osmolality 276 mOsm/kg (280-300) L 10/08/24 20:21 Lactate 1.8 mmol/L (0.4-2.0) 10/08/24 22:25 Calcium 8.6 mg/dl (8.6-10.3) 10/08/24 20:21 POC Ioniz Calcium Clive 1.08 mmol/l (1.12-1.32) L 10/08/24 20: Magnesium 1.1 mg/dl (1.7-2.4) L 10/08/24 20:21 Total Bilirubin 1.0 mg/dl (0.2-1.0) 10/08/24 20:21 AST 17 U/L (13-39) 10/08/24 20:21 ALT 9 U/L (7-52) 10/08/24 20:21 Alkaline Phosphatase 68 U/L (34-104) 10/08/24 20:21 Ammonia 11.0 umol/L (18-72) L 10/08/24 23:59 Total Creatine Kinase 136 U/L (26-192) 10/08/24 20:21 Troponin I High Sens 3.7 pg/ml (0-14) 10/08/24 20:21 B-Natriuretic Peptide 594 pg/ml (0-100) H 10/08/24 20:21 Total Protein 7.1 gm/dl (6.0-8.3) 10/08/24 20:21 Albumin 3.8 gm/dl (3.4-5.0) 10/08/24 20:21 Globulin 3.3 gm/dl (2.5-4.0) 10/08/24 20:21 Albumin/Globulin Ratio 1.2 (0.9-2) 10/08/24 20:21 Procalcitonin 0.23 ng/ml (0-0.5) 10/08/24 20:21 TSH 0.899 uIu/ml (0.300-4.500) 10/08/24 20:21 Urine Color Yellow 10/08/24 20:36 Urine Appearance Cloudy (Clear) A 10/08/24 20:36 Urine pH 5.0 (4.5-7.5) 10/08/24 20:36 Ur Specific [place] 1.013 (1.000-1.030) 10/08/24 20:36 Urine Protein 1+ (Negative) H 10/08/24 20:36 Urine Glucose (UA) Negative (Negative) 10/08/24 20:36 Urine Ketones Trace (Negative) H 10/08/24 20:36 Urine Blood 1+ (Negative) H 10/08/24 20:36 Urine Nitrite Negative (Negative) 10/08/24 20:36 Urine Bilirubin Negative (Negative) 10/08/24 20:36 Urine Urobilinogen Negative (Negative) 10/08/24 20:36 Ur Leukocyte Esterase 3+ (Negative) H 10/08/24 20:36 Urine WBC (Auto) >50 /hpf (0-5) H 10/08/24 20:36 Urine RBC (Auto) 0-2 /hpf (0-2) 10/08/24 20:36 U Hyaline Cast (Auto) 6-10 /lpf (0-2) H 10/08/24 20:36 U Epithel Cells (Auto) 0-2 /hpf (0-2) 10/08/24 20:36 Urine Bacteria (Auto) 4+ (None Seen) H 10/08/24 20:36 Adenovirus (PCR) Not Detected (NotDetected) 10/08/24 20:20 B. pertussis DNA (PCR) Not Detected (NotDetected) 10/08/24 20:20 B.parapertussis DNA PCR Not Detected (NotDetected) 10/08/24 20:20 C. pneumoniae DNA (PCR) Not Detected (NotDetected) 10/08/24 20:20 Coronavirus OC43 (PCR) Not Detected (NotDetected) 10/08/24 20:20 Coronavirus HKU1 (PCR) Not Detected (NotDetected) 10/08/24 20:20 Coronavirus 229E (PCR) Not Detected (NotDetected) 10/08/24 20:20 SARS-CoV-2 (PCR) Not Detected (NotDetected) 10/08/24 20:20 Coronavirus NL63 (PCR) Not Detected (NotDetected) 10/08/24 20:20 Human Metapneumovir PCR Not Detected (NotDetected) 10/08/24 20:20 Influenza Type A (PCR) Not Detected (NotDetected) 10/08/24 20:20 Influenza Type B (PCR) Not Detected (NotDetected) 10/08/24 20:20 M. pneumoniae (PCR) Not Detected (NotDetected) 10/08/24 20:20 Parainfluenza 1 (PCR) Not Detected (NotDetected) 10/08/24 20:20 Parainfluenza 2 (PCR) Not Detected (NotDetected) 10/08/24 20:20 Parainfluenza 3 (PCR) Not Detected (NotDetected) 10/08/24 20:20 Parainfluenza 4 (PCR) Not Detected (NotDetected) 10/08/24 20:20 RSV (PCR) Not Detected (NotDetected) 10/08/24 20:20 Entero/Rhino (PCR) Not Detected (NotDetected) 10/08/24 20:20 Impressions Abdomen/Pelvis CT 10/08/24 20:27 Exam(s): CT ABDOMEN + PELVIS Without Contrast EXAM: CT Abdomen and Pelvis Without Intravenous Contrast CLINICAL HISTORY: Reason for exam: weak, poss fall, eliquis. TECHNIQUE: Axial computed tomography images of the abdomen and pelvis without intravenous contrast. CTDI is 11.47 mGy and DLP is 748.88 mGy-cm. Automated exposure control was utilized for the study. A dose lowering technique was utilized adhering to the principles of ALARA. COMPARISON: None. FINDINGS: Lung bases: Concurrently performed CT chest is reported separately. ABDOMEN: Lack of IV contrast limits evaluation of soft tissues and vascular structures. Image quality is also significantly degraded by motion and beam hardening artifacts. Patient's both arms left over the body. Liver: Grossly unremarkable. Gallbladder and bile ducts: Prior cholecystectomy. No ductal dilation. Pancreas: Diffuse fatty infiltration and moderate atrophy. No ductal dilation. Spleen: No splenomegaly. Adrenals: Unremarkable. No mass. Kidneys and ureters: In a given history of trauma a minor injury of the inferior pole of the right kidney is suspected with inferiorly perinephric small hematoma/edema like fluid density and stranding (series 13 image 30-33, series 1200 image 64). The left kidney appears small compared to the right. No obstructing stones. No hydronephrosis. Stomach and bowel: A moderately large size hiatal hernia. An epigastric herniation of a gas filled stomach distal anterior wall (series 13 image 23). Stool and gas filled horizontally placed distended cecum. Moderately large colonic stool/gas volume. No obstruction. No mucosal thickening. PELVIS: Appendix: No acute findings in the region of the appendix. Bladder: A nearly empty bladder. No stones. Reproductive: Anteverted senile uterus. ABDOMEN and PELVIS: Intraperitoneal space: Unremarkable. No free air. No significant fluid collection. Bones/joints: Osteopenia. Multilevel moderate degenerative disc/endplate disease changes. Small endplate defects/Schmorl's nodes. No acute fracture. No dislocation. Lower lumbosacral facet osteoarthropathy. Moderate lumbar levoscoliosis. Soft tissues: Right lateral lower chest and abdominal quintanilla soft tissue contusions and swelling (series 13 image 3, series 1200 image 81). Vasculature: Diffuse calcified atherosclerosis of the aortoiliac vasculature and branch vessels. No abdominal aortic aneurysm. Lymph nodes: No significantly enlarged lymph nodes. IMPRESSION: Suspect minor injury to the inferior pole of the right kidney with small perinephric hematoma/edema like fluid density/stranding. Recommend clinical correlation/follow-up. Right lower chest wall and right lateral abdominal wall soft tissue contusion/swelling. An epigastric herniation of a gas filled stomach distal anterior wall. A moderately large size hiatal hernia. Moderately advanced degenerative disc/endplate disease changes. Multilevel small endplate defects/Schmorl's nodes. Moderate lumbar levoscoliosis. . Electronically signed by: Louise Amanda MD, DABR 10/09/24 00:[address] 10/08/24 20:27 Exam(s): CT C SPINE EXAM: CT Cervical Spine Without Intravenous Contrast CLINICAL HISTORY: Reason for exam: weak, pain earlier. TECHNIQUE: Axial computed tomography images of the cervical spine without intravenous contrast. CTDI is 22.59 mGy and DLP is 364.54 mGy-cm. Automated exposure control was utilized for the study. A dose lowering technique was utilized adhering to the principles of ALARA. COMPARISON: Prior CT scan of the cervical spine from January 22, 2024. FINDINGS: Vertebrae: Incomplete segmentation of the C3 and C4 segments. No acute fracture. Discs/spinal canal/neural foramina: No acute findings. No spinal canal stenosis. Soft tissues: Unremarkable. IMPRESSION: No evidence of acute cervical spine pathology. Electronically signed by: Giovana Monroy MD 10/09/24 00:[address] 10/08/24 20:27 Exam(s): CT CHEST Without Contrast EXAM: CT Chest Without Intravenous Contrast CLINICAL HISTORY: Reason for exam: cough, weak. TECHNIQUE: Axial computed tomography images of the chest without intravenous contrast. CTDI is 11.47 mGy and DLP is 748.88 mGy-cm. Automated exposure control was utilized for the study. A dose lowering technique was utilized adhering to the principles of ALARA. COMPARISON: X-ray chest: 10/08/2024 FINDINGS: Image quality is degraded by motion and beam hardening artifacts. Patient's left hand left over the chest. Lungs: Central airways are patent. Bilateral bronchial wall thickening and mild dilatation. Bibasilar increased interstitial markings/linear atelectatic changes. No mass. No consolidation. Pleural space: Mild posterior pleural thickening LT>RT. No pneumothorax. No significant effusion. Heart: Mild/moderate cardiomegaly. No significant pericardial effusion. Mild coronary artery calcifications. Bones/joints: Osteopenia. No acute fracture. No dislocation. Degenerative thoracolumbar spondylosis. Soft tissues: Unremarkable. Vasculature: Enlarged main/central pulmonary arteries: 35 mm in diameter, likely sequela of secondary pulmonary arterial hypertension. No thoracic aortic aneurysm. Lymph nodes: Unremarkable. No enlarged lymph nodes. Other findings: A moderately large size hiatal hernia. Epigastric herniation of the anterior wall of the distal portion of the stomach. IMPRESSION: . Bilateral bronchial wall thickening/mild bronchiectasis. Basilar increased pulmonary interstitial markings/linear atelectatic changes. No consolidation. Enlarged main/central pulmonary arteries, likely sequela of secondary pulmonary arterial hypertension. Moderately large size hiatal hernia. Epigastric herniation of anterior wall of the distal portion of the stomach. Electronically signed by: Louise Amanda MD, DABR 10/08/24 23:[address] 10/08/24 20:28 Exam(s): CT HEAD Without Contrast EXAM: CT Head Without Intravenous Contrast CLINICAL HISTORY: Reason for exam: weakness. TECHNIQUE: Axial computed tomography images of the head/brain without intravenous contrast. CTDI is 36.67 mGy and DLP is 624.41 mGy-cm. Automated exposure control was utilized for the study. A dose lowering technique was utilized adhering to the principles of ALARA. COMPARISON: Prior head CT from January 21, 2025. FINDINGS: Brain: Unremarkable. No hemorrhage. Mild nonspecific left matter changes. No edema. Ventricles: Moderate ventriculomegaly. Bones/joints: Unremarkable. No acute fracture. Soft tissues: Unremarkable. Sinuses: Chronic ethmoid and right maxillary sinusitis. No acute sinusitis. Mastoid air cells: Unremarkable as visualized. No mastoid effusion. IMPRESSION: No evidence of acute intracranial pathology. Electronically signed by: Giovana Monroy MD 10/09/24 00:24 AM Code Status & VTE Plan VTE Prophylaxis Plan VTE Prophylaxis will be ordered: Yes
[2024-10-09] MEDS ORDERED: GLUCOSE 40% GEL 15 GM TUBE PO PRN (01:40)
[2024-10-09] MEDS ORDERED: DEXTROSE 50% 50 ML SYRINGE IV PRN (01:40)
[2024-10-09] MEDS ORDERED: GLUCAGON FOR INJ 1 MG VIAL SQ PRN (01:40)
[2024-10-09] MEDS ORDERED: CARBOHYDRATES FOR HYPOGLYCEMIA PO PRN (01:40)
[2024-10-09] MEDS ORDERED: GLUCOSE 10 TAB/TUBE PO PRN (01:40)
[2024-10-09] MEDS: INSULIN ASPART PER UNIT CHARGE SC SCH (02:00)
[2024-10-09] MEDS: LEVALBUTEROL 1.25 MG/3 ML NEB NEB STA (02:34)
[2024-10-09] MEDS: IPRATROPIUM BROMIDE NEB SOLN 0.02% 0.5MG/2.5ML VIAL INH STA (02:34)
--- NOTE | 2024-10-09 03:53 | XRay Report ---
Exam(s): XR CXR 1 VIEW EXAM: XR Chest, 1 View CLINICAL HISTORY: weakness. TECHNIQUE: Frontal view of the chest. COMPARISON: Portable chest single view 01/22/2024; CT chest dated 10/08/2024 FINDINGS: Lungs: Diffuse coarse senescent interstitial changes. No radiographic evidence for florid CHF. No focal airspace consolidation. Pleural space: Unremarkable. No pneumothorax. No large pleural effusion. Heart: The hiatal hernia noted on the previous examinations is again suggested overlying the left heart border. Stable cardiomegaly. Mediastinum: The mediastinal contours are stable. The trachea is midline. Bones/joints: Unremarkable. No acute fracture. IMPRESSION: No acute cardiopulmonary process or significant alteration from the prior examination. Stable cardiomegaly. No radiographic evidence for florid CHF. Electronically signed by: Danny Ly MD 10/09/24 03:52 AM
--- NOTE | 2024-10-09 04:24 | Urology Consultation ---
Date of Consultation October 09, 2024 Assessment & Plan (1) Perinephric hematoma: Patient has been admitted on the hospitalist service. From urologic perspective we recommend the following: Concerning the patient's perinephric hematoma the patient does take Eliquis and therefore I have recommended to the hospitalist that they consider performing a CT angiogram to just to assess for any extravasation. If this is present and active bleeding is suggested the patient may need to be transferred for embolization. If there is no contrast extravasation I would merrily follow the patient clinically with serial labs and serial exams If clinically feasible would be preferable to hold all anticoagulan ts/antiplatelets Additional recommendations with forthcoming patient on her clinical course as it unfolds as well as pending studies that have been ordered. Plan Attending note: Patient independently assessed, examined, interviewed, and evaluated. Patient with fall. Per records patient was found at the bottom of a set of stairs. Unsure of how long patient was down. Patient had and brought to the emergency room and evaluated. Was dealing with significant altered this on patient however on examination this morning patient's cognition has proved. Patient has poor memory of the events and length of issues directly leading up to and after the fall. Currently is not having major complaints. Is sore and having some mild pain. Did state she was extremely tired. Was resting comfortably on presentation for initial evaluation Agree with note as above. Patient's vitals and labs were all reviewed. Blood pressure currently 97/61 pulse 92 respirations 15 temperature 37.3 oxygen saturation 96% on 2 L nasal cannula all labs and vitals were thoroughly reviewed. White count is elevated 14.45 this morning. Creatinine was 1.01. Hemoglobin has been monitored and trended over time due to findings on imaging of possible perinephric. Current hemoglobin came back at 9.3. Hemoglobin had been over 10 at time of presentation. Other pertinent values in the HPI and plan section. Imaging was reviewed interpreted by myself. Imaging does have appearance of possible contusion versus small hematoma of the right kidney. Multiple other findings majority appear to be possibly chronic. Agree with read. Vitals were reviewed. Discussed findings extensively with patient and family. Reviewed with nurse practitioner as well as consulting physicians/team. Patient's complicated medical and surgical history was reviewed and summarized above. Patient poor historian of the major portions of the events of the fall secondary to likely altered mental status at time of present patient. Was able to review patient's previous history prior to this event without major issue. Patient's surgical, medical, social, and family history were all reviewed with pertinent values as above. Discussed patient's current diagnosis as well as concerns and issues. Reviewed different options moving forward. Discussed potential risks and benefits as well as possible options and concerns. Reviewed potential surgical options and interventions. Discussed potential issues and concerns related to intervention. Risk and benefits were discussed e xtensively with patient and any available family. Discussed potential risks related to anesthesia. Discussed risks of bleeding infection and injury. Discussed extensively renal injury. Discussed monitoring. Discussed close monitoring of hemoglobin for significant acute blood loss anemia signs. Discussed continued monitoring of vitals and lab work. Will plan to continue with supportive care and monitoring. Agree with plans for hydration and observation. Would recommend limited activity until patient has time for recovery. If patient does develop significant acute blood loss anemia or worsening hypotension and tachycardia would need likely consideration for transfusion. If patient would need procedural intervention for expanding hematoma or unstable conditions would likely defer to vascular for possible endovascular embolization. Thoroughly discussed with patient. Will plan to continue to monitor. Will continue coronary with hospitalist team for monitoring. Will plan for o utpatient follow-up with reimaging if patient continues to stabilize. History of Present Illness Reason for Consultation: Perinephric hematoma Attending Physician: Marcelo Aparicio MD History of Present Illness This is an 88-year-old female who was admitted to [facility] earlier this evening. Patient presented to the emergency department by ambulanceshe reportedly lives at home but has some underlying dementia/confusion and therefore cannot provide much in the way of meaningful history. I did discuss with the nurse attending to the patient as well as the treating hospitalist service. Patient was apparently found by her family members at the bottom of a flight of steps and they are unsure if the patient fell or just merely sat down at the bottom of the steps. The patient was found to be generally weak by the family and they were unsure if she did suffer a fall so they presented to the emergency department. The patient did not have any reported back pain. Since arrival/admission to the hospital patient has had labs and imaging which I independent reviewed. A CT scan of the head showed no acute intracranial process. A chest x-ray showed no evidence of CHF or pneumonia. A CT scan of the chest showed the patient had bilateral bronchial bronchiectasis. A large hiatal hernia was noted. Cervical spine CT scan showed no evidence of fracture. Patient also had a CT scan of the abdomen pelvis that showed a small perinephric hematoma the inferior pole of the right kidney. Labs include a CBC were white blood cell count was elevated 14.5. Hemoglobin and hematocrit were 9.8 and 30.3. (This level of hemoglobin and hematocrit did represent approximately a 1 g drop from patient's baseline over the past 1 to 2 years). Platelet count was normal. Coagulation studies showed an INR of 1.3. Chemistry profile showed sodium is 128 with a potassium that was normal. BUN and creatinine were both normal. Lactic acid level was not elevated. There is no elevation of patient's LFTs. The urinalysis was concerning for urinary tract infection. At the time of my encounter with the patient she was resting comfortably in bed. Allergies Allergy/AdvReac Type Severity Reaction Status Date / Time erythromycin base AdvReac Intermediate Gastrointestinal Verified 01/03/23 18:30 Upset Home Medications Medication Instructions Recorded Confirmed Type aspirin 81 mg chewable tablet 81 mg PO DAILY 12/27/20 10/08/24 History atorvastatin 10 mg tablet 10 mg PO DAILY 12/27/20 10/08/24 History cyanocobalamin (vitamin B-12) 1,000 mcg PO DAILY 12/27/20 10/08/24 History 1,000 mcg tablet (Vitamin B-12) metformin 500 mg tablet,extended 1,000 mg PO BID 12/27/20 10/08/24 History release 24 hr omeprazole 40 mg capsule,delayed 40 mg PO DAILY 12/27/20 10/08/24 History release pregabalin 100 mg capsule 100 mg PO BID 12/27/20 10/08/24 History sitagliptin phosphate 100 mg 100 mg PO DAILY 12/27/20 10/08/24 History tablet (Januvia) apixaban 5 mg tablet (Eliquis) 5 mg PO BID #180 tabs 12/30/20 10/08/24 Rx buspirone 5 mg tablet 5 mg PO BID 11/20/22 10/08/24 History cetirizine 10 mg tablet (Zyrtec) 10 mg PO DAILY 11/20/22 10/08/24 History escitalopram oxalate 20 mg tablet 20 mg PO DAILY 11/20/22 10/08/24 History (Lexapro) metoprolol succinate 25 mg 12.5 mg PO DAILY 11/20/22 10/08/24 History tablet,extended release 24 hr azelastine 137 mcg (0.1 %) nasal 137 mcg intranasal BID 10/08/24 10/08/24 Histo ry spray ferrous sulfate 325 mg (65 mg 325 mg PO DAILY 10/08/24 10/08/24 History iron) tablet Patient History Medical History Chronic pulmonary embolism Cardiomyopathy History of DVT (deep vein thrombosis) 20 years ago Surgical History Hx of cataract surgery S/P hernia repair History of cholecystectomy H/O hernia repair Family History Other Cancer Heart disease Social History Smoking Status: Unknown if ever smoked Hx Alcohol Use: No Hx Substance Use: No Preferred Language: Pakistani Communication Ability: Effective Visual Impairment: No Limitations Receiving Inspector Required: No Beliefs That Will Affect Care: None Current Living Situation: Alone Current Living Situation Comment: has someone stay with her every day, changes weekly per family current occupational status: retired Other Information That Helps Us Care for You: No Feels Safe at Home: Yes Assistive Devices: Walker Review of Systems Review of Systems: Unobtainable due to cognitive status Physical Exam Constitutional: WD/WN, vitals as above Eyes: no conjunctival abnormality ENMT: Ears: no external ear abnormality Neck: trachea midline Respiratory: normal respiratory effort; no respiratory distress and no labored breathing Cardiovascular: Rate/Rhythm: regular rate and regular rhythm Gastrointestinal (Abdomen): Abdomen is soft without rigidity or distention. Palpation did not elicit any painful response. No ecchymosis or bruising noted Skin: no rashes Genitourinary: No signs of flank hematoma or ecchymosis. No CVA tenderness with percussion Results & Data Vital Signs (Past 12 Hours) Vital Signs Temp Pulse Pulse Pulse Resp BP BP 10/09/24 02:34 91 H 16 10/09/24 02:10 10/09/24 01:46 90 10/09/24 01:40 36.6 C 99 H 22 101/66 10/09/24 01:11 97 H 18 96/54 L 10/09/24 00:36 98 H 10/09/24 00:00 94 H 18 100/49 L 10/08/24 22:57 103 H 10/08/24 22:30 101 H 18 95/63 L 10/08/24 22:29 112 H 20 97/50 L 10/08/24 22:11 100 H 18 89/62 L 10/08/24 21:31 107 H 20 91/67 L 10/08/24 21:00 112 H 16 104/63 10/08/24 20:38 10/08/24 20:30 111 H 20 97/66 L 10/08/24 20:29 108 H 18 10/08/24 20:21 120 H 10/08/24 20:16 36.6 C 111 H 18 103/71 Pulse Ox O2 Del Method O2 Flow Rate 10/09/24 02:34 97 Oxymask 2 10/09/24 02:10 Oxymask 3 10/09/24 01:46 10/09/24 01:40 93 Oxymask 3 10/09/24 01:11 99 Oxymask 3 10/09/24 00:36 10/09/24 00:00 96 Oxymask 3 10/08/24 22:57 10/08/24 22:30 97 10/08/24 22:29 97 10/08/24 22:11 97 Oxymask 3 10/08/24 21:31 91 Nasal Cannula 2 10/08/24 21:00 98 Nasal Cannula 2 10/08/24 20:38 88 L Room Air 10/08/24 20:30 88 L Room Air 10/08/24 20:29 93 Room Air 10/08/24 20:21 10/08/24 20:16 93 Room Air PG Care Time/CCT Total # of Minutes Spent Total Time Spent with Patient: Total time spent is greater than 50% in coordination of care (as documented) at patient's floor/unit and/or counseling patient: Coding Level of Care Code 66422 INT INP/OBS CARE 3/75MIN Diagnoses Perinephric hematoma S37.019A
[2024-10-09] MEDS: OPTIRAY 320 125ml IV ONE (04:52)
[2024-10-09] MEDS: PIPERACILLIN/TAZOBACTAM 4.5 GM/100 ML BAG IV SCH (05:41)
--- NOTE | 2024-10-09 06:12 | CT Scan Report ---
EXAM: CT angio abdomen pelvis w con CLINICAL HISTORY: Perinephric hematoma. TECHNIQUE: CTA of the abdomen and pelvis was performed with 119 ml opti 320 IV contrast. Coronal and sagittal reconstructive images were also obtained. One of these 3D techniques was utilized: Maximum Intensity Pixel (MIP), 3D Reconstructed Images, Volume Rendered Images, Surface Shaded Rendering. Axial non-contrast sections of the abdomen and pelvis were also obtained. One of the following dose-reduction techniques was utilized for this exam. Automated exposure control, adjustment of the mA and/or kV according to patient size, and use of iterative reconstruction. DLP: 1226.25 mGy.cm. COMPARISON: Compared to the previous study dated 11/20/2022. FINDINGS: Aorta: The abdominal aorta is normal in caliber. No evidence of aneurysm, or dissection, and still noted abdominal aorta atheromatous calcification. Aortic bifurcation is unremarkable. Renal Arteries: Renal arteries are normal in size and opacification. No evidence of stenosis or occlusion. Symmetric perfusion of both kidneys. Mesenteric Arteries: The superior mesenteric artery (SMA) and inferior mesenteric artery (LIBIA) are normal in caliber and opacification. No evidence of stenosis or occlusion. Celiac Artery: Celiac artery is normal in caliber and opacification. No evidence of stenosis or occlusion. Iliac Arteries: Common, internal, and external iliac arteries are normal in caliber and opacification. No evidence of stenosis, aneurysm, or occlusion. Venous Structures: Inferior vena cava (IVC) and major venous structures are normal in caliber and opacification. No evidence of thrombus or obstruction. Liver: Normal size and morphology. Homogeneous enhancement post-contrast. No focal hepatic lesions. Regressed course regarding the previously noted intrahepatic biliary radicle biliary radicle dilatation. Gallbladder and Biliary System: Not seen surgically removed. Pancreas: Normal size and contour. Homogeneous enhancement post-contrast. No masses or cystic lesions. Spleen: Normal size and appearance. Homogeneous enhancement post-contrast. Adrenal Glands: Normal size and morphology bilaterally. No adrenal masses. Kidneys and Ureters: Normal size, shape, and position of both kidneys. Homogeneous enhancement post-contrast. No renal stones, masses, or hydronephrosis. Newly developed right perirenal fat smudging and fat stranding with mild perirenal fluid extending to the hepatic flexure. right parcolic gutter. Still noted left renal upper pole cyst is seen measuring 1.6 cm and left lower pole cyst is seen measuring 0.5 cm as well. Ureters are unremarkable. Bladder: Normal in size and wall thickness. No intraluminal masses.Progressive course regarding the previously noted bilateral UB diverticulums regarding the size being more pronounced on the left side Normal enhancement post-contrast. Bowel: Regressive course regarding the previously noted dilated colonic bowel loops. Normal appearance of the visualized bowel loops. No evidence of obstruction, wall thickening, or abnormal dilatation. Lymph Nodes: No pathologically enlarged lymph nodes in the abdomen or pelvis. Bones: No lytic or sclerotic lesions. Normal alignment and bone density. Dorsolumbar spondylodegenerative changes calcification Soft Tissues: Normal appearance of the visualized soft tissues. Newly developed bilateral lung with basal pneumonic consolidations with atelectatic bands IMPRESSION: 1. Normal CT angiography of the abdomen and pelvis. 2. No evidence of significant vascular abnormalities. 3. Newly developed right perinephric hematoma 4. Regressed course regarding the colonic distention as well as intrahepatic biliary radicle dilatation. 5. Newly developed bilateral lung lower lobe pneumonic consolidations. 6. Progressive course regarding the previously noted bilateral UB diverticulums regarding the size being more pronounced on the left side. 7. Stationary course regarding the left renal cortical cysts Bosniak 1. Electronically signed by Joseluis Ahumada 10-09-2024 06:12 AM
[2024-10-09] MEDS: IPRATROPIUM BROMIDE NEB SOLN 0.02% 0.5MG/2.5ML VIAL INH SCH (07:18)
[2024-10-09] MEDS: LEVALBUTEROL 1.25 MG/3 ML NEB NEB SCH (07:18)
[2024-10-09 08:15] LABS: Base Excess VBG -2.2 mEq/L; HCO3 VBG 24 mmol/L; Oxygen Saturation VBG 66.6 %; PCO2 VBG 44 mmHg (38-50); PO2 VBG 40 mmHg; pH VBG 7.34 (7.36-7.41)
[2024-10-09] MEDS: LANTUS PER UNIT CHARGE SQ SCH (08:21)
[2024-10-09] MEDS: AZELASTINE HCL 0.1% NASAL 200 SPRAYS/27,400 MCG BTL SCH (08:21)
[2024-10-09] MEDS: ATORVASTATIN 10 MG TAB PO SCH (08:22)
[2024-10-09] MEDS: CYANOCOBALAMIN (B-12) 500 MCG TABLET PO SCH (08:22)
[2024-10-09] MEDS: METOPROLOL SUCC 25MG EXT REL TAB PO SCH (08:22)
[2024-10-09] MEDS: FERROUS SULFATE 325 MG TAB PO SCH (08:22)
[2024-10-09] MEDS: DOXYCYCLINE HYCLATE 100 MG CAP PO SCH (08:23)
[2024-10-09] MEDS: CETIRIZINE HCL 10 MG TABLET PO SCH (08:23)
[2024-10-09] MEDS: PANTOprazole 40 MG TAB PO SCH (08:23)
[2024-10-09 08:35] LABS: BUN Creatinine Ratio 17.8 (10-20); Calcium 8.2 mg/dl (8.6-10.3); Creatinine Clr Calc Pharmacy 38.2 ml/min; Magnesium 2.1 mg/dl (1.7-2.4); Potassium 3.7 mmol/L (3.5-5.1)
[2024-10-09 08:37] LABS: Basophils # (auto) 0.04 K/uL (0.00-0.20); Basophils % (auto) 0.3 %; Eosinophils # (auto) 0.01 K/uL (0.00-0.50); Eosinophils % (auto) 0.1 %; Hematocrit (blood only) 29.4 % (37.0-47.0); Hemoglobin 9.3 g/dl (12.0-16.0); Immature Granulocytes # (auto) 0.12 K/uL (0.01-0.20); Immature Granulocytes % (auto) 0.8 %; Lymphocytes # (auto) 1.72 K/uL (1.20-3.40); Lymphocytes % (auto) 11.9 %; Mean Corpuscular Hemoglobin 23.5 pg (25.0-34.0); Mean Corpuscular Hgb Conc 31.6 g/dL (32.0-36.0); Mean Corpuscular Volume 74.4 fL (80.0-100.0); Mean Platelet Volume 11.2 fL (9.4-12.4); Monocytes # (auto) 0.72 K/uL (0.11-0.59); Neutrophils # (auto) 11.84 K/uL (1.40-6.50); Neutrophils % (auto) 81.9 %; Platelet Count 204 K/uL (130-400); RDW Coefficient of Variation 18.2 % (11.5-14.5); Red Blood Count 3.95 M/uL (4.20-5.40); White Blood Count 14.45 K/ul (4.8-10.8)
--- NOTE | 2024-10-09 08:44 | Hospitalist Progress Note ---
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 Possible small perinephric hematoma on imaging, history antiplatelet and Eliquis Rx, patient without pain complaints Hypertension, BP on the lower side Hypomagnesemia chronic systolic heart failure (EF 39%, TTE 2023), patient on the dry side valvular heart disease (severe TR, mild MR) pulmonary hypertension hyperlipidemia, on statin Rx DM2 on oral medications, reasonable control as of recent hemoglobin A1c of 7.6 last September 2024 chronic anemia, hemoglobin at baseline Involuntary arm arm jerks during sleep possible sleep myoclonus rule out seizure disorder PCU Supplemental O2 CS, doxycycline for complicated bronchitis, Zosyn for complicated UTI IVF Hold multiple neuropsychotropic medications for now until patient mentation back to baseline. Digoxin 1 dose for rate control given borderline BP Urology consult in a.m. re: small perinephric hematoma on imaging Appropriate to hold aspirin and Eliquis for now. Replace electrolytes Basal bolus insulin, ISS BG goal 1 10-1 40 EEG re: myoclonic jerks rule out seizures PT OT eval May need placement following family discussion. DVT prophylaxis. SCDs while Eliquis on hold DNR as per prior directives as per daughter Ms. Sandra Yee. She request updates providers through [phone]. Right lower chest wall and right lateral abdominal wall soft tissue contusion/swelling. 10/09 (+) Bacteremia, BL Pneumonia, UTI still confused than baseline per daughter ff up cultures continue IV Zosyn + Doxycline Nebs sputum culture continue IV fluids repeat BMP at 5pm continue usual Metoprolol XL PRN IV lopressor for tachycardia Eliquis on hold for R perinephric hematoma plan of care discussed with patient and her daughter at bedside in detail and at length all questions answered they are understanding, agreeable, comfortable with the plan of care Admission and Anticipated Discharge Date Admission Date: October 09, 2024 Subjective ff up for sepsis, etc seen resting in bed, comfortable pleasantly confused patient's daughter Sandra at bedside reports some posterior and thoracic pain denies shortness of breath still having some productive cough denies abdominal pain, nausea/vomiting no other symptoms Review of Systems Review of Systems: all noted and negative except for above Physical Exam Physical Exam: General- oriented x 0-1, not in distress, speaks in sentences with no effort or accessory muscle use Eyes- anicteric Neck- no JVD Lungs- mild rales bilaterally no wheezing Heart- mild tachycardia, regular rhythm; no murmurs Abdomen- normal bowel sounds, nondistended, soft, nontender Extremities- no pretibial edema, no calf tenderness Neuro- alert, oriented x 0-1; no gross focal neurologic deficits Skin- warm & dry Results & Data Results & Data Vital Signs (Past 12 Hours) Vital Signs Temp Pulse Pulse Pulse Resp BP BP 10/09/24 07:18 103 H 15 10/09/24 07:13 37.3 C 101 H 17 97/61 L 10/09/24 05:45 91/57 L 10/09/24 02:34 91 H 16 10/09/24 02:10 10/09/24 01:46 90 10/09/24 01:40 36.6 C 99 H 22 101/66 10/09/24 01:11 97 H 18 96/54 L 10/09/24 00:36 98 H 10/09/24 00:00 94 H 18 100/49 L 10/08/24 22:57 103 H 10/08/24 22:30 101 H 18 95/63 L 10/08/24 22:29 112 H 20 97/50 L 10/08/24 22:11 100 H 18 89/62 L 10/08/24 21:31 107 H 20 91/67 L 10/08/24 21:00 112 H 16 104/63 Pulse Ox O2 Del Method O2 Flow Rate 10/09/24 07:18 96 Oxymask 3 10/09/24 07:13 98 Oxymask 3 10/09/24 05:45 98 Oxymask 3 10/09/24 02:34 97 Oxymask 2 10/09/24 02:10 Oxymask 3 10/09/24 01:46 10/09/24 01:40 93 Oxymask 3 10/09/24 01:11 99 Oxymask 3 10/09/24 00:36 10/09/24 00:00 96 Oxymask 3 10/08/24 22:57 10/08/24 22:30 97 10/08/24 22:29 97 10/08/24 22:11 97 Oxymask 3 10/08/24 21:31 91 Nasal Cannula 2 10/08/24 21:00 98 Nasal Cannula 2 all noted and reviewed including below
[2024-10-09] MEDS ORDERED: APIXABAN 5 MG TABLET PO SCH (09:00)
[2024-10-09] MEDS ORDERED: ASPIRIN 81 MG ECTAB PO SCH (09:00)
[2024-10-09] MEDS: guaiFENesin 600 MG TABCR PO SCH (09:31)
[2024-10-09] MEDS: SODIUM CHLORIDE 0.9% 1,000 ML IV ONE (09:32)
--- NOTE | 2024-10-09 11:48 | Nephrology Consultation ---
Date of Consultation October 09, 2024 Assessment & Plan (1) Hyponatremia: Seems Chronic but currently worse than usual at 127. BP running low so ok to give NS. 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 Check urine osm today + urine Na. Serum Osm + TSH and Cortisol in AM. BMP can be done again later today. RN Can call me with result. further management based on results. Did tell her to cut down fluid intake to no more than 60 oz at home ( currently looks more like 100 oz per day) (2) Perinephric hematoma: Reviewed CT imaging independently and also urology note. NO plan for surgery.Check and follow H and H. (3) Acute UTI: pending urine C/s. On Broad spectrum Abx--doxy + Zosyn currently. also covering pneumonia Plan time spent 62 mins History of Present Illness Reason for Consultation: Hyponatremia. perinephric hematoma Attending Physician: Marcelo Aparicio MD History of Present Illness 88/F found at bottom of staircase ( fall). Brought to hospital. found to have perinephric hematoma. She was on eliquis. She had CT angiogram and seen by urology already. NO plan for surgery. Na slightly low but seems Chronic. She drinks a lot of sodas all day as per daughter. BP running low--no BP meds. No Diuretics. On NS currently. na stuck around 127--128 range--chronically. Normal BUN and creat. making urine ? amount. ROS--12 Systems otherwise negative Exam: Physical Exam: GENERAL: Lethargic, no respiratory distress NECK : Supple, no tenderness CHEST : Decreased breath sounds, scattered expiratory wheezes, no tenderness HEART : Irregular, no obvious murmurs ABDOMEN: Soft, nontender No tenderness in CVAT EXTREMITIES : No LE swelling/tenderness, palpable pulses, no other conspicuous deformities noted NEUROLOGIC : Lethargic, no facial asymmetry, episodic RUE jerk, gait and stance not assessed Allergies Allergy/AdvReac Type Severity Reaction Status Date / Time erythromycin base AdvReac Intermediate Gastrointestinal Verified 01/03/23 18:30 Upset Home Medications Medication Instructions Recorded Confirmed Type aspirin 81 mg chewable tablet 81 mg PO DAILY 12/27/20 10/08/24 History atorvastatin 10 mg tablet 10 mg PO DAILY 12/27/20 10/08/24 History cyanocobalamin (vitamin B-12) 1,000 mcg PO DAILY 12/27/20 10/08/24 History 1,000 mcg tablet (Vitamin B-12) metformin 500 mg tablet,extended 1,000 mg PO BID 12/27/20 10/08/24 History release 24 hr omeprazole 40 mg capsule,delayed 40 mg PO DAILY 12/27/20 10/08/24 History release pregabalin 100 mg capsule 100 mg PO BID 12/27/20 10/08/24 History sitagliptin phosphate 100 mg 100 mg PO DAILY 12/27/20 10/08/24 History tablet (Januvia) apixaban 5 mg tablet (Eliquis) 5 mg PO BID #180 tabs 12/30/20 10/08/24 Rx buspirone 5 mg tablet 5 mg PO BID 11/20/22 10/08/24 History cetirizine 10 mg tablet (Zyrtec) 10 mg PO DAILY 11/20/22 10/08/24 History escitalopram oxalate 20 mg tablet 20 mg PO DAILY 11/20/22 10/08/24 History (Lexapro) metoprolol succinate 25 mg 12.5 mg PO DAILY 11/20/22 10/08/24 History tablet,extended release 24 hr azelastine 137 mcg (0.1 %) nasal 137 mcg intranasal BID 10/08/24 10/08/24 History spray ferrous sulfate 325 mg (65 mg 325 mg PO DAILY 10/08/24 10/08/24 History iron) tablet Patient History Medical History Chronic pulmonary embolism Cardiomyopathy History of DVT (deep vein thrombosis) 20 years ago Surgical History Hx of cataract surgery S/P hernia repair History of cholecystectomy H/O hernia repair Family History Other Cancer Heart disease Social History Smoking Status: Unknown if ever smoked Hx Alcohol Use: No Hx Substance Use: No Preferred Language: Nigerian Communication Ability: Effective Visual Impairment: No Limitations Project Executive Required: No Beliefs That Will Affect Care: None Current Living Situation: Alone Current Living Situation Comment: has someone stay with her every day, changes weekly per family current occupational status: retired Other Information That Helps Us Care for You: No Feels Safe at Home: Yes Assistive Devices: Walker Results & Data Vital Signs (Past 12 Hours) Vital Signs Temp Pulse Pulse Pulse Resp BP BP 10/09/24 11:00 36.8 C 108 H 19 100/64 10/09/24 10:13 97 H 16 10/09/24 08:00 92 H 10/09/24 08:00 10/09/24 07:18 103 H 15 10/09/24 07:13 37.3 C 101 H 17 97/61 L 10/09/24 05:45 91/57 L 10/09/24 02:34 91 H 16 10/09/24 02:10 10/09/24 01:46 90 10/09/24 01:40 36.6 C 99 H 22 101/66 10/09/24 01:11 97 H 18 96/54 L 10/09/24 00:36 98 H 10/09/24 00:00 94 H 18 100/49 L Pulse Ox O2 Del Method O2 Flow Rate 10/09/24 11:00 92 Nasal Cannula 2 10/09/24 10:13 93 Nasal Cannula 2 10/09/24 08:00 10/09/24 08:00 Nasal Cannula 2 10/09/24 07:18 96 Oxymask 3 10/09/24 07:13 98 Oxymask 3 10/09/24 05:45 98 Oxymask 3 10/09/24 02:34 97 Oxymask 2 10/09/24 02:10 Oxymask 3 10/09/24 01:46 10/09/24 01:40 93 Oxymask 3 10/09/24 01:11 99 Oxymask 3 10/09/24 00:36 10/09/24 00:00 96 Oxymask 3
[2024-10-09 13:46] LABS: A calco-baum cmplx NotReported Not Detected (NotDetected); Bact fragilis Not Reported Not Detected (NotDetected); Blood Culture Id Panel See PCR Comment (NotDetected); C auris Not Reported Not Detected (NotDetected); CTX-M Resistant Gene Not Detected (NotDetected); Calbicans Not Reported Not Detected (NotDetected); Candida glabrata Not Reported Not Detected (NotDetected); Candida krusei Not Reported Not Detected (NotDetected); Cneoformans/gatti Not Reported Not Detected (NotDetected); Cparapsilosis Not Reported Not Detected (NotDetected); E cloacae compx Not Reported Not Detected (NotDetected); Efaecalis Not Reported Not Detected (NotDetected); Efaecium Not Reported Not Detected (NotDetected); Enterobacterales Not Reported DETECTED (NotDetected); Escherichia coli Not Reported Not Detected (NotDetected); H influenzae Not Reported Not Detected (NotDetected); IMP Resistant Gene Not Detected (NotDetected); K aerogenes Not Reported Not Detected (NotDetected); KPC Resistant Gene Not Detected (NotDetected); Koxytoca Not Reported Not Detected (NotDetected); Kpneumoniae grp Not Reported DETECTED (NotDetected); Lmonocyt Not Reported Not Detected (NotDetected); N meningitidis Not Reported Not Detected (NotDetected); NDM Resistant Gene Not Detected (NotDetected); OXA 48 Like Resistant Gene Not Detected (NotDetected); P aeruginosa Not Reported Not Detected (NotDetected); Proteus spp Not Reported Not Detected (NotDetected); Salmonella spp Not Reported Not Detected (NotDetected); Staph lugdunensis Not Reported Not Detected (NotDetected); Staph spp. Not Reported Not Detected (NotDetected); Staphaureus Not Reported Not Detected (NotDetected); Staphepi Not Reported Not Detected (NotDetected); Stenmaltophilia Not Reported Not Detected (NotDetected); Strep agal(GrpB) Not Reported Not Detected (NotDetected); Strep pneum Not Reported Not Detected (NotDetected); Strep pyog (GrpA) Not Reported Not Detected (NotDetected); Strep spp Not Reported Not Detected (NotDetected); VIM Resistant Gene Not Detected (NotDetected); mcr-1 Colistin Resistant Gene Not Detected (NotDetected)
[2024-10-09 13:59] LABS: Enterobacterales DETECTED (NotDetected); Klebsiella pneumoniae group DETECTED (NotDetected)
[2024-10-09] MEDS ORDERED: METOPROLOL TARTRATE 1 MG/ML VIAL IV PRN (16:41)
--- NOTE | 2024-10-09 16:48 | XRay Report ---
Thoracic spine: 3 views were obtained. No acute compression deformity. Minimal narrowing of the lower thoracic disc spaces. No paravertebral soft tissues. Degenerative changes lower cervical spine. Bone spurs identified. Impression No acute process. Mild degenerative changes Electronically signed by Darian Hernandez 10-09-2024 4:47 PM
[2024-10-09] MEDS: METOPROLOL SUCC 25MG EXT REL TAB PO STA (16:49)
[2024-10-09] MEDS: ACETAMINOPHEN 500 MG TAB PO SCH (16:49)
[2024-10-09 18:21] LABS: Albumin Level 2.9 gm/dl (3.4-5.0); BUN Creatinine Ratio 14.7 (10-20); Calcium 7.8 mg/dl (8.6-10.3); Creatinine Clr Calc Pharmacy 35.4 ml/min; Phosphorus 2.1 mg/dl (2.5-4.9); Potassium 3.4 mmol/L (3.5-5.1)
[2024-10-09] MEDS: POTASSIUM CHLORIDE CRTAB 20 MEQ TABCR PO STA (19:47)
[2024-10-09] MEDS: POT PHOSPHATE MONOBASIC W/ SOD TAB PO SCH (19:57)
[2024-10-09] MEDS: NSS + 20MEQ KCL 20 MEQ/1,000 ML BAG IV ONE (21:44)
[2024-10-10 08:29] LABS: Thyroid Stimulating Hormone 0.908 uIu/ml (0.300-4.500)
[2024-10-10 10:21] LABS: Basophils # (auto) 0.02 K/uL (0.00-0.20); Basophils % (auto) 0.3 %; Eosinophils # (auto) 0.04 K/uL (0.00-0.50); Eosinophils % (auto) 0.5 %; Hematocrit (blood only) 26.7 % (37.0-47.0); Hemoglobin 8.5 g/dl (12.0-16.0); Immature Granulocytes # (auto) 0.05 K/uL (0.01-0.20); Immature Granulocytes % (auto) 0.7 %; Lymphocytes # (auto) 0.53 K/uL (1.20-3.40); Mean Corpuscular Hemoglobin 23.9 pg (25.0-34.0); Mean Corpuscular Hgb Conc 31.8 g/dL (32.0-36.0); Mean Platelet Volume 11.1 fL (9.4-12.4); Monocytes # (auto) 0.61 K/uL (0.11-0.59); Neutrophils # (auto) 6.37 K/uL (1.40-6.50); Neutrophils % (auto) 83.5 %; Platelet Count 161 K/uL (130-400); RDW Coefficient of Variation 18.6 % (11.5-14.5); RDW Standard Deviation 50.8 fL (36.4-46.3); Red Blood Count 3.56 M/uL (4.20-5.40); White Blood Count 7.62 K/ul (4.8-10.8)
[2024-10-10 11:09] LABS: Magnesium 1.9 mg/dl (1.7-2.4); Potassium 4.3 mmol/L (3.5-5.1)
[2024-10-10 11:15] LABS: BUN Creatinine Ratio 17.5 (10-20); Creatinine Clr Calc Pharmacy 37.4 ml/min
--- NOTE | 2024-10-10 12:53 | Nephrology Progress Note ---
Date of Service October 10, 2024 Assessment & Plan Admission and Anticipated Discharge Date Admission Date: October 09, 2024 Subjective Assessment & Plan (1) Hyponatremia: Seems Chronic but currently worse than usual at 127 yesterday but it has since improved and this morning it is up to 133. BP still running low-- she did get normal saline yesterday. 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 slightly low Serum Osm . reviewed TSH and Cortisol that I ordered and both are normal. BMP can be done once a day at this time. Did tell her to cut down fluid intake to no more than 60 oz at home ( currently looks more like 100 oz per day) (2) Perinephric hematoma: Reviewed CT imaging independently and also urology note. NO plan for surgery.Check and follow H and H. (3) Acute UTI: pending urine C/s. On Broad spectrum Abx--doxy + Zosyn currently. also covering pneumonia S----- she looks much more awake alert and in good spirit . family at bedside and they also agree with that. denies any pain ROS--12 Systems otherwise negative Exam: Physical Exam: GENERAL: Lethargic, no respiratory distress NECK : Supple, no tenderness CHEST : Decreased breath sounds, scattered expiratory wheezes, no tenderness HEART : Irregular, no obvious murmurs ABDOMEN: Soft, nontender No tenderness in CVAT EXTREMITIES : No LE swelling/tenderness, palpable pulses, no other conspicuous deformities noted NEUROLOGIC : Lethargic, no facial asymmetry, episodic RUE jerk, gait and stance not assessed Results & Data Vital Signs (Past 12 Hours) Vital Signs Temp Pulse Pulse Resp BP Pulse Ox O2 Del Method 10/10/24 11:36 36.6 C 84 18 95/60 L 94 Room Air 10/10/24 08:00 80 10/10/24 08:00 Room Air 10/10/24 07:50 36.6 C 100 H 19 101/65 95 Nasal Cannula 10/10/24 07:21 87 20 95 Room Air 10/10/24 03:49 36.5 C 84 17 100/66 93 Room Air O2 Flow Rate 10/10/24 11:36 10/10/24 08:00 10/10/24 08:00 10/10/24 07:50 2 10/10/24 07:21 10/10/24 03:49
--- NOTE | 2024-10-10 13:17 | Urology Progress Note ---
Date of Service October 10, 2024 Assessment & Plan (1) Perinephric hematoma: Plan: Follow-up of perinephric hematoma Patient afebrile, SBPs 90-100s Labs reviewedcreatinine 1.03, WBC 7.62, hemoglobin 8.5 Urine culture 10/08 with 3 types of organisms present, all high counts Blood cultures with Klebsiella pneumoniae Currently on Zosyn and doxycycline Buchanan catheter placed for urinary retention Maintain Buchanan catheter at this time Can perform voiding trial in approximately 1 week, can be arranged outpatient Continue antibiotics and follow cultures Continue to trend labs and transfuse as necessary per hospital medicine team Continue supportive care and monitoring No acute intervention at this time Will arrange outpatient follow-up with our service with repeat imaging will follow peripherally, please contact our service with any additional questions or changes in clinical status Admission and Anticipated Discharge Date Admission Date: October 09, 2024 Subjective Patient seen and examined at bedside this morning. Family in room. Patient denies flank or suprapubic pain. Buchanan placed today due to elevated PVR. No hematuria. No fever or chills. Review of Systems Constitutional: as per Subjective / HPI Genitourinary: as per Subjective / HPI Physical Exam Constitutional: well developed and well nourished; no acute distress Respiratory: normal respiratory effort; no respiratory distress and no labored breathing Gastrointestinal (Abdomen): Inspection/Auscultation: abdomen normal to inspection Musculoskeletal: Head/Neck/Chest: normocephalic Neurologic: moves all extremities and awake Psychiatric: Orientation: alert and oriented x 3 Genitourinary: Buchanan draining clear yellow No CVA tenderness, no ecchymosis over flank Results & Data Vital Signs (Past 12 Hours) Vital Signs Temp Pulse Pulse Resp BP Pulse Ox O2 Del Method 10/10/24 11:36 36.6 C 84 18 95/60 L 94 Room Air 10/10/24 08:00 80 10/10/24 08:00 Room Air 10/10/24 07:50 36.6 C 100 H 19 101/65 95 Nasal Cannula 10/10/24 07:21 87 20 95 Room Air 10/10/24 03:49 36.5 C 84 17 100/66 93 Room Air O2 Flow Rate 10/10/24 11:36 10/10/24 08:00 10/10/24 08:00 10/10/24 07:50 2 10/10/24 07:21 10/10/24 03:49 PG Care Time/CCT Total # of Minutes Spent Total Time Spent with Patient: Total time spent is greater than 50% in coordination of care (as documented) at patient's floor/unit and/or counseling patient: Coding Level of Care Code 74009 SUB INP/OBS CARE 08/13MIN Diagnoses Perinephric hematoma S37.019A
--- NOTE | 2024-10-10 13:27 | Hospitalist Progress Note ---
Date of Service October 10, 2024 Assessment & Plan (1) Encephalopathy: Plan: Encephalopathy, Multifactorial: Severe sepsis (SIRS plus encephalopathy plus hypoxemic respiratory failure) from: Bilateral Pneumonia, UTI, Bacteremia- Klebsiella Hyponatremia Multiple neuropsychotropic medications contributory Underlying Dementia 10/09 mental status improving mostly back to baseline per family also weaned off nasal cannula, now on room air Urine culture: Three types of organisms present, all high counts. Repeat collection recommended. No further identifications or sensitivities to follow. repeat Urine culture: ordered Blood culture: (+) Klebsiella pneumoniae, Gram negative bacilli Sputum culture: pending clinically improving discussed with Pharmacist transition from Cefepime to Ceftriaxone IV continue Doxycycline ff up cultures Na improved from 126 to 133 after IV fluids Nephro on board Rapid A-fib secondary to Sepsis history saddle PE DVT on Eliquis -- HR now under control continue usual Metoprolol XL -- Eliquis on hold in light of pernephric hematoma Possible small perinephric hematoma, R s/p Fall? History antiplatelet and Eliquis Rx -- found on the stairs may have slipped or fallen -- also has R chest wall and right lateral abdominal wall soft tissue contusion/swelling sesn on CT abd/pelvis -- Urology consulted hold Eliquis for now Hypertension --BP on the lower side IV fluids given chronic systolic heart failure (EF 39%, TTE 2023) -- now euvolemic after IV fluids valvular heart disease (severe TR, mild MR) pulmonary hypertension hyperlipidemia, on statin Rx DM2 on oral medications, reasonable control as of recent hemoglobin A1c of 7.6 last September 2024 chronic anemia, hemoglobin at baseline -- anemia panel ordered Involuntary arm arm jerks during sleep possible sleep myoclonus rule out seizure disorder -- EEG pending PT OT eval may need acute rehab or SNR DVT prophylaxis. SCDs while Eliquis on hold plan of care discussed with patient and her daughter at bedside in detail and at length all questions answered they are understanding, agreeable, comfortable with the plan of care Admission and Anticipated Discharge Date Admission Date: October 09, 2024 Subjective ff up for sepsis, pneumonia, UTI, bloodstream, etc seen resting in bed, comfortable sitting up daughter at bedside visiting awake, alert, in good spirits oriented to place and person sometimes confused, mostly at baseline per daughter states she feels better today now on room air, denies shortness of breath still has occasional cough denies abdominal pain, nausea, problems with urination, hematuria denies neck or back pain, no other pain in her body Review of Systems Review of Systems: all noted and negative except for above Physical Exam Physical Exam: General- oriented x 1-2, not in distress, speaks in sentences with no effort or accessory muscle use Eyes- anicteric Neck- no JVD Lungs- mild crackles BL no wheezing Heart- normal rate, regular rhythm; no murmurs Abdomen- normal bowel sounds, nondistended, soft, nontender no CVA tenderness Extremities- no pretibial edema, no calf tenderness Neuro- alert, oriented x 1-2; no gross focal neurologic deficits Skin- warm & dry Results & Data Results & Data Vital Signs (Past 12 Hours) Vital Signs Temp Pulse Pulse Resp BP Pulse Ox O2 Del Method 10/10/24 11:36 36.6 C 84 18 95/60 L 94 Room Air 10/10/24 08:00 80 10/10/24 08:00 Room Air 10/10/24 07:50 36.6 C 100 H 19 101/65 95 Nasal Cannula 10/10/24 07:21 87 20 95 Room Air 10/10/24 03:49 36.5 C 84 17 100/66 93 Room Air O2 Flow Rate 10/10/24 11:36 10/10/24 08:00 10/10/24 08:00 10/10/24 07:50 2 10/10/24 07:21 10/10/24 03:49 all noted and reviewed including below
--- NOTE | 2024-10-10 14:09 | Electrocardiogram Report ---
Test Reason : Blood Pressure : */* mmHG Vent. Rate : 122 BPM Atrial Rate : * BPM P-R Int : * ms QRS Dur : 142 ms QT Int : 370 ms P-R-T Axes : * -75 90 degrees QTcB Int : 527 ms Atrial fibrillation with rapid ventricular response with premature ventricular or aberrantly conducte d complexes Right bundle branch block Left anterior fascicular block Bifascicular block Abnormal ECG When compared with ECG of 22-Jan-2024 14:26, No significant change was found Confirmed by Johny Bates ([id number]) on 10/10/2024 2:09:11 PM Referred By: REFERRED SELF Confirmed By: Johny Bates
[2024-10-10 16:14] LABS: Phosphorus 3.5 mg/dl (2.5-4.9)
[2024-10-10] MEDS: cefTRIAXone SODIUM 2,000 MG/50 ML BAG IV SCH (20:34)
[2024-10-10] MEDS: MAGNESIUM SULFATE / D5W 1 GM/100 ML BAG IV ONE (22:31)
[2024-10-10] MEDS: DIGOXIN 250 MCG in SYRINGE 9 ML IV STA (22:31)
[2024-10-10] MEDS: ACETAMINOPHEN 325 MG TAB PO PRN (22:32)
[2024-10-10] MEDS: SODIUM CHLORIDE 0.9% 1,000 ML IV ONE (22:32)
[2024-10-10] MEDS: LORATADINE 10 MG TAB PO ONE (23:40)
[2024-10-11 06:31] LABS: Basophils # (auto) 0.02 K/uL (0.00-0.20); Basophils % (auto) 0.4 %; Eosinophils # (auto) 0.07 K/uL (0.00-0.50); Eosinophils % (auto) 1.3 %; Hematocrit (blood only) 26.8 % (37.0-47.0); Hemoglobin 8.6 g/dl (12.0-16.0); Immature Granulocytes # (auto) 0.05 K/uL (0.01-0.20); Immature Granulocytes % (auto) 0.9 %; Lymphocytes # (auto) 0.63 K/uL (1.20-3.40); Lymphocytes % (auto) 11.4 %; Mean Corpuscular Hemoglobin 23.8 pg (25.0-34.0); Mean Corpuscular Hgb Conc 32.1 g/dL (32.0-36.0); Mean Platelet Volume 10.9 fL (9.4-12.4); Monocytes # (auto) 0.61 K/uL (0.11-0.59); Neutrophils # (auto) 4.16 K/uL (1.40-6.50); Platelet Count 187 K/uL (130-400); RDW Coefficient of Variation 18.6 % (11.5-14.5); RDW Standard Deviation 50.4 fL (36.4-46.3); Red Blood Count 3.62 M/uL (4.20-5.40); White Blood Count 5.54 K/ul (4.8-10.8)
[2024-10-11 06:52] LABS: Anion Gap 5 (3-11); BUN Creatinine Ratio 14.4 (10-20); Blood Urea Nitrogen 13 mg/dl (6-23); Carbon Dioxide 25 mmol/L (21-32); Chloride 106 mmol/L (98-107); Creatinine Clr Calc Pharmacy 42.8 ml/min; Glucose 97 mg/dl (70-99(Fasting)); Iron < 10 mcg/dl (35-150); Magnesium 1.8 mg/dl (1.7-2.4); Phosphorus 4.2 mg/dl (2.5-4.9); Potassium 3.3 mmol/L (3.5-5.1); Sodium 136 mmol/L (136-145); Transferrin 150 mg/dl (200-360)
[2024-10-11 07:15] LABS: Ferritin 73.9 ng/ml (8-388)
[2024-10-11 07:17] LABS: Folate (Folic Acid),Ser orPlas 9.22 ng/ml (>5.38)
[2024-10-11] MEDS: POTASSIUM CHLORIDE CRTAB 20 MEQ TABCR PO STA (08:45)
--- NOTE | 2024-10-11 10:23 | Nephrology Progress Note ---
Date of Service October 11, 2024 Assessment & Plan Admission and Anticipated Discharge Date Admission Date: October 09, 2024 Subjective Assessment & Plan (1) Hyponatremia: Seems Chronic but currently worse than usual at 127 yesterday but it has since improved and this morning it is up to 137. BP now normal. 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 slightly low Serum Osm . reviewed TSH and Cortisol that I ordered and both are normal. BMP can be done once a day at this time. Did tell her to cut down fluid intake to no more than 60 oz at home ( currently looks more like 100 oz per day) Stop NS now as Both BP and Na normal Phos is high normal at 4.2 now. Stop Phos supplement. k is low--got 40 meq already. she may need regular kcl supplement. Check renal panel in AM daily (2) Perinephric hematoma: Reviewed CT imaging independently and also urology note. NO plan for surgery.Check and follow H and H. (3) Acute UTI: pending urine C/s. On Broad spectrum Abx--doxy + Zosyn currently. also covering pneumonia S----- she looks much more awake alert and in good spirit . family at bedside and they also agree with that. denies any pain ROS--12 Systems otherwise negative Exam: Physical Exam: GENERAL: Lethargic, no respiratory distress NECK : Supple, no tenderness CHEST : Decreased breath sounds, scattered expiratory wheezes, no tenderness HEART : Irregular, no obvious murmurs ABDOMEN: Soft, nontender No tenderness in CVAT EXTREMITIES : No LE swelling/tenderness, palpable pulses, no other conspicuous deformities noted NEUROLOGIC : Lethargic, no facial asymmetry, episodic RUE jerk, gait and stance not assessed Results & Data Vital Signs (Past 12 Hours) Vital Signs Temp Pulse Pulse Resp BP Pulse Ox O2 Del Method 10/11/24 08:00 88 10/11/24 08:00 Room Air 10/11/24 07:34 36.9 C 86 19 130/81 94 Room Air 10/11/24 07:31 18 Room Air 10/11/24 02:54 36.7 C 79 18 120/72 93 Oxymask 10/10/24 22:32 36.7 C 98 H 18 108/68 93 Oxymask 10/10/24 22:31 115 H O2 Flow Rate 10/11/24 08:00 10/11/24 08:00 10/11/24 07:34 10/11/24 07:31 10/11/24 02:54 1 10/10/24 22:32 1 10/10/24 22:31
[2024-10-11] MEDS ORDERED: Heparin IV Adult Wt-Based Low-Dose *NO* INITIAL Bolus Protocol IV SCH (11:40)
[2024-10-11] MEDS: HEPARIN 25000 UNIT/500 ML D5W 25,000 UNITS/500 ML BAG IV SCH (12:25)
[2024-10-11 12:28] LABS: Basophils # (auto) 0.01 K/uL (0.00-0.20); Basophils % (auto) 0.2 %; Eosinophils # (auto) 0.04 K/uL (0.00-0.50); Eosinophils % (auto) 0.8 %; Hematocrit (blood only) 28.3 % (37.0-47.0); Hemoglobin 8.9 g/dl (12.0-16.0); Immature Granulocytes # (auto) 0.06 K/uL (0.01-0.20); Immature Granulocytes % (auto) 1.2 %; Mean Corpuscular Hemoglobin 23.7 pg (25.0-34.0); Mean Corpuscular Hgb Conc 31.4 g/dL (32.0-36.0); Mean Corpuscular Volume 75.3 fL (80.0-100.0); Mean Platelet Volume 10.6 fL (9.4-12.4); Monocytes # (auto) 0.48 K/uL (0.11-0.59); Monocytes % (auto) 9.6 %; Neutrophils # (auto) 3.62 K/uL (1.40-6.50); Neutrophils % (auto) 72.2 %; Platelet Count 188 K/uL (130-400); RDW Coefficient of Variation 18.7 % (11.5-14.5); RDW Standard Deviation 51.2 fL (36.4-46.3); Red Blood Count 3.76 M/uL (4.20-5.40); White Blood Count 5.01 K/ul (4.8-10.8)
[2024-10-11 12:44] LABS: Partial Thromboplastin Ratio 1.1; Partial Thromboplastin Time 30 Seconds (21-31); Prothrombin Time 11.3 Seconds (9.0-12.0)
[2024-10-11] MEDS: busPIRone 5 MG TAB PO SCH (13:12)
[2024-10-11] MEDS: diphenhydrAMINE Capsule 25 MG CAP PO ONE (13:41)
[2024-10-11 15:27] VITALS: RESP 18
[2024-10-11] MEDS ORDERED: LEVALBUTEROL 1.25 MG/3 ML NEB NEB PRN (15:29)
[2024-10-11] MEDS ORDERED: IPRATROPIUM BROMIDE NEB SOLN 0.02% 0.5MG/2.5ML VIAL INH PRN (15:29)
[2024-10-11] MEDS: TRIAMCINOLONE ACET 0.1% CR 80 GM TUBE EXT PRN (16:22)
--- NOTE | 2024-10-11 16:54 | Hospitalist Progress Note ---
Date of Service October 11, 2024 Assessment & Plan (1) Encephalopathy: Plan: Encephalopathy, Multifactorial: Severe sepsis (SIRS plus encephalopathy plus hypoxemic respiratory failure) from: Bilateral Pneumonia, UTI, Bacteremia- Klebsiella Hyponatremia Multiple neuropsychotropic medications contributory Underlying Dementia Itching 10/09 mental status improving mostly back to baseline per family also weaned off nasal cannula, now on room air -Blood culture: (+) Klebsiella pneumoniae, Gram negative bacilli -patient having itching, started with abx, other consideration would be digoxin Plan: -stop ceftriaxone, start cipro given sensitivities due to itching -triamcinolone cream, benadryl given for itching -PT/OT recommending SNF -continue Doxycycline -ff up cultures Na improved from 126 to 133 after IV fluids Nephro on board Rapid A-fib secondary to Sepsis history 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 History antiplatelet and Eliquis Rx -found on the stairs -may have slipped or fallen -also has R chest wall and right lateral abdominal wall soft tissue contusion/swelling sesn on CT abd/pelvis -Urology consulted Plan: -heparin challenge given hematoma -restart eliquis if no drop in Hgb Hypertension -BP on the lower side chronic systolic heart failure (EF 39%, TTE 2023) -now euvolemic after IV fluids valvular heart disease (severe TR, mild MR) pulmonary hypertension hyperlipidemia, on statin Rx DM2 on oral medications, reasonable control as of recent hemoglobin A1c of 7.6 last September 2024 chronic anemia, hemoglobin at baseline -anemia panel ordered Involuntary arm arm jerks during sleep possible sleep myoclonus rule out seizure disorder -EEG pending -see if improvement with stopping ceftriaxone Plan Feeding/fluids: regular Analgesia: tylenol Sedation: na Thromboprophylaxis: heparin challenge Head up position: na Ulcer prophylaxis: na Glycemic control: na Spontaneous breathing trial: na Bowel care: miralax prn Indwelling catheter removal: na Deescalation of antibiotics: switch to cipro I spent a total of 50 minutes in direct patient care, including onwa-ea-aiil time with the patient and/or family, reviewing medical records, ordering and reviewing diagnostic tests, and coordinating care with other healthcare providers. This time includes: history taking, physical examination, medical decision making, counseling, ECG interpretation, imaging interpretation, lab interpretation, orders, and education, excluding time spent in the performance of separately billed services. Admission and Anticipated Discharge Date Admission Date: October 09, 2024 Subjective Patient seen and examined at bedside. Daughter at bedside as well. Patient is much improved from admission, but having occasional myoclonic jerks in leg and significant itching. Otherwise, feeling ok. Per daughter, jerks in leg were present before coming to hospital, itching started when antibiotics were started. Review of Systems Review of Systems: CONSTITUTIONAL: Patient denies fevers, chills, sweats and weight changes. EYES: Patient denies any visual symptoms. EARS, NOSE, AND THROAT: No difficulties with hearing. No symptoms of rhinitis or sore throat. CARDIOVASCULAR: Patient denies chest pains, palpitations, orthopnea and paroxysmal nocturnal dyspnea. RESPIRATORY: cough GI: No nausea, vomiting, diarrhea, constipation, abdominal pain, hematochezia or melena. : No urinary hesitancy or dribbling. No nocturia or urinary frequency. No abnormal urethral discharge. MUSCULOSKELETAL: No myalgias or arthralgias. NEUROLOGIC: No chronic headaches, no seizures. Patient denies numbness, tingling or weakness. random jerks noted in leg PSYCHIATRIC: Patient denies problems with mood disturbance. No problems with anxiety. ENDOCRINE: No excessive urination or excessive thirst. DERMATOLOGIC: itching, diffuse, worst on hands Physical Exam Physical Exam: Gen: A&O 3 NAD HEENT: NCAT, EOMI, not icteric. External ears normal. No rhinorrhea. Moist mucous membranes. Neck: Supple, full range of motion, no observable masses, No meningeal sign. Lungs: rhonchi, cough noted bilaterally CV: RRR, no edema. Abdomen: Soft, nondistended, No rebound tenderness. MSK: No joint swelling, no redness. Skin: noted bilateral skin abrasions from itching, worst on hands bilaterally Neuro: Normal Gait, Grossly intact. Psych: Appropriate for situation. Results & Data Results & Data Vital Signs (Past 12 Hours) Vital Signs Temp Pulse Pulse Resp BP Pulse Ox O2 Del Method 10/11/24 15:25 36.6 C 83 18 119/72 93 Room Air 10/11/24 14:12 90 10/11/24 11:03 36.6 C 90 18 128/79 96 Room Air 10/11/24 11:03 89 16 98 Room Air 10/11/24 08:00 88 10/11/24 08:00 Room Air 10/11/24 07:34 36.9 C 86 19 130/81 94 Room Air 10/11/24 07:31 18 Room Air Laboratory Results -personally reviewed, no leukocytosis noted, K of 3.3 noted suggestive of mild asymptomatic hypokalemia Medications Administered Acetaminophen (Acetaminophen 325 Mg Tab) 650 mg PO QID PRN PRN Reason: pain/fever Stop: 11/08/24 00:33 Last Admin: 10/10/24 22:32 Dose: 650 mg Documented By: GERARDO Acetaminophen (Acetaminophen 500 Mg Tab) 1,000 mg PO Q12H LAURIE Stop: 11/08/24 16:14 Last Admin: 10/11/24 16:24 Dose: 1,000 mg Documented By: Admin: 10/11/24 03:21 Dose: 1,000 mg Documented By: Admin: 10/10/24 17:03 Dose: 1,000 mg Documented By: Admin: 10/10/24 03:54 Dose: Not Given Documented By: Admin: 10/09/24 16:49 Dose: 1,000 mg Documented By: GALDINO Atorvastatin Calcium (Atorvastatin 10 Mg Tab) 10 mg PO DAILY LAURIE Stop: 11/08/24 08:59 Last Admin: 10/11/24 08:46 Dose: 10 mg Documented By: Admin: 10/10/24 08:25 Dose: 10 mg Documented By: Admin: 10/09/24 08:22 Dose: 10 mg Documented By: GALDINO Azelastine HCl (Azelastine Hcl 0.1% Nasal 200 Sprays/27,400 Mcg Btl) 1 sprays NA BID LAURIE Stop: 11/08/24 08:59 Last Admin: 10/11/24 08:45 Dose: 1 sprays Documented By: Admin: 10/10/24 20:25 Dose: 1 sprays Documented By: Admin: 10/10/24 08:56 Dose: 1 sprays Documented By: Admin: 10/09/24 19:58 Dose: 1 sprays Documented By: Admin: 10/09/24 08:21 Dose: 1 sprays Documented By: GALDINO Buspirone HCl (Buspirone 5 Mg Tab) 5 mg PO BID LAURIE Stop: 11/10/24 12:14 Last Admin: 10/11/24 13:12 Dose: 5 mg Documented By: GALDINO Cetirizine HCl (Cetirizine Hcl 10 Mg Tablet) 10 mg PO DAILY LAURIE Stop: 11/08/24 08:59 Last Admin: 10/11/24 08:46 Dose: 10 mg Documented By: Admin: 10/10/24 08:25 Dose: 10 mg Documented By: Admin: 10/09/24 08:23 Dose: 10 mg Documented By: GALDINO Cyanocobalamin (Cyanocobalamin (B-12) 500 Mcg Tablet) 1,000 mcg PO DAILY LAURIE Stop: 11/08/24 08:59 Last Admin: 10/11/24 08:45 Dose: 1,000 mcg Documented By: Admin: 10/10/24 08:25 Dose: 1,000 mcg Documented By: Admin: 10/09/24 08:22 Dose: 1,000 mcg Documented By: GALDINO Doxycycline Hyclate (Doxycycline Hyclate 100 Mg Cap) 100 mg PO BID LAURIE Stop: 10/14/24 08:59 Last Admin: 10/11/24 08:46 Dose: 100 mg Documented By: Admin: 10/10/24 20:27 Dose: 100 mg Documented By: Admin: 10/10/24 08:25 Dose: 100 mg Documented By: Admin: 10/09/24 19:58 Dose: 100 mg Documented By: Admin: 10/09/24 08:23 Dose: 100 mg Documented By: GALDINO Guaifenesin (Guaifenesin 600 Mg Tabcr) 600 mg PO Q12 LAURIE Stop: 11/08/24 08:59 Last Admin: 10/11/24 08:46 Dose: 600 mg Documented By: Admin: 10/10/24 20:27 Dose: 600 mg Documented By: Admin: 10/10/24 08:25 Dose: 600 mg Documented By: Admin: 10/09/24 19:57 Dose: 600 mg Documented By: Admin: 10/09/24 09:31 Dose: 600 mg Documented By: GALDINO Heparin Sodium/Dextrose (Heparin 71966 Unit/500 Ml D5w) 25,000 units in 500 mls @ 16 mls/hr IV .Q24H LAURIE; Protocol Stop: 11/10/24 12:29 Last Admin: 10/11/24 12:25 Dose: 800 units/hr, 16 mls/hr Documented By: GALDINO Co-signed By: GEORGINA Insulin Aspart (Insulin Aspart Per Unit Charge) 0 units SC ACHS LAURIE Stop: 11/08/24 01:39 Last Admin: 10/11/24 12:25 Dose: 2 units Documented By: GALDINO Co-signed By: GEORGINA Admin: 10/11/24 08:44 Dose: Not Given Documented By: Admin: 10/10/24 20:26 Dose: Not Given Documented By: Admin: 10/10/24 17:03 Dose: 2 units Documented By: GALDINO Co-signed By: ALENA Admin: 10/10/24 11:58 Dose: Not Given Documented By: Admin: 10/10/24 08:23 Dose: 2 units Documented By: GALDINO Co-signed By: HITESH Admin: 10/09/24 21:25 Dose: 1 units Documented By: GERARDO Co-signed By: FRANCISCO Admin: 10/09/24 16:56 Dose: Not Given Documented By: Admin: 10/09/24 12:06 Dose: 3 units Documented By: GALDINO Co-signed By: YEIMI Admin: 10/09/24 08:19 Dose: Not Given Documented By: Admin: 10/09/24 02:00 Dose: 4 units Documented By: SOHAN Co-signed By: ARMANDO Insulin Glargine (Lantus Per Unit Charge) 5 units SQ DAILY LAURIE Stop: 11/08/24 08:59 Last Admin: 10/11/24 08:46 Dose: 5 units Documented By: GALDINO Co-signed By: DIONNE Admin: 10/10/24 08:24 Dose: 5 units Documented By: GALDINO Co-signed By: HITESH Admin: 10/09/24 08:21 Dose: 5 units Documented By: GALDINO Co-signed By: YEIMI Metoprolol Succinate (Metoprolol Succ 25mg Ext Rel Tab) 12.5 mg PO DAILY LAURIE Stop: 11/08/24 08:59 Last Admin: 10/11/24 08:46 Dose: 12.5 mg Documented By: Admin: 10/10/24 08:24 Dose: 12.5 mg Documented By: Admin: 10/09/24 08:22 Dose: Not Given Documented By: GALDINO Pantoprazole Sodium (Pantoprazole 40 Mg Tab) 40 mg PO DAILY LAURIE Stop: 11/08/24 08:59 Last Admin: 10/11/24 08:46 Dose: 40 mg Documented By: Admin: 10/10/24 08:25 Dose: 40 mg Documented By: Admin: 10/09/24 08:23 Dose: 40 mg Documented By: GALDINO Triamcinolone Acetonide (Triamcinolone Acet 0.1% Cr 80 Gm Tube) 1 appln EXT DAILY PRN PRN Reason: Itching Stop: 11/10/24 14:44 Last Admin: 10/11/24 16:22 Dose: 1 appln Documented By: GALDINO
[2024-10-11] MEDS ORDERED: ONDANSETRON INJ 2 MG/ML 2 ML VIAL IV PRN (18:00)
[2024-10-11] MEDS: diphenhydrAMINE 50 MG/ML VIAL IV STA (18:19)
[2024-10-11] MEDS: LACTATED RINGER'S 1,000 ML IV SCH (18:19)
[2024-10-11 19:24] LABS: ANTI-Xa, UFH(UnfractionatedHep 0.22 IU/ml (0.3-0.7)
[2024-10-12 01:35] LABS: ANTI-Xa, UFH(UnfractionatedHep 0.26 IU/ml (0.3-0.7)
[2024-10-12 09:06] LABS: Basophils # (auto) 0.02 K/uL (0.00-0.20); Basophils % (auto) 0.4 %; Eosinophils # (auto) 0.06 K/uL (0.00-0.50); Eosinophils % (auto) 1.3 %; Hematocrit (blood only) 27.4 % (37.0-47.0); Hemoglobin 8.7 g/dl (12.0-16.0); Immature Granulocytes # (auto) 0.04 K/uL (0.01-0.20); Immature Granulocytes % (auto) 0.8 %; Lymphocytes % (auto) 21.2 %; Mean Corpuscular Hemoglobin 23.7 pg (25.0-34.0); Mean Corpuscular Hgb Conc 31.8 g/dL (32.0-36.0); Mean Corpuscular Volume 74.7 fL (80.0-100.0); Mean Platelet Volume 10.8 fL (9.4-12.4); Monocytes # (auto) 0.51 K/uL (0.11-0.59); Monocytes % (auto) 10.8 %; Neutrophils # (auto) 3.08 K/uL (1.40-6.50); Neutrophils % (auto) 65.5 %; Platelet Count 199 K/uL (130-400); RDW Coefficient of Variation 18.8 % (11.5-14.5); RDW Standard Deviation 51.6 fL (36.4-46.3); Red Blood Count 3.67 M/uL (4.20-5.40); White Blood Count 4.71 K/ul (4.8-10.8)
[2024-10-12 09:19] LABS: Calcium 8.2 mg/dl (8.6-10.3); Creatinine Clr Calc Pharmacy 49.4 ml/min; Magnesium 1.5 mg/dl (1.7-2.4); Potassium 3.6 mmol/L (3.5-5.1)
[2024-10-12 09:29] LABS: ANTI-Xa, UFH(UnfractionatedHep 0.26 IU/ml (0.3-0.7)
[2024-10-12] MEDS: levoFLOXacin 750 MG TAB PO SCH (10:17)
[2024-10-12] MEDS: MAGNESIUM SULFATE / D5W 1 GM/100 ML BAG IV SCH (12:05)
[2024-10-12 15:41] VITALS: BP 125/74; PULSE 77; TEMP 97.9; O2SAT 96
--- NOTE | 2024-10-12 16:20 | Discharge Summary ---
Discharge Summary Date of Service October 12, 2024 Principal Dx & Hospital Course #1 = Principal Diagnosis (1) Encephalopathy: Encephalopathy, Multifactorial: Severe sepsis (SIRS plus encephalopathy plus hypoxemic respiratory failure) from: Bilateral Pneumonia, UTI, Bacteremia- Klebsiella Hyponatremia Multiple neuropsychotropic medications contributory Underlying Dementia Itching -Blood culture: (+) Klebsiella pneumoniae, Gram negative bacilli -patient having itching, started with abx, other consideration would be digoxin Plan: -finish course of levofloxacin, discussed with pharmacy and patient family -triamcinolone cream, zofran for itching -PT/OT recommending SNF Na improved from 126 to 133 after IV fluids Nephro on board Rapid A-fib secondary to Sepsis history 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 History antiplatelet and Eliquis Rx -found on the stairs -may have slipped or fallen -also has R chest wall and right lateral abdominal wall soft tissue contusion/swelling sesn on CT abd/pelvis -Urology consulted -heparin challenge tolerated well Plan: -restart home eliquis at discharge Hypertension -BP on the lower side chronic systolic heart failure (EF 39%, TTE 2023) -now euvolemic after IV fluids valvular heart disease (severe TR, mild MR) pulmonary hypertension hyperlipidemia, on statin Rx DM2 on oral medications, reasonable control as of recent hemoglobin A1c of 7.6 last September 2024 chronic anemia, hemoglobin at baseline -anemia panel ordered Involuntary arm arm jerks during sleep possible sleep myoclonus rule out seizure disorder -imprtoved with stopping ceftriaxone Notes For Next Care Provider 88 yo female with pmhx of chronic systolic heart failure (EF 39%, TTE 2023), A- fib/saddle 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 Found to have sepsis 2/2 Klebsiella CAP, given fluids and abx with improvement. Course complicated by severe itching caused by ceftriaxone and piperacillin tazobactam, course switched to levofloxacin with improvement in itching. On 10/12/2024 patie nt tolerated heparin challenge, hemodynamically stable with no leukocytosis, Hgb stable, itching stopped, medically ready for transfer to rehab. Of note, will need outpatient workup for mycolonic jerks in legs that began a few weeks ago. Medication Changes From Visit -levoflxoacin, reduced doses of lexapro and pregablin Admission HPI Per Admitting Provider History obtained from patient, family, and records. Limited history from patient secondary to lethargy. 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 Last confinement November 2022 for E. coli UTI and rotavirus enteritis. 1 week history of congestion symptoms. Patient with junky cough symptoms. No aspiration episodes as per family. Not sure about sick contacts. Patient denies chest pain, SOB. Patient noted to be weak by family 2 nights ago when they left her at home. Yesterday morning, family found patient sitting on the bottom of the steps of a stairway at home. Patient more confused and weak than usual. Patient with episodic arm jerks which family notices especially when she is asleep. Family not sure about trauma. Family has had growing concerns about patient ability to live independently over the last few months. EMS transported patient to ER. O2 sats 80s, rapid A-fib, 120s upon arrival at the ER. Cefepime administered at the ER. Medical History as above Surgical History : Cataract surgery, cholecystectomy, diaphragmatic hernia repair, incisional hernia repair Family History : Heart disease Personal/Social history : Non-smoker, occasional EtOH intake, retired [employer], lives alone Discharge Exam Gen: A&O 3 NAD HEENT: NCAT, EOMI, not icteric. External ears normal. No rhinorrhea. Moist mucous membranes. Neck: Supple, full range of motion, no observable masses, No meningeal sign. Lungs: rhonchi, cough noted bilaterally CV: RRR, no edema. Abdomen: Soft, nondistended, No rebound tenderness. MSK: No joint swelling, no redness. Skin: noted bilateral skin abrasions from itching, worst on hands bilaterally, improved from yesterday Neuro: Normal Gait, Grossly intact. Psych: Appropriate for situation. Updated Medication List Medication Instructions Recorded Confirmed Type aspirin 81 mg chewable tablet 81 mg PO DAILY 12/27/20 10/08/24 History atorvastatin 10 mg tablet 10 mg PO DAILY 12/27/20 10/08/24 History cyanocobalamin (vitamin B-12) 1,000 mcg PO DAILY 12/27/20 10/08/24 History 1,000 mcg tablet (Vitamin B-12) metformin 500 mg tablet,extended 1,000 mg PO BID 12/27/20 10/08/24 History release 24 hr omeprazole 40 mg capsule,delayed 40 mg PO DAILY 12/27/20 10/08/24 History release pregabalin 100 mg capsule 100 mg PO BID 12/27/20 10/08/24 History sitagliptin phosphate 100 mg 100 mg PO DAILY 12/27/20 10/08/24 History tablet (Januvia) apixaban 5 mg tablet (Eliquis) 5 mg PO BID #180 tabs 12/30/20 10/08/24 Rx buspirone 5 mg tablet 5 mg PO BID 11/20/22 10/08/24 History cetirizine 10 mg tablet (Zyrtec) 10 mg PO DAILY 11/20/22 10/08/24 History metoprolol succinate 25 mg 12.5 mg PO DAILY 11/20/22 10/08/24 History tablet,extended release 24 hr azelastine 137 mcg (0.1 %) nasal 137 mcg intranasal BID 10/08/24 10/08/24 History spray ferrous sulfate 325 mg (65 mg 325 mg PO DAILY 10/08/24 10/08/24 History iron) tablet escitalopram oxalate 20 mg tablet 10 mg (1/2 x 20 mg) PO DAILY #0 10/12/24 10/08/24 Rx (Lexapro) tabs guaifenesin 600 mg tablet, 600 mg PO Q12 #30 tabs 10/12/24 Rx extended release 12 hr (Mucinex) levofloxacin 500 mg tablet 500 mg PO DAILY 7 days #7 tabs 10/12/24 Rx lidocaine 4 % topical patch 1 patch topical DAILY PRN pain #10 10/12/24 Rx ea ondansetron 4 mg disintegrating 4 mg PO DAILY PRN nausea and 03/26/25 Rx tablet vomiting 4 days #14 tabs oxycodone 5 mg tablet 2.5 mg (1/2 x 5 mg) PO Q12H PRN 10/12/24 Rx pain #10 tabs triamcinolone acetonide 0.1 % 1 applic EXT DAILY PRN itching #80 10/12/24 Rx topical cream grams Hospital Stay Data Consultations 10/08/24 22:11 ED Decision to Admit Stat 10/09/24 04:10 Consult Urology Routine 10/09/24 08:49 Consult Nephrology Routine Diagnostic Imagining Performed 10/08/24 20:27 CT abd pelvis wo con Stat CT cervical spine wo con Stat CT chest diagnostic wo con Stat 10/08/24 20:28 CT head/brain wo con Stat 10/09/24 04:13 CT angio abdomen pelvis w con Stat Pending Results Patient Have Any Pending Studies at Discharge: Yes Discharge Instructions Given to Patient (Per Discharging Provider) 1. Please work hard at rehab. 2. Follow up with urology and PCP. 3. Please take medications as prescribed. Total Time Total Time Spent Total Time Spent (In Minutes): I spent a total of 35 minutes in direct patient care, including [id number] time with the patient and/or family, reviewing medical records, ordering and reviewing diagnostic tests, and coordinating care with other healthcare providers. This time includes: history taking, physical examination, medical decision making, counseling, ECG interpretation, imaging interpretation, lab interpretation, orders, and education, excluding time spent in the performance of separately billed services.
== END 2024-10-12 16:04 | DRG 871 ==
LOC: ED 20:11 → 2S 10-09 00:29 → SUATTDRO 10-09 00:29 → 2S 10-09 01:11
DX: A41.9 Sepsis, unspecified organism; J18.9 Pneumonia, unspecified organism; Z79.84 Long term (current) use of oral hypoglycemic drugs; I11.0 Hypertensive heart disease with heart failure; Z79.82 Long term (current) use of aspirin; Z86.711 Personal history of pulmonary embolism; Z79.01 Long term (current) use of anticoagulants; B96.1 Klebsiella pneumoniae [K. pneumoniae] as the cause of diseases classified elsewhere; R65.20 Severe sepsis without septic shock; E11.9 Type 2 diabetes mellitus without complications; J40 Bronchitis, not specified as acute or chronic; I50.22 Chronic systolic (congestive) heart failure; I27.20 Pulmonary hypertension, unspecified; G93.41 Metabolic encephalopathy; S37.011A Minor contusion of right kidney, initial encounter; W00.1XXA Fall from stairs and steps due to ice and snow, initial encounter; N39.0 Urinary tract infection, site not specified; I08.1 Rheumatic disorders of both mitral and tricuspid valves; K21.9 Gastro-esophageal reflux disease without esophagitis; E22.2 Syndrome of inappropriate secretion of antidiuretic hormone; F03.92 Unspecified dementia, unspecified severity, with psychotic disturbance; Y92.018 Other place in single-family (private) house as the place of occurrence of the external cause; E78.5 Hyperlipidemia, unspecified; I48.21 Permanent atrial fibrillation; J96.91 Respiratory failure, unspecified with hypoxia; E83.42 Hypomagnesemia

== ENCOUNTER 2025-05-27 16:24 | Inpatient (IN) ==
[2025-05-27] MEDS: SODIUM CHLORIDE 0.9% 1,000 ML IV SCH (16:44)
--- NOTE | 2025-05-27 16:46 | Emergency Department Note ---
Impression & Plan Acute confusion, Fatigue, Acute hyponatremia, Hypomagnesemia ED Provider Note ED Provider Note NAME: SCHUYLER DYER AGE:89 SEX: Female : 1935 ARRIVES VIA: EMS INFORMANT: Patient, daughter, EMS ED PROVIDER(s): Stephany Pryor DO CHIEF COMPLAINT: Increased confusion, fatigue, recent UTI HPI: This is an 89-year-old female who presents to the emergency department via EMS due to staff concern where she resides for increased confusion, fatigue, and recent urinary tract infection. Patient initially states she feels well, denies pain, difficulty breathing, states she did not have anything to eat or drink today, but also does not know why she is here. Due to her history of dementia she cannot provide any additional history. Upon arrival of the daughter, daughter stated symptoms seem to begin Thursday of this past week when she was started on antibiotic for urinary tract infection. Daughter states she was started on Bactrim. Daughter states she has had UTIs in the past although they are not very frequent. Daughter notes yesterday she seemed to have increased fatigue and confusion according to her sister and then daughter noted today when she picked her up to take her to a family member's house to watch the football game. Daughter states staff reported to her that she had not been eating or drinking much in the last several days. She completed her course of Bactrim for the urinary tract infection and daughter asked for the urine to be rechecked however that has not occurred. Daughter also asked for outpatient labs to be drawn and sent daughter states she was told her sodium was 124. Daughter states her sodium does typically run low. Daughter states she did have a fall yesterday where according to staff she landed on her butt. Patient does use Eliquis due to history of atrial fibrillation. PAST MEDICAL HISTORY:See Below PAST SURGICAL HISTORY:See Below FAMILY HISTORY:See Below SOCIAL HISTORY:See Below HOME MEDICATIONS:See Below ALLERGIES:See Below VITALS:See Below PHYSICAL EXAMINATION: GENERAL: alert, well appearing, well nourished, no distress, non-toxic EYE EXAM: normal conjunctiva, PERRL and EOM's grossly intact OROPHARYNX: no exudate, no erythema, lips, buccal mucosa, and tongue normal and mucous membranes are mildly dry NECK: supple, no nuchal rigidity, no adenopathy, non-tender LUNGS: Clear to auscultation. Normal chest wall mechanics, no w/r/r HEART: no murmurs, S1 normal and S2 normal ABDOMEN: abdomen soft, non-tender, normo-active bowel sounds, no masses, no rebound or guarding. BACK: Back is symmetrical on inspection and there is no deformity, no midline tenderness, no CVA tenderness. SKIN: no rashes, petechiae, orbruising UPPER EXTREMITIES: upper extremities are grossly normal. FROM, nml pulses b/l. LOWER EXTREMITIES: No pitting edema. FROM, nml pulses b/l. No deformities, contusion noted at the inferior medial aspect of the right knee, and additional contusion noted to the lateral proximal tib-fib area, no joint effusions, patient with full range of motion at the knee, there is tenderness with palpation, no pain with palpation over the hips bilaterally NEURO EXAM: Pleasantly confused, cranial nerves II-XII grossly intact, normal speech, no facial droop,nogross weakness of arms, no gross weakness of legs. Gross sensation intact. No ataxia. Vital Signs: reviewed and remarkable Differential Diagnosis: CVA/TIA, ICH, JESUS, PNA, UTI, medication ADR, bacteremia/sepsis, occult trauma, hypoxia, hypercapnia, electrolyte abnormality, as well as others were considered MEDICAL DECISION MAKING: This is an 89-year-old female brought in by EMS due to concern for increased fatigue and confusion. Patient does have a history of dementia although staff at the facility where she resides as well as family who have seen her recently state her confusion is worse in the last few days. She was afebrile and hemodynamically stable on arrival. Labs drawn and sent, IV established, EKG and CXR performed and interpreted at bedside, and patient placed on telemetry. Patient sent for CT of the head, cervical spine, and abdomen and pelvis and consideration for recent fall yesterday as well as her recent urinary tract infection. Patient's UA here reassuring. Patient was initially started on IV fluid rehydration at 125 mL/HR, after sodium level confirmed to be low compared to her priors, this rate was reduced to 75 mL/HR. CTs reassuring, no evidence of acute traumatic injury, no evidence for pyelonephritis or other obstructive uropathy. Patient's creatinine here reassuring despite recent course of Bactrim for any urinary tract infection which I suspect contributed to her hyponatremia. Family had initially reported decreased oral intake over the last several days which is why IV fluids were started. I suspect her decreased oral intake this also contributed to her electrolyte abnormalities including the hypomagnesemia. Patient started on IV magnesium repletion additionally. Patient noted to be anemic however this appears stable compared to prior. Hyperglycemia also noted, no evidence for DKA. Case was discussed with the hospitalist team for additional evaluation and management. They also requested a COVID swab be sent given she was from facility. Consultation(s): 2101: Discussed with Dr. Guardado, [place] hospitalist team, for additional evaluation and mgmt. ER Treatment Provided: See below Diagnostics Interpreted By Me: -ECG: A-fib at a rate of 95, leftward axis, right bundle branch block, nonspecific ST/T wave changes -Cardiac Monitoring: An order was placed for continuous cardiac monitoring. The monitor shows a rate of 82 with a.fib rhythm. -Laboratory studies: As stated above and show below. -Imaging studies: X-ray Chest: A single view study of the chest was reviewed and was negative for cardiomegaly, focal infiltrate, effusion, pulmonary edema, or wide mediastinum. Triage Nursing Note Reviewed Prior/Outside Records Reviewed Critical care: Critical care of 42 min performed to assess and manage high likelihood of life-threatening electrolyte abnormalities, involving labs and imaging performed with assessment to evaluate weakness, confusion, fatigue diagnosis with frequent reassessment. This time includes bedside time, treatment discussions with patient/family/consultants, documentation time and excludes procedure time. Past Med/Surg History Problem List (Updated 05/27/25 @ 19:10 by Stephany Pryor DO) Hypomagnesemia (Acute) Acute hyponatremia (Acute) Fatigue (Acute) Acute confusion (Acute) Perinephric hematoma Encephalopathy Hypoxia (Acute) Hyponatremia (Acute) Weakness (Acute) Foot fracture, right Sacroiliac joint pain Contusion Maldonado fracture Atrial fibrillation Right knee DJD Fall Hypokalemia (Acute) New onset atrial fibrillation (Acute) Depression GERD (gastroesophageal reflux disease) (Chronic) Diabetes mellitus, type II Chronic cough (Chronic) Medical History Chronic pulmonary embolism Cardiomyopathy History of DVT (deep vein thrombosis) 20 years ago Surgical History Hx of cataract surgery S/P hernia repair History of cholecystectomy H/O hernia repair Family History Other Cancer Heart disease Social History Smoking Status: Never smoker Hx Alcohol Use: No Hx Substance Use: No Preferred Language: Uzbek Communication Ability: Impaired Visual Impairment: No Limitations Addiction Nurse Required: No Beliefs That Will Affect Care: None Current Living Situation: Alone Current Living Situation Comment: has someone stay with her every day, changes weekly per family current occupational status: retired Feels Safe at Home: Yes Assistive Devices: Walker Allergies Allergies Allergy/AdvReac Type Severity Reaction Status Date / Time digoxin [From Digox] Allergy Unknown Unverified 05/27/25 19:33 ceftriaxone AdvReac Intermediate Itching Verified 05/27/25 19:33 erythromycin base AdvReac Intermediate Gastrointestinal Verified 05/27/25 19:33 Upset Home Meds Home Medications Medication Instructions Recorded Confirmed aspirin 81 mg chewable tablet 81 mg PO DAILY 12/27/20 05/27/25 atorvastatin 10 mg tablet 10 mg PO DAILY 12/27/20 05/27/25 cyanocobalamin (vitamin B-12) 1,000 mcg PO DAILY 12/27/20 05/27/25 1,000 mcg tablet (Vitamin B-12) metformin 500 mg tablet,extended 1,000 mg PO BID 12/27/20 05/27/25 release 24 hr omeprazole 40 mg capsule,delayed 40 mg PO DAILY 12/27/20 05/27/25 release pregabalin 100 mg capsule 100 mg PO BID 12/27/20 10/08/24 sitagliptin phosphate 100 mg 100 mg PO DAILY 12/27/20 05/27/25 tablet (Januvia) metoprolol succinate 25 mg 12.5 mg PO DAILY 11/20/22 05/27/25 tablet,extended release 24 hr azelastine 137 mcg (0.1 %) nasal 137 mcg intranasal BID 10/08/24 05/27/25 spray ferrous sulfate 325 mg (65 mg 325 mg PO QAM 10/08/24 05/27/25 iron) tablet acetaminophen 325 mg tablet 650 mg PO Q6H PRN Fever 05/27/25 05/27/25 acetaminophen 325 mg tablet 650 mg PO Q6H PRN Pain 05/27/25 05/27/25 aluminum-mag hydroxide-simethicone 30 ml PO Q6H PRN Dyspepsia 05/27/25 05/27/25 400 mg-400 mg-40 mg/5 mL oral susp (Maalox Maximum Strength) bisacodyl 10 mg rectal suppository 10 mg NH DAILY PRN Constipation 05/27/25 05/27/25 buspirone 10 mg tablet 10 mg PO BID 05/27/25 05/27/25 cetirizine 5 mg tablet 5 mg PO QAM 05/27/25 05/27/25 famotidine 20 mg tablet 20 mg PO HS 05/27/25 05/27/25 guaifenesin 600 mg tablet, 600 mg PO Q12 PRN COUGH/CONGESTION 05/27/25 05/27/25 extended release 12 hr (Mucinex) magnesium hydroxide 400 mg/5 mL 30 ml PO DIRECTED PRN 05/27/25 05/27/25 oral suspension (Milk of Magnesia) Constipation ondansetron HCl 4 mg tablet 4 mg PO Q8H PRN Nausea And Vomiting 05/27/25 05/27/25 prednisone 20 mg tablet 20 mg PO DAILY 05/27/25 05/27/25 promethazine 25 mg/mL injection 25 mg IM Q6H PRN Nausea And 05/27/25 05/27/25 solution Vomiting sodium phosphates 19 gram-7 118 ml NH DIRECTED PRN 05/27/25 05/27/25 gram/118 mL enema (Fleet Enema) Constipation Previous Rx's Medication Instructions Recorded apixaban 5 mg tablet (Eliquis) 5 mg PO BID #180 tabs 12/30/20 escitalopram oxalate 20 mg tablet 10 mg (1/2 x 20 mg) PO DAILY #0 10/12/24 (Lexapro) tabs triamcinolone acetonide 0.1 % 1 applic EXT DAILY PRN itching #80 10/12/24 topical cream grams Results & Data (ED) Vital Signs Vital Signs - 24 hr 05/27/25 16:37 05/27/25 17:35 05/27/25 18:31 Temperature 36.7 C Temperature Source Oral Pulse Rate 103 H Pulse Rate [Apical] 94 H 85 Pulse Rhythm [Apical] Pulse Strength [Apical] Respiratory Rate 18 18 18 Respiratory Effort / Characteristics Non-Labored Spontaneous Non-Labored Spontaneous Non-Labored Spontaneous Respiratory Depth Normal Normal Normal Respiratory Pattern Blood Pressure 103/76 Blood Pressure [Right Arm] 111/81 104/69 Blood Pressure Mean 85 Blood Pressure Mean [Right Arm] 91 80 Blood Pressure Position Sitting Blood Pressure Position [Right Arm] Lying Lying Pulse Oximetry 96 93 92 Oxygen Delivery Method Room Air Room Air Room Air Sepsis Recent Fever Within 48 Hours No Sepsis New/Unexplained Change in Mental Status No Sepsis Action Taken by Nursing No Action Required 05/27/25 20:00 05/27/25 22:00 Temperature Temperature Source Pulse Rate Pulse Rate [Apical] 79 82 Pulse Rhythm [Apical] Regular Regular Pulse Strength [Apical] Normal Normal Respiratory Rate 17 22 Respiratory Effort / Characteristics Non-Labored Spontaneous Non-Labored Spontaneous Respiratory Depth Normal Normal Respiratory Pattern Regular Regular Blood Pressure Blood Pressure [Right Arm] 94/65 L 95/60 L Blood Pressure Mean Blood Pressure Mean [Right Arm] 74 71 Blood Pressure Position Blood Pressure Position [Right Arm] Lying Lying Pulse Oximetry 95 96 Oxygen Delivery Method Room Air Room Air Sepsis Recent Fever Within 48 Hours Sepsis New/Unexplained Change in Mental Status Sepsis Action Taken by Nursing Laboratory Data 05/27/25 16:45 05/27/25 16:45 Lab Results 05/27/25 05/27/25 05/27/25 Range/Units 16:45 21:39 Unknown WBC 6.37 (4.8-10.8) K/ul RBC 3.51 L (4.20-5.40) M/uL Hgb 8.5 L (12.0-16.0) g/dl Hct 26.3 L (37.0-47.0) % MCV 74.9 L (80.0-100.0) fL MCH 24.2 L (25.0-34.0) pg MCHC 32.3 (32.0-36.0) g/dL RDW Std Deviation 45.5 (36.4-46.3) fL RDW Coeff of Lesley 16.8 H (11.5-14.5) % Plt Count 239 (130-400) K/uL MPV 10.3 (9.4-12.4) fL Immature Gran % (Auto) 0.8 % Neut % (Auto) 83.5 % Lymph % (Auto) 10.4 % [place] % (Auto) 5.0 % Eos % (Auto) 0.0 % Baso % (Auto) 0.3 % Neut # (Auto) 5.32 (1.40-6.50) K/uL Lymph # (Auto) 0.66 L (1.20-3.40) K/uL [place] # (Auto) 0.32 (0.11-0.59) K/uL Eos # (Auto) 0.00 (0.00-0.50) K/uL Baso # (Auto) 0.02 (0.00-0.20) K/uL Immature Gran # (Auto) 0.05 (0.01-0.20) K/uL Absolute Nucleated RBC 0.02 (0.00-0.12) K/uL Nucleated RBC % (auto) 0.3 % PT 14.0 H (9.0-12.0) Seconds INR 1.3 H (0.9-1.1) Sodium 125 L (136-145) mmol/L Potassium 4.9 (3.5-5.1) mmol/L Chloride 95 L (98-107) mmol/L Carbon Dioxide 22 (21-32) mmol/L Anion Gap 8 (3-11) BUN 21 (6-23) mg/dl Creatinine 1.22 H (0.6-1.2) mg/dl Est Cr Clr Drug Dosing 29.8 ml/min eGFR 42.68 BUN/Creatinine Ratio 17.2 (10-20) Glucose 200 H (70-99(Fasting)) mg/dl Calcium 8.7 (8.6-10.3) mg/dl Magnesium 1.3 L (1.7-2.4) mg/dl Total Bilirubin 0.5 (0.2-1.0) mg/dl AST 24 (13-39) U/L ALT 13 (7-52) U/L Alkaline Phosphatase 59 (34-104) U/L Troponin I High Sens 10.3 (0-14) pg/ml Total Protein 6.9 (6.0-8.3) gm/dl Albumin 3.5 (3.4-5.0) gm/dl Globulin 3.4 (2.5-4.0) gm/dl Albumin/Globulin Ratio 1.0 (0.9-2) Lipase 19 (11-82) U/L TSH 1.609 (0.300-4.500) uIu/ml Urine Color Yellow Urine Appearance Clear (Clear) Urine pH 5.0 (4.5-7.5) Ur Specific [place] 1.012 (1.000-1.030) Urine Protein Negative (Negative) Urine Glucose (UA) Negative (Negative) Urine Ketones Negative (Negative) Urine Blood Negative (Negative) Urine Nitrite Negative (Negative) Urine Bilirubin Negative (Negative) Urine Urobilinogen Negative (Negative) Ur Leukocyte Esterase Negative (Negative) Urine Comment SARS-CoV-2 (PCR) NEGATIVE (Negative) Influenza Type A (PCR) Negative (Neg) Influenza Type B (PCR) Negative (Neg) RSV (RT-PCR) Negative (Neg) Administered Medications Sodium Chloride (Nss) 1,000 mls @ 125 mls/hr IV .Q8H LAURIE Stop: 05/30/25 16:44 Last Infusion: 05/27/25 17:54 Dose: 75 mls/hr Documented By: Admin: 05/27/25 16:44 Dose: 125 mls/hr Documented By: MIKO Discontinued Medications Magnesium Sulfate/Dextrose (Magnesium Sulfate / D5w) 1 gm in 100 mls @ 100 mls/hr IV Q1H LAURIE Stop: 05/27/25 20:30 Last Infusion: 05/27/25 21:25 Dose: Infused Documented By: [facility] Admin: 05/27/25 20:20 Dose: 100 mls/hr Documented By: [facility] Infusion: 05/27/25 20:13 Dose: Infused Documented By: [facility] Admin: 05/27/25 19:13 Dose: 100 mls/hr Documented By: [facility] Ioversol (Optiray 320 100ml) 90 ml IV ONCE ONE Stop: 05/27/25 18:51 Last Admin: 05/27/25 18:51 Dose: 90 ml Documented By: CECILY Imaging Data Radiologist's Impression: Head CT 05/27/25 16:39 CT HEAD: HISTORY: Trauma TECHNIQUE: Noncontrast CT examination of the head is performed. Coronal and sagittal reformats were created. COMPARISON: Brain CT October 08, 2024 FINDINGS: Streak and motion degraded examination. Within this constraint: There is no evidence of intracranial hemorrhage, focal mass effect or midline shift. No fluid collection is identified. The ventricular system is midline and symmetric. No evidence of acute major vascular territory infarction. Age-related involutional changes of the brain and chronic white matter ischemic changes. No calvarial fracture is identified. The paranasal sinuses and mastoids are well aerated. IMPRESSION: Streak and motion degraded examination. Within this constraint: No acute intracranial process identified. Electronically signed by Jose Barber 05-27-2025 8:27 PM Abdomen/Pelvis CT 05/27/25 16:40 Exam: CT abdomen/pelvis with IV contrast. Reason for exam: UTI with fall. Previous studies: 10/09/2024. FINDINGS: Moderate right pleural effusion with trace left pleural effusion are now present. Large hiatal hernia is again noted. Areas of atelectasis seen in both lower lobes. Clips from cholecystectomy are evident. Pancreas and spleen are unremarkable. Kidneys show no solid lesion or hydronephrosis. Bilateral renal cysts are stable. Extensive vascular calcification but no significant aneurysm.. Midline upper abdominal ventral hernia is again seen containing portions of the stomach without bowel obstruction. Midline abdominal hernia is also present containing colon without obstruction. Small amount of ascites is now seen. Moderate distention of the urinary bladder is present. No pneumoperitoneum/free air is seen. There is a 2.8 cm low-attenuation left adnexal lesion in the pelvis stable as compared to the previous study. Some increased thickening is seen in the fat surrounding the rectosigmoid colon extending inferiorly to the level of the anus. Stable colitis could be present. Moderate scoliosis convex to the left is present. No definite acute bony trauma is identified on this study. IMPRESSION: 1. Development of significant inflammation in the fat surrounding the rectosigmoid colon not present on the previous study of 10/09/2024. The possibility of stercoral colitis should be considered. Correlation with sigmoidoscopy and/or colonoscopy is recommended. 2. Persistence of multiple hernias of the anterior abdominal wall containing bowel loops without saphenous bowel obstruction at this time. 3. Moderately distended urinary bladder. 4. Moderate right pleural effusion with trace left pleural effusion. 5. Development of a small amount of ascites. Electronically signed by Kel Stewart 05-27-2025 8:[address] 05/27/25 16:40 Exam: CT cervical spine without contrast: Reason for exam: Patient fell on her buttocks with bruising to the right knee. Atrial fibrillation. 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 Extensive degenerative disc and joint disease at the C4-C7 levels with some bony neural foraminal encroachments bilaterally. Slight grade 1 spondylolisthesis C7 on T1 is stable. No acute fracture or destructive bony process is seen. IMPRESSION: 1. Negative for acute bony trauma. 2. Extensive degenerative disc and joint disease, stable in appearance as compared to the study of 10/08/2024. Electronically signed by Kel Stewart 05-27-2025 8:27 PM Chest X-Ray 05/27/25 16:40 EXAM: Radiograph of the Chest 1 View INDICATION: Trauma TECHNIQUE: Frontal view of the chest. COMPARISON: 10/08/2024 FINDINGS: Lungs and pleural spaces: Stable chronic interstitial thickening. No consolidation. No definite pleural effusion. No pneumothorax. Heart: Stable large cardiac shadow. Mediastinum: Hiatal hernia noted. Bones/joints: Degenerative changes noted throughout the spine and both shoulders. No lytic or blastic lesions noted. Soft tissues: No abnormality noted. No radiopaque foreign body noted. Upper abdomen: No abnormality noted. IMPRESSION: No acute change noted. ACT 112: N/A Electronically signed by Shaista Cardona 05-27-2025 7:39 PM Knee X-Ray 05/27/25 16:41 EXAM: Radiographs of the Right Knee 2 Views INDICATION: Trauma TECHNIQUE: Frontal and lateral views of the right knee. COMPARISON: No relevant prior studies available. FINDINGS: Bones/joints: There is mild medial joint space narrowing and patellofemoral spurring. No fracture, erosion or loose body. Smooth articular surfaces. Soft tissues: No abnormality noted. No radiopaque foreign body noted. IMPRESSION: No acute abnormality. Mild primary osteoarthritis as above. ACT 112: N/A Electronically signed by Shaista Cardona 05-27-2025 7:40 PM Discharge Plan Visit Data Chief Complaint: Abnormal Labs/Diagnostic Testing Stated Complaint: AMS ED Provider: Stephany Pryor Discharge Problem: Acute confusion, Fatigue, Acute hyponatremia, Hypomagnesemia Patient Disposition: Being Evaluated by Hospitalist Condition: Fair Forms Stand Alone Forms: [facility] [employer] Prescriptions Prescriptions: No Action atorvastatin 10 mg tablet 10 mg PO DAILY cyanocobalamin (vitamin B-12) [Vitamin B-12] 1,000 mcg Tablet 1,000 mcg PO DAILY omeprazole 40 mg capsule,delayed release(DR/EC) 40 mg PO DAILY aspirin 81 mg Tablet,Chewable 81 mg PO DAILY metformin 500 mg tablet extended release 24 hr 1,000 mg PO BID Hold Instructions: Resume on 10/17/24. pregabalin 100 mg capsule 100 mg PO BID Hold Instructions: Resume on 10/14/24. Januvia 100 mg tablet 100 mg PO DAILY Hold Instructions: Resume on 10/16/24. Eliquis 5 mg Tablet 5 mg PO BID Qty: 180 0RF metoprolol succinate 25 mg tablet extended release 24 hr 12.5 mg PO DAILY ferrous sulfate 325 mg (65 mg iron) tablet 325 mg PO QAM azelastine 137 mcg (0.1 %) spray,non-aerosol 137 mcg intranasal BID triamcinolone acetonide 0.1 % Cream 1 applic EXT DAILY PRN (Reason: itching) Qty: 80 0RF escitalopram oxalate [Lexapro] 20 mg Tablet 10 mg PO DAILY Qty: 0 0RF acetaminophen 325 mg Tablet 650 mg PO Q6H PRN (Reason: Fever) Rx Instructions: TEMP GREATER THAN 100 NOT TO EXCEED 3 GRAMS PER 24 HOURS acetaminophen 325 mg Tablet 650 mg PO Q6H MDD DO NOT EXCEED 3 G PER 24 HOURS PRN (Reason: Pain) cetirizine 5 mg Tablet 5 mg PO QAM ondansetron HCl 4 mg tablet 4 mg PO Q8H PRN (Reason: Nausea And Vomiting) prednisone 20 mg tablet 20 mg PO DAILY Rx Instructions: FOR 5 DAYS (LAST DOSE 05/30/25) famotidine 20 mg Tablet 20 mg PO HS magnesium hydroxide [Milk of Magnesia] 400 mg/5 mL Suspension 30 ml PO DIRECTED PRN (Reason: Constipation) Rx Instructions: AFTER NO BM FOR THREE DAYS ADMINISTER MOM ON 7-3 SHIFT bisacodyl 10 mg Suppository 10 mg NH DAILY PRN (Reason: Constipation) buspirone 10 mg tablet 10 mg PO BID promethazine 25 mg/mL solution 25 mg IM Q6H PRN (Reason: Nausea And Vomiting) Fleet Enema 19-7 gram/118 mL Enema 118 ml NH DIRECTED PRN (Reason: Constipation) Rx Instructions: IF NO BM AFTER DULCOLAX ADMINISTER FLEETS ON 7-3 SHIFT DAY FOUR alum-mag hydroxide-simeth [Maalox Maximum Strength] 400-400-40 mg/5 mL Suspension 30 ml PO Q6H PRN (Reason: Dyspepsia) guaifenesin [Mucinex] 600 mg tablet extended release 12hr 600 mg PO Q12 PRN (Reason: COUGH/CONGESTION) Referrals Referrals: [facility] [Primary Care Provider] -
[2025-05-27 17:02] LABS: Hematocrit (blood only) 26.3 % (37.0-47.0); Hemoglobin 8.5 g/dl (12.0-16.0); Immature Granulocytes # (auto) 0.05 K/uL (0.01-0.20); Immature Granulocytes % (auto) 0.8 %; Mean Corpuscular Hemoglobin 24.2 pg (25.0-34.0); Mean Corpuscular Volume 74.9 fL (80.0-100.0); Platelet Count 239 K/uL (130-400); RDW Standard Deviation 45.5 fL (36.4-46.3); Red Blood Count 3.51 M/uL (4.20-5.40); White Blood Count 6.37 K/ul (4.8-10.8)
[2025-05-27 17:18] LABS: Alanine Aminotransferase 13.0 U/L (7-52); Albumin Globulin Ratio 1.0 (0.9-2); Albumin Level 3.5 gm/dl (3.4-5.0); Alkaline Phosphatase 59.0 U/L (34-104); Anion Gap 8.0 (3-11); Bilirubin,Total 0.5 mg/dl (0.2-1.0); Blood Urea Nitrogen 21.0 mg/dl (6-23); Calcium 8.7 mg/dl (8.6-10.3); Carbon Dioxide 22.0 mmol/L (21-32); Chloride 95.0 mmol/L (98-107); Creatinine Clr Calc Pharmacy 29.8 ml/min; Globulin 3.4 gm/dl (2.5-4.0); Glucose 200.0 mg/dl (70-99(Fasting)); Lipase 19.0 U/L (11-82); Magnesium 1.3 mg/dl (1.7-2.4); Potassium 4.9 mmol/L (3.5-5.1); Sodium 125.0 mmol/L (136-145); Total Protein 6.9 gm/dl (6.0-8.3)
[2025-05-27 17:34] LABS: Thyroid Stimulating Hormone 1.609 uIu/ml (0.300-4.500)
[2025-05-27 17:43] LABS: INR 1.3 (0.9-1.1); Prothrombin Time 14.0 Seconds (9.0-12.0)
[2025-05-27 17:48] LABS: Appearance Urine Clear (Clear); Glucose Urine UA Negative (Negative)
[2025-05-27] MEDS: OPTIRAY 320 100ml IV ONE (18:51)
[2025-05-27] MEDS: MAGNESIUM SULFATE / D5W 1 GM/100 ML BAG IV SCH (19:13)
--- NOTE | 2025-05-27 19:39 | XRay Report ---
EXAM: Radiograph of the Chest 1 View INDICATION: Trauma TECHNIQUE: Frontal view of the chest. COMPARISON: 10/08/2024 FINDINGS: Lungs and pleural spaces: Stable chronic interstitial thickening. No consolidation. No definite pleural effusion. No pneumothorax. Heart: Stable large cardiac shadow. Mediastinum: Hiatal hernia noted. Bones/joints: Degenerative changes noted throughout the spine and both shoulders. No lytic or blastic lesions noted. Soft tissues: No abnormality noted. No radiopaque foreign body noted. Upper abdomen: No abnormality noted. IMPRESSION: No acute change noted. ACT 112: N/A Electronically signed by Shaista Cardona 05-27-2025 7:39 PM
--- NOTE | 2025-05-27 19:41 | XRay Report ---
EXAM: Radiographs of the Right Knee 2 Views INDICATION: Trauma TECHNIQUE: Frontal and lateral views of the right knee. COMPARISON: No relevant prior studies available. FINDINGS: Bones/joints: There is mild medial joint space narrowing and patellofemoral spurring. No fracture, erosion or loose body. Smooth articular surfaces. Soft tissues: No abnormality noted. No radiopaque foreign body noted. IMPRESSION: No acute abnormality. Mild primary osteoarthritis as above. ACT 112: N/A Electronically signed by Shaista Cardona 05-27-2025 7:40 PM
--- NOTE | 2025-05-27 20:27 | CT Scan Report ---
CT HEAD: HISTORY: Trauma TECHNIQUE: Noncontrast CT examination of the head is performed. Coronal and sagittal reformats were created. COMPARISON: Brain CT October 08, 2024 FINDINGS: Streak and motion degraded examination. Within this constraint: There is no evidence of intracranial hemorrhage, focal mass effect or midline shift. No fluid collection is identified. The ventricular system is midline and symmetric. No evidence of acute major vascular territory infarction. Age-related involutional changes of the brain and chronic white matter ischemic changes. No calvarial fracture is identified. The paranasal sinuses and mastoids are well aerated. IMPRESSION: Streak and motion degraded examination. Within this constraint: No acute intracranial process identified. Electronically signed by Jose Barber 05-27-2025 8:27 PM
--- NOTE | 2025-05-27 20:27 | CT Scan Report ---
Exam: CT cervical spine without contrast: Reason for exam: Patient fell on her buttocks with bruising to the right knee. Atrial fibrillation. 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 Extensive degenerative disc and joint disease at the C4-C7 levels with some bony neural foraminal encroachments bilaterally. Slight grade 1 spondylolisthesis C7 on T1 is stable. No acute fracture or destructive bony process is seen. IMPRESSION: 1. Negative for acute bony trauma. 2. Extensive degenerative disc and joint disease, stable in appearance as compared to the study of 10/08/2024. Electronically signed by Kel Stewart 05-27-2025 8:27 PM
--- NOTE | 2025-05-27 20:37 | CT Scan Report ---
Exam: CT abdomen/pelvis with IV contrast. Reason for exam: UTI with fall. Previous studies: 10/09/2024. FINDINGS: Moderate right pleural effusion with trace left pleural effusion are now present. Large hiatal hernia is again noted. Areas of atelectasis seen in both lower lobes. Clips from cholecystectomy are evident. Pancreas and spleen are unremarkable. Kidneys show no solid lesion or hydronephrosis. Bilateral renal cysts are stable. Extensive vascular calcification but no significant aneurysm.. Midline upper abdominal ventral hernia is again seen containing portions of the stomach without bowel obstruction. Midline abdominal hernia is also present containing colon without obstruction. Small amount of ascites is now seen. Moderate distention of the urinary bladder is present. No pneumoperitoneum/free air is seen. There is a 2.8 cm low-attenuation left adnexal lesion in the pelvis stable as compared to the previous study. Some increased thickening is seen in the fat surrounding the rectosigmoid colon extending inferiorly to the level of the anus. Stable colitis could be present. Moderate scoliosis convex to the left is present. No definite acute bony trauma is identified on this study. IMPRESSION: 1. Development of significant inflammation in the fat surrounding the rectosigmoid colon not present on the previous study of 10/09/2024. The possibility of stercoral colitis should be considered. Correlation with sigmoidoscopy and/or colonoscopy is recommended. 2. Persistence of multiple hernias of the anterior abdominal wall containing bowel loops without saphenous bowel obstruction at this time. 3. Moderately distended urinary bladder. 4. Moderate right pleural effusion with trace left pleural effusion. 5. Development of a small amount of ascites. Electronically signed by Kel Stewart 05-27-2025 8:37 PM
--- NOTE | 2025-05-27 21:57 | History & Physical Report ---
Date of Service May 27, 2025 Assessment & Plan (1) Fatigue: (2) Encephalopathy: (3) Acute hyponatremia: (4) Hypomagnesemia: (5) Pleural effusion: (6) Colitis: (7) Diabetes mellitus, type II: (8) GERD (gastroesophageal reflux disease): (9) Atrial fibrillation: Plan 89yo female with history of atrial fibrillation, prior VTE, DM and underlying dementia presenting with several days of worsening confusion, fatigue and poor oral intake. Recently diagnosed with UTI which was treated with Bactrim. Recently placed on steroids due to itching, possibly from Bactrim. #Encephalopathy/Fatigue - likely multifactorial. Patient does appear slightly dry on clinical exam. Electrolyte abnormalities to include hyponatremia and hypomagnesemia -Correction of electrolyte imbalance -Gentle IVF -Frequent orientation, delirium prevention strategies -Avoid potential delirium inducing medications #Hyponatremia - Sodium low at 125. Has been low in the past. Likely multifactorial - patient with decreased oral intake. Bactrim may contribute to hyponatremia as well. -Check urine and serum osmolality -Check urine Na -Received 1L NSS in the ER - will continue with gentle hydration LR at 80mL/hr x 1 additional liter -Repeat chemistry in AM #Hypomagnesemia - Mg=1.3. Likely contributing to fatigue as well -Repleted with 3gm -Repeat level in AM #Pleural effusion / Ascites - noted on CT imaging. Patient does not endorse shortness of breath. Adequate oxygenation on room air. Not on diuretics. Does have a history of valvular heart disease as well as reduced EF per last echo in 2023 (noted in last [facility] note - do not have access to these records, unfortunately). -Repeat echo in AM -Would hold off on additional IVF after liter of LR is complete #History of VTE - prior saddle PE -Continue Eliquis 5mg po BID #Atrial fibrillation - rate controlled. On anticoagulation with Eliquis -Continue Eliquis -Continue Metoprolol 12.5mg po BID #Colitis - noted on CT imaging. Patient with no complaints at present. Did have some diarrhea earlier today -Monitor -Consider GI consultation vs outpatient followup #Diabetes -Last BkwK1S=21.5 on 12/01/24 -Hold Januvia and Metformin for now -ISS, goal blood sugars 110 - 160 -CC diet as tolerated #GERD -Continue Pepcid #Hyperlipidemia -Continue Atorvastatin #Mental Health -Continue Buspar -Continue Lexapro History of Present Illness Chief Complaint: Confusion Primary Care Provider: [facility] Cheryl Palumbo is a pleasant 89yo female with history of AF on Eliquis anticoagulation, prior VTE saddle PE, HTN, valvular heart disease (severe TR and mild MR, EF of 39% per echo in 2023), HLP, DM presenting from [facility] with confusion. She was recently found to have a UTI and completed a course of Bactrim. She developed a rash at the end of her antibiotic course with severe itching therefore was prescribed a short 5 day course of Prednisone. On 05/24 patient began to develop severe fatigue and confusion as well as decreased oral intake. Her daughter is at bedside and reports that patient has been very sleepy and not very interactive. Also with concern for delirium. On 05/25 she did fall and land on her backside. She denies any pain from this event. Patient denies chest pain, cough, SOB. No abdominal pain. Daughter does endorse an episode of diarrhea earlier today. Otherwise no complaints. In the ER initially with mildly low blood pressure 94/65, otherwise afebrile, adequate oxygenation on room air ER Course: NSS at 125mL/hr Magnesium sulfate x 3gm LR at 80mL/hr Allergies Allergy/AdvReac Type Severity Reaction Status Date / Time digoxin [From Digox] Allergy Unknown Unverified 05/27/25 19:33 ceftriaxone AdvReac Intermediate Itching Verified 05/27/25 19:33 erythromycin base AdvReac Intermediate Gastrointestinal Verified 05/27/25 19:33 Upset Home Medications Medication Instructions Recorded Confirmed Type aspirin 81 mg chewable tablet 81 mg PO DAILY 12/27/20 05/27/25 History atorvastatin 10 mg tablet 10 mg PO DAILY 12/27/20 05/27/25 History cyanocobalamin (vitamin B-12) 1,000 mcg PO DAILY 12/27/20 05/27/25 History 1,000 mcg tablet (Vitamin B-12) metformin 500 mg tablet,extended 1,000 mg PO BID 12/27/20 05/27/25 History release 24 hr omeprazole 40 mg capsule,delayed 40 mg PO DAILY 12/27/20 05/27/25 History release pregabalin 100 mg capsule 100 mg PO BID 12/27/20 10/08/24 History sitagliptin phosphate 100 mg 100 mg PO DAILY 12/27/20 05/27/25 History tablet (Januvia) apixaban 5 mg tablet (Eliquis) 5 mg PO BID #180 tabs 12/30/20 05/27/25 Rx metoprolol succinate 25 mg 12.5 mg PO DAILY 11/20/22 05/27/25 History tablet,extended release 24 hr azelastine 137 mcg (0.1 %) nasal 137 mcg intranasal BID 10/08/24 05/27/25 History spray ferrous sulfate 325 mg (65 mg 325 mg PO QAM 10/08/24 05/27/25 History iron) tablet escitalopram oxalate 20 mg tablet 10 mg (1/2 x 20 mg) PO DAILY #0 10/12/24 05/27/25 Rx (Lexapro) tabs triamcinolone acetonide 0.1 % 1 applic EXT DAILY PRN itching #80 10/12/24 Rx topical cream grams acetaminophen 325 mg tablet 650 mg PO Q6H PRN Fever 05/27/25 05/27/25 History acetaminophen 325 mg tablet 650 mg PO Q6H PRN Pain 05/27/25 05/27/25 History aluminum-mag hydroxide-simethicone 30 ml PO Q6H PRN Dyspepsia 05/27/25 05/27/25 History 400 mg-400 mg-40 mg/5 mL oral susp (Maalox Maximum Strength) bisacodyl 10 mg rectal suppository 10 mg AL DAILY PRN Constipation 05/27/25 05/27/25 History buspirone 10 mg tablet 10 mg PO BID 05/27/25 05/27/25 History cetirizine 5 mg tablet 5 mg PO QAM 05/27/25 05/27/25 History famotidine 20 mg tablet 20 mg PO HS 05/27/25 05/27/25 History guaifenesin 600 mg tablet, 600 mg PO Q12 PRN COUGH/CONGESTION 05/27/25 05/27/25 History extended release 12 hr (Mucinex) magnesium hydroxide 400 mg/5 mL 30 ml PO DIRECTED PRN 05/27/25 05/27/25 History oral suspension (Milk of Magnesia) Constipation ondansetron HCl 4 mg tablet 4 mg PO Q8H PRN Nausea And Vomiting 05/27/25 05/27/25 History prednisone 20 mg tablet 20 mg PO DAILY 05/27/25 05/27/25 History promethazine 25 mg/mL injection 25 mg IM Q6H PRN Nausea And 05/27/25 05/27/25 History solution Vomiting sodium phosphates 19 gram-7 118 ml AL DIRECTED PRN 05/27/25 05/27/25 History gram/118 mL enema (Fleet Enema) Constipation Past Med/Surg History Problem List (Updated 05/28/25 @ 02:56 by Zoë Guardado DO) Colitis Pleural effusion Hypomagnesemia (Acute) Acute hyponatremia (Acute) Fatigue (Acute) Acute confusion (Acute) Perinephric hematoma Encephalopathy Hypoxia (Acute) Hyponatremia (Acute) Weakness (Acute) Foot fracture, right Sacroiliac joint pain Contusion Maldonado fracture Atrial fibrillation Right knee DJD Fall Hypokalemia (Acute) New onset atrial fibrillation (Acute) Depression GERD (gastroesophageal reflux disease) (Chronic) Diabetes mellitus, type II Chronic cough (Chronic) Medical History Chronic pulmonary embolism Cardiomyopathy History of DVT (deep vein thrombosis) 20 years ago Surgical History Hx of cataract surgery S/P hernia repair History of cholecystectomy H/O hernia repair Family History Other Cancer Heart disease Social History Smoking Status: Never smoker Hx Alcohol Use: No Hx Substance Use: No Preferred Language: Amharic Communication Ability: Effective Visual Impairment: No Limitations Software Quality Automation Engineer Required: No Beliefs That Will Affect Care: None Current Living Situation: [facility] Current Living Situation Comment: has someone stay with her every day, changes weekly per family current occupational status: retired Other Information That Helps Us Care for You: Yes Feels Safe at Home: Yes Safety Concerns: Feels Safe At This Time Assistive Devices: Hospital Bed and Walker Review of Systems Review of Systems: All systems reviewed & are unremarkable except as noted in HPI & below Physical Exam Physical Exam: General: patient somnolent but arousable, able to answer questions and follow command but pleasantly confused Skin: dry and flaking with areas of excoriation from ongoing itching HEENT: NC/AT, PERRL, EOMI, anicteric sclera, conjunctiva without injection, external ear normal to inspection and nontender, nares patent, slightly dry mucus membranes, dentition intact, no oropharyngeal lesions, neck supple, trachea midline, no LAD, no thyromegaly, no JVD Heart: +S1/S2, irregularly regular, 3/6 TOI at LSB Lungs: equal air entry bilaterally, no rales/rhonchi/wheezes Abd: +BS, soft, NT/ND, no masses/organomegaly/ascites Ext: warm, 2+ pulses in UE/LE bilaterally, no clubbing/cyanosis or edema Neuro: nonfocal, patient answering questions and following commands but is overall confused and somnolent. Possible hallucination in the ER - patient reports that she was eating peanuts Results & Data Results & Data Vital Signs (Past 12 Hours) Vital Signs Temp Pulse Pulse Resp BP BP Pulse Ox 05/27/25 20:00 79 17 94/65 L 95 05/27/25 18:31 85 18 104/69 92 05/27/25 17:35 94 H 18 111/81 93 05/27/25 16:37 36.7 C 103 H 18 103/76 96 O2 Del Method 05/27/25 20:00 Room Air 05/27/25 18:31 Room Air 05/27/25 17:35 Room Air 05/27/25 16:37 Room Air Laboratory Results Laboratory Results WBC 6.37 K/ul (4.8-10.8) 05/27/25 16:45 RBC 3.51 M/uL (4.20-5.40) L 05/27/25 16:45 Hgb 8.5 g/dl (12.0-16.0) L 05/27/25 16:45 Hct 26.3 % (37.0-47.0) L 05/27/25 16:45 MCV 74.9 fL (80.0-100.0) L 05/27/25 16:45 MCH 24.2 pg (25.0-34.0) L 05/27/25 16:45 MCHC 32.3 g/dL (32.0-36.0) 05/27/25 16:45 RDW Std Deviation 45.5 fL (36.4-46.3) 05/27/25 16:45 RDW Coeff of Lesley 16.8 % (11.5-14.5) H 05/27/25 16:45 Plt Count 239 K/uL (130-400) 05/27/25 16:45 MPV 10.3 fL (9.4-12.4) 05/27/25 16:45 Immature Gran % (Auto) 0.8 % 05/27/25 16:45 Neut % (Auto) 83.5 % 05/27/25 16:45 Lymph % (Auto) 10.4 % 05/27/25 16:45 Edgar % (Auto) 5.0 % 05/27/25 16:45 Eos % (Auto) 0.0 % 05/27/25 16:45 Baso % (Auto) 0.3 % 05/27/25 16:45 Neut # (Auto) 5.32 K/uL (1.40-6.50) 05/27/25 16:45 Lymph # (Auto) 0.66 K/uL (1.20-3.40) L 05/27/25 16:45 Edgar # (Auto) 0.32 K/uL (0.11-0.59) 05/27/25 16:45 Eos # (Auto) 0.00 K/uL (0.00-0.50) 05/27/25 16:45 Baso # (Auto) 0.02 K/uL (0.00-0.20) 05/27/25 16:45 Immature Gran # (Auto) 0.05 K/uL (0.01-0.20) 05/27/25 16:45 Absolute Nucleated RBC 0.02 K/uL (0.00-0.12) 05/27/25 16:45 Nucleated RBC % (auto) 0.3 % 05/27/25 16:45 PT 14.0 Seconds (9.0-12.0) H 05/27/25 16:45 INR 1.3 (0.9-1.1) H 05/27/25 16:45 Sodium 125 mmol/L (136-145) L 05/27/25 16:45 Potassium 4.9 mmol/L (3.5-5.1) 05/27/25 16:45 Chloride 95 mmol/L (98-107) L 05/27/25 16:45 Carbon Dioxide 22 mmol/L (21-32) 05/27/25 16:45 Anion Gap 8 (3-11) 05/27/25 16:45 BUN 21 mg/dl (6-23) 05/27/25 16:45 Creatinine 1.22 mg/dl (0.6-1.2) H 05/27/25 16:45 Est Cr Clr Drug Dosing 29.8 ml/min 05/27/25 16:45 eGFR 42.68 05/27/25 16:45 BUN/Creatinine Ratio 17.2 (10-20) 05/27/25 16:45 Glucose 200 mg/dl (70-99(Fasting)) H 05/27/25 16:45 Osmolality 274 mOsm/kg (280-300) L 05/27/25 16:45 Calcium 8.7 mg/dl (8.6-10.3) 05/27/25 16:45 Magnesium 1.3 mg/dl (1.7-2.4) L 05/27/25 16:45 Total Bilirubin 0.5 mg/dl (0.2-1.0) 05/27/25 16:45 AST 24 U/L (13-39) 05/27/25 16:45 ALT 13 U/L (7-52) 05/27/25 16:45 Alkaline Phosphatase 59 U/L (34-104) 05/27/25 16:45 Troponin I High Sens 10.3 pg/ml (0-14) 05/27/25 16:45 Total Protein 6.9 gm/dl (6.0-8.3) 05/27/25 16:45 Albumin 3.5 gm/dl (3.4-5.0) 05/27/25 16:45 Globulin 3.4 gm/dl (2.5-4.0) 05/27/25 16:45 Albumin/Globulin Ratio 1.0 (0.9-2) 05/27/25 16:45 Lipase 19 U/L (11-82) 05/27/25 16:45 TSH 1.609 uIu/ml (0.300-4.500) 05/27/25 16:45 Urine Color Yellow 05/27/25 Unknown Urine Appearance Clear (Clear) 05/27/25 Unknown Urine pH 5.0 (4.5-7.5) 05/27/25 Unknown Ur Specific [place] 1.012 (1.000-1.030) 05/27/25 Unknown Urine Protein Negative (Negative) 05/27/25 Unknown Urine Glucose (UA) Negative (Negative) 05/27/25 Unknown Urine Ketones Negative (Negative) 05/27/25 Unknown Urine Blood Negative (Negative) 05/27/25 Unknown Urine Nitrite Negative (Negative) 05/27/25 Unknown Urine Bilirubin Negative (Negative) 05/27/25 Unknown Urine Urobilinogen Negative (Negative) 05/27/25 Unknown Ur Leukocyte Esterase Negative (Negative) 05/27/25 Unknown Urine Osmolality 226 mOsm/kg (500-800) L 05/28/25 02:25 Urine Comment 05/27/25 Unknown Nasal Screen MRSA (PCR) Positive (Negative) A 05/28/25 01:07 SARS-CoV-2 (PCR) NEGATIVE (Negative) 05/27/25 21:39 Influenza Type A (PCR) Negative (Neg) 05/27/25 21:39 Influenza Type B (PCR) Negative (Neg) 05/27/25 21:39 RSV (RT-PCR) Negative (Neg) 05/27/25 21:[address] 05/27/25 16:39 CT HEAD: HISTORY: Trauma TECHNIQUE: Noncontrast CT examination of the head is performed. Coronal and sagittal reformats were created. COMPARISON: Brain CT October 08, 2024 FINDINGS: Streak and motion degraded examination. Within this constraint: There is no evidence of intracranial hemorrhage, focal mass effect or midline shift. No fluid collection is identified. The ventricular system is midline and symmetric. No evidence of acute major vascular territory infarction. Age-related involutional changes of the brain and chronic white matter ischemic changes. No calvarial fracture is identified. The paranasal sinuses and mastoids are well aerated. IMPRESSION: Streak and motion degraded examination. Within this constraint: No acute intracranial process identified. Electronically signed by Jose Barber 05-27-2025 8:27 PM Abdomen/Pelvis CT 05/27/25 16:40 Exam: CT abdomen/pelvis with IV contrast. Reason for exam: UTI with fall. Previous studies: 10/09/2024. FINDINGS: Moderate right pleural effusion with trace left pleural effusion are now present. Large hiatal hernia is again noted. Areas of atelectasis seen in both lower lobes. Clips from cholecystectomy are evident. Pancreas and spleen are unremarkable. Kidneys show no solid lesion or hydronephrosis. Bilateral renal cysts are stable. Extensive vascular calcification but no significant aneurysm.. Midline upper abdominal ventral hernia is again seen containing portions of the stomach without bowel obstruction. Midline abdominal hernia is also present containing colon without obstruction. Small amount of ascites is now seen. Moderate distention of the urinary bladder is present. No pneumoperitoneum/free air is seen. There is a 2.8 cm low-attenuation left adnexal lesion in the pelvis stable as compared to the previous study. Some increased thickening is seen in the fat surrounding the rectosigmoid colon extending inferiorly to the level of the anus. Stable colitis could be present. Moderate scoliosis convex to the left is present. No definite acute bony trauma is identified on this study. IMPRESSION: 1. Development of significant inflammation in the fat surrounding the rectosigmoid colon not present on the previous study of 10/09/2024. The possibility of stercoral colitis should be considered. Correlation with sigmoidoscopy and/or colonoscopy is recommended. 2. Persistence of multiple hernias of the anterior abdominal wall containing bowel loops without saphenous bowel obstruction at this time. 3. Moderately distended urinary bladder. 4. Moderate right pleural effusion with trace left pleural effusion. 5. Development of a small amount of ascites. Electronically signed by Kel Stewart 05-27-2025 8:[address] 05/27/25 16:40 Exam: CT cervical spine without contrast: Reason for exam: Patient fell on her buttocks with bruising to the right knee. Atrial fibrillation. 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 Extensive degenerative disc and joint disease at the C4-C7 levels with some bony neural foraminal encroachments bilaterally. Slight grade 1 spondylolisthesis C7 on T1 is stable. No acute fracture or destructive bony process is seen. IMPRESSION: 1. Negative for acute bony trauma. 2. Extensive degenerative disc and joint disease, stable in appearance as compared to the study of 10/08/2024. Electronically signed by Kel Stewart 05-27-2025 8:27 PM Chest X-Ray 05/27/25 16:40 EXAM: Radiograph of the Chest 1 View INDICATION: Trauma TECHNIQUE: Frontal view of the chest. COMPARISON: 10/08/2024 FINDINGS: Lungs and pleural spaces: Stable chronic interstitial thickening. No consolidation. No definite pleural effusion. No pneumothorax. Heart: Stable large cardiac shadow. Mediastinum: Hiatal hernia noted. Bones/joints: Degenerative changes noted throughout the spine and both shoulders. No lytic or blastic lesions noted. Soft tissues: No abnormality noted. No radiopaque foreign body noted. Upper abdomen: No abnormality noted. IMPRESSION: No acute change noted. ACT 112: N/A Electronically signed by Shaista Cardona 05-27-2025 7:39 PM Knee X-Ray 05/27/25 16:41 EXAM: Radiographs of the Right Knee 2 Views INDICATION: Trauma TECHNIQUE: Frontal and lateral views of the right knee. COMPARISON: No relevant prior studies available. FINDINGS: Bones/joints: There is mild medial joint space narrowing and patellofemoral spurring. No fracture, erosion or loose body. Smooth articular surfaces. Soft tissues: No abnormality noted. No radiopaque foreign body noted. IMPRESSION: No acute abnormality. Mild primary osteoarthritis as above. ACT 112: N/A Electronically signed by Shaista Cardona 05-27-2025 7:40 PM PG Care Time/CCT Total # of Minutes Spent Total Time Spent with Patient: Total time spent is greater than 50% in coordination of care (as documented) at patient's floor/unit and/or counseling patient: Coding Level of Care Code 21520 INT INP/OBS CARE 3/75MIN Diagnoses Fatigue R53.83 Encephalopathy G93.40 Acute hyponatremia E87.1 Hypomagnesemia E83.42 Pleural effusion J90 Colitis K52.9 Diabetes mellitus, type II E11.9 GERD (gastroesophageal reflux disease) K21.9 Atrial fibrillation I48.91
[2025-05-27 22:36] LABS: Influenza A virus by PCR Negative (Neg); Influenza B virus by PCR Negative (Neg); SARS CoV2 RNA(COVID-19) Ceph NEGATIVE (Negative)
[2025-05-27] MEDS ORDERED: ACETAMINOPHEN 325 MG TAB PO PRN (23:44)
[2025-05-27] MEDS ORDERED: GLUCAGON FOR INJ 1 MG VIAL SQ PRN (23:44)
[2025-05-27] MEDS ORDERED: MAGNESIUM HYDROXIDE SUSP 30 ML UDC PO PRN (23:44)
[2025-05-27] MEDS ORDERED: SOD PHOSPHATE/SOD BIPHOSPHATE ENEMA 132 ML BTL PR PRN (23:44)
[2025-05-27] MEDS ORDERED: GLUCOSE 40% GEL 15 GM TUBE PO PRN (23:44)
[2025-05-27] MEDS ORDERED: GLUCOSE 10 TAB/TUBE PO PRN (23:44)
[2025-05-27] MEDS ORDERED: ALUMINUM/MAGNESIUM/SIMETH (MAALOX MAX) 30 ML UDC PO PRN (23:44)
[2025-05-28] MEDS: LACTATED RINGER'S 1,000 ML IV SCH (00:18)
[2025-05-28] MEDS: MAGNESIUM SULFATE / D5W 1 GM/100 ML BAG IV ONE (00:18)
[2025-05-28] MEDS ORDERED: EUCERIN CR 120 GM JAR EXT PRN (02:44)
[2025-05-28 06:40] LABS: Hematocrit (blood only) 25.7 % (37.0-47.0); Hemoglobin 8.1 g/dl (12.0-16.0); Mean Corpuscular Hemoglobin 24.0 pg (25.0-34.0); Mean Corpuscular Volume 76.0 fL (80.0-100.0); Platelet Count 216 K/uL (130-400); RDW Standard Deviation 47.0 fL (36.4-46.3); Red Blood Count 3.38 M/uL (4.20-5.40); White Blood Count 5.83 K/ul (4.8-10.8)
[2025-05-28 07:09] LABS: Alanine Aminotransferase 11.0 U/L (7-52); Albumin Level 3.6 gm/dl (3.4-5.0); Alkaline Phosphatase 55.0 U/L (34-104); Anion Gap 7.0 (3-11); Bilirubin,Total 0.5 mg/dl (0.2-1.0); Blood Urea Nitrogen 16.0 mg/dl (6-23); Calcium 8.8 mg/dl (8.6-10.3); Carbon Dioxide 25.0 mmol/L (21-32); Chloride 97.0 mmol/L (98-107); Creatinine Clr Calc Pharmacy 35.7 ml/min; Glucose 146.0 mg/dl (70-99(Fasting)); Magnesium 2.1 mg/dl (1.7-2.4); Potassium 4.5 mmol/L (3.5-5.1); Sodium 129.0 mmol/L (136-145); Total Protein 6.7 gm/dl (6.0-8.3)
[2025-05-28] MEDS: INSULIN ASPART PER UNIT CHARGE SC SCH (08:33)
[2025-05-28] MEDS: APIXABAN 5 MG TABLET PO SCH (08:35)
[2025-05-28] MEDS: ESCITALOPRAM OXALATE 10 MG TAB PO SCH (08:35)
[2025-05-28] MEDS: METOPROLOL SUCC 25MG EXT REL TAB PO SCH (08:35)
[2025-05-28] MEDS: ASPIRIN 81 MG ECTAB PO SCH (08:35)
[2025-05-28] MEDS: ATORVASTATIN 10 MG TAB PO SCH (08:35)
[2025-05-28] MEDS: busPIRone 5 MG TAB PO SCH (08:35)
[2025-05-28] MEDS: AZELASTINE HCL 0.1% NASAL 200 SPRAYS/27,400 MCG BTL SCH (08:36)
[2025-05-28] MEDS: SODIUM CHLORIDE 0.9% 500 ML IV ONE (15:35)
--- NOTE | 2025-05-28 15:53 | Hospitalist Progress Note ---
Date of Service May 28, 2025 Assessment & Plan (1) Fatigue: (2) Encephalopathy: (3) Acute hyponatremia: (4) Hypomagnesemia: (5) Pleural effusion: (6) Colitis: (7) Diabetes mellitus, type II: (8) GERD (gastroesophageal reflux disease): (9) Atrial fibrillation: Plan 89yo female with history of atrial fibrillation, prior VTE, DM and underlying dementia presenting with several days of worsening confusion, fatigue and poor oral intake. Recently diagnosed with UTI which was treated with Bactrim. Recently placed on steroids due to itching, possibly from Bactrim. #Encephalopathy/Fatigue - likely multifactorial. Recent course of bactrim. Patient does appear slightly dry on clinical exam. No recent medication changes. TSH WNL. -Gentle IVF in setting of HFrEF -Frequent orientation, delirium prevention strategies -Avoid potential delirium inducing medications Check iron studies - checked in september, but unclear if intervention PT/OT for return to SNF #Hyponatremia - Sodium low at 125. Has been low in the past. Likely multifactorial - patient with decreased oral intake. Bactrim may contribute to hyponatremia as well. Sodium improving to 129, continue IVF with lower BP and poor PO intake will recheck BMP this evening at family request and AM BMP #Hypomagnesemia - Mg=1.3. Likely contributing to fatigue as well -Replaced with 3gm IV and now replete #Pleural effusion / Ascites - noted on CT imaging. Patient does not endorse shortness of breath. Adequate oxygenation on room air. Not on diuretics. Does have a history of valvular heart disease as well as reduced EF per last echo in 2023 (noted in last [facility] note - do not have access to these records, unfortunately). -Repeat echo in AM - may need single dose diuretic after fluids #History of VTE | afib - prior saddle PE -Continue Eliquis 5mg po BID -Continue Metoprolol 12.5mg po BID #Colitis - noted on CT imaging. Patient with no complaints at present. Did have some diarrhea earlier today -Consider GI consultation vs outpatient followup - Significant stool burden on exam - ? overflow diarrhea. PO dulcolax now. Daily senna and miralax #Diabetes -Last EafC7B=70.5 on 12/01/24 -Hold Januvia and Metformin for now -ISS, goal blood sugars 110 - 160 -CC diet as tolerated #GERD -Continue Pepcid #Hyperlipidemia-Continue Atorvastatin #Mental Health -Continue Buspar and Lexapro Dispo: continued inpatient stay for encephalopathy workup DVT proh: Oleksandr Admission and Anticipated Discharge Date Admission Date: May 27, 2025 Subjective Patient seen this morning, daughter present at bedside. Patient sleeping but would awaken to verbal stimuli but quickly falls back asleep. When awake denies pain Daughter reports she has notbeen hereself - at baseline has dementia but can carry on a conversation, [facility]. Since about thursday has just been more fatigued. Recently completed bactri for A UTI very sleepy - daughter also reports sometimes "conducting music with her arms" while she is sleeping reportively diarrhea has resovled Review of Systems Review of Systems: All systems reviewed & are unremarkable except as noted in Subjective Physical Exam Physical Exam: General: NAD, VS as above, very drowsy Resp: normal respiratory effort, lungs clear to auscultation CV: RRR, no murmur, Abd: normal bowel sounds, non tender, soft Extremities: Moves all extremities, no LE edema Neuro: able to follow commands Skin: intact, no lesions noted Results & Data Results & Data Vital Signs (Past 12 Hours) Vital Signs Temp Pulse Resp BP Pulse Ox O2 Del Method 05/28/25 15:23 97.4 F L 78 20 97/64 L 96 Room Air 05/28/25 07:35 95.9 F L 79 20 102/68 95 Room Air 05/28/25 07:30 Room Air Laboratory Results cbc and chemistry reviewed PG Care Time/CCT Total # of Minutes Spent Total Time Spent with Patient: Total time spent is greater than 50% in coordination of care (as documented) at patient's floor/unit and/or counseling patient: Coding Level of Care Code 44985 SUB INP/OBS CARE 3/50MIN Diagnoses Fatigue R53.83 Encephalopathy G93.40 Acute hyponatremia E87.1 Hypomagnesemia E83.42 Pleural effusion J90 Colitis K52.9 Diabetes mellitus, type II E11.9 GERD (gastroesophageal reflux disease) K21.9 Atrial fibrillation I48.91
[2025-05-28] MEDS: SODIUM CHLORIDE 0.9% 1,000 ML IV SCH (16:11)
[2025-05-28 17:14] LABS: Base Excess VBG -3.9 mEq/L; HCO3 VBG 22 mmol/L; Oxygen Saturation VBG 66.9 %; PCO2 VBG 43 mmHg (38-50); PO2 VBG 43 mmHg; pH VBG 7.32 (7.36-7.41)
[2025-05-28 17:37] LABS: Anion Gap 7.0 (3-11); Blood Urea Nitrogen 14.0 mg/dl (6-23); Calcium 8.3 mg/dl (8.6-10.3); Carbon Dioxide 23.0 mmol/L (21-32); Chloride 99.0 mmol/L (98-107); Creatinine Clr Calc Pharmacy 40.0 ml/min; Glucose 130.0 mg/dl (70-99(Fasting)); Potassium 4.2 mmol/L (3.5-5.1); Sodium 129.0 mmol/L (136-145)
[2025-05-28] MEDS: POLYETHYLENE (MIRALAX) 17 GM PACK PO SCH (17:48)
[2025-05-28] MEDS: DOCUSATE SODIUM/SENNA 50/8.6MG TAB PO SCH (17:48)
[2025-05-28] MEDS: FAMOTIDINE 20 MG TAB PO SCH (21:54)
[2025-05-29] MEDS: guaiFENesin 600 MG TABCR PO PRN (08:43)
[2025-05-29 09:28] LABS: Anion Gap 5 (3-11); Blood Urea Nitrogen 15 mg/dl (6-23); Calcium 8.4 mg/dl (8.6-10.3); Carbon Dioxide 26 mmol/L (21-32); Chloride 99 mmol/L (98-107); Creatinine Clr Calc Pharmacy 40.0 ml/min; Glucose 126 mg/dl (70-99(Fasting)); Iron < 10 mcg/dl (35-150); Potassium 4.3 mmol/L (3.5-5.1); Sodium 130 mmol/L (136-145); Total Iron Binding Cap Calc 316 mcg/dl (250-450); Transferrin 226 mg/dl (200-360)
[2025-05-29 09:46] LABS: Ferritin 10.2 ng/ml (8-388)
[2025-05-29] MEDS: IRON SUCROSE 300 MG in SODIUM CHLORIDE 0.9% 250 ML IV ONE (10:46)
--- NOTE | 2025-05-29 12:20 | Hospitalist Progress Note ---
"Date of Service May 29, 2025 Assessment & Plan (1) Fatigue: (2) Encephalopathy: (3) Hypoxia: (4) Acute hyponatremia: (5) Hypomagnesemia: (6) Pleural effusion: (7) Colitis: (8) Diabetes mellitus, type II: (9) GERD (gastroesophageal reflux disease): (10) Atrial fibrillation: Plan 89yo female with history of atrial fibrillation, prior VTE, DM and underlying dementia presenting with several days of worsening confusion, fatigue and poor oral intake. Recently diagnosed with UTI which was treated with Bactrim. Recently placed on steroids due to itching, possibly from Bactrim. #Metabolic encephalopathy/Fatigue - likely multifactorial. Recent course of bactrim. Patient does appear slightly dry on clinical exam - given IVFs. No recent medication changes. TSH WNL. Concern for concussion but known fall/headstrike. -Frequent orientation, delirium prevention strategies Iron studies - with [facility], family reports on Fe PO supplementation, give venofer mentation/fatigue improving - if worsening concerning Brain MRI PT/OT for return to SNF #intermittent hypoxia - family and nursing reported episodes on 05/28 where pt lips breifly turn blue while sleeping. Placed on continuous pulse ox, has some dips to 70s, but recovers quickly. VBG okay. No snoring noted. Concern for central sleep apnea Per nursing was unwilling to wear nasal cannula last night, however more alert today so maybe more agreeable Overnight pulse ox #Hyponatremia - Acute on chronic with baseline ~133. Sodium low at 125. Has been low in the past. Likely multifactorial - patient with decreased oral intake. Bactrim may contribute to hyponatremia as well. Sodium improving to 130, appetite is improving AM BMP #Hypomagnesemia - Mg=1.3. Likely contributing to fatigue as well -Replaced with 3gm IV and now replete #Pleural effusion / Ascites - noted on CT imaging. Patient does not endorse shortness of breath. Adequate oxygenation on room air. Not on diuretics. Does have a history of valvular heart disease as well as reduced EF per last echo in 2023 (noted in last [facility] note - do not have access to these records, unfortunately). -Repeat echo in AM #History of VTE | afib - prior saddle PE -Continue Eliquis 5mg po BID -Continue Metoprolol 12.5mg po BID #Colitis - noted on CT imaging. Patient with no complaints at present. Did have some diarrhea earlier today, suspect overflow diarrhea - Significant stool burden on exam - bowel regimen started, large BM AM 05/29 #Diabetes -Last HocL1C=55.5 on 12/01/24 -Hold Januvia and Metformin for now -family reports issues with diarrhea at baseline, recommend changing to ER metoformin at discharge SSI - elevated post prandial, CF 30--> 20 #GERD -Continue Pepcid #Hyperlipidemia-Continue Atorvastatin #Mental Health -Continue Buspar and Lexapro Dispo: continued inpatient stay for encephalopathy workup DVT proh: Eliquis Admission and Anticipated Discharge Date Admission Date: May 27, 2025 Supervising Physician Co-Signing Physician Notes Attending Attestation - Chart reviewed, care plan d/w MADDI Sotelo. I agree with the parekh components of her documentation. Anil Bloom MD Subjective patient seen sitting up in bed, awake and alert. Family is present at bedside she is much improved from yesterday. Had a large bowel movement this morning. No pain. Patient does not remember the episodes of blue lips and not breathing last night. we discussed the possibility of a brain MRI, however given her improvement we will hold off for now and family is agreeable. IV iron and patient is starting Review of Systems Review of Systems: All systems reviewed & are unremarkable except as noted in Subjective Physical Exam Physical Exam: General: NAD, VS as above, much more alert today Resp: normal respiratory effort, lungs clear to auscultation CV: RRR, no murmur, Abd: normal bowel sounds, non tender, soft Extremities: Moves all extremities, no LE edema Neuro: able to follow commands, alert to self Skin: intact, no lesions noted Results & Data Results & Data Vital Signs (Past 12 Hours) Vital Signs Temp Pulse Resp BP BP Pulse Ox O2 Del Method 05/29/25 11:21 73 16 107/68 98 Room Air 05/29/25 10:44 73 18 103/70 98 Room Air 05/29/25 08:05 97.5 F L 75 18 103/70 99 Room Air 05/29/25 08:00 Room Air Laboratory Results CBC and chemistry reviewed Iron studies reviewed PG Care Time/CCT Total # of Minutes Spent Total Time Spent with Patient: Total time spent is greater than 50% in coordination of care (as documented) at patient's floor/unit and/or counseling patient: Coding Level of Care Code 77590 SUB INP/OBS CARE 350MIN Diagnoses Fatigue R53.83 Encephalopathy G93.40 Hypoxia R09.02 Acute hyponatremia E87.1 Hypomagnesemia E83.42 Pleural effusion J90 Colitis K52.9 Diabetes mellitus, type II E11.9 GERD (gastroesophageal reflux disease) K21.9 Atrial fibrillation I48.91"
[2025-05-29] MEDS: CARBOHYDRATES FOR HYPOGLYCEMIA PO PRN (20:29)
[2025-05-29] MEDS: DEXTROSE 50% 50 ML SYRINGE IV PRN (20:55)
--- NOTE | 2025-05-29 23:47 | XCELERA ---
[id number]
[2025-05-30 08:32] LABS: Hematocrit (blood only) 29.9 % (37.0-47.0); Hemoglobin 9.3 g/dl (12.0-16.0); Mean Corpuscular Hemoglobin 23.7 pg (25.0-34.0); Mean Corpuscular Volume 76.3 fL (80.0-100.0); Platelet Count 226 K/uL (130-400); RDW Standard Deviation 47.2 fL (36.4-46.3); Red Blood Count 3.92 M/uL (4.20-5.40); White Blood Count 6.11 K/ul (4.8-10.8)
[2025-05-30 08:52] LABS: Anion Gap 8.0 (3-11); Blood Urea Nitrogen 11.0 mg/dl (6-23); Calcium 8.7 mg/dl (8.6-10.3); Carbon Dioxide 25.0 mmol/L (21-32); Chloride 101.0 mmol/L (98-107); Creatinine Clr Calc Pharmacy 47.9 ml/min; Glucose 100.0 mg/dl (70-99(Fasting)); Potassium 3.7 mmol/L (3.5-5.1); Sodium 134.0 mmol/L (136-145)
--- NOTE | 2025-05-30 10:25 | Electrocardiogram Report ---
Test Reason : Blood Pressure : */* mmHG Vent. Rate : 95 BPM Atrial Rate : * BPM P-R Int : * ms QRS Dur : 148 ms QT Int : 408 ms P-R-T Axes : * -67 67 degrees QTcB Int : 512 ms Atrial fibrillation with premature ventricular or aberrantly conducted complexes Right bundle branch block Left anterior fascicular block Bifascicular block Abnormal ECG When compared with ECG of 08-Oct-2024 20:18, No significant change was found Confirmed by Yohannes Reid ([id number] on 05/30/2025 10:25:20 AM Referred By: REFERRED SELF Confirmed By: Yohannes Reid
[2025-05-30] MEDS: IRON SUCROSE 300 MG in SODIUM CHLORIDE 0.9% 250 ML IV ONE (11:22)
--- NOTE | 2025-05-30 12:36 | Hospitalist Progress Note ---
"Date of Service May 30, 2025 Assessment & Plan (1) Fatigue: (2) Encephalopathy: (3) Hypoxia: (4) Acute hyponatremia: (5) Hypomagnesemia: (6) Pleural effusion: (7) Colitis: (8) Diabetes mellitus, type II: (9) GERD (gastroesophageal reflux disease): (10) Atrial fibrillation: Plan 89yo female with history of atrial fibrillation, prior VTE, DM and underlying dementia presenting with several days of worsening confusion, fatigue and poor oral intake. Recently diagnosed with UTI which was treated with Bactrim. Recently placed on steroids due to itching, possibly from Bactrim. #Metabolic encephalopathy/Fatigue - likely multifactorial. Recent course of bactrim. Patient does appear slightly dry on clinical exam - given IVFs. No recent medication changes. TSH WNL. Concern for concussion but known fall/headstrike. -Frequent orientation, delirium prevention strategies Iron studies - with [facility], family reports on Fe PO supplementation, give venofer, second dose 05/30 mentation/fatigue improving - if worsening concerning Brain MRI Suspect overnight hypoxia also contributing PT/OT for return to SNF #intermittent hypoxia - family and nursing reported episodes on 05/28 where pt lips breifly turn blue while sleeping. Placed on continuous pulse ox, has some dips to 70s, but recovers quickly. VBG okay. No snoring noted. Concern for central sleep apnea - recommend outpatient sleep study Overnight pulse ox with multiple desaturations, 2L nasal cannula HS ordered #Hyponatremia - Acute on chronic with baseline ~133. Sodium low at 125. Has been low in the past. Likely multifactorial - patient with decreased oral intake. Bactrim may contribute to hyponatremia as well. Sodium improving to 135, appetite is improving #Hypomagnesemia - Mg=1.3. Likely contributing to fatigue as well -Replaced with 3gm IV and now replete #Pleural effusion / Ascites - noted on CT imaging. Patient does not endorse shortness of breath. Adequate oxygenation on room air. Not on diuretics. Echo with EF 35-40, reports improved LV and RV function from previous. #History of VTE | afib - prior saddle PE -Continue Eliquis 5mg po BID -Continue Metoprolol 12.5mg po BID #Colitis - noted on CT imaging. Patient with no complaints at present. Did have some diarrhea earlier today, suspect overflow diarrhea - Significant stool burden on exam - bowel regimen started, large BM AM 05/29 #Diabetes -Last CatR9M=03.5 on 12/01/24 -Hold Januvia and Metformin for now -family reports issues with diarrhea at baseline, recommend changing to ER metoformin at discharge SSI - elevated post prandial, CF 30--> 20 #GERD -Continue Pepcid #Hyperlipidemia-Continue Atorvastatin #Mental Health -Continue Buspar and Lexapro Dispo: continued inpatient stay, Daughter requesting 1 additional day before return to [facility], plan for discharge tomorrow DVT proh: Oleksandr daughter updated at bedside 05/30 Admission and Anticipated Discharge Date Admission Date: May 27, 2025 Supervising Physician Co-Signing Physician Notes Attending Attestation - Chart reviewed, care plan d/w MADDI Sotelo. I agree with the parekh components of her documentation. Noted that patient continues with fatigue. Imaging with volume overload, and ?abnormality in recto-sigmoid region. EF 35-40% on echo this admission --> would give diuresis. Recto-sigmoid abnormality on CT --> consider GI consultation. Anil Bloom MD Subjective Sitting up in the chair - fatigue still present but continues to improve joaquín offers no acute complaints Daughter is concerned that she is not ready to go back to [facility] because she is still tired Review of Systems Review of Systems: All systems reviewed & are unremarkable except as noted in Subjective Physical Exam Physical Exam: General: NAD, VS as above, much more alert today Resp: normal respiratory effort, CV:well perfused Extremities: Moves all extremities, no LE edema, nontender to palpation Neuro: able to follow commands, alert to self Results & Data Results & Data Vital Signs (Past 12 Hours) Vital Signs Temp Pulse Pulse Resp BP BP Pulse Ox 05/30/25 12:00 92 H 18 107/76 94 05/30/25 11:30 92 H 16 101/68 94 05/30/25 09:00 05/30/25 07:57 97.2 F L 90 14 110/75 96 05/30/25 01:48 72 Pulse Ox O2 Del Method O2 Del Method 05/30/25 12:00 Room Air 05/30/25 11:30 Room Air 05/30/25 09:00 Room Air 05/30/25 07:57 Room Air 05/30/25 01:48 97 Room Air Laboratory Results cbc and chemistry reviewed PG Care Time/CCT Total # of Minutes Spent Total Time Spent with Patient: Total time spent is greater than 50% in coordination of care (as documented) at patient's floor/unit and/or counseling patient: Coding Level of Care Code 17893 SUB INP/OBS CARE 2/35MIN Diagnoses Fatigue R53.83 Encephalopathy G93.40 Hypoxia R09.02 Acute hyponatremia E87.1 Hypomagnesemia E83.42 Pleural effusion J90 Colitis K52.9 Diabetes mellitus, type II E11.9 GERD (gastroesophageal reflux disease) K21.9 Atrial fibrillation I48.91"
[2025-05-31] MEDS: ONDANSETRON INJ 2 MG/ML 2 ML VIAL IV PRN (10:11)
--- NOTE | 2025-05-31 10:48 | XRay Report ---
XR chest 1V portable HISTORY: 89 years-old Female SOB acute shortness of breath COMPARISON: 05/27/2025 TECHNIQUE: AP view of the chest FINDINGS: Cardiac silhouette is enlarged. Pulmonary vascular congestion with interstitial coarsening, progresse d from prior. Small pleural effusions with bibasilar densities again noted. Hiatal hernia redemonstra lisa. Degenerative changes of the shoulders and spine. IMPRESSION: 1. Cardiomegaly with pulmonary edema, worsened from 05/27/2025. 2. Small pleural effusions with bibasilar opacities favoring atelectasis. 3. Hiatal hernia. ACT 112: Negative or not required by law. The above report was generated using voice recognition software. It may contain grammatical, syntax o r spelling errors. Electronically signed by: Van Berman M.D. 05/31/2025 10:47 AM
[2025-05-31 12:27] LABS: Chlamydia pneumoniae PCR Not Detected (NotDetected); Coronavirus 229E PCR Not Detected (NotDetected); Coronavirus CoV-2 (COVID19)PCR Not Detected (NotDetected); Coronavirus HKU1 PCR Not Detected (NotDetected); Coronavirus NL63 PCR Not Detected (NotDetected); Coronavirus OC43PCR Not Detected (NotDetected); Human Metapneumovirus PCR Not Detected (NotDetected); Parainfluenza Virus 1 PCR Not Detected (NotDetected); Parainfluenza Virus 2 PCR Not Detected (NotDetected); Parainfluenza Virus 3 PCR Not Detected (NotDetected); Parainfluenza Virus 4 PCR Not Detected (NotDetected); Respiratory Syncytial VirusPCR Not Detected (NotDetected); Rhinovirus/Enterovirus PCR Not Detected (NotDetected)
[2025-05-31] MEDS: FUROSEMIDE INJ 20 MG/2 ML VIAL IV ONE (13:44)
[2025-05-31 14:50] LABS: Appearance Urine Turbid (Clear); Bacteria Urine Automated 4+ (None Seen); Cast Urine Automated 0-2 /lpf (0-2); Epithelial Cell Urine Auto 0-2 /hpf (0-2); Glucose Urine UA Negative (Negative); RBC Urine Automated 0-2 /hpf (0-2); WBC Urine Automated >50 /hpf (0-5)
[2025-05-31] MEDS ORDERED: cefTRIAXone SODIUM 2,000 MG/50 ML BAG IV SCH (15:30)
--- NOTE | 2025-05-31 16:28 | Hospitalist Progress Note ---
"Date of Service May 31, 2025 Assessment & Plan (1) Fatigue: (2) Encephalopathy: (3) Hypoxia: (4) Acute hyponatremia: (5) Hypomagnesemia: (6) Pleural effusion: (7) Colitis: (8) Diabetes mellitus, type II: (9) GERD (gastroesophageal reflux disease): (10) Atrial fibrillation: Plan 89yo female with history of atrial fibrillation, prior VTE, DM and underlying dementia presenting with several days of worsening confusion, fatigue and poor oral intake. Recently diagnosed with UTI which was treated with Bactrim. Recently placed on steroids due to itching, possibly from Bactrim. #Metabolic encephalopathy/Fatigue - likely multifactorial. Recent course of bactrim. Patient does appear slightly dry on clinical exam - given IVFs. No recent medication changes. TSH WNL. Concern for concussion but known fall/headstrike. -Frequent orientation, delirium prevention strategies Iron studies - with [facility], family reports on Fe PO supplementation, give venofer, second dose 05/30 Suspect overnight hypoxia also contributing PT/OT for return to SNF 05/31 with peristent fatigue and dry heaving/coughing this morning. CXR with pulm edema, bio fire negative. Given lasix 20mg IV x 1. Still fatigue UA concerning for repeat UTI and ancef ordered. Check AM labs #intermittent hypoxia - family and nursing reported episodes on 05/28 where pt lips breifly turn blue while sleeping. Placed on continuous pulse ox, has some dips to 70s, but recovers quickly. VBG okay. No snoring noted. Concern for central sleep apnea - recommend outpatient sleep study Overnight pulse ox with multiple desaturations, 2L nasal cannula HS ordered #Hyponatremia - Acute on chronic with baseline ~133. Sodium low at 125. Has been low in the past. Likely multifactorial - patient with decreased oral intake. Bactrim may contribute to hyponatremia as well. Sodium improving to 135, appetite is improving #Hypomagnesemia - Mg=1.3. Likely contributing to fatigue as well -Replaced with 3gm IV and now replete #Pleural effusion / Ascites - noted on CT imaging. Patient does not endorse shortness of breath. Adequate oxygenation on room air. Not on diuretics. Echo with EF 35-40, reports improved LV and RV function from previous. Lasix 20mg IV x1 with increased O2 needs and worsening pulm edema. #History of VTE | afib - prior saddle PE -Continue Eliquis 5mg po BID -Continue Metoprolol 12.5mg po BID #Colitis - noted on CT imaging - inflammation in the fat surrounding the rectosigmid colon. Patient with no complaints at present. - Significant stool burden on exam - bowel regimen started, large BM AM 05/29 Consider OP GI follow up #Diabetes -Last JtuV2C=11.5 on 12/01/24 -Hold Januvia and Metformin for now -family reports issues with diarrhea at baseline, recommend changing to ER metoformin at discharge SSI - had episode of hypoglecmia and parameters loosened #GERD -Continue Pepcid #Hyperlipidemia-Continue Atorvastatin #Mental Health -Continue Buspar and Lexapro Dispo: continued inpatient stay, hopefully will improve with diuresis and antibiotics DVT proh: Oleksandr daughter updated at bedside 05/30 Admission and Anticipated Discharge Date Admission Date: May 27, 2025 Supervising Physician Co-Signing Physician Notes I did not see or examine the patient. I independently reviewed the labs, imaging, problem list, medication list, past medical history, notes. I verified all parekh points and agree with Elaine Sotelo PA-C with the following exceptions and/or additions: Clinically worsening with hypoxia and increased fatigue. Appears to be in heart failure +/-UTI. GDMT recommended due to LVEF<40%. Cardiomyopathy is not new though so will have to dig in to why she is not on this already. Already on appropriate BB. No ACEi/ARB/Entresto, SGLT-2 inhibitor (in setting of UTI will avoid starting this) or MRA. Will have to consider starting these in the coming days unless previous intolerant. Subjective patient seen this morning and was having some difficulty reporting she was not feeling well. She did not eat breakfast and it was unclear if she was trying to cough sneeze or vomit. She eventually did not vomit. Revisited later this afternoon after chest x-ray showed pulmonary edema and BioFire was negative and given Lasix. At this time patient was seen ambulating back from the bathroom and family confirms that the Lasix is working. Family reports that she is much more drowsy than her baseline. Physical Exam Physical Exam: General: NAD, VS as above, lying in bed Resp: normal respiratory effort, diminished in bases CV:well perfused, afib 90s Extremities: Moves all extremities, no LE edema, nontender to palpation Neuro: able to follow commands, alert to self Results & Data Results & Data Vital Signs (Past 12 Hours) Vital Signs Temp Pulse Pulse Resp BP BP Pulse Ox 05/31/25 14:59 97.7 F 93 H 18 95/58 L 94 05/31/25 07:30 05/31/25 07:07 97.2 F L 102 H 18 105/63 91 O2 Del Method O2 Flow Rate 05/31/25 14:59 Nasal Cannula 2 05/31/25 07:30 Nasal Cannula 2 05/31/25 07:07 Nasal Cannula 2 Laboratory Results ua reviewed biofire reviewed Diagnostic Findings cxr reviewed PG Care Time/CCT Total # of Minutes Spent Total Time Spent with Patient: Total time spent is greater than 50% in coordination of care (as documented) at patient's floor/unit and/or counseling patient: Coding Level of Care Code 29246 SUB INP/OBS CARE 3/50MIN Diagnoses Fatigue R53.83 Encephalopathy G93.40 Hypoxia R09.02 Acute hyponatremia E87.1 Hypomagnesemia E83.42 Pleural effusion J90 Colitis K52.9 Diabetes mellitus, type II E11.9 GERD (gastroesophageal reflux disease) K21.9 Atrial fibrillation I48.91"
[2025-05-31] MEDS ORDERED: Nursing to Pharmacy Communication SCH (19:45)
[2025-06-01 06:35] LABS: Base Excess VBG 7.7 mEq/L; HCO3 VBG 33 mmol/L; Oxygen Saturation VBG 97.3 %; PCO2 VBG 46 mmHg (38-50); PO2 VBG 76 mmHg; pH VBG 7.46 (7.36-7.41)
[2025-06-01 06:41] LABS: Hematocrit (blood only) 27.4 % (37.0-47.0); Hemoglobin 8.7 g/dL (12.0-16.0); Mean Corpuscular Hemoglobin 24.2 pg (25.0-34.0); Mean Corpuscular Volume 76.1 fL (80.0-100.0); Platelet Count 252 K/uL (130-400); RDW Standard Deviation 46.4 fL (36.4-46.3); Red Blood Count 3.60 M/uL (4.20-5.40); White Blood Count 8.83 K/ul (4.8-10.8)
[2025-06-01 06:57] LABS: Anion Gap 7.0 (3-11); Blood Urea Nitrogen 10.0 mg/dl (6-23); Calcium 8.5 mg/dl (8.6-10.3); Carbon Dioxide 31.0 mmol/L (21-32); Chloride 98.0 mmol/L (98-107); Creatinine Clr Calc Pharmacy 37.9 ml/min; Glucose 119.0 mg/dl (70-99(Fasting)); Magnesium 1.3 mg/dl (1.7-2.4); Potassium 3.7 mmol/L (3.5-5.1); Sodium 136.0 mmol/L (136-145)
[2025-06-01] MEDS: MAGNESIUM SULFATE / D5W 1 GM/100 ML BAG IV SCH (08:32)
[2025-06-01 09:13] LABS: Hemoglobin A1C 8.4 % (4.5-5.6)
--- NOTE | 2025-06-01 10:47 | Hospitalist Progress Note ---
"Date of Service June 01, 2025 Assessment & Plan (1) Fatigue: (2) Encephalopathy: (3) UTI (urinary tract infection): (4) Acute HFrEF (heart failure with reduced ejection fraction): (5) Hypoxia: (6) Acute hyponatremia: (7) Hypomagnesemia: (8) Pleural effusion: (9) Colitis: (10) Diabetes mellitus, type II: Plan 89yo female with history of atrial fibrillation, prior VTE, DM and underlying dementia presenting with several days of worsening confusion, fatigue and poor oral intake. Recently diagnosed with UTI which was treated with Bactrim. Recently placed on steroids due to itching, possibly from Bactrim. #Metabolic encephalopathy/Fatigue - likely multifactorial. Recent course of bactrim. No recent medication changes. TSH WNL. Iron studies - with [facility], family reports on Fe PO supplementation, given venofer x 2 Suspect overnight hypoxia and UTI also contributing PT/OT for return to SNF #UTI - UA infectious 05/31, UC with Enterobacter Start PO cipro awaiting sensitives Family does not want Bactrim on discharge. #Acute HFrEF | afib - Follows with [facility] cardiology - reviewed last OV 11/2023 - was ordered daily lasix at that time but held for hypotension. Echo with EF 35-40, reports improved LV and RV function (prior EF 15-20). 05/31 CXR with worsening pulm edema, required supplemental O2 while awake. Lasix 20mg IV given with excellent response. Coarse lungs sounds today, no longer requiring supplemental O2 - 10mg IV lasix ordered Increase metoprolol to 25mg daily with HR 90-100s - will have to monitor BPs with increase add further GDMT as BP allows AM BMP and Mag #intermittent hypoxia - family and nursing reported episodes on 05/28 where pt lips breifly turn blue while sleeping. Placed on continuous pulse ox, has some dips to 70s, but recovers quickly. VBG okay. No snoring noted. Concern for central sleep apnea - recommend outpatient sleep study Overnight pulse ox with multiple desaturations, 2L nasal cannula HS ordered #Hyponatremia - Acute on chronic with baseline ~133. Sodium low at 125. Has been low in the past. Likely multifactorial - patient with decreased oral intake. Bactrim may contribute to hyponatremia as well. This has resolved #Hypomagnesemia - Likely contributing to fatigue as well Mag 1.3 today, replaced IV Will initiate PO mag to start 06/02 #History of VTE - prior saddle PE -Continue Eliquis 5mg po BID #Colitis - noted on CT imaging - inflammation in the fat surrounding the rectosigmid colon. Patient with no complaints at present. - Significant stool burden on exam - bowel regimen started, large BM AM 05/29 Consider OP GI follow up #Diabetes A1c 8.4 (daughter reports elevations with off DM meds for a month) -Hold Januvia and Metformin for now -family reports issues with diarrhea at baseline, recommend changing to ER metoformin at discharge SSI - had episode of hypoglecmia and parameters loosened #GERD -Continue Pepcid #Hyperlipidemia-Continue Atorvastatin #Mental Health -Continue Buspar and Lexapro Dispo: continued inpatient stay, continues to improve with diuresis and antibiotics, possible dc tomorrow pending UC sensitivities DVT proh: Oleksandr daughter updated at bedside 05/30 & 05/31 Admission and Anticipated Discharge Date Admission Date: May 27, 2025 Supervising Physician Co-Signing Physician Notes I did not see or examine the patient. I verified all parekh points and agree with Elaine Sotelo PA-C with the following exceptions and/or additions: None Subjective Patient seen sitting up in bed, more awake today denies abdominal pain Review of Systems Review of Systems: All systems reviewed & are unremarkable except as noted in Subjective Physical Exam Physical Exam: General: NAD, VS as above, sitting up in bed Resp: normal respiratory effort, coarse in bases, 93% on room air CV:well perfused, afib 90s Extremities: Moves all extremities, no LE edema, nontender to palpation Neuro: able to follow commands, alert to self Results & Data Results & Data Vital Signs (Past 12 Hours) Vital Signs Temp Pulse Resp BP BP Pulse Ox O2 Del Method 06/01/25 08:17 98 H 118/73 06/01/25 07:06 97.7 F 93 H 17 129/73 95 Nasal Cannula 05/31/25 23:07 97.5 F L 93 H 18 100/65 97 Nasal Cannula O2 Flow Rate 06/01/25 08:17 06/01/25 07:06 3 05/31/25 23:07 2 Laboratory Results cbc, chemistry and mag reviewed a1c reviewed PG Care Time/CCT Total # of Minutes Spent Total Time Spent with Patient: Total time spent is greater than 50% in coordination of care (as documented) at patient's floor/unit and/or counseling patient: Coding Level of Care Code 38230 SUB INP/OBS CARE 3/50MIN Diagnoses Fatigue R53.83 Encephalopathy G93.40 UTI (urinary tract infection) N39.0 Acute HFrEF (heart failure with reduced ejection fraction) I50.21 Hypoxia R09.02 Acute hyponatremia E87.1 Hypomagnesemia E83.42 Pleural effusion J90 Colitis K52.9 Diabetes mellitus, type II E11.9"
[2025-06-01] MEDS: METOPROLOL SUCC 50MG EXT REL TAB PO STA (11:27)
[2025-06-01] MEDS: FUROSEMIDE INJ 20 MG/2 ML VIAL IV ONE (11:29)
[2025-06-01] MEDS: CIPROFLOXACIN 500 MG TAB PO SCH (11:53)
[2025-06-01 23:17] VITALS: O2SAT 98
[2025-06-02 07:52] VITALS: PULSE 83; RESP 14; TEMP 97.3
[2025-06-02 08:10] LABS: Hematocrit (blood only) 28.0 % (37.0-47.0); Hemoglobin 8.6 g/dL (12.0-16.0); Mean Corpuscular Hemoglobin 23.8 pg (25.0-34.0); Mean Corpuscular Volume 77.6 fL (80.0-100.0); Platelet Count 249 K/uL (130-400); RDW Standard Deviation 47.5 fL (36.4-46.3); Red Blood Count 3.61 M/uL (4.20-5.40); White Blood Count 6.03 K/ul (4.8-10.8)
[2025-06-02 08:28] LABS: Anion Gap 5.0 (3-11); Blood Urea Nitrogen 9.0 mg/dl (6-23); Calcium 8.8 mg/dl (8.6-10.3); Carbon Dioxide 33.0 mmol/L (21-32); Chloride 95.0 mmol/L (98-107); Creatinine Clr Calc Pharmacy 39.6 ml/min; Glucose 150.0 mg/dl (70-99(Fasting)); Magnesium 1.8 mg/dl (1.7-2.4); Potassium 3.8 mmol/L (3.5-5.1); Sodium 133.0 mmol/L (136-145)
[2025-06-02 08:47] VITALS: BP 99/66
[2025-06-02] MEDS: METOPROLOL SUCC 25MG EXT REL TAB PO SCH (08:47)
--- NOTE | 2025-06-02 10:03 | Electrocardiogram Report ---
Test Reason : Blood Pressure : */* mmHG Vent. Rate : 84 BPM Atrial Rate : * BPM P-R Int : * ms QRS Dur : 156 ms QT Int : 426 ms P-R-T Axes : * -70 66 degrees QTcB Int : 503 ms Atrial fibrillation with premature ventricular or aberrantly conducted complexes Right bundle branch block Left anterior fascicular block Bifascicular block Abnormal ECG When compared with ECG of 27-May-2025 16:47, Nonspecific T wave abnormality now evident in Inferior leads Confirmed by Yohannes Reid ([id number]) on 06/02/2025 10:02:39 AM Referred By: REFERRED SELF Confirmed By: Yohannes Reid
--- NOTE | 2025-06-02 12:40 | Discharge Summary ---
"Discharge Summary Date of Service June 02, 2025 Principal Dx & Hospital Course #1 = Principal Diagnosis (1) Fatigue: (2) Encephalopathy: (3) UTI (urinary tract infection): (4) Acute HFrEF (heart failure with reduced ejection fraction): (5) Hypoxia: (6) Acute hyponatremia: (7) Hypomagnesemia: (8) Pleural effusion: (9) Colitis: (10) Diabetes mellitus, type II: Plan 89yo female with history of atrial fibrillation, prior VTE, DM and underlying dementia presenting with several days of worsening confusion, fatigue and poor oral intake. Recently diagnosed with UTI which was treated with Bactrim. Recently placed on steroids due to itching, possibly from Bactrim. #Metabolic encephalopathy/Fatigue - likely multifactorial. Recent course of bactrim. No recent medication changes. TSH WNL. Iron studies - with [facility], family reports on Fe PO supplementation, given venofer x 2 Suspect overnight hypoxia and UTI also contributing PT/OT for return to SNF #UTI - UA infectious 05/31, UC with Enterobacter Start PO cipro awaiting sensitives Family does not want Bactrim on discharge. #Acute HFrEF | afib - Follows with [facility] cardiology - reviewed last OV 11/2023 - was ordered daily lasix at that time but held for hypotension. Echo with EF 35-40, reports improved LV and RV function (prior EF 15-20). 05/31 CXR with worsening pulm edema, required supplemental O2 while awake. Lasix 20mg IV given with excellent response. Coarse lungs sounds today, no longer requiring supplemental O2 - 10mg IV lasix ordered Increase metoprolol to 25mg daily with HR 90-100s - will have to monitor BPs with increase add further GDMT as BP allows AM BMP and Mag #intermittent hypoxia - family and nursing reported episodes on 05/28 where pt lips breifly turn blue while sleeping. Placed on continuous pulse ox, has some dips to 70s, but recovers quickly. VBG okay. No snoring noted. Concern for central sleep apnea - recommend outpatient sleep study Overnight pulse ox with multiple desaturations, 2L nasal cannula HS ordered #Hyponatremia - Acute on chronic with baseline ~133. Sodium low at 125. Has been low in the past. Likely multifactorial - patient with decreased oral intake. Bactrim may contribute to hyponatremia as well. This has resolved #Hypomagnesemia - Likely contributing to fatigue as well Mag 1.3 today, replaced IV Will initiate PO mag to start 06/02 #History of VTE - prior saddle PE -Continue Eliquis 5mg po BID #Colitis - noted on CT imaging - inflammation in the fat surrounding the rectosigmid colon. Patient with no complaints at present. - Significant stool burden on exam - bowel regimen started, large BM AM 05/29 Consider OP GI follow up #Diabetes A1c 8.4 (daughter reports elevations with off DM meds for a month) -Hold Januvia and Metformin for now -family reports issues with diarrhea at baseline, recommend changing to ER metoformin at discharge SSI - had episode of hypoglecmia and parameters loosened #GERD -Continue Pepcid #Hyperlipidemia-Continue Atorvastatin #Mental Health -Continue Buspar and Lexapro Patient seen and examined this morning alongside her daughters and son-in-law. She is up and alert, conversing. Patient is anxious for discharge. She is medically stable to return to [facility]. She will need O2 at HS. She will need to complete course of ciprofloxacin 500mg BID which the Enterobacter in her urine is sensitive to. her Metoprolol Succ has been increased to 25mg daily. New rx sent. And rx for magox 400mg BID has been set also. She will need to f/u with pcp at [facility]. Family has declined cardiology follow up at time for discharge. Plan d/w Dr. Salazar. All questions posed by family were answered and are in agreement with plan. Notes For Next Care Provider 1. She needs 2L of O2 overnight due to nocturnal hypoxia 2. She will need to complete course of Ciprofloxacin 500mg BID x 6 days for enterobacter UTI 3. She was diuresed in the hospital for a/c HFrEF. Her Metoprolol Succ has been increased to 25mg daily. 4. She has been started on Mag Ox 400mg BID due to hypomagnesemia. 5. Metformin changed from short acting to ER 1000mg daily and Januvia has been stopped. Family declined cardiology follow up. Admission HPI Per Admitting Provider Cheryl Deepali is a pleasant 89yo female with history of AF on Eliquis anticoagulation, prior VTE saddle PE, HTN, valvular heart disease (severe TR and mild MR, EF of 39% per echo in 2023), HLP, DM presenting from [facility] with confusion. She was recently found to have a UTI and completed a course of B actrim. She developed a rash at the end of her antibiotic course with severe itching therefore was prescribed a short 5 day course of Prednisone. On 05/24 patient began to develop severe fatigue and confusion as well as decreased oral intake. Her daughter is at bedside and reports that patient has been very sleepy and not very interactive. Also with concern for delirium. On 05/25 she did fall and land on her backside. She denies any pain from this event. Patient denies chest pain, cough, SOB. No abdominal pain. Daughter does endorse an episode of diarrhea earlier today. Otherwise no complaints. In the ER initially with mildly low blood pressure 94/65, otherwise afebrile, adequate oxygenation on room air ER Course: NSS at 125mL/hr Magnesium sulfate x 3gm LR at 80mL/hr Discharge Exam GENERAL: 89 yo elderly frail WF. Awake, alert. No distress. LUNGS: Clear to auscultation bilaterally. No accessory muscle use. No W/R/R. CARDIOVASCULAR: S1 S2 ABDOMEN: Soft, non-tender and non-distended. Bowel sounds normoactive x 4 quad. EXTREMITIES: No edema. Non-tender. Peripheral pulses +2/4. NEUROLOGIC: No focal neurological deficits. CN II-XII grossly intact. PSYCHIATRIC: Cooperative. Appropriate mood and affect. SKIN: Warm, dry, intact. No rashes or lesions. Discharge Plan Discharge Items Patient Disposition: Transfer Custodial Fac Reason For Visit: CONFUSION Discharge Diagnosis: Urinary tract infection Congestive heart failure Condition on Discharge: Fair Activity: Resume your previous activity Non-emergency contact: Primary Care Provider Call non-emergency contact if: you have any medication questions and your symptoms worsen Follow-up/Referrals: [facility] [Primary Care Provider] - Diet: Carb Consistent or DM2, Heart Healthy and Low Sodium (2gm) Fluids: 1800ml (7 cups) Addtl Attending Provider Instructions: You were hospitalized due to confusion which was felt to be related to multiple underlying problems including recent antibiotic use of Bactrim, in addition to overnight drops in oxygen levels, and acute urinary tract infection. Urine studies revealed growth of Enterobacter bacteria which is sensitive to the ciprofloxacin which has been prescribed. She will need 6 more days of Ciprofloxacin 500mg twice a day. She will need to complete the course of this antibiotic. She was also found to have acute on chronic heart failure with evidence of pulmonary edema/fluid congestion. She was given Lasix to help remove this excess fluid and has responded well. She did have a slight drop in blood pressure overnight but rebounded quickly and patient was without symptoms. This was likely due to the additional dose of Lasix given. She had an overnight pulse oximetry study performed which noted that her oxygen drops overnight. She will need to stay on 2L of supplemental oxygen via nasal cannula overnight while sleeping. Family has declined cardiology follow up at time of discharge. Patient will follow up with Dr. Akhtar at [facility] and should be seen ideally within 24- 72 hours of her return. Her Metoprolol Succinate has been increased from 12.5mg daily to 25mg daily. She has also had her Metformin changed to 1000mg extended release which should be taken once daily. Lastly, she has been started on Magnesium oxide 400mg twice a day. Medication should be resumed as outlined below. In the event of a medical emergency, call 911 or send directly to the ER for evaluation. Pending Studies at Discharge: No Stand-Alone Forms: My [facility]cit (ML4D), Smoking Cessation Skilled Items Patient informed of condition?: Yes DNR: Yes Discharge Level of Care: Skilled Communicable Disease: No Discharge Prognosis: Stable Lines: None Urinary Catheter: No Medications and DC Order Prescriptions: New ciprofloxacin HCl 500 mg Tablet 500 mg PO BID Qty: 13 0RF metoprolol succinate 25 mg Tablet Extended Release 24 Hr 25 mg PO DAILY Qty: 60 0RF magnesium oxide 400 mg magnesium tablet 400 mg PO BID Qty: 60 0RF metformin 1,000 mg tablet,ER marilou.retention 24 hr 1,000 mg PO DAILY Qty: 30 0RF (DME) Oxygen Home Liters Per Minute See Rx Instructions .Route Qty: 1 0RF Rx Instructions: 2L NC at HS Continued atorvastatin 10 mg tablet 10 mg PO DAILY cyanocobalamin (vitamin B-12) [Vitamin B-12] 1,000 mcg Tablet 1,000 mcg PO DAILY omeprazole 40 mg capsule,delayed release(DR/EC) 40 mg PO DAILY aspirin 81 mg Tablet,Chewable 81 mg PO DAILY pregabalin 100 mg capsule 100 mg PO BID Hold Instructions: Resume on 10/14/24. Eliquis 5 mg Tablet 5 mg PO BID Qty: 180 0RF ferrous sulfate 325 mg (65 mg iron) tablet 325 mg PO QAM azelastine 137 mcg (0.1 %) spray,non-aerosol 137 mcg intranasal BID triamcinolone acetonide 0.1 % Cream 1 applic EXT DAILY PRN (Reason: itching) Qty: 80 0RF escitalopram oxalate [Lexapro] 20 mg Tablet 10 mg PO DAILY Qty: 0 0RF acetaminophen 325 mg Tablet 650 mg PO Q6H MDD DO NOT EXCEED 3 G PER 24 HOURS PRN (Reason: Pain) cetirizine 5 mg Tablet 5 mg PO QAM ondansetron HCl 4 mg tablet 4 mg PO Q8H PRN (Reason: Nausea And Vomiting) famotidine 20 mg Tablet 20 mg PO HS magnesium hydroxide [Milk of Magnesia] 400 mg/5 mL Suspension 30 ml PO DIRECTED PRN (Reason: Constipation) Rx Instructions: AFTER NO BM FOR THREE DAYS ADMINISTER MOM ON 73 SHIFT bisacodyl 10 mg Suppository 10 mg ND DAILY PRN (Reason: Constipation) buspirone 10 mg tablet 10 mg PO BID promethazine 25 mg/mL solution 25 mg IM Q6H PRN (Reason: Nausea And Vomiting) Fleet Enema 19-7 gram/118 mL Enema 118 ml ND DIRECTED PRN (Reason: Constipation) Rx Instructions: IF NO BM AFTER DULCOLAX ADMINISTER FLEETS ON 73 SHIFT DAY FOUR alum-mag hydroxide-simeth [Maalox Maximum Strength] 400-400-40 mg/5 mL Suspension 30 ml PO Q6H PRN (Reason: Dyspepsia) guaifenesin [Mucinex] 600 mg tablet extended release 12hr 600 mg PO Q12 PRN (Reason: COUGH/CONGESTION) Discontinued metformin 500 mg tablet extended release 24 hr 1,000 mg PO BID Hold Instructions: Resume on 10/17/24. Januvia 100 mg tablet 100 mg PO DAILY Hold Instructions: Resume on 10/16/24. metoprolol succinate 25 mg tablet extended release 24 hr 12.5 mg PO DAILY acetaminophen 325 mg Tablet 650 mg PO Q6H PRN (Reason: Fever) Rx Instructions: TEMP GREATER THAN 100 NOT TO EXCEED 3 GRAMS PER 24 HOURS prednisone 20 mg tablet 20 mg PO DAILY Rx Instructions: FOR 5 DAYS (LAST DOSE 05/30/25) Discharge Orders: Discharge Order (Routine); Ordered 06/02/25 Ordered By: Kindra Ball/Other Patient Handouts: Managing Type 2 Diabetes Admission Data Admit Date/Time: 05/27/25 22:10 Attending Provider: Anil Salazar. Admit Provider: Zoë Guardado Primary Care Provider: [facility] Other Providers: Zoë Guardado; [facility] Stay Data Consultations 05/27/25 21:02 ED Decision to Admit Stat Diagnostic Imagining Performed 05/27/25 16:39 CT head/brain wo con Stat 05/27/25 16:40 CT abd pelvis IV con only Stat CT cervical spine wo con Stat Pending Results Patient Have Any Pending Studies at Discharge: No Discharge Instructions Given to Patient (Per Discharging Provider) You were hospitalized due to confusion which was felt to be related to multiple underlying problems including recent antibiotic use of Bactrim, in addition to overnight drops in oxygen levels, and acute urinary tract infection. Urine studies revealed growth of Enterobacter bacteria which is sensitive to the ciprofloxacin which has been prescribed. She will need 6 more days of Ciprofloxacin 500mg twice a day. She will need to complete the course of this antibiotic. She was also found to have acute on chronic heart failure with evidence of pulmonary edema/fluid congestion. She was given Lasix to help remove this excess fluid and has responded well. She did have a slight drop in blood pressure overnight but rebounded quickly and patient was without symptoms. This was likely due to the additional dose of Lasix given. She had an overnight pulse oximetry study performed which noted that her oxygen drops overnight. She will need to stay on 2L of supplemental oxygen via nasal cannula overnight while sleeping. Family has declined cardiology follow up at time of discharge. Patient will follow up with Dr. Akhtar at [facility] and should be seen ideally within 24- 72 hours of her return. Her Metoprolol Succinate has been increased from 12.5mg daily to 25mg daily. She has also had her Metformin changed to 1000mg extended release which should be taken once daily. Lastly, she has been started on Magnesium oxide 400mg twice a day. Medication should be resumed as outlined below. In the event of a medical emergency, call 911 or send directly to the ER for evaluation. Total Time Total Time Spent Total Time Spent (In Minutes): 40 minutes Coding Level of Care Code 91236 INP/OBS DISCH >30 MIN Diagnoses Fatigue R53.83 Encephalopathy G93.40 UTI (urinary tract infection) N39.0 Acute HFrEF (heart failure with reduced ejection fraction) I50.21 Hypoxia R09.02 Acute hyponatremia E87.1 Hypomagnesemia E83.42 Pleural effusion J90 Colitis K52.9 Diabetes mellitus, type II E11.9"
== END 2025-06-02 13:15 | DRG 640 ==
LOC: ED 16:24 → SUATTDRO 22:10 → 3N 22:10